=== PATIENT | male | born 1955 | race Hispanic/Latino ===

== ENCOUNTER 2023-02-26 15:46 | Emergency (ER) | payer MEDICARE ==
--- OUTSIDE RECORDS SUMMARY | 2023-02-26 15:53 | XMS REPORT | Continuity of Care Document ---
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 Total knee 1{tbl} Take 1 Ndiaye -acetaminop 1-13 replacement tablet by [facility] [employer] [employer] ([place]og[place]) 00:00: status mouth 7.5-325 mg 00 every 6 tablet hours as needed for Pain. HYDROcodone Yes Total knee 1{tbl} Take 1 Ndiaye -acetaminop 1-13 replacement tablet by [facility] ([facility]) 00:00: status mouth 7.5-325 mg 00 every 6 tablet hours as needed for Pain. HYDROcodone Yes Left knee 2{tbl} Take 2 Ndiaye -acetaminop 1-07 pain tablets by [facility] (SILVERTHORNE) 00:00: mouth 5-325 mg 00 every 6 tablet hours as needed for Pain. HYDROcodone Yes Left knee 2{tbl} Take 2 Ndiaye -acetaminop 1-07 pain tablets by [facility] (SILVERTHORNE) 00:00: mouth 5-325 mg 00 every 6 tablet hours as needed for Pain. HYDROcodone 2012-10 Yes Left knee 1{tbl} Take 1 Ndiaye -acetaminop 2-23 pain tablet by [facility] (SILVERTHORNE) 00:00: mouth 10-325 mg 00 every 6 tablet hours as needed for Pain. HYDROcodone 2012-10 Yes Left knee 1{tbl} Take 1 Ndiaye -acetaminop 2-23 pain tablet by [facility] (SILVERTHORNE) 00:00: mouth 10-325 mg 00 every 6 tablet hours as needed for Pain. omeprazole 2011-10 Yes GERD 20mg QD Take 1 Harri s (PRILOSEC) 1-12 (gastroesop capsule by [facility] 20 mg 00:00: hageal mouth delayed 00 reflux daily. release disease) capsule omeprazole 2011-10 Yes GERD 20mg QD Take 1 [facility] (PRILOSEC) 1-12 (gastroesop capsule by [facility] 20 mg 00:00: hageal mouth delayed 00 reflux daily. release disease) capsule tamsulosin Yes BPH (benign .4mg QD Take 1 Ndiaye (FLOMAX) 6-05 prostatic capsule by [facility] 0.4 mg 24 00:00: hyperplasia mouth hr capsule 00 ) daily. finasteride Yes BPH (benign 5mg QD Take 1 Ndiaye (PROSCAR) 5 6-05 prostatic tablet by [facility] mg tablet 00:00: hyperplasia mouth 00 ) daily. tamsulosin Yes BPH (benign .4mg QD Take 1 Ndiaye (FLOMAX) 6-05 prostatic capsule by [facility] 0.4 mg 24 00:00: hyperplasia mouth hr capsule 00 ) daily. finasteride Yes BPH (benign 5mg QD Take 1 Ndiaye (PROSCAR) 5 6-05 prostatic tablet by [facility] mg tablet 00:00: hyperplasia mouth 00 ) daily. niacin, Yes Hypertrigly 1000mg Take 1 Ndiaye antihyperli 2-28 ceridemia tablet by [facility] pidemic, 00:00: mouth at (NIASPAN) 00 bedtime. 1,000 mg delayes release tablet fexofenadin Yes Nasal 180mg QD Take 1 [facility]ris e (CLAUDE) 2-28 septal tablet by [facility] 180 mg 00:00: deviation mouth tablet 00 daily. niacin, Yes Hypertrigly 1000mg Take 1 Ndiaye antihyperli 2-28 ceridemia tablet by [facility], 00:00: mouth at (NIASPAN) 00 bedtime. 1,000 mg delayes release tablet fexofenadin Yes Nasal 180mg QD Take 1 [facility]ris e (CLAUDE) 2-28 septal tablet by [facility] 180 mg 00:00: deviation mouth tablet 00 daily. fluticasone 2010-10 Yes Nasal 2{spray QD Administer Ndiaye (FLONASE) 2-12 septal } 2 Sprays Heal 00:00: deviation in each mcg/Actuati 00 nostrils on nasal daily. spray fluticasone 2010-10 Yes Nasal 2{spray QD Administer Ndiaye (FLONASE) 2-12 septal } 2 Sprays Heal 00:00: deviation in each mcg/Actuati 00 nostrils on nasal daily. spray hydrOXYzine hydrOXYzine No hydrOXYzin HCl 50 MG HCl 50 MG e HCl 50 MG VESIcare 10 VESIcare 10 No 1{table QD VESIcare MG MG t} 10 MG Fenofibrate Fenofibrate No 1{capsu QD Fenofibrat 200 MG 200 MG le_with e 200 MG _a_meal } Atorvastati Atorvastati No 1{table QD Atorvastat n Calcium n Calcium t} in Calcium 10 MG 10 MG 10 MG metFORMIN metFORMIN No metFORMIN HCl 500 MG HCl 500 MG HCl 500 MG metFORMIN metFORMIN No 1{table QD metFORMIN HCl 500 MG HCl 500 MG t_with_ HCl 500 MG a_meal} Carvedilol Carvedilol No 1{table BID Carvedilol 3.125 MG 3.125 MG t_with_ 3.125 MG food} Aspirin 81 Aspirin 81 No 1{table QD Aspirin 81 81 MG 81 MG t} 81 MG metFORMIN metFORMIN No metFORMIN HCl 500 MG HCl 500 MG HCl 500 MG Atorvastati Atorvastati No 1{table QD Atorvastat n Calcium n Calcium t} in Calcium 10 MG 10 MG 10 MG Aspirin 81 Aspirin 81 No 1{table QD Aspirin 81 81 MG 81 MG t} 81 MG Diclofenac Diclofenac No TID Diclofenac Sodium 1 % Sodium 1 % Sodium 1 % Carvedilol Carvedilol No 1{table BID Carvedilol 3.125 MG 3.125 MG t_with_ 3.125 MG food} metFORMIN metFORMIN No 1{table QD metFORMIN HCl 500 MG HCl 500 MG t_with_ HCl 500 MG a_meal} Fenofibrate Fenofibrate No 1{capsu QD Fenofibrat 200 MG 200 MG le_with e 200 MG _a_meal } metFORMIN metFORMIN No metFORMIN HCl 500 MG HCl 500 MG HCl 500 MG Fenofibrate Fenofibrate No 1{capsu QD Fenofibrat 200 MG 200 MG le_with e 200 MG _a_meal } Aspirin 81 Aspirin 81 No 1{table QD Aspirin 81 81 MG 81 MG t} 81 MG Atorvastati Atorvastati No 1{table QD Atorvastat n Calcium n Calcium t} in Calcium 10 MG 10 MG 10 MG Carvedilol Carvedilol No 1{table BID Carvedilol 3.125 MG 3.125 MG t_with_ 3.125 MG food} metFORMIN metFORMIN No 1{table QD metFORMIN HCl 500 MG HCl 500 MG t_with_ HCl 500 MG a_meal} Diclofenac Diclofenac No TID Diclofenac Sodium 1 % Sodium 1 % Sodium 1 % metFORMIN metFORMIN No metFORMIN HCl 500 MG HCl 500 MG HCl 500 MG Fenofibrate Fenofibrate No 1{capsu QD Fenofibrat 200 MG 200 MG le_with e 200 MG _a_meal } Aspirin 81 Aspirin 81 No 1{table QD Aspirin 81 81 MG 81 MG t} 81 MG Atorvastati Atorvastati No 1{table QD Atorvastat n Calcium n Calcium t} in Calcium 10 MG 10 MG 10 MG Carvedilol Carvedilol No 1{table BID Carvedilol 3.125 MG 3.125 MG t_with_ 3.125 MG food} metFORMIN metFORMIN No 1{table QD metFORMIN HCl 500 MG HCl 500 MG t_with_ HCl 500 MG a_meal} Diclofenac Diclofenac No TID Diclofenac Sodium 1 % Sodium 1 % Sodium 1 % metFORMIN metFORMIN No metFORMIN HCl 500 MG HCl 500 MG HCl 500 MG Fenofibrate Fenofibrate No 1{capsu QD Fenofibrat 200 MG 200 MG le_with e 200 MG _a_meal } Aspirin 81 Aspirin 81 No 1{table QD Aspirin 81 81 MG 81 MG t} 81 MG Atorvastati Atorvastati No 1{table QD Atorvastat n Calcium n Calcium t} in Calcium 10 MG 10 MG 10 MG Carvedilol Carvedilol No 1{table BID Carvedilol 3.125 MG 3.125 MG t_with_ 3.125 MG food} metFORMIN metFORMIN No 1{table QD metFORMIN HCl 500 MG HCl 500 MG t_with_ HCl 500 MG a_meal} Diclofenac Diclofenac No TID Diclofenac Sodium 1 % Sodium 1 % Sodium 1 % metFORMIN metFORMIN No metFORMIN HCl 500 MG HCl 500 MG HCl 500 MG Carvedilol Carvedilol No 1{table BID Carvedilol 3.125 MG 3.125 MG t_with_ 3.125 MG food} Aspirin 81 Aspirin 81 No 1{table QD Aspirin 81 81 MG 81 MG t} 81 MG hydrOXYzine hydrOXYzine No hydrOXYzin HCl 25 MG HCl 25 MG e HCl 25 MG Fenofibrate Fenofibrate No 1{capsu QD Fenofibrat 200 MG 200 MG le_with e 200 MG _a_meal } Diclofenac Diclofenac No TID Diclofenac Sodium 1 % Sodium 1 % Sodium 1 % metFORMIN metFORMIN No 1{table QD metFORMIN HCl 500 MG HCl 500 MG t_with_ HCl 500 MG a_meal} Atorvastati Atorvastati No 1{table QD Atorvastat n Calcium n Calcium t} in Calcium 10 MG 10 MG 10 MG metFORMIN metFORMIN No metFORMIN HCl 500 MG HCl 500 MG HCl 500 MG Carvedilol Carvedilol No 1{table BID Carvedilol 3.125 MG 3.125 MG t_with_ 3.125 MG food} Aspirin 81 Aspirin 81 No 1{table QD Aspirin 81 81 MG 81 MG t} 81 MG hydrOXYzine hydrOXYzine No hydrOXYzin HCl 25 MG HCl 25 MG e HCl 25 MG Fenofibrate Fenofibrate No 1{capsu QD Fenofibrat 200 MG 200 MG le_with e 200 MG _a_meal } Diclofenac Diclofenac No TID Diclofenac Sodium 1 % Sodium 1 % Sodium 1 % metFORMIN metFORMIN No 1{table QD metFORMIN HCl 500 MG HCl 500 MG t_with_ HCl 500 MG a_meal} Atorvastati Atorvastati No 1{table QD Atorvastat n Calcium n Calcium t} in Calcium 10 MG 10 MG 10 MG metFORMIN metFORMIN No metFORMIN HCl 500 MG HCl 500 MG HCl 500 MG Carvedilol Carvedilol No 1{table BID Carvedilol 3.125 MG 3.125 MG t_with_ 3.125 MG food} Aspirin 81 Aspirin 81 No 1{table QD Aspirin 81 81 MG 81 MG t} 81 MG hydrOXYzine hydrOXYzine No hydrOXYzin HCl 25 MG HCl 25 MG e HCl 25 MG Fenofibrate Fenofibrate No 1{capsu QD Fenofibrat 200 MG 200 MG le_with e 200 MG _a_meal } Diclofenac Diclofenac No TID Diclofenac Sodium 1 % Sodium 1 % Sodium 1 % metFORMIN metFORMIN No 1{table QD metFORMIN HCl 500 MG HCl 500 MG t_with_ HCl 500 MG a_meal} Atorvastati Atorvastati No 1{table QD Atorvastat n Calcium n Calcium t} in Calcium 10 MG 10 MG 10 MG hydrOXYzine hydrOXYzine No hydrOXYzin HCl 50 MG HCl 50 MG e HCl 50 MG Diclofenac Diclofenac No TID Diclofenac Sodium 1 % Sodium 1 % Sodium 1 % metFORMIN metFORMIN No 1{table QD metFORMIN HCl 500 MG HCl 500 MG t_with_ HCl 500 MG a_meal} Carvedilol Carvedilol No 1{table BID Carvedilol 3.125 MG 3.125 MG t_with_ 3.125 MG food} Atorvastati Atorvastati No 1{table QD Atorvastat n Calcium n Calcium t} in Calcium 10 MG 10 MG 10 MG Fenofibrate Fenofibrate No 1{capsu QD Fenofibrat 200 MG 200 MG le_with e 200 MG _a_meal } Aspirin 81 Aspirin 81 No 1{table QD Aspirin 81 81 MG 81 MG t} 81 MG hydrOXYzine hydrOXYzine No hydrOXYzin HCl 25 MG HCl 25 MG e HCl 25 MG metFORMIN metFORMIN No metFORMIN HCl 500 MG HCl 500 MG HCl 500 MG hydrOXYzine hydrOXYzine No hydrOXYzin HCl 50 MG HCl 50 MG e HCl 50 MG Diclofenac Diclofenac No TID Diclofenac Sodium 1 % Sodium 1 % Sodium 1 % metFORMIN metFORMIN No 1{table QD metFORMIN HCl 500 MG HCl 500 MG t_with_ HCl 500 MG a_meal} Carvedilol Carvedilol No 1{table BID Carvedilol 3.125 MG 3.125 MG t_with_ 3.125 MG food} Atorvastati Atorvastati No 1{table QD Atorvastat n Calcium n Calcium t} in Calcium 10 MG 10 MG 10 MG Fenofibrate Fenofibrate No 1{capsu QD Fenofibrat 200 MG 200 MG le_with e 200 MG _a_meal } Aspirin 81 Aspirin 81 No 1{table QD Aspirin 81 81 MG 81 MG t} 81 MG hydrOXYzine hydrOXYzine No hydrOXYzin HCl 25 MG HCl 25 MG e HCl 25 MG metFORMIN metFORMIN No metFORMIN HCl 500 MG HCl 500 MG HCl 500 MG Aspirin 81 Aspirin 81 No 1{table QD Aspirin 81 81 MG 81 MG t} 81 MG metFORMIN metFORMIN No 1{table QD metFORMIN HCl 500 MG HCl 500 MG t_with_ HCl 500 MG a_meal} Fenofibrate Fenofibrate No 1{capsu QD Fenofibrat 200 MG 200 MG le_with e 200 MG _a_meal } hydrOXYzine hydrOXYzine No hydrOXYzin HCl 50 MG HCl 50 MG e HCl 50 MG Diclofenac Diclofenac No TID Diclofenac Sodium 1 % Sodium 1 % Sodium 1 % Carvedilol Carvedilol No 1{table BID Carvedilol 3.125 MG 3.125 MG t_with_ 3.125 MG food} hydrOXYzine hydrOXYzine No hydrOXYzin HCl 25 MG HCl 25 MG e HCl 25 MG Atorvastati Atorvastati No 1{table QD Atorvastat n Calcium n Calcium t} in Calcium 10 MG 10 MG 10 MG metFORMIN metFORMIN No metFORMIN HCl 500 MG HCl 500 MG HCl 500 MG Aspirin 81 Aspirin 81 No 1{table QD Aspirin 81 81 MG 81 MG t} 81 MG Carvedilol Carvedilol No 1{table BID Carvedilol 3.125 MG 3.125 MG t_with_ 3.125 MG food} Fenofibrate Fenofibrate No 1{capsu QD Fenofibrat 200 MG 200 MG le_with e 200 MG _a_meal } metFORMIN metFORMIN No 1{table QD metFORMIN HCl 500 MG HCl 500 MG t_with_ HCl 500 MG a_meal} hydrOXYzine hydrOXYzine No hydrOXYzin HCl 50 MG HCl 50 MG e HCl 50 MG Diclofenac Diclofenac No TID Diclofenac Sodium 1 % Sodium 1 % Sodium 1 % hydrOXYzine hydrOXYzine No hydrOXYzin HCl 25 MG HCl 25 MG e HCl 25 MG Atorvastati Atorvastati No 1{table QD Atorvastat n Calcium n Calcium t} in Calcium 10 MG 10 MG 10 MG metFORMIN metFORMIN No metFORMIN HCl 500 MG HCl 500 MG HCl 500 MG hydrOXYzine hydrOXYzine No hydrOXYzin HCl 25 MG HCl 25 MG e HCl 25 MG Atorvastati Atorvastati No 1{table QD Atorvastat n Calcium n Calcium t} in Calcium 10 MG 10 MG 10 MG Fenofibrate Fenofibrate No 1{capsu QD Fenofibrat 200 MG 200 MG le_with e 200 MG _a_meal } hydrOXYzine hydrOXYzine No hydrOXYzin HCl 50 MG HCl 50 MG e HCl 50 MG metFORMIN metFORMIN No 1{table QD metFORMIN HCl 500 MG HCl 500 MG t_with_ HCl 500 MG a_meal} metFORMIN metFORMIN No metFORMIN HCl 500 MG HCl 500 MG HCl 500 MG Aspirin 81 Aspirin 81 No 1{table QD Aspirin 81 81 MG 81 MG t} 81 MG Diclofenac Diclofenac No TID Diclofenac Sodium 1 % Sodium 1 % Sodium 1 % Carvedilol Carvedilol No 1{table BID Carvedilol 3.125 MG 3.125 MG t_with_ 3.125 MG food} Fenofibrate Fenofibrate No 1{capsu QD Fenofibrat 200 MG 200 MG le_with e 200 MG _a_meal } hydrOXYzine hydrOXYzine No hydrOXYzin HCl 50 MG HCl 50 MG e HCl 50 MG Diclofenac Diclofenac No TID Diclofenac Sodium 1 % Sodium 1 % Sodium 1 % Fenofibrate Fenofibrate No Fenofibrat Micronized Micronized e 200 MG 200 MG Micronized 200 MG Atorvastati Atorvastati No 1{table QD Atorvastat n Calcium n Calcium t} in Calcium 10 MG 10 MG 10 MG Carvedilol Carvedilol No Carvedilol 3.125 MG 3.125 MG 3.125 MG Carvedilol Carvedilol No 1{table BID Carvedilol 3.125 MG 3.125 MG t_with_ 3.125 MG food} metFORMIN metFORMIN No 1{table QD metFORMIN HCl 500 MG HCl 500 MG t_with_ HCl 500 MG a_meal} Aspirin 81 Aspirin 81 No 1{table QD Aspirin 81 81 MG 81 MG t} 81 MG Fenofibrate Fenofibrate No Fenofibrat Micronized Micronized e 200 MG 200 MG Micronized 200 MG Carvedilol Carvedilol No 1{table BID Carvedilol 3.125 MG 3.125 MG t_with_ 3.125 MG food} metFORMIN metFORMIN No 1{table QD metFORMIN HCl 500 MG HCl 500 MG t_with_ HCl 500 MG a_meal} Aspirin 81 Aspirin 81 No 1{table QD Aspirin 81 81 MG 81 MG t} 81 MG Atorvastati Atorvastati No 1{table QD Atorvastat n Calcium n Calcium t} in Calcium 10 MG 10 MG 10 MG Fenofibrate Fenofibrate No 1{capsu QD Fenofibrat 200 MG 200 MG le_with e 200 MG _a_meal } Carvedilol Carvedilol No Carvedilol 3.125 MG 3.125 MG 3.125 MG Diclofenac Diclofenac No TID Diclofenac Sodium 1 % Sodium 1 % Sodium 1 % hydrOXYzine hydrOXYzine No hydrOXYzin HCl 50 MG HCl 50 MG e HCl 50 MG Fenofibrate Fenofibrate No Fenofibrat Micronized Micronized e 200 MG 200 MG Micronized 200 MG Fenofibrate Fenofibrate No 1{capsu QD Fenofibrat 200 MG 200 MG le_with e 200 MG _a_meal } Carvedilol Carvedilol No 1{table BID Carvedilol 3.125 MG 3.125 MG t_with_ 3.125 MG food} Aspirin 81 Aspirin 81 No 1{table QD Aspirin 81 81 MG 81 MG t} 81 MG Atorvastati Atorvastati No 1{table QD Atorvastat n Calcium n Calcium t} in Calcium 10 MG 10 MG 10 MG hydrOXYzine hydrOXYzine No hydrOXYzin HCl 50 MG HCl 50 MG e HCl 50 MG Diclofenac Diclofenac No TID Diclofenac Sodium 1 % Sodium 1 % Sodium 1 % Carvedilol Carvedilol No Carvedilol 3.125 MG 3.125 MG 3.125 MG metFORMIN metFORMIN No metFORMIN HCl 500 MG HCl 500 MG HCl 500 MG Fenofibrate Fenofibrate No Fenofibrat Micronized Micronized e 200 MG 200 MG Micronized 200 MG Fenofibrate Fenofibrate No 1{capsu QD Fenofibrat 200 MG 200 MG le_with e 200 MG _a_meal } Carvedilol Carvedilol No 1{table BID Carvedilol 3.125 MG 3.125 MG t_with_ 3.125 MG food} Aspirin 81 Aspirin 81 No 1{table QD Aspirin 81 81 MG 81 MG t} 81 MG Atorvastati Atorvastati No 1{table QD Atorvastat n Calcium n Calcium t} in Calcium 10 MG 10 MG 10 MG hydrOXYzine hydrOXYzine No hydrOXYzin HCl 50 MG HCl 50 MG e HCl 50 MG Diclofenac Diclofenac No TID Diclofenac Sodium 1 % Sodium 1 % Sodium 1 % Carvedilol Carvedilol No Carvedilol 3.125 MG 3.125 MG 3.125 MG metFORMIN metFORMIN No metFORMIN HCl 500 MG HCl 500 MG HCl 500 MG Atorvastati Atorvastati No 1{table QD Atorvastat n Calcium n Calcium t} in Calcium 10 MG 10 MG 10 MG hydrOXYzine hydrOXYzine No hydrOXYzin HCl 50 MG HCl 50 MG e HCl 50 MG Aspirin 81 Aspirin 81 No 1{table QD Aspirin 81 81 MG 81 MG t} 81 MG Carvedilol Carvedilol No Carvedilol 3.125 MG 3.125 MG 3.125 MG Diclofenac Diclofenac No TID Diclofenac Sodium 1 % Sodium 1 % Sodium 1 % metFORMIN metFORMIN No metFORMIN HCl 500 MG HCl 500 MG HCl 500 MG Carvedilol Carvedilol No 1{table BID Carvedilol 3.125 MG 3.125 MG t_with_ 3.125 MG food} Fenofibrate Fenofibrate No Fenofibrat Micronized Micronized e 200 MG 200 MG Micronized 200 MG Fenofibrate Fenofibrate No 1{capsu QD Fenofibrat 200 MG 200 MG le_with e 200 MG _a_meal } hydrOXYzine hydrOXYzine No hydrOXYzin HCl 50 MG HCl 50 MG e HCl 50 MG VESIcare 10 VESIcare 10 No 1{table QD VESIcare MG MG t} 10 MG Fenofibrate Fenofibrate No 1{capsu QD Fenofibrat 200 MG 200 MG le_with e 200 MG _a_meal } Atorvastati Atorvastati No 1{table QD Atorvastat n Calcium n Calcium t} in Calcium 10 MG 10 MG 10 MG metFORMIN metFORMIN No metFORMIN HCl 500 MG HCl 500 MG HCl 500 MG metFORMIN metFORMIN No 1{table QD metFORMIN HCl 500 MG HCl 500 MG t_with_ HCl 500 MG a_meal} Carvedilol Carvedilol No 1{table BID Carvedilol 3.125 MG 3.125 MG t_with_ 3.125 MG food} Aspirin 81 Aspirin 81 No 1{table QD Aspirin 81 81 MG 81 MG t} 81 MG hydrOXYzine hydrOXYzine No hydrOXYzin HCl 50 MG HCl 50 MG e HCl 50 MG VESIcare 10 VESIcare 10 No 1{table QD VESIcare MG MG t} 10 MG Fenofibrate Fenofibrate No 1{capsu QD Fenofibrat 200 MG 200 MG le_with e 200 MG _a_meal } Atorvastati Atorvastati No 1{table QD Atorvastat n Calcium n Calcium t} in Calcium 10 MG 10 MG 10 MG metFORMIN metFORMIN No metFORMIN HCl 500 MG HCl 500 MG HCl 500 MG metFORMIN metFORMIN No 1{table QD metFORMIN HCl 500 MG HCl 500 MG t_with_ HCl 500 MG a_meal} Carvedilol Carvedilol No 1{table BID Carvedilol 3.125 MG 3.125 MG t_with_ 3.125 MG food} Aspirin 81 Aspirin 81 No 1{table QD Aspirin 81 81 MG 81 MG t} 81 MG hydrOXYzine hydrOXYzine No hydrOXYzin HCl 50 MG HCl 50 MG e HCl 50 MG Fenofibrate Fenofibrate No 1{capsu QD Fenofibrat 200 MG 200 MG le_with e 200 MG _a_meal } Carvedilol Carvedilol No 1{table BID Carvedilol 3.125 MG 3.125 MG t_with_ 3.125 MG food} Aspirin 81 Aspirin 81 No 1{table QD Aspirin 81 81 MG 81 MG t} 81 MG Atorvastati Atorvastati No Atorvastat n Calcium n Calcium in Calcium 10 MG 10 MG 10 MG metFORMIN metFORMIN No 1{table QD metFORMIN HCl 500 MG HCl 500 MG t_with_ HCl 500 MG a_meal} metFORMIN metFORMIN No metFORMIN HCl 500 MG HCl 500 MG HCl 500 MG VESIcare 10 VESIcare 10 No 1{table QD VESIcare MG MG t} 10 MG Atorvastati Atorvastati No Atorvastat n Calcium n Calcium in Calcium 10 MG 10 MG 10 MG hydrOXYzine hydrOXYzine No hydrOXYzin HCl 50 MG HCl 50 MG e HCl 50 MG metFORMIN metFORMIN No 1{table QD metFORMIN HCl 500 MG HCl 500 MG t_with_ HCl 500 MG a_meal} Carvedilol Carvedilol No 1{table BID Carvedilol 3.125 MG 3.125 MG t_with_ 3.125 MG food} Aspirin 81 Aspirin 81 No 1{table QD Aspirin 81 81 MG 81 MG t} 81 MG Fenofibrate Fenofibrate No 1{capsu QD Fenofibrat 200 MG 200 MG le_with e 200 MG _a_meal } metFORMIN metFORMIN No metFORMIN HCl 500 MG HCl 500 MG HCl 500 MG Carvedilol Carvedilol No 1{table BID Carvedilol 3.125 MG 3.125 MG t_with_ 3.125 MG food} Aspirin 81 Aspirin 81 No 1{table QD Aspirin 81 81 MG 81 MG t} 81 MG hydrOXYzine hydrOXYzine No hydrOXYzin HCl 50 MG HCl 50 MG e HCl 50 MG Fenofibrate Fenofibrate No 1{capsu QD Fenofibrat 200 MG 200 MG le_with e 200 MG _a_meal } metFORMIN metFORMIN No 1{table QD metFORMIN HCl 500 MG HCl 500 MG t_with_ HCl 500 MG a_meal} Atorvastati Atorvastati No Atorvastat n Calcium n Calcium in Calcium 10 MG 10 MG 10 MG metFORMIN metFORMIN No metFORMIN HCl 500 MG HCl 500 MG HCl 500 MG Fenofibrate Fenofibrate No Fenofibrat Micronized Micronized e 200 MG 200 MG Micronized 200 MG Aspirin 81 Aspirin 81 No 1{table QD Aspirin 81 81 MG 81 MG t} 81 MG hydrOXYzine hydrOXYzine No hydrOXYzin HCl 50 MG HCl 50 MG e HCl 50 MG metFORMIN metFORMIN No metFORMIN HCl 500 MG HCl 500 MG HCl 500 MG metFORMIN metFORMIN No 1{table QD metFORMIN HCl 500 MG HCl 500 MG t_with_ HCl 500 MG a_meal} Atorvastati Atorvastati No Atorvastat n Calcium n Calcium in Calcium 10 MG 10 MG 10 MG Carvedilol Carvedilol No Carvedilol 3.125 MG 3.125 MG 3.125 MG Fenofibrate Fenofibrate No Fenofibrat Micronized Micronized e 200 MG 200 MG Micronized 200 MG metFORMIN metFORMIN No 1{table QD metFORMIN HCl 500 MG HCl 500 MG t_with_ HCl 500 MG a_meal} Atorvastati Atorvastati No Atorvastat n Calcium n Calcium in Calcium 10 MG 10 MG 10 MG metFORMIN metFORMIN No metFORMIN HCl 500 MG HCl 500 MG HCl 500 MG Carvedilol Carvedilol No Carvedilol 3.125 MG 3.125 MG 3.125 MG Aspirin 81 Aspirin 81 No 1{table QD Aspirin 81 81 MG 81 MG t} 81 MG hydrOXYzine hydrOXYzine No hydrOXYzin HCl 50 MG HCl 50 MG e HCl 50 MG VESIcare 10 VESIcare 10 No 1{table QD [facility]care MG MG 08-28 t} 10 MG 00:00 :00 VESIcare 10 VESIcare 10 2022- No 1{table QD [facility] MG MG 04-17 t} 10 MG 00:00 :00 [facility]care 10 VESIcare 10 2022- No 1{table QD [facility] MG MG 04-17 t} 10 MG 00:00 :00 [facility] 10 VESIcare 10 2022- No 1{table QD [facility] MG MG 04-17 t} 10 MG 00:00 :00 Immunizations Ordered Immunization Filled Immunization Date Status Commen ts Source Name Name Moderna COVID-19 Moderna COVID-19 2021-09-03 Completed [facility] 10[facility]37:00 - [facility] Moderna COVID-19 Moderna COVID-19 2021-09-03 Completed [facility] Vacc[facility] 10:37:00 [facility] Moderna COVID-19 Moderna COVID-19 2021-09-03 Completed [facility] Vaccine 10:37:00 [facility] Moderna COVID-19 Moderna COVID-19 2021-09-03 Completed [facility] Vaccine 10:37:00 [facility] Moderna COVID-19 Moderna COVID-19 2021-09-03 Completed [facility] Vaccine 10:37:00 [facility] Moderna COVID-19 Moderna COVID-19 2021-09-03 Completed [facility] Vaccine 10:37:00 [facility] Moderna COVID-19 Moderna COVID-19 2021-09-03 Completed [facility] Vaccine 10:37:00 [facility] Moderna COVID-19 Moderna COVID-19 2021-09-03 Completed [facility] Vaccine 10:37:00 [facility] Moderna COVID-19 Moderna COVID-19 2021-09-03 Completed [facility] Vaccine 10:37:00 [facility] Moderna COVID-19 Moderna COVID-19 2021-09-03 Completed [facility] Vaccine 10:37:00 - [facility] Moderna COVID-19 Moderna COVID-19 2021-09-03 Completed [facility] Vaccine 10:37:00 - [facility] Moderna COVID-19 Moderna COVID-19 2021-09-03 Completed [facility] Vaccine 10:37:00 - [facility] Moderna COVID-19 Moderna COVID-19 2021-09-03 Completed [facility] Vaccine Vaccine 10:37:00 - [facility] Moderna COVID-19 Moderna COVID-19 2021-09-03 Completed [facility] Vaccine Vaccine 10:37:00 - [facility] Moderna COVID-19 Moderna COVID-19 2021-09-03 Completed [facility]ine Vaccine 10:37:00 - [facility] Moderna COVID-19 Moderna COVID-19 2021-09-03 Completed [facility] Vaccine Vaccine 10:37:00 - [facility] Moderna COVID-19 Moderna COVID-19 2021-09-03 Completed [facility]ine Vaccine 10:37:00 - [facility] Moderna COVID-19 Moderna COVID-19 2021-09-03 Completed [facility] Vaccine Vaccine 10:37:00 - [facility] Moderna COVID-19 Moderna COVID-19 2021-09-03 Completed [facility] Vaccine Vaccine 10:37:00 - [facility] Moderna COVID-19 Moderna COVID-19 2021-09-03 [facility] 10:37:00 - [facility] Moderna COVID-19 Moderna COVID-19 2021-09-03 Completed [facility] Vaccine Vaccine 10:37:00 - [facility] Moderna COVID-19 Moderna COVID-19 2021-09-03 Completed [facility]ine Vaccine 10:37:00 - [facility] Moderna COVID-19 Moderna COVID-19 2021-09-03 Completed [facility]ine Vaccine 10:37:00 - [facility] FluAD FluAD 2021-06-20 [facility] 09:45:00 - [facility] FluAD FluAD 2021-06-20 [facility] 09:45:00 - [facility] FluAD FluAD 2021-06-20 [facility] 09:45:00 - [facility] FluAD FluAD 2021-06-20 [facility] 09:45:00 - [facility] FluAD FluAD 2021-06-20 [facility] 09[facility]45:00 - [facility] FluAD FluAD 2021-06-20 [facility] 09:45:00 - [facility] FluAD FluAD 2021-06-20 [facility] 09:45:00 - [facility] FluAD FluAD 2021-06-20 [facility] 09:45:00 - [facility] FluAD FluAD 2021-06-20 [facility] 09[facility]45:00 - [facility] FluAD FluAD 2021-06-20 [facility] 09:45:00 - [facility] FluAD FluAD 2021-06-20 [facility] 09:45:00 - [facility] FluAD FluAD 2021-06-20 [facility] 09[facility]45:00 - [facility] FluAD FluAD 2021-06-20 [facility] 09:45:00 - [facility] FluAD FluAD 2021-06-20 [facility] 09:45:00 - [facility] FluAD FluAD 2021-06-20 [facility] 09:45:00 - [facility] FluAD FluAD 2021-06-20 [facility] 09:45:00 - [facility] FluAD FluAD 2021-06-20 [facility] 09:45:00 - [facility] FluAD FluAD 2021-06-20 [facility] 09:45:00 - [facility] FluAD FluAD 2021-06-20 [facility] 09:45:00 - [facility] FluAD FluAD 2021-06-20 Com[facility] 09:45:00 - [facility] FluAD FluAD 2021-06-20 Com[facility] 09:45:00 - [facility] FluAD FluAD 2021-06-20 [facility] 09:45:00 - [facility] FluAD FluAD 2021-06-20 [facility] 09:45:00 - [facility] FluAD FluAD 2021-06-20 [facility] 09:45:00 - [facility] FluAD FluAD 2021-06-20 Completed [facility] 09:45:00 - [facility] Pneumovax (PPSV23) Pneumovax (PPSV23) 2021-06-20 [facility]pleted [facility] 09:44:00 - [facility] Pneumovax (PPSV23) Pneumovax (PPSV23) 2021-06-20 [facility]pleted [facility] 09:44:00 - [facility] Pneumovax (PPSV23) Pneumovax (PPSV23) 2021-06-20 [facility]pleted [facility] 09:44:00 - [facility] Pneumovax (PPSV23) Pneumovax (PPSV23) 2021-06-20 [facility]pleted [facility] 09:44:00 - [facility] Pneumovax (PPSV23) Pneumovax (PPSV23) 2021-06-20 [facility]pleted [facility] 09:44:00 - [facility] Pneumovax (PPSV23) Pneumovax (PPSV23) 2021-06-20 [facility] 09:44:00 - [facility] Pneumovax (PPSV23) Pneumovax (PPSV23) 2021-06-20 [facility]pleted [facility] 09:44:00 [facility] Pneumovax (PPSV23) Pneumovax (PPSV23) 2021-06-20 [facility]pleted [facility] 09:44:00 [facility] Pneumovax (PPSV23) Pneumovax (PPSV23) 2021-06-20 [facility]pleted [facility] 09:44:00 [facility] Pneumovax (PPSV23) Pneumovax (PPSV23) 2021-06-20 [facility]:00 [facility] Pneumovax (PPSV23) Pneumovax (PPSV23) 2021-06-20 Completed [facility] 09:44:00 [facility] Pneumovax (PPSV23) Pneumovax (PPSV23) 2021-06-20 [facility] 09:44:00 [facility] Pneumovax (PPSV23) Pneumovax (PPSV23) 2021-06-20 [facility]pleted [facility] 09:44:00 [facility] Pneumovax (PPSV23) Pneumovax (PPSV23) 2021-06-20 [facility]pleted [facility] 09:44:00 [facility] Pneumovax (PPSV23) Pneumovax (PPSV23) 2021-06-20 [facility] 09:44:00 [facility] Pneumovax (PPSV23) Pneumovax (PPSV23) 2021-06-20 [facility]pleted [facility] 09:44:00 - [facility] Pneumovax (PPSV23) Pneumovax (PPSV23) 2021-06-20 [facility] 09:44:00 [facility] Pneumovax (PPSV23) Pneumovax (PPSV23) 2021-06-20 [facility] 09:44:00 [facility] Pneumovax (PPSV23) Pneumovax (PPSV23) 2021-06-20 [facility]pleted [facility] 09:44:00 [facility] Pneumovax (PPSV23) Pneumovax (PPSV23) 2021-06-20 [facility]pleted [facility] 09:44:00 [facility] Pneumovax (PPSV23) Pneumovax (PPSV23) 2021-06-20 [facility] 09:44:00 [facility] Pneumovax (PPSV23) Pneumovax (PPSV23) 2021-06-20 [facility] 09:44:00 [facility] Pneumovax (PPSV23) Pneumovax (PPSV23) 2021-06-20 [facility] 09:44:00 [facility] Pneumovax (PPSV23) Pneumovax (PPSV23) 2021-06-20 [facility]pleted [facility] 09:44:00 - [facility] Pneumovax (PPSV23) Pneumovax (PPSV23) 2021-06-20 Completed [facility] 09:44:00 - [facility] Moderna COVID-19 Moderna COVID-19 2020-12-07 Completed [facility] Vaccine Vaccine 11:36:00 - [facility] Moderna COVID-19 Moderna COVID-19 2020-12-07 Completed [facility]ine Vaccine 11:36:00 - [facility] Moderna COVID-19 Moderna COVID-19 2020-12-07 Completed [facility]ine Vaccine 11:36:00 - [facility] Moderna COVID-19 Moderna COVID-19 2020-12-07 Completed [facility]ine Vaccine 11:36:00 - [facility] Moderna COVID-19 Moderna COVID-19 2020-12-07 Completed [facility]ine Vaccine 11:36:00 - [facility] Moderna COVID-19 Moderna COVID-19 2020-12-07 Completed [facility]ine Vaccine 11:36:00 - [facility] Moderna COVID-19 Moderna COVID-19 2020-12-07 Completed [facility]ine Vaccine 11:36:00 - [facility] Moderna COVID-19 Moderna COVID-19 2020-12-07 Completed [facility]ine Vaccine 11:36:00 - [facility] Moderna COVID-19 Moderna COVID-19 2020-12-07 Completed [facility]ine Vaccine 11:36:00 - [facility] Moderna COVID-19 Moderna COVID-19 2020-12-07 Completed [facility]ine Vaccine 11:36:00 - [facility] Moderna COVID-19 Moderna COVID-19 2020-12-07 Completed [facility]ine Vaccine 11:36:00 - [facility] Moderna COVID-19 Moderna COVID-19 2020-12-07 Completed [facility]ine Vaccine 11:36:00 - [facility] Moderna COVID-19 Moderna COVID-19 2020-12-07 Completed [facility]ine Vaccine 11:36:00 - [facility] Moderna COVID-19 Moderna COVID-19 2020-12-07 Completed [facility]ine Vaccine 11:36:00 - [facility] Moderna COVID-19 Moderna COVID-19 2020-12-07 Completed [facility]ine Vaccine 11:36:00 - [facility] Moderna COVID-19 Moderna COVID-19 2020-12-07 Completed [facility]ine Vaccine 11:36:00 - [facility] Moderna COVID-19 Moderna COVID-19 2020-12-07 Completed [facility]ine Vaccine 11:36:00 - [facility] Moderna COVID-19 Moderna COVID-19 2020-12-07 Completed [facility]ine Vaccine 11:36:00 - [facility] Moderna COVID-19 Moderna COVID-19 2020-12-07 Completed [facility]ine Vaccine 11:36:00 - [facility] Moderna COVID-19 Moderna COVID-19 2020-12-07 Completed [facility]ine Vaccine 11:36:00 - [facility] Moderna COVID-19 Moderna COVID-19 2020-12-07 Completed [facility]ine Vaccine 11:36:00 - [facility] Moderna COVID-19 Moderna COVID-19 2020-12-07 Completed [facility]ine Vaccine 11:36:00 - [facility] Moderna COVID-19 Moderna COVID-19 2020-12-07 Completed [facility]ine Vaccine 11:36:00 - [facility] Moderna COVID-19 Moderna COVID-19 2020-11-08 Completed [facility]ine Vaccine 11:36:00 - [facility] Moderna COVID-19 Moderna COVID-19 2020-11-08 Completed [facility]ine Vaccine 11:36:00 - [facility] Moderna COVID-19 Moderna COVID-19 2020-11-08 Completed [facility] Vaccine Vaccine 11:36:00 - [facility] Moderna COVID-19 Moderna COVID-19 2020-11-08 Completed [facility]ine Vaccine 11:36:00 - [facility] Moderna COVID-19 Moderna COVID-19 2020-11-08 Completed [facility]ine Vaccine 11:36:00 - [facility] Moderna COVID-19 Moderna COVID-19 2020-11-08 Completed [facility]ine Vaccine 11:36:00 - [facility] Moderna COVID-19 Moderna COVID-19 2020-11-08 Completed [facility]ine Vaccine 11:36:00 - [facility] Moderna COVID-19 Moderna COVID-19 2020-11-08 Completed [facility] Vaccine Vaccine 11:36:00 - [facility] Moderna COVID-19 Moderna COVID-19 2020-11-08 Completed [facility] Vaccine Vaccine 11:36:00 - [facility] Moderna COVID-19 Moderna COVID-19 2020-11-08 Completed [facility] Vaccine Vaccine 11:36:00 - [facility] Moderna COVID-19 Moderna COVID-19 2020-11-08 Completed [facility]ine Vaccine 11:36:00 - [facility] Moderna COVID-19 Moderna COVID-19 2020-11-08 Completed [facility]ine Vaccine 11:36:00 - [facility] Moderna COVID-19 Moderna COVID-19 2020-11-08 Completed [facility]ine Vaccine 11:36:00 - [facility] Moderna COVID-19 Moderna COVID-19 2020-11-08 Completed [facility] Vaccine Vaccine 11:36:00 - [facility] Moderna COVID-19 Moderna COVID-19 2020-11-08 Completed [facility]ine Vaccine 11:36:00 - [facility] Moderna COVID-19 Moderna COVID-19 2020-11-08 Completed [facility]ine Vaccine 11:36:00 - [facility] Moderna COVID-19 Moderna COVID-19 2020-11-08 Completed [facility] Vaccine Vaccine 11:36:00 - [facility] Moderna COVID-19 Moderna COVID-19 2020-11-08 Completed [facility]ine Vaccine 11:36:00 - [facility] Moderna COVID-19 Moderna COVID-19 2020-11-08 Completed [facility]ine Vaccine 11:36:00 - [facility] Moderna COVID-19 Moderna COVID-19 2020-11-08 Completed [facility]ine Vaccine 11:36:00 - [facility] Moderna COVID-19 Moderna COVID-19 2020-11-08 Completed [facility] Vaccine Vaccine 11:36:00 - [facility] Moderna COVID-19 Moderna COVID-19 2020-11-08 Completed [facility] Vaccine Vaccine 11:36:00 - [facility] Moderna COVID-19 Moderna COVID-19 2020-11-08 Completed [facility]ine Vaccine 11:36:00 - [facility] FLUZONE HIGH DOSE FLUZONE HIGH DOSE 2020-07-12 Completed [facility] OVER 65 OVER 65 11:25:00 - [facility] FLUZONE HIGH DOSE FLUZONE HIGH DOSE 2020-07-12 Completed [facility] OVER 65 OVER 65 11:25:00 [facility] FLUZONE HIGH DOSE FLUZONE HIGH DOSE 2020-07-12 Completed [facility] OVER 65 OVER 65 11:25:00 - [facility] FLUZONE HIGH DOSE FLUZONE HIGH DOSE 2020-07-12 Completed [facility] OVER 65 OVER 65 11:25:00 [facility] FLUZONE HIGH DOSE FLUZONE HIGH DOSE 2020-07-12 Completed [facility] OVER 65 OVER 65 11:25:00 [facility] FLUZONE HIGH DOSE FLUZONE HIGH DOSE 2020-07-12 Completed [facility] OVER 65 OVER 65 11:25:00 [facility] FLUZONE HIGH DOSE FLUZONE HIGH DOSE 2020-07-12 Completed [facility] OVER 65 OVER 65 11:25:00 - [facility] FLUZONE HIGH DOSE FLUZONE HIGH DOSE 2020-07-12 Completed [facility] OVER 65 OVER 65 11:25:00 - [facility] FLUZONE HIGH DOSE FLUZONE HIGH DOSE 2020-07-12 Completed [facility] OVER 65 OVER 65 11:25:00 - [facility] FLUZONE HIGH DOSE FLUZONE HIGH DOSE 2020-07-12 Completed [facility] OVER 65 OVER 65 11:25:00 - [facility] FLUZONE HIGH DOSE FLUZONE HIGH DOSE 2020-07-12 Completed [facility] OVER 65 OVER 65 11:25:00 - [facility] FLUZONE HIGH DOSE FLUZONE HIGH DOSE 2020-07-12 Completed [facility] OVER 65 OVER 65 11:25:00 - [facility] FLUZONE HIGH DOSE FLUZONE HIGH DOSE 2020-07-12 Completed [facility] OVER 65 OVER 65 11:25:00 - [facility] FLUZONE HIGH DOSE FLUZONE HIGH DOSE 2020-07-12 Completed [facility] OVER 65 OVER 65 11:25:00 - [facility] FLUZONE HIGH DOSE FLUZONE HIGH DOSE 2020-07-12 Completed [facility] OVER 65 OVER 65 11:25:00 - [facility] FLUZONE HIGH DOSE FLUZONE HIGH DOSE 2020-07-12 Completed [facility] OVER 65 OVER 65 11:25:00 - [facility] FLUZONE HIGH DOSE FLUZONE HIGH DOSE 2020-07-12 Completed [facility] OVER 65 OVER 65 11:25:00 - [facility] FLUZONE HIGH DOSE FLUZONE HIGH DOSE 2020-07-12 Completed [facility] OVER 65 OVER 65 11:25:00 - [facility] FLUZONE HIGH DOSE FLUZONE HIGH DOSE 2020-07-12 Completed [facility] OVER 65 OVER 65 11:25:00 - [facility] FLUZONE HIGH DOSE FLUZONE HIGH DOSE 2020-07-12 Completed [facility] OVER 65 OVER 65 11:25:00 - [facility] FLUZONE HIGH DOSE FLUZONE HIGH DOSE 2020-07-12 Completed [facility] OVER 65 OVER 65 11:25:00 - [facility] FLUZONE HIGH DOSE FLUZONE HIGH DOSE 2020-07-12 Completed [facility] OVER 65 OVER 65 11:25:00 - [facility] FLUZONE HIGH DOSE FLUZONE HIGH DOSE 2020-07-12 Completed [facility] OVER 65 OVER 65 11:25:00 - [facility] FLUZONE HIGH DOSE FLUZONE HIGH DOSE 2020-07-12 Completed [facility] OVER 65 OVER 65 11:25:00 - [facility] FLUZONE HIGH DOSE FLUZONE HIGH DOSE 2020-07-12 Completed [facility] OVER 65 OVER 65 11:25:00 - [facility] Influenza Vaccine 2012-08-15 Completed [facility] 00:00:00 Influenza Vaccine 2012-08-15 Completed [facility] 00:00:00 Influenza Vaccine 2011-07-17 Completed [facility] 00:00:00 Influenza Vaccine 2011-07-17 Completed [facility] 00:00:00 Influenza Vaccine 2010-07-22 Completed [facility] 00:00:00 Influenza Vaccine 2010-07-22 Completed [facility] 00:00:00 Influenza Vaccine 2007-09-12 Completed [facility] 00:00:00 Influenza Vaccine 2007-09-12 Completed [facility] 00:00:00 TT Tetanus Toxoid 2007-04-25 Completed [facility] Vaccine 00:00:00 TT Tetanus Toxoid 2007-04-25 Completed [facility] Vaccine 00:00:00 Vital Signs Vital Name Observation Time Observation Value Comments Source HEIGHT 2021-04-10 08:39:00 170.2 cm WEIGHT 2021-04-10 08:39:00 81.5 kg HEIGHT 2021-03-04 10:15:00 170.2 cm WEIGHT 2021-03-04 10:15:00 81.647 kg Systolic blood 2023-02-18 15:53:00 136 mm[Hg] [facility] Diastolic blood 2023-02-18 15:53:00 93 mm[Hg] [facility] Medicine Heart rate 2023-02-18 15:53:00 78 /min [facility] Body height 2023-02-18 15:53:00 170.2 cm [facility] Body weight 2023-02-18 15:53:00 80.74 kg [facility] BMI 2023-02-18 15:53:00 27.88 kg/m2 [facility] height 2022-09-03 09:00:00 67 [facility]in_i] [facility] weight 2022-09-03 09:00:00 174 [lb_av] [facility] temperature 2022-09-03 09:00:00 98.1 [degF] [facility] bmi 2022-09-03 09:00:00 27.25 kg/m2 [facility] oximetry 2022-09-03 09:00:00 99 % [facility] respiratory rate 2022-09-03 09:00:00 16 /min [facility] blood pressure 2022-09-03 09:00:00 132 mm[Hg] [facility] - systolic [facility] blood pressure 2022-09-03 09:00:00 68 mm[Hg] [facility] - diastolic [facility] height 2022-07-23 08:30:00 67 [in_i] [facility] weight 2022-07-23 08:30:00 176 [lb_av] [facility] temperature 2022-07-23 08:30:00 97.1 [degF] [facility] bmi 2022-07-23 08:30:00 27.56 kg/m2 [facility] blood pressure 2022-07-23 08:30:00 132 mm[Hg] [facility] - systolic [facility] blood pressure 2022-07-23 08:30:00 82 mm[Hg] [facility] - diastolic [facility] height 2022-07-22 13:30:00 67 [in_i] [facility] weight 2022-07-22 13:30:00 179 [lb_av] [facility] temperature 2022-07-22 13:30:00 98.4 [degF] [facility] bmi 2022-07-22 13:30:00 28.03 kg/m2 [facility] oximetry 2022-07-22 13:30:00 98 % [facility] respiratory rate 2022-07-22 13:30:00 16 /min [facility] blood pressure 2022-07-22 13:30:00 152 mm[Hg] [facility] - systolic [facility] blood pressure 2022-07-22 13:30:00 84 mm[Hg] [facility] - diastolic [facility] height 2022-06-26 10:40:00 67 [in_i] [facility] weight 2022-06-26 10:40:00 174.2 [lb_av] [facility] temperature 2022-06-26 10:40:00 98.0 [degF] [facility] bmi 2022-06-26 10:40:00 27.28 kg/m2 [facility] oximetry 2022-06-26 10:40:00 97 % [facility] respiratory rate 2022-06-26 10:40:00 16 /min [facility] blood pressure 2022-06-26 10:40:00 153 mm[Hg] [facility] - systolic [facility] blood pressure 2022-06-26 10:40:00 90 mm[Hg] [facility] - diastolic [facility] height 2022-06-15 09:30:00 67 [in_i] [facility] weight 2022-06-15 09:30:00 179.2 [lb_av] [facility] temperature 2022-06-15 09:30:00 97.4 [degF] [facility] bmi 2022-06-15 09:30:00 28.06 kg/m2 [facility] oximetry 2022-06-15 09:30:00 96 % [facility] respiratory rate 2022-06-15 09:30:00 18 /min [facility] blood pressure 2022-06-15 09:30:00 138 mm[Hg] [facility] - systolic [facility] blood pressure 2022-06-15 09:30:00 79 mm[Hg] [facility] - diastolic [facility] height 2022-03-11 11:00:00 67 [in_i] [facility] weight 2022-03-11 11:00:00 177.8 [lb_av] Common [facility] temperature 2022-03-11 11:00:00 98.1 [degF] [facility] bmi 2022-03-11 11:00:00 27.84 kg/m2 [facility] oximetry 2022-03-11 11:00:00 99 % [facility] respiratory rate 2022-03-11 11:00:00 16 /min [facility] blood pressure 2022-03-11 11:00:00 134 mm[Hg] [facility] - systolic [facility] blood pressure 2022-03-11 11:00:00 80 mm[Hg] [facility] - diastolic [facility] height 2022-02-24 09:00:00 67 [in_i] [facility] weight 2022-02-24 09:00:00 172 [lb_av] [facility] temperature 2022-02-24 09:00:00 97.5 [degF] [facility] bmi 2022-02-24 09:00:00 26.94 kg/m2 [facility] oximetry 2022-02-24 09:00:00 98 % [facility] respiratory rate 2022-02-24 09:00:00 18 /min [facility] blood pressure 2022-02-24 09:00:00 129 mm[Hg] [facility] - systolic [facility] blood pressure 2022-02-24 09:00:00 83 mm[Hg] [facility] height 2021-12-10 11:00:00 67 [in_i] [facility] weight 2021-12-10 11:00:00 175.4 [lb_av] [facility] temperature 2021-12-10 11:00:00 98.1 [degF] [facility] bmi 2021-12-10 11:00:00 27.47 kg/m2 [facility] oximetry 2021-12-10 11:00:00 99 % [facility] 2021-12-10 11:00:00 140 mm[Hg] [facility] - systolic [facility] blood pressure 2021-12-10 11:00:00 90 mm[Hg] [facility] - diastolic [facility] height 2021-09-10 16:45:00 67 [in_i] [facility] weight 2021-09-10 16:45:00 174 [lb_av] [facility] temperature 2021-09-10 16:45:00 97.5 [degF] [facility] bmi 2021-09-10 16:45:00 27.25 kg/m2 [facility] oximetry 2021-09-10 16:45:00 99 % [facility] respiratory rate 2021-09-10 16:45:00 18 /min [facility] blood pressure 2021-09-10 16:45:00 152 mm[Hg] [facility] - systolic [facility] blood pressure 2021-09-10 16:45:00 80 mm[Hg] [facility] - diastolic [facility] height 2021-08-21 09:00:00 67 [in_i] [facility] weight 2021-08-21 09:00:00 181 [lb_av] [facility] temperature 2021-08-21 09:00:00 97.6 [degF] [facility] bmi 2021-08-21 09:00:00 28.35 kg/m2 [facility] oximetry 2021-08-21 09:00:00 99 % [facility] blood pressure 2021-08-21 09:00:00 132 mm[Hg] [facility] - systolic [facility] blood pressure 2021-08-21 09:00:00 68 mm[Hg] [facility] diastolic [facility] height 2021-08-21 11:00:00 67 [in_i] [facility] weight 2021-08-21 11:00:00 181 [lb_av] [facility] temperature 2021-08-21 11:00:00 97.6 [degF] [facility] bmi 2021-08-21 11:00:00 28.35 kg/m2 [facility] oximetry 2021-08-21 11:00:00 99 % [facility] blood pressure 2021-08-21 11:00:00 132 mm[Hg] [facility] - systolic [facility] blood pressure 2021-08-21 11:00:00 68 mm[Hg] [facility] - diastolic [facility] HEIGHT 2021-04-10 08:39:00 170.2 cm WEIGHT 2021-04-10 08:39:00 81.5 kg HEIGHT 2021-03-04 10:15:00 170.2 cm WEIGHT 2021-03-04 10:15:00 81.647 kg Procedures Procedure Date / Time Performed Performing Clinician Jose patterson MAY,POST-VOID 2023-02-18 13:24:16 [facility] RES,US,NON-IMG Medicine POCT URINALYSIS 2023-02-18 00:00:00 [facility] DIPSTICK Medicine POCT URINALYSIS 2023-02-18 00:00:00 [facility] DIPSTICK Medicine Plan of Care Planned Activity Planned Date Details Comments Source Future Scheduled 2023-07-04 IMM Influenza [facility] 00:00:00 Seasonal (>/= 19 yrs) [code = IMM Influenza Seasonal (>/= 19 yrs)] Future Scheduled 2023-06-[address] [facility] Test 00:00:00 (Season Ended) [code Medical Center = INFLUENZA VACCINE (Season Ended)] Future Scheduled 2023-06-[address] [facility] Test 00:00:00 (Season Ended) [code Medical Center = INFLUENZA VACCINE (Season Ended)] Future Scheduled 2023-02-18 MAY,POST-VOID Ordered: [facility] Test 13:24:16 RES,US,NON-IMG [code 02/18/2023 of Medi cine = 29458] Future Scheduled 2023-02-18 Screening for [facility] Test 09:31:11 malignant neoplasm of of Med icine colon (procedure) [code = 183841657] Future Scheduled 2023-02-18 COVID-19 Vaccine (#1) [facility] 09:31:11 [code = COVID-19 of Medicine Vaccine (#1)] Future Scheduled 2023-02-18 TETANUS SHOT (ADULT) [place] [facility] Test 09:31:11 [code = TETANUS SHOT of Medi cine (ADULT)] Future Scheduled 2023-02-18 Hepatitis C screening [facility] 09:31:11 (procedure) [code = of Medic ine 563960634] Future Scheduled 2023-02-18 ZOSTER VACCINE (1 of [place] [employer] Test 09:31:11 2) [code = ZOSTER of Medicin e VACCINE (1 of 2)] Future Scheduled 2023-02-18 Fall Screen [code = [facility] 09:31:11 Fall Screen] of Medicine Future Scheduled 2023-02-18 Pneumococcal 65+ (1 - [employer] [facility] [employer] Test 09:31:11 PCV) [code = of Medicine Pneumococcal 65+ (1 - PCV)] Future Scheduled 2023-02-18 Medicare Awv [facility] Test 09:31:11 (Initial) [code = of Medicin e Medicare Awv (Initial)] Future Scheduled 2023-02-18 FLU VACCINE > 6 [facility] Test 09:31:11 MONTHS [code = FLU of Medici ne VACCINE > 6 MONTHS] Future Scheduled 2022-10-04 FALLS RISK SCREENING [facility] Test 00:00:00 [code = FALLS RISK Medical C enter SCREENING] Future Scheduled 2022-10-[address] [facility] Test 00:00:00 (12+) [code = Medical Center DEPRESSION SCREENING (12+)] Future Scheduled 2022-10-04 FALLS RISK SCREENING [facility] Test 00:00:00 [code = FALLS RISK Medical C enter SCREENING] Future Scheduled 2022-10-[address] [facility] Test 00:00:00 (12+) [code = Medical Center DEPRESSION SCREENING (12+)] Future Scheduled 2022-07-04 [facility]MM Influenza [facility] 00:00:00 Seasonal (>/= 19 yrs) [code = IMM Influenza Seasonal (>/= 19 yrs)] Future Scheduled 2022-06-[address] [facility] Test 00:00:00 (#1) [code = Medical Center INFLUENZA VACCINE (#1)] Future Scheduled 2022-04-[address] [facility] Test 00:00:00 Counseling and Medical Cente r Screening (12+) [code = Tobacco Cessation Counseling and Screening (12+)] Future Scheduled 2022-04-[address] [facility] Test 00:00:00 Counseling and Medical Cente r Screening (12+) [code = Tobacco Cessation Counseling and Screening (12+)] Future Scheduled 2021-10-[address] [facility] 00:00:00 WELLNESS (YEAR 2 or Medical Center FIRST YEAR if no IPPE) [code = MEDICARE ANNUAL WELLNESS (YEAR 2 or FIRST YEAR if no IPPE)] Future Scheduled 2021-10-[address] [facility] 00:00:00 WELLNESS (YEAR 2 or Medical Center FIRST YEAR if no IPPE) [code = MEDICARE ANNUAL WELLNESS (YEAR 2 or FIRST YEAR if no IPPE)] Future Scheduled 2021-10-[address] [facility] 00:00:00 WELLNESS (YEAR 2 or Medical Center FIRST YEAR if no IPPE) [code = MEDICARE ANNUAL WELLNESS (YEAR 2 or FIRST YEAR if no IPPE)] Future Scheduled 2021-10-[address] [facility] Test 00:00:00 (12+) [code = Medical Center DEPRESSION SCREENING (12+)] Future Scheduled 2021-10-04 FALLS RISK SCREENING [facility] Test 00:00:00 [code = FALLS RISK Medical C enter SCREENING] Future Scheduled 2020 PNEUMOCOCCAL 65+ YRS [facility] Test 00:00:00 (1 - PCV) [code = Medical Ce nter PNEUMOCOCCAL 65+ YRS (1 - PCV)] Future Scheduled 2020 Imm Pneumococcal 65+ [facility] 00:00:00 (1 - PCV) [code = Imm Pneumococcal 65+ (1 - PCV)] Future Scheduled 2020 Imm Pneumococcal 65+ [facility] 00:00:00 (1 - PCV) [code = Imm Pneumococcal 65+ (1 - PCV)] Future Scheduled 2020 PNEUMOCOCCAL 65+ YRS [facility] Test 00:00:00 (1 - PCV) [code = Medical Ce nter PNEUMOCOCCAL 65+ YRS (1 - PCV)] Future Scheduled 2020 PNEUMOCOCCAL 65+ YRS [facility] Test 00:00:00 (1 - PCV) [code = Medical Ce nter PNEUMOCOCCAL 65+ YRS (1 - PCV)] Future Scheduled 2016-12-30 [facility]ERY [facility] 00:00:00 DISEASE AGE 18 AND UP [code = CORONARY ARTERY DISEASE AGE 18 AND UP] Future Scheduled 2016-12-30 [facility]ERY [facility] 00:00:00 DISEASE AGE 18 AND UP [code = CORONARY ARTERY DISEASE AGE 18 AND UP] Future Scheduled 2013-12-02 [facility] 00:00:00 malignant neoplasm of colon (procedure) [code = 082029507] Future Scheduled 2013-12-02 [facility] 00:00:00 malignant neoplasm of colon (procedure) [code = 221901609] Future Scheduled 2005 SHINGLES VACCINES ([address] [facility] Test 00:00:00 of 2) [code = [facility] Center SHINGLES VACCINES (1 of 2)] Future Scheduled 2005 SHINGLES VACCINES ([address] [facility] Test 00:00:00 of 2) [code = [facility] Center SHINGLES VACCINES (1 of 2)] Future Scheduled 2005 SHINGLES VACCINES ([address] [facility] Test 00:00:00 of 2) [code = Medical Center SHINGLES VACCINES (1 of 2)] Future Scheduled 1974 DTAP/TDAP/TD VACCINES [facility] 00:00:00 (1 - Tdap) [code = Medical C enter DTAP/TDAP/TD VACCINES (1 - Tdap)] Future Scheduled 1974 DTAP/TDAP/TD VACCINES [facility] 00:00:00 (1 - Tdap) [code = Medical C enter DTAP/TDAP/TD VACCINES (1 - Tdap)] Future Scheduled 1974 DTAP/TDAP/TD VACCINES [facility] 00:00:00 (1 - Tdap) [code = Medical C enter DTAP/TDAP/TD VACCINES (1 - Tdap)] Future Scheduled 1973 HEPATITIS C SCREENING [facility] 00:00:00 [code = HEPATITIS C Medical Center SCREENING] Future Scheduled 1973 HEPATITIS C [facility]CRE[facility]ING [facility] 00:00:00 [code = HEPATITIS C Medical Center SCREENING] Future Scheduled 1973 HEPATITIS C SCRE[facility]ING [facility] 00:00:00 [code = HEPATITIS C Medical Center SCREENING] Future Scheduled 1956-01[birth year]12 COVID-19 VACCINE (#1) [facility] 00:00:00 [code = COVID-[address] VACCINE (#1)] Future Scheduled 1956-01[birth year]12 COVID-19 Vaccine (#1) [facility] 00:00:00 [code = COVID-19 Vaccine (#1)] Future Scheduled 1956-01[birth year]12 COVID-19 Vaccine (#1) [facility] 00:00:00 [code = COVID-19 Vaccine (#1)] Future Scheduled 1956-01-12 COVID-19 VACCINE (#1) [facility] 00:00:00 [code = COVID-[address] VACCINE (#1)] Future Scheduled 1956-01-12 COVID-19 VACCINE (#1) [facility] 00:00:00 [code = COVID-[address] VACCINE (#1)] Future Scheduled [address] [facility] 00:00:00 (combo) [code = CT Medical C enter Colonography (combo)] Future Scheduled [address] [facility] 00:[facility]:00 malignant neoplasm of Medica l Center colon (procedure) [code = 462680880] Future Scheduled [address] [facility] 00:00:00 malignant neoplasm of Medica l Center colon (procedure) [code = 303301315] Future Scheduled [address] [facility] 00:00:00 malignant neoplasm of Medica l Center colon (procedure) [code = 096329067] Future Scheduled [address] [facility] 00:00:00 malignant neoplasm of Medica l Center colon (procedure) [code = 947905739] Future Scheduled 1955 Sigmoidoscopy [code = [facility] S[facility]oidoscopy] Medical Cente r Future Scheduled 1955 Fluoride Varnish [facility] Test 00:00:00 [code = Fluoride Varnish] Future Scheduled [address] [facility] 00:00:00 (combo) [code = CT Medical C enter Colonography (combo)] Future Scheduled [address] [facility] 00:00:00 malignant neoplasm of Medica l Center colon (procedure) [code = 815622998] Future Scheduled [address] [facility] 00:00:00 malignant neoplasm of Medica l Center colon (procedure) [code = 802553570] Future Scheduled [address] [facility] 00:00:00 malignant neoplasm of Medica l Center colon (procedure) [code = 689858922] Future Scheduled [address] [facility] 00:00:00 malignant neoplasm of Medica l Center colon (procedure) [code = 245834211] Future Scheduled 1955 Sigmoidoscopy [facility]code [facility] S[facility]oscopy] Medical Cente r Future Scheduled [address] [facility] 00:00:00 (combo) [code = CT Medical C enter Colonography (combo)] Future Scheduled [address] [facility] 00:00:00 malignant neoplasm of Medica l Center colon (procedure) [code = 391937781] Future Scheduled [address] [facility] 00:00:00 malignant neoplasm of Medica l Center colon (procedure) [code = 781000112] Future Scheduled [address] [facility] 00:00:00 malignant neoplasm of Medica l Center colon (procedure) [code = 219991307] Future Scheduled [address] [facility] 00:00:00 malignant neoplasm of Medica l Center colon (procedure) [code = 229095722] Future Scheduled 1955 Sigmoidoscopy [facility]code [facility] 00:[facility] Sigmoidoscopy] Medical Cente r Encounters Start End Encounter Admission Attending Care Care Encounter Source Date/Time Date/Time Type Type Clinicians Facility Department ID 2023-01-27 Outpatient Ragsdale, STLMLC STLMLC [id number] Common 07:54:00 Senait [id number] [facility] 2023-01-26 Outpatient Ragsdale, STLMLC STLMLC [id number] Common 12:57:00 Senait [id number] [facility] 2022-12-25 Outpatient Ragsdale, STLMLC STLMLC [id number] Common 09:44:01 Senait [id number] [facility] 2022-11-17 Outpatient Ragsdale, STLMLC STLMLC [id number] Common 10:04:00 Senait [id number] [facility] 2022-11-05 Outpatient Ragsdale, STLMLC STLMLC [id number] Common 14:54:00 Senait [id number] [facility] 2022-10-20 Outpatient Eleanor, STLMLC STLMLC [id number] Common 13:58:00 Ninoska 57329 [facility] 2022-09-24 Outpatient Tanner, Na STLMLC STLMLC [id number] 2 Common 14:57:02 [facility] 2022-07-23 Outpatient Tanner, Na STLMLC STLMLC [id number] 2 Common 08:34:00 [facility] 2022-07-01 Outpatient Tanner, Na STLMLC STLMLC [id number] 2 Common 15:14:00 [facility] 2022-06-24 Outpatient Tanner, Na STLMLC STLMLC [id number] 2 Common 14:30:01 [facility] 2021-12-08 Outpatient Tanner, Na STLMLC STLMLC [id number] 2 Common 12:14:00 [facility] 2021-11-13 Outpatient Tanner, Na STLMLC STLMLC [id number] 2 Common 14:38:02 [facility] 2021-10-29 Outpatient Tanner, Na STLMLC STLMLC [id number] 2 Common 14:22:53 [facility] 2021-10-29 Outpatient Tanner, Na STLMLC STLMLC [id number] 2 Common 14:19:09 [facility] 2021-10-29 Outpatient Tanner, Na STLMLC STLMLC [id number] 2 Common 14:15:12 [facility] 2021-10-29 Outpatient Tanner, Na STLMLC STLMLC [id number] 2 Common 14:14:30 [facility] 2021-10-29 Outpatient Tanner, Na STLMLC STLMLC [id number] 2 Common 13:45:38 [facility] 2021-10-29 Outpatient Tanner, Na STLMLC STLMLC [id number] 2 Common 13:32:05 [facility] 2021-10-29 Outpatient Tanner, Na STLMLC STLMLC [id number] 2 Common 13:28:26 [facility] 2021-10-29 Outpatient Tanner, Na STLMLC STLMLC [id number] 2 Common 13:10:48 [facility] 2021-10-29 Outpatient Tanner, Na STLMLC STLMLC [id number] 2 Common 12:55:12 [id number] [facility] 2021-10-29 Outpatient Tanner, Na STLMLC STLMLC [id number] 2 Common 12:46:16 [id number] [facility] 2021-10-29 Outpatient Tanner, Na STLMLC STLMLC [id number] 2 Common 12:41:36 [id number] [facility] 2021-10-29 Outpatient Tanner, Na STLMLC STLMLC [id number] 2 Common 12:36:43 [id number] [facility] 2021-10-29 Outpatient Tanner, Na STLMLC STLMLC [id number] 2 Common 12:36:23 [id number] [facility] 2021-10-29 Outpatient Tanner, Na STLMLC STLMLC [id number] 2 Common 12:35:32 [id number] [facility] 2021-10-29 Outpatient STLMLC STLMLC [id number] Common 12:26:51 [id number] [facility] 2021-10-29 Outpatient STLMLC STLMLC [id number] Common 12:26:33 [id number] [facility] 2021-10-29 Outpatient STLMLC STLMLC [id number] Common 12:15:58 [id number] [facility] 2021-10-29 Outpatient Millender, STLMLC STLMLC [id number] Common 12:05:37 Leatha 70035 [facility] 2021-10-29 Outpatient Chuyender, STLMLC STLMLC [id number] Common 11:53:39 Leatha 19457 [facility] 2021-07-12 Inpatient GUERRA, [facility] Surgery [id number] [facility] 22:23:24 [facility] 2023-02-18 2023-02-18 Office RAMA Bass [id number] [facility] 11:20:00 11:30:00 Visit Kyaw AMBULATOR 350.1.13.21 College P Y 0.2.7.2.686 of [id number] Medi noreen 300 e 2022-10-04 2022-10-04 Outpatient Alex_R DMG DMG [id number] [facility] 00:00:00 00:00:00 0101 [facility] l [facility] 2022-10-04 2022-10-04 Outpatient Alex_R DMG DMG [id number] [facility] 00:00:00 00:00:00 0208 [facility] l Group 2022-10-04 2022-10-04 Outpatient Alex_R FROYG DMG [id number] [facility] 00:00:00 00:00:00 0228 Medica l Group 2022-10-04 2022-10-04 Outpatient Alex_R DMG DMG [id number] [facility] 00:00:00 00:00:00 0506 Medica l Group 2022-09-24 2022-09-24 CAV Mary Laith 2.16.840. 2.16.840.1. C [id number] [facility] 17:00:00 17:30:00 Revisit: [id number]. [id number]. S5K Medical Gap [id number] Closure & [id number] Clinical Check-in 2022-09-23 2022-09-23 Outpatient Alex_R FROYG DMG [id number] [facility] 00:00:00 00:00:00 1221 Stevena julio Group 2022-09-03 2022-09-03 OFFICE STLMLC STLMLC [id number] Co mmon 00:00:00 00:00:00 VISIT EST Spir it PT LEVEL 3 - [facility] 2022-08-05 2022-08-05 (PROC) STLMLC STLMLC [id number] Co mmon 00:00:00 00:00:00 Procedure Spir it - [facility] 2022-07-23 2022-07-23 OFFICE STLMLC STLMLC [id number] Co mmon 00:00:00 00:00:00 VISIT NEW Spir it PT LEVEL 4 - [facility] 2022-07-22 2022-07-22 OFFICE STLMLC STLMLC [id number] Co mmon 00:00:00 00:00:00 VISIT Spirit ESTAB PT - CHI LEVEL 4 [facility] 2022-07-08 2022-07-08 (TEL) STLMLC STLMLC [id number] Co mmon 00:00:00 00:00:00 [facility] 2022-07-01 2022-07-01 (TEL) STLMLC STLMLC [id number] Co mmon 00:00:00 00:00:00 [facility] 2022-06-26 2022-06-26 OFFICE STLMLC STLMLC [id number] Co mmon 00:00:00 00:00:00 VISIT [facility] PT - CHI LEVEL 4 [facility] 2022-06-22 2022-06-22 CAV Tomora 2.16.840. 2.16.840.1. CLAC [id number] [facility] 14:30:00 15:30:00 Pham 1.788126. [id number]. [id number] Medical [id number] 2022-06-22 2022-06-22 Outpatient OWENS_T DMG [facility] [id number] [facility] 00:00:00 00:00:00 0919 Medica l Group 2022-06-22 2022-06-22 Outpatient OWENS_T DMG G [id number] [facility] 00:00:00 00:00:00 1220 Medica l Group 2022-06-15 2022-06-15 OFFICE STLMLC STLC [id number] Co mmon 00:00:00 00:00:00 VISIT [facility] PT - CHI LEVEL 4 [facility] 2022-06-02 2022-06-02 Outpatient OWENS_T DMG G [id number] [facility] 00:00:00 00:00:00 0830 Medica l Group 2022-04-17 2022-04-17 Outpatient Adams_R DM DMG [id number] [facility] 06:17:00 06:17:00 0715 Medica l Group 2022-04-15 2022-04-15 (TEL) STLMLC STLMLC [id number] Co mmon 00:00:00 00:00:00 [facility] 2022-04-10 2022-04-10 (TEL) STLMLC STLMLC [id number] Co mmon 00:00:00 00:00:00 [facility] 2022-03-31 2022-03-31 Outpatient Adams_R DMG DMG [id number] [facility] 12:27:00 12:27:00 0628 Medica l Group 2022-03-11 2022-03-11 OFFICE STLMLC STLMLC [id number] Co mmon 00:00:00 00:00:00 VISIT EST Spir it PT LEVEL 3 [facility] 2022-02-24 2022-02-24 OFFICE STLMLC STLMLC [id number] Co mmon 00:00:00 00:00:00 VISIT EST Spir it PT LEVEL 3 [facility] 2022-01-21 2022-01-21 (TEL) STLMLC STLMLC [id number] Co mmon 00:00:00 00:00:00 [facility] 2021-12-13 2021-12-13 (TEL) STLMLC STLMLC [id number] Co mmon 00:00:00 00:00:00 [facility] 2021-12-10 2021-12-10 OFFICE STLMLC STLMLC [id number] Co mmon 00:00:00 00:00:00 VISIT [facility] PT [facility] LEVEL 4 [facility] 2021-12-08 2021-12-08 (TEL) STLMLC STLMLC [id number] Co mmon 00:00:00 00:00:00 [facility] 2021-12-08 2021-12-08 (TEL) STLMLC STLMLC [id number] Co mmon 00:00:00 00:00:00 [facility] 2021-09-15 2021-09-15 (TEL) STLMLC STLMLC [id number] Co mmon 00:00:00 00:00:00 [facility] 2021-09-10 2021-09-10 OFFICE STLMLC STLMLC [id number] Co mmon 00:00:00 00:00:00 VISIT EST Spir it PT LEVEL 3 [facility] 2021-09-10 2021-09-10 (TEL) STLMLC STLMLC [id number] Co mmon 00:00:00 00:00:00 [facility] 2021-09-03 2021-09-03 (COVID STLMLC STLMLC [id number] Co mmon 00:00:00 00:00:00 Inj) COVID Spi rit Injection [facility] 2021-09-03 2021-09-03 (TEL) STLMLC STLMLC [id number] Co mmon 00:00:00 00:00:00 [facility] 2021-08-21 2021-08-21 OFFICE STLMLC STLMLC [id number] Co mmon 00:00:00 00:00:00 VISIT EST Spir it PT LEVEL 3 [facility] 2021-08-21 2021-08-21 OL DIG E/M STLMLC STLMLC [id number] Common 00:00:00 00:00:00 C 11-20 Spir it MIN [facility] 2021-06-27 2021-06-27 Outpatient STLMLC STLMLC [id number] Common 00:00:00 00:00:00 [facility] 2021-06-20 2021-06-20 Outpatient STLMLC STLMLC [id number] Common 00:00:00 00:00:00 [facility] 2021-06-05 2021-06-05 Outpatient STLMLC STLMLC [id number] Common 00:00:00 00:00:00 [facility] 2021-06-02 2021-06-02 Outpatient STLMLC STLMLC [id number] Common 00:00:00 00:00:00 [facility] 2021-05-29 2021-05-29 Outpatient STLMLC STLMLC [id number] Common 00:00:00 00:00:00 [facility] 2021-05-29 2021-05-29 Outpatient STLMLC STLMLC [id number] Common 00:00:00 00:00:00 [facility] 2021-05-16 2021-05-16 Outpatient STLMLC STLMLC [id number] Common 00:00:00 00:00:00 [facility] 2021-05-13 2021-05-13 Outpatient STLMLC STLMLC [id number] Common 00:00:00 00:00:00 [facility] 2021-05-02 2021-05-02 Outpatient STLMLC STLMLC [id number] Common 00:00:00 00:00:00 [facility] 2021-05-02 2021-05-02 Outpatient STLMLC STLMLC [id number] Common 00:00:00 00:00:00 [facility] 2021-05-01 2021-05-01 Outpatient STLMLC STLMLC [id number] Common 00:00:00 00:00:00 [facility] 2021-04-30 2021-04-30 Outpatient STLMLC STLMLC [id number] Common 00:00:00 00:00:00 [facility] 2021-04-24 2021-04-24 Outpatient STLMLC STLMLC [id number] Common 00:00:00 00:00:00 [facility] 2021-04-24 2021-04-24 Outpatient STLMLC STLMLC [id number] Common 00:00:00 00:00:00 [facility] 2021-04-23 2021-04-23 Outpatient STLMLC STLMLC [id number] Common 00:00:00 00:00:00 [facility] 2021-04-23 2021-04-23 Outpatient STLMLC STLMLC [id number] Common 00:00:00 00:00:00 [facility] 2021-04-22 2021-04-22 Outpatient STLMLC STLMLC [id number] Common 00:00:00 00:00:00 [facility] 2021-04-17 2021-04-17 Outpatient STLMLC STLMLC [id number] Common 00:00:00 00:00:00 [facility] 2021-04-16 2021-04-16 Outpatient STLMLC STLMLC [id number] Common 00:00:00 00:00:00 [facility] 2021-04-15 2021-04-15 Outpatient STLMLC STLMLC [id number] Common 00:00:00 00:00:00 [facility] 2021-04-14 2021-04-14 Outpatient STLMLC STLMLC [id number] Common 00:00:00 00:00:00 [facility] 2021-04-10 2021-04-10 Outpatient STLMLC STLMLC [id number] Common 00:00:00 00:00:00 [facility] 2021-04-02 2021-04-02 Outpatient STLMLC STLMLC [id number] Common 00:00:00 00:00:00 [facility] 2021-04-01 2021-04-01 Outpatient STLMLC STLMLC [id number] Common 00:00:00 00:00:00 [facility] 2021-03-26 2021-03-26 Outpatient STLMLC STLMLC [id number] Common 00:00:00 00:00:00 [facility] 2021-03-25 2021-03-25 Outpatient STLMLC STLMLC [id number] Common 00:00:00 00:00:00 [facility] 2021-03-18 2021-03-18 Outpatient SLEH [facility] [id number] [facility] 00:00:00 00:00:00 2021-03-18 2021-03-18 Outpatient EL [facility] [id number] [facility] 00:00:00 00:00:00 2021-03-07 2021-03-07 Outpatient STLMLC STLMLC [id number] Common 00:00:00 00:00:00 [facility] 2021-03-07 2021-03-07 Outpatient STLMLC STLMLC [id number] Common 00:00:00 00:00:00 [facility] 2021-03-04 2021-03-04 Outpatient EL [facility]H [facility] [id number] [facility] 00:00:00 00:00:00 2021-02-25 2021-02-25 Outpatient OWENS_T DMG DMG [id number] [facility] 05:40:00 05:40:00 0525 [facility] l Group 2021-02-24 2021-02-24 Outpatient STLMLC STLMLC [id number] Common 00:00:00 00:00:00 [facility] 2021-02-19 2021-02-19 Outpatient STLMLC STLMLC [id number] Common 00:00:00 00:00:00 [facility] 2021-02-04 2021-02-04 Outpatient STLMLC STLMLC [id number] Common 00:00:00 00:00:00 [facility] 2021-01-23 2021-01-23 Outpatient STLMLC STLMLC [id number] Common 00:00:00 00:00:00 [facility] 2021-01-16 2021-01-16 Outpatient STLMLC STLMLC [id number] Common 00:00:00 00:00:00 [facility] 2021-01-08 2021-01-08 Outpatient STLMLC STLMLC [id number] Common 00:00:00 00:00:00 [facility] 2020-12-19 2020-12-19 Outpatient STLMLC STLMLC [id number] Common 00:00:00 00:00:00 [facility] 2020-12-06 2020-12-06 Outpatient STLMLC STLMLC [id number] Common 00:00:00 00:00:00 [facility] 2020-11-15 2020-11-15 Outpatient STLMLC STLMLC [id number] Common 00:00:00 00:00:00 [facility] 2020-11-15 2020-11-15 Outpatient STLMLC STLMLC [id number] Common 00:00:00 00:00:00 [facility] 2020-11-12 2020-11-12 Outpatient STLMLC STLMLC [id number] Common 00:00:00 00:00:00 [facility] 2020-11-04 2020-11-04 Outpatient STLMLC STLMLC [id number] Common 00:00:00 00:00:00 [facility] 2020-09-04 2020-09-04 Outpatient [facility] [id number] Common 00:00:00 00:00:00 [facility] 2020-07-16 2020-07-16 Outpatient [facility] [id number] Common 00:00:00 00:00:00 [facility] 2020-07-12 2020-07-12 Outpatient [facility] [id number] Common 00:00:00 00:00:00 [facility] 2020-02-01 2020-02-01 Outpatient [facility] [id number] [place] 07:10:58 07:10:58 Health 2019-04-24 2019-04-24 Outpatient [facility] [id number] [place] 16:32:07 16:32:07 Health 2017-05-25 2017-05-25 Outpatient [facility] [id number] [place] 10:09:49 10:09:49 Health Results Test Description Test Time Test Comments Results Result Comments Source POCT URINALYSIS DIPSTICK 2023-02-18 00:00:00 Test Item Value Reference Range Interpretation Comme nts COLOR UA (test code = 5778-6) Yellow YELLOW/STRAW CLARITY UA (test code = 53304-5) Clear CLEAR GLUCOSE UA (test code = 5792-7) Negative NEGATIVE BILIRUBIN UA (test code = 5770-3) Negative NEGATIVE KETONES UA (test code = 03330-0) Negative NEGATIVE SPECIFIC GRAVITY UA (test code = 5811-5) 1.000 1.005-1.035 BLOOD UA (test code = 5794-3) Negative NEGATIVE PH UA (test code = 5803-2) 5.0 5-9 PROTEIN UA (test code = 5804-0) Negative NEGATIVE UROBILINOGEN UA (test code = 5818-0) 0.02 E.U/DL NORMAL MG/DL LEUKOCYTE ESTERASE UA (test code = 5799-2) Negative NEGATIVE NITRITE UA (test code = 5802-4) Negative NEGATIVE REDUCING SUBSTANCES URINE (test code = 16797-7) [id number] 16:12:00Surgical Pathology Report Case: [id number] Authorizing Provider: Omid Guerra MD Collected: 04/10/2021 04:14 PM Ordering Location: [facility] PERIOPERATIVE Received: 04/11/2021 09:49 AM SERVICES Pathologist: Margarito Gee MD Specimens: A) - Soft Tissue, Other, Anteriror Samaria- Prostatic Fat B) - Lymph Node, Pelvic, Left, Left Pelvic Lymph Node C) - Lymph Node, Pelvic, Right, Right PelvicLymph Node D) - Prostate, PROSTATE AND SEMINAL VESICLES A. SOFT TISSUE, ANTERIOR PERIPROSTATIC, EXCISION:- BENIGN FIBROADIPOSE TISSUEB. LYMPH NODE, LEFT PELVIC, DISSECTION:- METASTATIC ADENOCARCINOMA IN ONE OF TWO NODES (1/2)C. LYMPH NODE, RIGHT PELVIC, DISSECTION:- NINE BENIGN LYMPH NODES (0/9)D. PROSTATE, ROBOTIC ASSISTED LAPAROSCOPIC PROSTATECTOMY: - ADENOCARCINOMA, GIL 4+5=9, ESTABLISHED EXTRAPROSTATIC EXTENSION, SURGICAL MARGINS NEGATIVE SEMINAL VESICLES, ROBOTIC ASSISTED LAPAROSCOPIC RADICALPROSTATECTOMY: - NO PATHOLOGIC DIAGNOSIS Signing Pathologist Direct Phone Line: [phone] signed by Margarito Gee MD on 04/22/2021 at 4:12 PMPreliminary result electronicallysigned by Margarito Gee MD on 04/14/2021 at 3:07 PMThe positive lymph node shows a 4 mm metastasis that focally shows extranodal extension into the adjacent fat.. There is a single focus of tumor on the left side of the prostate that involves the entire peripheral and transition zone on thatside. The tumor runs from apex to base and shows established extraprostatic extension anterolaterally as well as focally in the region of the neurovascular bundle. The surgical margins are negative. PROSTATE GLAND: Radical Prostatectomy (PROSTATE GLAND: RADICAL PROSTATECTOMY - All Specimens)8th Edition - Protocol posted: 11/29/2019SPECIMEN Procedure: Radical prostatectomy Prostate Size: Prostate Weight (g): 41 g Prostate Greatest Dimension (Centimeters): 4.2 cm Additional Dimension (Centimeters): 3.2cm Additional Dimension (Centimeters): 3 cmTUMOR Histologic Type: Acinar adenocarcinoma Histologic Grade: Grade Group and Gil Score: Grade group 5 ([place] Score 4 + 5 = 9) Percentage of Pattern 4: 80 % Percentage of Pattern 5: 15 % Intraductal Carcinoma (IDC): Not identified Tumor Quantitation: Estimated percentage of prostate involved by tumor: 50 % Extraprostatic Extension (EPE): Present, nonfocal Location of Extraprostatic Extension: Left anterior Location of Extraprostatic Extension: Left lateral Location of Extraprostatic Extension: Left postero-lateral (neurovascular bundle) Urinary Bladder Neck Invasion: Not identified Seminal Vesicle Invasion: Not identified Treatment Effect: No knownpresurgical therapy Lymphovascular Invasion: Not Identified Perineural Invasion: Present MARGINS Margins: Uninvolved by invasive carcinoma LYMPH NODES Number of Lymph Nodes Involved: 1 Site(s): Pelvic NOS Laterality: Left Size of Largest Metastatic Deposit (Centimeters): 0.4 cm Extranodal Extension: Present Number of Lymph Nodes Examined: 11 PATHOLOGIC STAGE CLASSIFICATION (pTNM, AJCC 8th Edition) Primary Tumor (pT): pT3a Regional Lymph Nodes (pN): pN1 ADDITIONAL FINDINGS Additional Findings: Inflammation (type): chronic Additional Findings: Nodular prostatic hyperplasia SPECIAL STUDIES Ancillary Studies: Not performed [id number] cancer A. Soft tissue, otherB. Lymph node, pelvic, leftC. Lymph node, pelvic, rightD. ProstateA. Received fresh labeled with the patient's name, accession number and "anterior periprosthetic fat" is a 6.5 x 2.4 x 0.4 cm aggregate of jiang-yellow, fibrofatty adipose tissue which is entirely submitted in A1-A4.B. Received fresh labeled with the patient's name, accession number and "left pelvic lymph node" are 3 possible jiang lymph nodes with attached soft t issue ranging from 1.0-5.0 cm in greatest dimension. The specimen is entirely submitted as follows:Section codeB1-B6-1 lymph node, serially sectionedB7-1 possible lymph node, bisectedB8-1 possible lymph nodeB9-B 11-remainder of soft tissueC. Received fresh labeled the patient's name, accession number and "right pelvic lymph node" are 5 possible jiang lymph nodes with attached soft tissue ranging from 1.0-3.2 cm in greatest dimension. The specimen is entirely submitted as follows:Section codeC1-C2-1 possible lymph node, serially sectionedC3-1 possible lymph node, bisectedC4-1 possible lymph node, bisectedC5- 1 possible lymph node, bisectedC6-1 possible lymph node, jhrxdwuhG7-V14-zjiraokus of soft tissueELMER Fernandes HT (ASCP)Maximilian. Received as radical prostatectomy specimen in formalin with patient name, Artem Hampton, with the accession number [id number] is a prostate with bilateral seminal vesicles and vas deferentia. The prostate weighs 41.0 and measures 3.2 cm apex to base, 4.2 cm transverselyand 3.0 cm anterior to posterior. The right and left seminal vesicles measure 1.7 x 1.0 x 0.5 and 3.0 x 1.0 x 0.5 cm respectively. The right and left vas deferentia measure 4.0 cm and 3.5 in length respectively and 0.5 cm in diameter. The capsular surface of the prostate is purple-jiang to red, dusky and focally ragged. Ink code: right side inked in black, left side inked in blue. The prostate is serially sectioned from apex to base in entirety and the sections reveal pink-jiang to harrison-white, homogeneous, focally nodular prostatic parenchyma throughout. No discrete masses are identified. The sectioning of the seminal vesicles reveals a pink-jiang unremarkable cut surface. The total number of slices including seminal vesicles and vas deferentia are 10.Section code: apical margins are submitted in cassette D1, the bladder neck margins are submitted in cassette D2 and the prostate slices are submitted in D3 to D8.The right and left seminal vesicles at the base of the prostate are submitted in cassette D9, the seminal vesicle tips along with vas deferentia are submitted in cassette D10. SAUL/JULIO/plPerformed.[facility], Department of Pathology, [address] [place] [address], [facility]gb[facility], Department of Pathology, [address] [place], [place] [address], NjnddxL[facility], Department of Pathology, [address] [place] [address], FVTLN METABOLIC [id number] 06:02:00 Test Item Value Reference Range Interpretation Comments SODIUM (BEAKER) 138 meq/L 136-145 (test code = 381) POTASSIUM (BEAKER) 4.0 meq/L 3.5-5.1 (test code = 379) CHLORIDE (BEAKER) 111 meq/L 98-107 H (test code = 382) CO2 (BEAKER) (test 18 meq/L 22-29 L code = 355) BLOOD UREA NITROGEN 12 mg/dL 7-21 (BEAKER) (test code = 354) CREATININE (BEAKER) 0.76 mg/dL 0.57-1.25 (test code = 358) GLUCOSE RANDOM 69 mg/dL 70-105 L (BEAKER) (test code = 652) CALCIUM (BEAKER) 7.5 mg/dL 8.4-10.2 L (test code = 697) EGFR (BEAKER) (test 103 mL/min/1.73 ESTIM ATED GFR IS code = 1092) sq m NOT ACCURATE CREATININE CLEARANCE IN PREDICTING GLOMERULAR FILTRATION RATE . ESTIMATED GFR I S NOT APPLICABLE FOR DIALYSIS PATIEN TS. Warehouse Operator ID - TAYLOR WHEMOGLOBIN AND [id number] 05:25:00 Test Item Value Reference Range Interpretation Comments HEMOGLOBIN (BEAKER) (test code = 11.1 GM/DL 13.7-17.5 L 410) HEMATOCRIT (BEAKER) (test code = 34.1 % 40.1-51.0 L 411) Warehouse Operator ID - [id number], RANDOM [id number] 19:05:00 Test Item Value Reference Range Interpretation Comments CREATININE URINE (BEAKER) (test 33.7 mg/dL code = 375) Reference Range: No NormalsOperator ID - EOPOCT-GLUCOSE [id number] 16:12:00 Test Item Value Reference Range Interpretation Comments POC-GLUCOSE METER 85 mg/dL 70-110 : TESTED A T [facility] 6720 (BEAKER) (test code = [facility] P[place]ked [facility], 153) [id number]: Warehouse Operator/Techni juilus ID = [id number] for MICAH S, KEYAIRA POCT-GLUCOSE [id number] 11:59:00 Test Item Value Reference Range Interpretation Comments POC-GLUCOSE METER 105 mg/dL 70-110 : TESTED A T [facility] 6720 (BEAKER) (test code = [facility] P[place]ked [facility], 1538) [address]: Warehouse Operator/Techni julius ID = [id number] for DA VIS, KEYAIRA POCT-GLUCOSE [id number] 09:20:00 Test Item Value Reference Range Interpretation Comments POC-GLUCOSE METER 93 mg/dL 70-110 : TESTED A T [facility] 6720 (BEAKER) (test code = [facility] [place]ked [facility], 153) [address]: Warehouse Operator/Techni julius ID = [id number] for LANDEN YOUNG BASIC METABOLIC [id number] 05:41:00 Test Item Value Reference Range Interpretation Comments SODIUM (BEAKER) 140 meq/L 136-145 (test code = 381) POTASSIUM (BEAKER) 4.0 meq/L 3.5-5.1 (test code = 379) CHLORIDE (BEAKER) 114 meq/L 98-107 H (test code = 382) CO2 (BEAKER) (test 17 meq/L 22-29 L code = 355) BLOOD UREA NITROGEN 13 mg/dL 7-21 (BEAKER) (test code = 354) CREATININE (BEAKER) 0.89 mg/dL 0.57-1.25 (test code = 358) GLUCOSE RANDOM 98 mg/dL 70-105 (BEAKER) (test code = 652) CALCIUM (BEAKER) 7.6 mg/dL 8.4-10.2 L (test code = 697) EGFR (BEAKER) (test 86 mL/min/1.73 ESTIMA DAYANA GFR IS code = 1092) sq m NOT ACCURATE CREATININE CLEARANCE IN PREDICTING GLOMERULAR FILTRATION RATE . ESTIMATED GFR I S NOT APPLICABLE FOR DIALYSIS PATIEN TS. Warehouse Operator ID - EDASIHEMOGLOBIN AND [id number] 04:53:00 Test Item Value Reference Range Interpretation Comments HEMOGLOBIN (BEAKER) (test code = 11.9 GM/DL 13.7-17.5 L 410) HEMATOCRIT (BEAKER) (test code = 36.1 % 40.1-51.0 L 411) Warehouse Operator ID - [id number] METABOLIC [id number] 05:55:00 Test Item Value Reference Range Interpretation Comments SODIUM (BEAKER) 138 meq/L 136-145 (test code = 381) POTASSIUM (BEAKER) 4.4 meq/L 3.5-5.1 (test code = 379) CHLORIDE (BEAKER) 111 meq/L 98-107 H (test code = 382) CO2 (BEAKER) (test 16 meq/L 22-29 L code = 355) BLOOD UREA NITROGEN 15 mg/dL 7-21 (BEAKER) (test code = 354) CREATININE (BEAKER) 1.00 mg/dL 0.57-1.25 (test code = 358) GLUCOSE RANDOM 150 mg/dL 70-105 H (BEAKER) (test code = 652) CALCIUM (BEAKER) 7.5 mg/dL 8.4-10.2 L (test code = 697) EGFR (BEAKER) (test 75 mL/min/1.73 ESTIMA DAYANA GFR IS code = 1092) sq m NOT ACCURATE CREATININE CLEARANCE IN PREDICTING GLOMERULAR FILTRATION RATE . ESTIMATED GFR I S NOT APPLICABLE FOR DIALYSIS PATIEN TS. Warehouse Operator ID - ADMINHEMOGLOBIN AND [id number] 04:58:00 Test Item Value Reference Range Interpretation Comments HEMOGLOBIN (BEAKER) (test code = 13.1 GM/DL 13.7-17.5 L 410) HEMATOCRIT (BEAKER) (test code = 39.9 % 40.1-51.0 L 411) Warehouse Operator ID - [id number] METABOLIC [id number] 21:59:00 Test Item Value Reference Range Interpretation Comments SODIUM (BEAKER) 138 meq/L 136-145 (test code = 381) POTASSIUM (BEAKER) 4.2 meq/L 3.5-5.1 (test code = 379) CHLORIDE (BEAKER) 113 meq/L 98-107 H (test code = 382) CO2 (BEAKER) (test 17 meq/L 22-29 L code = 355) BLOOD UREA NITROGEN 15 mg/dL 7-21 (BEAKER) (test code = 354) CREATININE (BEAKER) 0.92 mg/dL 0.57-1.25 (test code = 358) GLUCOSE RANDOM 124 mg/dL 70-105 H (BEAKER) (test code = 652) CALCIUM (BEAKER) 7.3 mg/dL 8.4-10.2 L (test code = 697) EGFR (BEAKER) (test 83 mL/min/1.73 ESTIMA DAYANA GFR IS code = 1092) sq m NOT ACCURATE CREATININE CLEARANCE IN PREDICTING GLOMERULAR FILTRATION RATE . ESTIMATED GFR I S NOT APPLICABLE FOR DIALYSIS PATIEN TS. Warehouse Operator ID - DBHEMOGLOBIN AND [id number] 21:30:00 Test Item Value Reference Range Interpretation Comments HEMOGLOBIN (BEAKER) (test code = 13.0 GM/DL 13.7-17.5 L 410) HEMATOCRIT (BEAKER) (test code = 40.2 % 40.1-51.0 411) Warehouse Operator ID - [id number]-GLUCOSE [id number] 21:15:00 Test Item Value Reference Range Interpretation Comments POC-GLUCOSE METER 116 mg/dL 70-110 H : TESTED A T [facility] 6720 (BEAKER) (test code LUIS ALBERTO [place], = 1538) [address]: Warehouse Operator/Techni julius ID = [id number] for MADHURI LINARES [id number] 11:57:00 Test Item Value Reference Range Interpretation Comments SODIUM (BEAKER) (test code = 381) 137 meq/L 136-145 POTASSIUM (BEAKER) (test code = 4.5 meq/L 3.5-5.1 379) CHLORIDE (BEAKER) (test code = 382) 108 meq/L 98-107 H CO2 (BEAKER) (test code = 355) 23 meq/L 22-29 Warehouse Operator ID - THOM [id number] 11:57:00 Test Item Value Reference Range Interpretation Comments GLUCOSE RANDOM (BEAKER) (test code 101 mg/dL 70-105 = 652) Warehouse Operator ID - THOM MBUN AND CREATININE [id number] 11:57:00 Test Item Value Reference Range Interpretation Comments BLOOD UREA NITROGEN 15 mg/dL 7-21 (BEAKER) (test code = 354) CREATININE (BEAKER) 0.96 mg/dL 0.57-1.25 (test code = 358) BUN/CREAT RATIO 16 For a normal (BEAKER) (test code individu al on a = [id number]) normal diet, t he reference inter celio for the mass ra stefani ranges between 12:1 and 20:1 (BUN i n mg/dL/creatinin e in mg/dL) EGFR (BEAKER) (test 79 mL/min/1.73 ESTIMA DAYANA GFR IS code = 1092) sq m NOT ACCURATE CREATININE CLEARANCE IN PREDICTING GLOMERULAR FILTRATION RATE . ESTIMATED GFR I S NOT APPLICABLE FOR DIALYSIS PATIEN TS. Warehouse Operator ID - THOM MPROTHROMBIN [id number] 11:45:00 Test Item Value Reference Range Interpretation Comments PROTIME (BEAKER) 12.6 seconds 11.9-14.2 (test code = 759) INR (BEAKER) (test 0.96 See_Comment [Automat ed message] code = 370) The system Dx[employer] generated this result transmitted ref erence range: <=5.90. The reference range was not used to int erpret this result as normal/abnormal . RECOMMENDED COUMADIN/WARFARIN INR THERAPY RANGESSTANDARD DOSE: 2.0 - 3.0 Includes: PROPHYLAXIS for venous thrombosis, systemic embolization; TREATMENT for venous thrombosis and/or pulmonary embolus.HIGH RISK: Target INR is 2.5-3.5 for patients with mechanical heart valves.[id number] 11:20:00 Test Item Value Reference Range Interpretation Comments HEMOGLOBIN (ANGELIKA) (test code = 15.7 GM/DL 13.7-17.5 410) Warehouse Operator ID - [id number] [id number] 11:20:00 Test Item Value Reference Range Interpretation Comments PLATELET COUNT (ANGELIKA) (test 268 K/CU MM 150-450 code = 756) Warehouse Operator ID - [id number] Notes Date/Time Note Provider Source 2021-04-10 23:33:08-00:00 [facility] OPERATIVE/PROCEDURE REPORT ARTEM HAMPTON FACILITY: [facility] Billing #: [id number] Room: [address] [place] [address] MR #: [id number] : 1955 DATE OF PROCEDURE: 04/10/2021 SURGEON: Omid Guerra MD PREOPERATIVE DIAGNOSIS: High-risk Gil 4+4 ad enocarcinoma of the prostate, clinical stage T1c. POSTOPERATIVE DIAGNOSES: 1. High-risk [place] 4+4 adenocarcinoma of the p rostate, clinical stage T1c. 2. Significant intraabdominal adhesions due to m esh. PRINCIPAL PROCEDURE: Robot-assisted laparoscopic radical prostatectomy with bilateral pelvic lymphadenect jin. ASSOCIATED PROCEDURE: Takedown of intraabdominal adhesions obscuring laparoscopic access. INDICATION FOR PROCEDURE: Mr. Hampton is a 65-yea r-old gentleman, who presented to the [facility] o n finasteride with PSA of 10.0. Adjusted, this was a PSA of ab out 20; so he underwent a biopsy of his prostate, which reveal ed [place] 4+4 adenocarcinoma of the prostate in 4 cores of 6 t aken from the right side of his prostate. No nodules were palp able in the prostate. He was counseled extensively about opt ions to include both radical prostatectomy and radiation therapy, and elected surgery. He was cleared by his cardiolog ist for this procedure and presented today for definitive man agement. PROCEDURE NOTE: The patient was consented in the preoperative holding area before being transferred to the ope rative suite, where general anesthesia was induced. He was giv en clindamycin 600 mg plus gentamicin 80 mg IV for antimicrobia l prophylaxis due to a penicillin allergy. Pneumoboots were pr ovided for DVT prophylaxis. He was supine on the operative tabl e, padded and secured appropriately, and an arterial line was placed due to his underlying cardiac comorbidity. His abdomen was then shaved, prepped using ChloraPrep, and his genita mere were prepped using Betadine. He was then draped in th e standard fashion. The case was begun by identifying a sit e of entry in the anterior midline just above the umbilicus, w here direct incision was made, deepened through the subcutan eous fascia, and the fascia was divided sharply using Metpearlb auravinder scissors. Beneath the external oblique aponeurosis, the in ternal oblique was identified and mesh was present in that viky on. We divided the mesh sufficiently to gain access into the pe ritoneal cavity, where significant adhesions of the oment um were present to the mesh. We were thus able to insert a ballo on trocar and optically visualize within the intraabdominal an d pelvic space. The pelvic space was largely free of adhesions, but the space in the upper abdomen, where the robotic trocars would be placed, had adhesions proximate in location. As a result, we placed a 12 mm purchasing administrative assistant port in the right later al quadrant and an 8 mm fourth arm robotic port in the left late ral quadrant, away from any of the adhesions. Then, the camera was placed through the 8 mm left lateral quadrant port to v isualize the degree of the adhesions. While no bowel was note d to be within any of the fat adhesed to the undersurface of th e mesh, significant omental adhesions were present. We w ere able to dissect down some of those adhesions around the camera port incision site and we were able to lateralize add itional adhesions sufficiently to place the right arm 8 mm trocar port and then the left arm 8 mm trocar. We were unabl e to place a 5 mm purchasing administrative assistant port due to the significant presenc e of adhesions within the right upper quadrant. We then placed the patient in steep Trendelenburg position and docked the robo t, and using the standard forearm approach, identified the cu l-de-sac and traced the right vas deferens down to the level of the seminal vesicles. The seminal vesicle on the right side was dissected anteriorly and posteriorly, and then the pedicle s were divided sharply using electrocautery as his bulk of dise ase was on that side. Once the seminal vesicle was freed and the vas divided on that side, we then turned our attention to th e left side, where a similar dissection was performed. Once t he left seminal vesicle was freed from its pocket and th e vas deferens divided, we then elevated the seminal vesicles a nd vasa beneath the bladder, and divided the rectovesical cul-de -sac peritoneum in order to enter the space of Denonvilliers. Ta riene care to dissect beneath the Denonvilliers fascia suffici ent to get all layers of Denonvilliers on the posterior surface of the prostate given his disease, we were dissecting i nto prerectal fat. Once this was taken to the apex of the pros francis, a Surgicel was placed into the fossa to aid in hem ostasis. We then turned our attention to the bladder, where the medial umbilical ligaments were divided and the periton eum lateral to them was also divided. The space of Retzius was then entered and was sharply divided until the pubis was visu alized. Then, all fat and fascia overlying the endopelvic fasc ia beneath the pubis was removed and sent for pathologic analys is as anterior periprostatic fat. Once this was performed, we t hen divided the endopelvic fascia bilaterally and a wide lat eral excision on the right side and a more average incision in the endopelvic fascia performed on the left side. This was take n to the apex of the prostate taking care to spare the recurre nt neurovascular bundle believed to innervate the s triated urethral sphincter. This was spared bilaterally and the puboprostatic ligaments were divided sharply. Wi th the dorsal venous complex only remaining, we then used a 0 Vicryl suture to ligate the dorsal venous complex in a figure- of-eight fashion. Once this was performed, we then turned our attention to the bladder neck. The bladder neck at its junction with the prosta te was then divided sharply using electrocautery and taken d own through the muscular layers of the bladder until the mucosa was visualized. We then divided the mucosa and took care to ens ure multiple layers of muscle were left on the posterior surf luis of the prostate in order to provide an adequate oncolog ic margin, particularly on the right side. Once we were thr ough the posterior layer of the bladder neck, we were abl e to enter the previously dissected posterior dissection and el evate the seminal vesicles and vasa. We then began on the left side by performing a standard grade 3/5 nerve-sparing di ssection since no cancer was identified on the left side. The b ladder neck and prostatic pedicles were ligated using Hem-o- lefty clips, and the remainder of the neurovascular bundle was re leased off the posterior surface of the prostate sharply. This was taken to the apex and the entirety of the neurovascular b undle was spared. I then turned my attention to the right side of the prostate, where the pedicles were divided and no attempt at any significant nerve sparing was performed going wi de lateral on the neurovascular bundle to leave significant ti ssue on the posterolateral surface of the prostate on the ri ght side. This was taken to the apex of the prostate applying H em-o-lefty clips along the way for hemostasis. We then divided th e dorsal venous complex in the anterior midline and divid ed the anterior urethra until the catheter was visualized. The c atheter was then removed and the posterior lip of the urethr a was divided. I then preplaced a 3-0 V-Loc suture for a Maxx stitch and then, we divided the rectourethralis muscle free ing the prostate. The prostate was then placed into an E ndoCatch bag and elevated within the upper abdomen. We then t urned our attention to irrigating the pelvis and performed a careful search for bleeding. A couple of vessels were id entified with active bleeding and were bipolar fulgurated. I kiet crystal turned my attention to the left external iliac artery and vein, and divided the fascia overlying the adventitia of t he left iliac vein. This was taken down to the pelvic sidewall releasing all fat and megan tissue beneath it. This was taken down to the level of the obturator nerve, which was visualiz ed and spared. The packet of nodes was ligated using Hem-o-lefty clips at the level of the node of Etta and the entire pack et was then removed sharply using bipolar electrocautery whe re necessary proximally. This was sent for pathologic analysi s as left pelvic lymphadenectomy. We then turned our atten tion to the right side, where a similar dissection was perfo rmed, and the obturator nerve was visualized and spared, and t he nodes were released after Hem-o-lefty clips were applied at t he level of node of Etta in order to send the left pelvic lymph nodes for analysis. We then turned our attention to re construction. The preplaced Maxx stitch within the rectoureth ralis was then placed posterior to the bladder neck in order to reapproximate the bladder with the urethra. Then, using 2 inte rlocking V-Loc sutures, a running urethral vesicle anastomosis was performed and the anterior component of the bladder was cl osed using a tennis racquet closure. In the end, a 16-Cypriot urethral Olivo catheter was placed and the bladder was filled w ith 150 mL of normal saline. No leak was noted. As a result, 1 0 mL of sterile water was placed in the balloon and the catheter was placed to drainage. We then turned our attention to place a 19-Cypriot Gera drain via the fourth arm robotic trocar site, and a 0 Vicryl Zohaib-Rasheeda closure was perfo rmed of the 12 mm purchasing administrative assistant port in the right lateral quadrant. The specimen was delivered out of the camera port site and th e skin was incised sufficiently to remove the specimen divi ding the fascia and the mesh as necessary in order to remove the specimen within the EndoCatch bag. The fascia was then cl osed using running 0 PDS suture and the mesh was closed usi ng [id number] 2-0 Prolene suture. The subcutan eous tissues were then irrigated using saline and the skin wa s closed using 4-0 Monocryl suture, and sealed with Dermabond. The patient was then awakened from general anesthesia, trans ferred to the stretcher, and then transferred to the recovery room in good condition. COMPLICATIONS: None. DISCHARGE DISPOSITION: He will be on standard po stoperative radical prostatectomy pathway with anticipated d ischarge tomorrow or the following day. WR/MODL /[id number]
--- NOTE | 2023-02-26 16:50 | RAD REPORT ---
EXAM DESCRIPTION: YANNChest Single View02/26/2023 4:44 pm CLINICAL HISTORY: FEVER COMPARISON: Chest Pa And Lat (2 Views) dated 03/31/2021 TECHNIQUE: Portable AP view of the chest. FINDINGS: The lungs are clear. No pneumothorax or effusion. Cardiac silhouette is at the upper limi t of normal. Mediastinal contours are unchanged with sequelae of median sternotomy, and stable bulgin g along the region of the pulmonary artery, with numerous mediastinal surgical clips in that region. . IMPRESSION: No acute cardiopulmonary process. Stable findings as above.
[2023-02-26] MEDS ORDERED: ACETAMINOPHEN 500 MG TAB ONE (17:15)
[2023-02-26 17:26] LABS: Absolute Lymphocytes (CBC) 1.9 K/uL (0.7-4.9); Hematocrit 39.5 % (39.6-49.0); Lymphocytes % 16.1 % (15.3-44.8); MCV 98.6 fL (80-100); MPV 6.2 fL (7.6-11.3); RBC Red Blood Cell Count 4.01 M/uL (4.33-5.43)
[2023-02-26 17:27] LABS: Protime INR 1.19
[2023-02-26 17:38] LABS: Albumin 3.5 g/dL (3.4-5.0); Bilirubin Total 0.7 mg/dL (0.2-1.0); Potassium 3.7 mEq/L (3.5-5.1); Protein, Total 8.2 g/dL (6.4-8.2)
[2023-02-26 17:42] LABS: Specific Gravity 1.023 (1.005-1.030); Urine Bilirubin NEGATIVE (Negative); Urine Blood Negative (Negative); Urine Clarity Clear (Clear); Urine Color Yellow (Yellow); Urine Glucose NEGATIVE (Negative); Urine Protein NEGATIVE (Negative); Urine Urobilinogen Normal (Normal); Urine pH 5.5 (5.0-7.0)
[2023-02-26] MEDS ORDERED: Ringers Lactate 1,000 ML IV ONE (17:58)
[2023-02-26 18:32] LABS: SARS-CoV-2 Antigen Rapid Res Negative (Negative)
--- NOTE | 2023-02-26 18:47 | ER ---
Nurse's Notes [facility] Name: Artem Hampton Age: 67 yrs Sex: Male : 1955 Arrival Date: 02/26/2023 Time: 15:46 Bed 18 Private MD: Diagnosis: Chills (without fever) Presentation: 02/26 16:14 Chief complaint: Patient states: SUBJECTIVE FEVER AND CHILLS. Coronavirus screen: At bp this time, the client does not indicate any symptoms associated with coronavirus-19. Ebola Screen: No symptoms or risks identified at this time. Initial Sepsis Screen: Does the patient meet any 2 criteria? No. Patient's initial sepsis screen is negative. Does the patient have a suspected source of infection? No. Patient's initial sepsis screen is negative. Risk Assessment: Do you want to hurt yourself or someone else? Patient reports no desire to harm self or others. Onset of symptoms is unknown. 16:14 Method Of Arrival: Ambulatory bp 16:14 Acuity: MAVERICK 3 bp Triage Assessment: 18:45 General: Appears in no apparent distress. Behavior is calm, cooperative. Pain: Denies db pain. Historical: - Allergies: 16:09 Clindamycin; bp - Home Meds: 16:09 Metformin Oral [Active]; bp - PMHx: 16:09 CANCER- PROSTATE; Hypertensive disorder; Diabetes mellitus; HEART ATTACK; bp - PSHx: 16:09 Coronary artery bypass graft; bp - Immunization history:: Adult Immunizations up to date. - Social history:: Smoking status: Patient denies any tobacco usage or history of. Screenin:26 [facility] ED Fall Risk Assessment (Adult) History of falling in the last 3 months, aa9 including since admission No falls in past 3 months (0 pts) Confusion or Disorientation No (0 pts) Intoxicated or Sedated No (0 pts) Impaired Gait No (0 pts) Mobility Assist Device Used No (0 pt) Altered Elimination No (0 pt) Score/Fall Risk Level 0 - 2 = Low Risk Oriented to surroundings, Maintained a safe environment, Assessed \T\ reinforced patient's understanding of fall precautions. Abuse screen: Denies threats or abuse. Denies injuries from another. Nutritional screening: No deficits noted. Tuberculosis screening: No symptoms or risk factors identified. Assessment: 16:50 Reassessment: Patient appears in no apparent distress at this time. Patient and/or db family updated on plan of care and expected duration. Pain level reassessed. Patient is alert, oriented x 3, equal unlabored respirations, skin warm/dry/pink. General: Appears in no apparent distress. comfortable, Behavior is calm, cooperative. Pain:. Neuro: Level of Consciousness is awake, alert, obeys commands, Oriented to person, place, time, situation. Respiratory: Airway is patent Respiratory effort is even, unlabored, Respiratory pattern is regular, symmetrical. 17:30 Reassessment: Patient appears in no apparent distress at this time. No changes from db previously documented assessment. Patient and/or family updated on plan of care and expected duration. Pain level reassessed. Patient is alert, oriented x 3, equal unlabored respirations, skin warm/dry/pink. 18:47 Reassessment: Patient appears in no apparent distress at this time. Patient and/or db family updated on plan of care and expected duration. Pain level reassessed. Patient is alert, oriented x 3, equal unlabored respirations, skin warm/dry/pink. Patient states feeling better. Patient states symptoms have improved. Vital Signs: 16:14 BP 152 / 92; Pulse 78; Resp 16; Temp 97.3; Pulse Ox 100% ; Weight 78.47 kg; Height 5 bp ft. 7 in. ; 16:48 BP 135 / 90; Pulse 78; Resp 16; Pulse Ox 100% on R/A; db 17:30 BP 146 / 81; Pulse 73; Resp 16; Pulse Ox 100% on R/A; db 18:30 BP 138 / 83; Pulse 74; Resp 16; Pulse Ox 99% on R/A; db 16:14 Body Mass Index 27.10 (78.47 kg, 170.18 cm) bp ED Course: 15:54 Patient arrived in ED. am2 15:57 Meliton Mason PA is PHCP. [facility] 15:57 Thony Degroot MD is Attending Physician. [facility] 16:00 Initial lab(s) drawn, by pr, sent to lab. First set of blood cultures drawn by me, EKG mm9 done. 16:09 Arm band placed on. bp 16:15 Triage completed. bp 16:38 Urvashi March, RN is Primary Nurse. db 16:46 Chest Single View XRAY In Process Unspecified. EDMS 17:00 First set of blood cultures drawn Second set of blood cultures drawn. mm9 17:09 Inserted saline lock: 20 gauge in right antecubital area, using aseptic technique. mm9 17:10 Patient has correct armband on for positive identification. Placed in gown. Bed in low mm9 position. Call light in reach. Side rails up X 1. Adult w/ patient. Warm blanket given. Client placed on continuous cardiac and pulse oximetry monitoring. NIBP monitoring applied. wood calker on. Pulse ox on. NIBP on. 17:11 Blood Culture Adult (2) Sent. mm9 17:11 CBC with Diff Sent. mm9 17:12 CMP Sent. mm9 17:12 Lactate w/ 2H reflex if indic. Sent. mm9 17:12 Protime (+inr) Sent. mm9 17:12 Ptt, Activated Sent. mm9 17:37 Urinalysis w/ reflexes Sent. mm9 17:37 Urine collected: clean catch specimen, fernando colored. mm9 19:26 No provider procedures requiring assistance completed. IV discontinued, intact, aa9 bleeding controlled, No redness/swelling at site. Pressure dressing applied. Administered Medications: 17:11 Drug: Acetaminophen PO 1000 mg Route: PO; db 19:25 Follow up: Response: No adverse reaction aa9 18:02 Drug: Lactated Ringers Solution IV 1000 ml Route: IV; Rate: 1000 bolus; Site: right db antecubital; 19:25 Follow up: Response: No adverse reaction; IV Status: Completed infusion; IV Intake: aa9 1000ml Medication: 19:26 VIS not applicable for this client. aa9 Intake: 19:25 IV: 1000ml; Total: 1000ml. aa9 Outcome: 18:46 Discharge ordered by MD. alejandra 19:26 Discharged to home ambulatory, with family. aa9 19:26 Condition: stable 19:26 Discharge instructions given to patient, Instructed on discharge instructions, follow up and referral plans. Demonstrated understanding of instructions, follow-up care. 19:27 Patient left the ED. aa9 Signatures: Dispatcher [employer] EDMS Meliton Mason PA PA jmm Moreno, Amanda am2 Femi Cross RN RN lBanca Spear RN RN aa9 March, Urvashi, RN RN db José Luis, Elizabeth mm9
--- NOTE | 2023-02-26 18:47 | EDPHYS ---
Physician Documentation [facility] Name: Artem Hampton Age: 67 yrs Sex: Male : 1955 Arrival Date: 02/26/2023 Time: 15:46 Bed 18 Private MD: ED Physician Thony Degroot HPI: 02/26 15:54 This 67 yrs old Male presents to ER via Ambulatory with complaints of Fever, jmm General Weakness, chills. 15:54 The patient reports fever, not measured (subjective). Onset: The symptoms/episode jmm began/occurred gradually, 3 day(s) ago. Is a 67-year-old male with history of prostate cancer hypertension, diabetes mellitus the presents emerged department with complaints of body aches and chills began approximately 3 days ago. Patient states that he keeps his thermostat around 75 but still feels very cold. Denies cough, shortness of breath, vomiting, abdominal pain, neck pain, neck stiffness, dysuria, abdominal pain, back pain.. Historical: - Allergies: 16:09 Clindamycin; bp - Home Meds: 16:09 Metformin Oral [Active]; bp - PMHx: 16:09 CANCER- PROSTATE; Hypertensive disorder; Diabetes mellitus; HEART ATTACK; bp - PSHx: 16:09 Coronary artery bypass graft; bp - Immunization history:: Adult Immunizations up to date. - Social history:: Smoking status: Patient denies any tobacco usage or history of. ROS: 15:54 Cardiovascular: Negative for chest pain, palpitations, and edema, Respiratory: Negative jmm for shortness of breath, cough, wheezing, and pleuritic chest pain. 15:54 Constitutional: Positive for body aches, chills. 15:54 All other systems are negative. Exam: 15:54 Constitutional: This is a well developed, well nourished patient who is awake, alert, jmm and in no acute distress. Head/Face: atraumatic. Eyes: EOMI, no conjunctival erythema appreciated ENT: Moist Mucus Membranes Neck: Trachea midline, Supple Chest/axilla: Normal chest wall appearance and motion. Cardiovascular: Regular rate and rhythm. No edema appreciated Respiratory: Normal respirations, no respiratory distress appreciated Abdomen/GI: Non distended Back: Normal ROM Skin: General appearance color normal MS/ Extremity: Moves all extremities, no obvious deformities appreciated, no edema noted to the lower extremities Neuro: Awake and alert Psych: Behavior is normal, Mood is normal, Patient is cooperative and pleasant Vital Signs: 16:14 BP 152 / 92; Pulse 78; Resp 16; Temp 97.3; Pulse Ox 100% ; Weight 78.47 kg; Height 5 bp ft. 7 in. ; 16:48 BP 135 / 90; Pulse 78; Resp 16; Pulse Ox 100% on R/A; db 17:30 BP 146 / 81; Pulse 73; Resp 16; Pulse Ox 100% on R/A; db 18:30 BP 138 / 83; Pulse 74; Resp 16; Pulse Ox 99% on R/A; db 16:14 Body Mass Index 27.10 (78.47 kg, 170.18 cm) bp MDM: 15:54 Patient medically screened. bs3 18:44 Differential diagnosis: viral Infection, bacterial infection, pneumonia UTI. Data virginiam reviewed: vital signs, nurses notes, lab test result(s), radiologic studies, plain films. Consideration of Admission/Observation Escalation of care including admission/observation considered. I considered the following discharge prescriptions or medication management in the emergency department. Counseling: I had a detailed discussion with the patient and/or guardian regarding: the historical points, exam findings, and any diagnostic results supporting the discharge/admit diagnosis, lab results, radiology results, the need for outpatient follow up, to return to the emergency department if symptoms worsen or persist or if there are any questions or concerns that arise at home. ED course: Patient is alert nontoxic in appearance in the ED. No signs respiratory distress. I do not currently suspect the patient is septic. Patient given strict return precautions for any type of pain, vomiting, shortness of breath, etc. Patient understood agrees plan of care.. 02/26 16:12 Order name: Blood Culture Adult (2) [facility] 02/26 16:12 Order name: CBC with Diff; Complete Time: 17:41 [facility] 02/26 16:12 Order name: CMP; Complete Time: 17:39 [facility] 02/26 16:12 Order name: Lactate w/ 2H reflex if indic.; Complete Time: 17:39 [facility] 02/26 16:12 Order name: Protime (+inr); Complete Time: 17:30 [facility] 02/26 16:12 Order name: Ptt, Activated; Complete Time: 17:30 [facility] 02/26 16:12 Order name: Urinalysis w/ reflexes; Complete Time: 17:43 [facility] 02/26 17:42 Order name: SARS RAPID; Complete Time: 18:38 [facility] 02/26 17:42 Order name: Influenza Screen (a \T\ B); Complete Time: 18:38 [facility] 02/26 16:12 Order name: Chest Single View XRAY; Complete Time: 16:52 [facility] 02/26 16:12 Order name: EKG; Complete Time: 16:13 [facility] 02/26 16:12 Order name: Accucheck; Complete Time: 17:36 [facility] 02/26 16:12 Order name: Cardiac monitoring; Complete Time: 17:11 [facility] 02/26 16:12 Order name: EKG - Nurse/Tech; Complete Time: 17:11 [facility] 02/26 16:12 Order name: IV Saline Lock - Large Bore; Complete Time: 17:11 [facility] 02/26 16:12 Order name: Labs collected and sent; Complete Time: 17:11 [facility] 02/26 16:12 Order name: O2 Per Protocol; Complete Time: 17:11 [facility] 02/26 16:12 Order name: O2 Sat Monitoring; Complete Time: 17:11 [facility] 02/26 16:12 Order name: Vital Signs; Complete Time: 17:11 [facility] Administered Medications: 17:11 Drug: Acetaminophen PO 1000 mg Route: PO; db 19:25 Follow up: Response: No adverse reaction aa9 18:02 Drug: Lactated Ringers Solution IV 1000 ml Route: IV; Rate: 1000 bolus; Site: right db antecubital; 19:25 Follow up: Response: No adverse reaction; IV Status: Completed infusion; IV Intake: aa9 1000ml Disposition Summary: 02/26/23 18:46 Discharge Ordered Location: Home [facility] Condition: Stable [facility] Diagnosis - Chills (without fever) [facility] Followup: [facility] - With: Private Physician - When: 2 - 3 days - Reason: Recheck today's complaints, Continuance of care, Re-evaluation by your physician Discharge Instructions: - Discharge Summary Sheet [facility] Forms: - Medication Reconciliation Form [facility] - Thank You Letter [facility] - Antibiotic Education [facility] - Prescription Opioid Use [facility] Addendum: 03/01/2023 11:58 Co-signature as Attending Physician, Thony GAYTAN I reviewed the patient's care r n provided by the Advanced Practice Provider and agree with the diagnosis and treatment plan. Signatures: Dispatcher [employer] Meliton Jacob PA PA jmm Nieto, Roman, MD MD rn Peltier, Brian, RN RN Stuart Worthington MD MD bs3 Urvashi March RN RN db Blanca Cardozo RN aa9
[2023-02-26 19:46] VITALS: TEMP 97.3
[2023-02-26 19:54] VITALS: BP 138/83; O2SAT 99
--- NOTE | 2023-02-28 07:29 | EKG ---
Test Date: 2023-02-26 Test Time: 16:51:11 Parts Control Clerk: YEN MEASUREMENT RESULTS: Intervals: Rate: 71 OK: 160 QRSD: 100 QT: 420 QTc: 456 Bruno: P: 59 OK: 160 QRS: -1 T: 53 INTERPRETIVE STATEMENTS: Normal sinus rhythm Normal ECG Compared to ECG 01/05/2011 18:23:43 Sinus tachycardia no longer present Left ventricular hypertrophy no longer present Electronically Signed On 02-28-23 07:25:40 CDT by Glenn Saenz
== END 2023-02-26 19:27 | disposition home or self-care (01) ==
LOC: ER 15:46
DX: R68.83 Chills (without fever) (principal); E11.9 Type 2 diabetes mellitus without complications; I10 Essential (primary) hypertension; Z95.1 Presence of aortocoronary bypass graft; Z20.822 Contact with and (suspected) exposure to COVID-19; Z88.3 Allergy status to other anti-infective agents; Z85.46 Personal history of malignant neoplasm of prostate
CPT/HCPCS: 93005; 87040 ×2; 85025; 36415; 85610; 83605; 85730; 81003; 80053; 87804 ×2; 71045; 96360; 99285; 87811; J7120

== ENCOUNTER 2023-08-17 10:51 | Day surgery (SDC) | payer MEDICARE ==
[2023-08-02 11:51] LABS: Absolute Lymphocytes (CBC) 1.8 K/uL (0.7-4.9); Hematocrit 47.1 % (39.6-49.0); Lymphocytes % 38.4 % (15.3-44.8); MCV 100.8 fL (80-100); MPV 7.1 fL (7.6-11.3); Platelets 276 thou/uL (152-406); RBC Red Blood Cell Count 4.67 M/uL (4.33-5.43)
[2023-08-02 11:56] LABS: Protime INR 1.1
[2023-08-02 12:05] LABS: Potassium 4.4 mEq/L (3.5-5.1)
[2023-08-17] MEDS ORDERED: MIDAZOLAM HCL 2 MG/2 ML INJ ONE (12:00)
[2023-08-17] MEDS ORDERED: KETOROLAC 30 MG/ML INJ ONE (12:00)
[2023-08-17] MEDS ORDERED: LIDOCAINE 2% MPF 5 ML VIAL ONE (12:00)
[2023-08-17] MEDS: NA CHLORIDE 0.9% 1,000 ML ONE ×2 (12:05→12:32)
[2023-08-17] MEDS ORDERED: BACITRACIN OINTMENT 14 GM TUBE TOP ONE (12:28)
[2023-08-17] MEDS ORDERED: CEFAZOLIN SODIUM 2 GM/VIAL ONE (12:43)
[2023-08-17] MEDS: LIDOCAINE 1% 20 ML MDV ONE ×2 (12:45→12:48)
[2023-08-17] MEDS ORDERED: GLYCOPYRROLATE 0.2 MG/ML SYR ONE (13:14)
[2023-08-17 14:09] VITALS: O2SAT 100
[2023-08-17] MEDS ORDERED: BUPIVACAINE 0.25% PF 30 ML VIAL ONE (14:21)
[2023-08-17] MEDS ORDERED: CODEINE 30MG/APAP 300MG TAB PO PRN (14:24)
[2023-08-17 16:13] VITALS: BP 132/83; TEMP 97
--- NOTE | 2023-08-17 16:21 | OP ---
Surgeon: OMID GUERRA Preoperative Diagnoses: 1.Acquired phimosis. 2.Status post radical prostatectomy. 3.Incontinence. Postoperative Diagnoses: 1.Acquired phimosis. 2.Status post radical prostatectomy. 3.Incontinence. Principal Procedures: 1.Penile block. 2.Sleeve circumcision. Indication For Procedure: Mr. Hampton underwent radical prostatectomy and unfortunately suffers posto perative incontinence, requiring several pads per day. Because he was uncircumcised and also diabeti c, the foreskin developed posthitis, and eventually caused it to become tight. Eventually, he was un able to retract the foreskin to clean adequately and thus desired to proceed with circumcision. Procedure In Detail: The patient was consented in the preoperative holding area before being transfe rred to the operative suite where general anesthesia was induced. He was given Ancef 2 g IV antimicr obial prophylaxis, and pneumo boots were provided for DVT prophylaxis. He was placed supine on the p rocedure table, padded, and secured appropriately. His genitalia were prepped with Betadine and drap ed in standard fashion. The skin beneath the phimotic area of the glans was prepped using Betadine u sing Q-tip swabs. I then performed the penile block. Penile block procedure: Using an 18-gauge needle and a 1:1 mixture of 0.25% Marcaine and 1% lidocain e, I placed the 18-gauge needle into the infrapubic region and aspirated for any signs of blood. Whe n none was obtained, I then injected a bolus of the mixture in 3 to 5 cc increments aspirating in bet ween to ensure absence of blood before injecting a total of 10 cc in the infrapubic midline. I then angled the needle to the right portion of the infrapubic midline in the region of the neurovascular b undle and again aspirated and injected slowly another 10 cc bolus of the lidocaine and Marcaine mixtu re. I then backed the needle out and angled it to the patient's left side in the region of the neuro vascular bundle, and I again injected another 10 cc of the lidocaine, Marcaine mixture for a total of 30 cc administered for the penile block. I then began the circumcision by marking a line at the cor stuart of the glans circumferentially while simultaneously applying a straight clamp to the phimotic are a of the foreskin to perform a dorsal slit. I incised circumferentially at the laird of the glans, deepened into the dartos layers and then incised the dorsal slit in order to be able to retract the f oreskin and visualize the glans. I then created a preputial margin that was approximately 1 to 1.5 c m, you know, distal to the glans penis, and this was circumferentially incised as well. Of note, the re was significant downward deviation of the glans associated with the tight frenulum; so the frenulu m was partially taken down. I then divided the intervening skin in the dorsal midline and then relea sed the intervening skin from the shaft of the penis using electrocautery taking care to fulgurate an y bleeders encountered along the way. Once the intervening foreskin had been removed, I then perform ed a careful search for bleeding and utilized Adson forceps to pinpoint, fulgurate in all oozing vess els within the dartos layers of the penis. Irrigation was then employed and I surveyed the area agai n fulgurating any additional sites of venous ooze observed. Once completely hemostatic, I then utili zed 3-0 chromic suture dipped in bacitracin to place 4 quadrant sutures independently brought togethe r the preputial margin with the shaft skin. The intervening skin was then closed using a running hor izontal mattress of 3-0 chromic. In the end, the cosmetic result was excellent. Wet-to-dry was appl ied and then I applied bacitracin to the circumcision line before applying a Katarina and Coban for gent le pressure dressing. The patient was then awakened from general anesthesia, transferred to a [facility], and then transferred to the recovery room in good condition. Complications: None. Discharge Disposition: He will be standard post circumcision pathway with followup to be scheduled w sandyin 3 to 6 weeks unless he has any issues in the meantime. LEEANNA/GERIL Voice ID: [id number] Report ID: [id number]
== END 2023-08-17 16:00 | disposition home or self-care (01) ==
LOC: OR 10:51
PROVIDERS: ATTEND Urology
PROC: 0VTTXZZ Resection of Prepuce, External Approach (ICD-10-PCS; principal; 2023-08-17 12:00)
DX: N47.1 Phimosis (principal); R32 Unspecified urinary incontinence; E11.9 Type 2 diabetes mellitus without complications
CPT/HCPCS: 87088; 85025; 87086; 80048; 36415; 85610; 82947 ×2; 88304; 87077; 87186; 54150; J2001 ×2; J2250; J7030

== ENCOUNTER → 2023-09-30 | Emergency (ER) | payer MEDICARE ==
[~2023-09-30] MED LIST: ACETAMINOPHEN 500 MG TAB ONE; AZITHROMYCIN 500 MG INJ IVPB ONE; CEFTRIAXONE 1000 MG/VIAL ONE; FAMOTIDINE 20 MG/2 ML VIAL IV ONE; IBUPROFEN 200 MG TAB PO ONE; NA CHLORIDE 0.9% 1,000 ML ONE; NA CHLORIDE 0.9% 100 ML ONE; NA CHLORIDE 0.9% 250 ML ONE
--- NOTE | 2023-09-30 22:24 | RAD REPORT ---
EXAM DESCRIPTION: RAD - Chest Single View - 09/30/2023 10:17 pm CLINICAL HISTORY: Cough;Congestion COMPARISON: <Comparisons> FINDINGS: Lines: None. Lungs: No evidence of edema or pneumonia. Pleural: No significant pleural effusions or pneumothorax. Cardiac: Similar size and configuration. Sternotomy. Mediastinum: Within normal limits. Bones: No acute fractures. Other: None IMPRESSION: No acute cardiopulmonary disease.
[2023-09-30 23:31] LABS: SARS-COV-2 RT PCR NEGATIVE (NEGATIVE)
[2023-09-30 23:45] LABS: Absolute Lymphocytes (CBC) 1.7 K/uL (0.7-4.9); Lymphocytes % 21.9 % (15.3-44.8); Platelets 254 thou/uL (152-406)
[2023-09-30 23:49] LABS: Protime INR 1.23
[2023-10-01 00:14] LABS: Albumin 3.7 g/dL (3.4-5.0); Bilirubin Direct 0.2 mg/dL (0-0.2); Bilirubin Indirect, Calculated 0.7 mg/dL (0.2-0.8); Bilirubin Total 0.9 mg/dL (0.2-1.0); Magnesium 1.9 mg/dL (1.6-2.4); Potassium 3.8 mEq/L (3.5-5.1); Protein, Total 7.4 g/dL (6.4-8.2); Troponin High Sensitivity 57.7 pg/mL (<58.9)
--- NOTE | 2023-10-01 00:59 | ER ---
Nurse's Notes [facility] Name: Artem Hampton Age: 68 yrs Sex: Male : 1955 Arrival Date: 09/30/2023 Time: 21:42 Bed 18 Private MD: Diagnosis: Acute upper respiratory infection, unspecified;Fever, unspecified;Cough Presentation: 09/30 21:47 Chief complaint: EMS states: Pt reports not being able to breath through his nose and jb4 soar throat x1 day. Coronavirus screen: At this time, the client does not indicate any symptoms associated with coronavirus-19. Ebola Screen: No symptoms or risks identified at this time. Initial Sepsis Screen: Does the patient meet any 2 criteria? No. Patient's initial sepsis screen is negative. Does the patient have a suspected source of infection? No. Patient's initial sepsis screen is negative. Risk Assessment: Do you want to hurt yourself or someone else? Patient reports no desire to harm self or others. Onset of symptoms was September 30, 2023. 21:47 Method Of Arrival: EMS: [facility] jb4 21:47 Acuity: MAVERICK 4 jb4 Historical: - Allergies: 21:49 Clindamycin; jb4 21:49 Clonidine; jb4 - PMHx: 21:49 CANCER- PROSTATE; diabetes mellitus; heart attack; Hypertensive disorder; jb4 - PSHx: 21:49 Coronary artery bypass graft; jb4 - Immunization history:: Adult Immunizations up to date. - Social history:: Smoking status: Patient denies any tobacco usage or history of. - Family history:: not pertinent. Screenin:48 [facility] ED Fall Risk Assessment (Adult) History of falling in the last 3 months, tm6 including since admission No falls in past 3 months (0 pts). Abuse screen: Denies threats or abuse. Denies injuries from another. Nutritional screening: No deficits noted. Tuberculosis screening: No symptoms or risk factors identified. Assessment: 21:48 General: Appears uncomfortable, Behavior is calm, cooperative. Pain: Denies pain. tm6 Neuro: Level of Consciousness is awake, alert, obeys commands, Oriented to person, place, time, situation. Cardiovascular: Capillary refill < 3 seconds Patient's skin is warm and dry. Respiratory: Airway is patent Respiratory effort is even, labored, Respiratory pattern is regular, symmetrical, Parent/caregiver reports the patient having shortness of breath at rest not being able to breathe through his nose. GI: Abdomen is round non-distended. : No signs and/or symptoms were reported regarding the genitourinary system. EENT: Reports nasal congestion since two days ago. Derm: No signs and/or symptoms reported regarding the dermatologic system. Musculoskeletal: No signs and/or symptoms reported regarding the musculoskeletal system. 10/01 00:26 Reassessment: Patient appears in no apparent distress at this time. Patient and/or km8 family updated on plan of care and expected duration. Pain level reassessed. Patient is alert, oriented x 3, equal unlabored respirations, skin warm/dry/pink. General: Appears in no apparent distress. comfortable. Neuro: Level of Consciousness is awake, alert, obeys commands, Oriented to person, place, time, situation. Cardiovascular: Denies chest pain, Capillary refill < 3 seconds Patient's skin is warm and dry. Respiratory: Airway is patent Respiratory effort is even, unlabored, Respiratory pattern is regular, symmetrical. EENT: Reports nasal congestion. 01:15 Reassessment: Patient appears in no apparent distress at this time. No changes from 8 previously documented assessment. Patient and/or family updated on plan of care and expected duration. Pain level reassessed. Patient is alert, oriented x 3, equal unlabored respirations, skin warm/dry/pink. Vital Signs: 09/30 21:47 BP 139 / 78; Pulse 68; Resp 16; Temp 99.4(O); Pulse Ox 100% ; Weight 76.2 kg (R); jb4 Height 5 ft. 7 in. (R); Pain 5/10; 21:48 BP 115 / 65; Pulse 64; Resp 17; Temp 99.4(O); Pulse Ox 97% on R/A; Pain 0/10; tm6 22:30 BP 129 / 83; Pulse 72; Resp 18; Pulse Ox 96% on R/A; tl4 23:07 BP 141 / 89; Pulse 85; Resp 18; Pulse Ox 97% on R/A; tl4 23:30 BP 127 / 90; Pulse 74; Resp 18; Pulse Ox 97% on R/A; tl4 10/01 00:00 BP 125 / 84; Pulse 78; Resp 20; Pulse Ox 97% on R/A; tl4 00:10 BP 124 / 86; Pulse 71; Resp 16; Pulse Ox 98% on R/A; km8 01:00 BP 122 / 76; Pulse 66; Resp 18; Pulse Ox 98% on R/A; km8 09/30 21:47 Body Mass Index 26.31 (76.20 kg, 170.18 cm) jb4 09/30 21:47 Pain Scale: Adult jb4 21:48 Pain Scale: Adult tm6 ED Course: 09/30 21:47 Patient arrived in ED. jb4 21:48 Patient has correct armband on for positive identification. Bed in low position. Call tm6 light in reach. Side rails up X2. Provided Education on: plan of care. Client placed on continuous cardiac and pulse oximetry monitoring. NIBP monitoring applied. monitor car operator on. Door closed. Noise minimized. Warm blanket given. 21:48 No provider procedures requiring assistance completed. tm6 21:49 Triage completed. jb4 21:49 Lloyd Ascencio MD is Attending Physician. adrien 21:49 Arm band placed on right wrist. jb4 22:13 Nithin Mclaughlin is Primary Nurse. tl4 22:18 XRAY Chest (1 view) In Process Unspecified. EDMS 22:51 Strep Sent. tl4 22:51 COVID-19/FLU A+B/RSV Sent. tl4 23:30 Inserted saline lock: 20 gauge in right forearm, using aseptic technique. Blood tl4 collected. 23:32 Blood Culture Adult (2) Sent. tl4 23:33 Basic Metabolic Panel Sent. tl4 23:33 CBC with Diff Sent. tl4 23:33 LFT's Sent. tl4 23:33 Magnesium Sent. tl4 23:33 NT PRO-BNP Sent. tl4 23:33 PT-INR Sent. tl4 23:33 Troponin HS Sent. tl4 23:35 Lactate w/ 2H reflex if indic. Sent. tl4 10/01 00:20 Report given to BLANQUITA Echavarria. tl4 00:21 Italia Moffett RN is Primary Nurse. km8 01:45 IV discontinued, intact, bleeding controlled, No redness/swelling at site. Pressure km8 dressing applied. Administered Medications: 09/30 22:50 Drug: Ibuprofen PO 600 mg PO once Route: PO; tl4 23:31 Follow up: Response: Temperature is decreased tl4 22:51 Drug: Acetaminophen PO 1000 mg PO once Route: PO; tl4 23:32 Follow up: Response: Temperature is decreased tl4 23:31 Drug: Famotidine IVP 20 mg IVP once; dilute with 10 mL 0.9% NaCl; give over 2 minutes tl4 Route: IVP; Site: right forearm; 23:34 Follow up: Response: No adverse reaction tl4 23:32 Drug: NS 0.9% IV 1000 ml IV at 1 bolus Per protocol; 1000 mL bolus Route: IV; Rate: 1 tl4 bolus; Site: right forearm; 10/01 01:14 Follow up: IV Status: Completed infusion; IV Intake: 1000ml km8 09/30 23:33 Drug: Rocephin IV 1 grams IV at per protocol once; Given slow IV push per pharmacy tl4 instructions Route: IV; Rate: per protocol; Site: right forearm; 23:34 Follow up: Response: No adverse reaction; IV Status: Completed infusion; IV Intake: tl4 100ml 23:33 Drug: Zithromax IVPB 500 mg IVPB once over 1 hrs; mix in 250 mL NS Route: IVPB; Rate: tl4 250 ml/hr; Infused Over: 1 hrs; Site: right forearm; Delivery: Dial-a-flow; 10/01 01:45 Follow up: IV Status: Completed infusion; IV Intake: 250ml km8 Medication: 09/30 21:48 VIS not applicable for this client. tm6 Intake: 23:34 IV: 100ml; Total: 100ml. tl4 10/01 01:14 IV: 1000ml; Total: 1100ml. km8 01:45 IV: 250ml; Total: 1350ml. km8 Outcome: 00:59 Discharge ordered by . adrien 01:46 Discharged to home ambulatory, with significant other, km8 01:46 Condition: good 01:46 Discharge instructions given to patient, significant other, Instructed on discharge instructions, follow up and referral plans. medication usage, Demonstrated understanding of instructions, follow-up care, medications, Prescriptions given X 3, 01:46 Patient left the ED. km8 Signatures: Dispatcher [employer] EDNY Lloyd Ascencio MD MD cha Bryson, James, RN RN jb4 Italia Moffett RN RN km8 iGl Ellis RN RN tm6 Nithin Mclaughlin tl4 Corrections: (The following items were deleted from the chart) 09/30 23:32 23:32 Zithromax IVPB 500 mg IVPB in right forearm over 1 hrs tl4 tl4
--- NOTE | 2023-10-01 00:59 | EDPHYS ---
Physician Documentation [facility] Name: Artem Hampton Age: 68 yrs Sex: Male : 1955 Arrival Date: 09/30/2023 Time: 21:42 Bed 18 Private MD: ED Physician Lloyd Ascencio HPI: 10/01 00:52 This 68 yrs old Male presents to ER via EMS with complaints of sore throat , adrien uri , fever. 00:52 The patient presents with sore throat. The patient describes throat pain as constant, adrien raw. Onset: The symptoms/episode began/occurred 2 day(s) ago. The patient or guardian reports cough, difficulty breathing, flu symptoms, arthralgias, low-grade fever, myalgias. Modifying factors: The symptoms are alleviated by nothing. the symptoms are aggravated by nothing. fever , uri. Severity of symptoms: At their worst the symptoms were mild, in the emergency department the symptoms are unchanged. Associated signs and symptoms: Pertinent positives: fever, nausea, rhinorrhea, sore throat. The patient reports fever, that was measured at 100 degrees Fahrenheit. Associated signs and symptoms: Pertinent positives: cough, headache, nausea, rhinorrhea, shortness of breath Sore throat. Historical: - Allergies: 09/30 21:49 Clindamycin; jb4 21:49 Clonidine; jb4 - PMHx: 21:49 CANCER- PROSTATE; diabetes mellitus; heart attack; Hypertensive disorder; jb4 - PSHx: 21:49 Coronary artery bypass graft; jb4 - Immunization history:: Adult Immunizations up to date. - Social history:: Smoking status: Patient denies any tobacco usage or history of. - Family history:: not pertinent. ROS: 10/01 00:52 Eyes: Negative for injury, pain, redness, and discharge, Neck: Negative for injury, adrien pain, and swelling, Cardiovascular: Negative for chest pain, palpitations, and edema, Respiratory: Negative for shortness of breath, cough, wheezing, and pleuritic chest pain, Abdomen/GI: Negative for abdominal pain, nausea, vomiting, diarrhea, and constipation, Back: Negative for injury and pain, : Negative for injury, bleeding, discharge, and swelling, MS/Extremity: Negative for injury and deformity, Skin: Negative for injury, rash, and discoloration, Neuro: Negative for headache, weakness, numbness, tingling, and seizure, Psych: Negative for depression, anxiety, suicide ideation, homicidal ideation, and hallucinations, Allergy/Immunology: Negative for hives, rash, and allergies, Endocrine: Negative for neck swelling, polydipsia, polyuria, polyphagia, and marked weight changes, Constitutional: Positive for fever, Exam: 00:52 Constitutional: This is a well developed, well nourished patient who is awake, alert, adrien and in no acute distress. Head/Face: Normocephalic, atraumatic. Eyes: Pupils equal round and reactive to light, extra-ocular motions intact. Lids and lashes normal. Conjunctiva and sclera are non-icteric and not injected. Cornea within normal limits. Periorbital areas with no swelling, redness, or edema. ENT: Nares patent. No nasal discharge, no septal abnormalities noted. Tympanic membranes are normal and external auditory canals are clear. Oropharynx with no redness, swelling, or masses, exudates, or evidence of obstruction, uvula midline. Mucous membranes moist. Neck: Trachea midline, no thyromegaly or masses palpated, and no cervical lymphadenopathy. Supple, full range of motion without nuchal rigidity, or vertebral point tenderness. No Meningismus. Chest/axilla: Normal chest wall appearance and motion. Nontender with no deformity. No lesions are appreciated. Cardiovascular: Regular rate and rhythm with a normal S1 and S2. No gallops, murmurs, or rubs. Normal PMI, no JVD. No pulse deficits. Respiratory: Lungs have equal breath sounds bilaterally, clear to auscultation and percussion. No rales, rhonchi or wheezes noted. No increased work of breathing, no retractions or nasal flaring. Abdomen/GI: Soft, non-tender, with normal bowel sounds. No distension or tympany. No guarding or rebound. No evidence of tenderness throughout. Back: No spinal tenderness. No costovertebral tenderness. Full range of motion. Male : Normal genitalia with no discharge or lesions. Skin: Warm, dry with normal turgor. Normal color with no rashes, no lesions, and no evidence of cellulitis. MS/ Extremity: Pulses equal, no cyanosis. Neurovascular intact. Full, normal range of motion. Neuro: Awake and alert, GCS 15, oriented to person, place, time, and situation. Cranial nerves II-XII grossly intact. Motor strength 5/5 in all extremities. Sensory grossly intact. Cerebellar exam normal. Normal gait. Psych: Awake, alert, with orientation to person, place and time. Behavior, mood, and affect are within normal limits. 00:52 ECG was reviewed by the Attending Physician. Vital Signs: 09/30 21:47 BP 139 / 78; Pulse 68; Resp 16; Temp 99.4(O); Pulse Ox 100% ; Weight 76.2 kg (R); jb4 Height 5 ft. 7 in. (R); Pain 5/10; 21:48 BP 115 / 65; Pulse 64; Resp 17; Temp 99.4(O); Pulse Ox 97% on R/A; Pain 0/10; tm6 22:30 BP 129 / 83; Pulse 72; Resp 18; Pulse Ox 96% on R/A; tl4 23:07 BP 141 / 89; Pulse 85; Resp 18; Pulse Ox 97% on R/A; tl4 23:30 BP 127 / 90; Pulse 74; Resp 18; Pulse Ox 97% on R/A; tl4 10/01 00:00 BP 125 / 84; Pulse 78; Resp 20; Pulse Ox 97% on R/A; tl4 00:10 BP 124 / 86; Pulse 71; Resp 16; Pulse Ox 98% on R/A; km8 01:00 BP 122 / 76; Pulse 66; Resp 18; Pulse Ox 98% on R/A; km8 09/30 21:47 Body Mass Index 26.31 (76.20 kg, 170.18 cm) [facility] 09/30 21:47 Pain Scale: Adult [facility] 21:48 Pain Scale: Adult tm6 MDM: 09/30 21:49 Patient medically screened. [facility] 09/30 21:52 Order name: Basic Metabolic Panel; Complete Time: 00:48 [facility] 09/30 21:52 Order name: CBC with Diff; Complete Time: 00:11 [facility] 09/30 21:52 Order name: LFT's; Complete Time: 00:48 [facility] 09/30 21:52 Order name: Magnesium; Complete Time: 00:48 [facility] 09/30 21:52 Order name: NT PRO-BNP; Complete Time: 00:48 [facility] 09/30 21:52 Order name: PT-INR; Complete Time: 00:11 [facility] 09/30 21:52 Order name: Troponin HS; Complete Time: 00:48 [facility] 09/30 21:52 Order name: Lactate w/ 2H reflex if indic.; Complete Time: 00:48 [facility] 09/30 21:52 Order name: Blood Culture Adult (2) [facility] 09/30 21:52 Order name: COVID-19/FLU A+B/RSV; Complete Time: 00:11 [facility] 09/30 21:52 Order name: Strep; Complete Time: 00:11 [facility] 09/30 23:06 Order name: Throat Culture [facility] 10/01 00:49 Order name: Urinalysis w/ reflexes [facility] 09/30 21:52 Order name: XRAY Chest (1 view); Complete Time: 00:11 [facility] 09/30 21:52 Order name: EKG; Complete Time: 21:53 [facility] 09/30 21:52 Order name: Cardiac monitoring; Complete Time: 21:57 [facility] 09/30 21:52 Order name: EKG - Nurse/Tech; Complete Time: 00:03 [facility] 09/30 21:52 Order name: IV Saline Lock; Complete Time: 23:32 [facility] 09/30 21:52 Order name: Labs collected and sent; Complete Time: 23:32 [facility] 09/30 21:52 Order name: O2 Per Protocol; Complete Time: 21:57 [facility] 09/30 21:52 Order name: O2 Sat Monitoring; Complete Time: 21:57 [facility] EC/29 00:52 Rate is 66 beats/min. Rhythm is regular. QRS [place] is Normal. CO interval is normal. QRS adrien interval is normal. QT interval is normal. No Q waves. T waves are Normal. No ST changes noted. Clinical impression: NSR w/ Non-specific ST/T Changes and No evidence of ischemia. Interpreted by me. Reviewed by me. Administered Medications: 09/30 22:50 Drug: Ibuprofen PO 600 mg PO once Route: PO; tl4 23:31 Follow up: Response: Temperature is decreased tl4 22:51 Drug: Acetaminophen PO 1000 mg PO once Route: PO; tl4 23:32 Follow up: Response: Temperature is decreased tl4 23:31 Drug: Famotidine IVP 20 mg IVP once; dilute with 10 mL 0.9% NaCl; give over 2 minutes tl4 Route: IVP; Site: right forearm; 23:34 Follow up: Response: No adverse reaction tl4 23:32 Drug: NS 0.9% IV 1000 ml IV at 1 bolus Per protocol; 1000 mL bolus Route: IV; Rate: 1 tl4 bolus; Site: right forearm; 10/01 01:14 Follow up: IV Status: Completed infusion; IV Intake: 1000ml km8 09/30 23:33 Drug: Rocephin IV 1 grams IV at per protocol once; Given slow IV push per pharmacy tl4 instructions Route: IV; Rate: per protocol; Site: right forearm; 23:34 Follow up: Response: No adverse reaction; IV Status: Completed infusion; IV Intake: tl4 100ml 23:33 Drug: Zithromax IVPB 500 mg IVPB once over 1 hrs; mix in 250 mL NS Route: IVPB; Rate: tl4 250 ml/hr; Infused Over: 1 hrs; Site: right forearm; Delivery: Dial-a-flow; 10/01 01:45 Follow up: IV Status: Completed infusion; IV Intake: 250ml km8 Disposition Summary: 10/01/23 00:59 Discharge Ordered Notes: Location: Home adrien Problem: new adrien Symptoms: have improved adrien Condition: Stable adrien Diagnosis - Acute upper respiratory infection, unspecified adrien - Fever, unspecified adrien - Cough adrien Followup: adrien - With: Private Physician - When: 2 - 3 days - Reason: Recheck today's complaints, Continuance of care, Re-evaluation by your physician Discharge Instructions: - Discharge Summary Sheet adrien - Fever, Adult adrien - Upper Respiratory Infection, Adult adrien - Cool Mist Vaporizer adrien - Upper Respiratory Infection, Adult, [id number] adrien - Cough, Adult, [id number] adrien - Cough, Adult adrien - Fever, Adult, [id number] adrien Forms: - Medication Reconciliation Form [facility] - Thank You Letter [facility] - Antibiotic Education [facility] - Prescription Opioid Use [facility] - Patient Portal Instructions [facility] - Leadership Thank You Letter [facility] Prescriptions: - Augmentin 875-125 mg Oral Tablet - take 1 tablet ORAL route every 12 hours for 10 days; 20 tablet; Refills: 0, [facility] Product Selection Permitted - Tessalon Perles 100 mg Oral capsule - take 2 capsule ORAL route every 8 hours As needed; 30 capsule; Refills: 0, [facility] Product Selection Permitted - Medrol (Jonathan) 4 mg Oral Tablets, Dose Pack - take 1 tablet ORAL route as directed - follow package instructions; 1 packet; adrien Refills: 0, Product Selection Permitted Signatures: Dispatcher [employer] Lloyd Ardon MD MD cha Bryson, James RN RN jb4 Nithin Mclaughlin 4 Italia Moffett RN km8
[2023-10-01 01:45] LABS: Specific Gravity 1.027 (1.005-1.030); Urine Bacteria None Seen /HPF (<20); Urine Bilirubin NEGATIVE (Negative); Urine Blood Negative (Negative); Urine Clarity Clear (Clear); Urine Color Yellow (Yellow); Urine Glucose NEGATIVE (Negative); Urine Mucus 2+ /HPF (None Seen); Urine Protein TRACE (Negative); Urine RBC <5 /HPF (None Seen); Urine Urobilinogen 1+ (Normal); Urine pH 6.5 (5.0-7.0)
[2023-10-01 07:29] VITALS: TEMP 99.4
[2023-10-01 07:36] VITALS: BP 122/76; O2SAT 98
--- NOTE | 2023-10-01 15:28 | EKG ---
Test Date: 2023-09-30 Test Time: 23:48:22 Senior Product Manager: TL MEASUREMENT RESULTS: Intervals: Rate: 66 CT: 150 QRSD: 96 QT: 444 QTc: 465 [place]: P: 59 CT: 150 QRS: -12 T: 58 INTERPRETIVE STATEMENTS: Normal sinus rhythm Normal ECG Compared to ECG 02/26/2023 16:51:11 No significant changes Electronically Signed On 10-01-23 15:26:39 [employer]OB [employer]ER by Hu Lindsay
== END ==
LOC: ER 21:42
DX: J06.9 Acute upper respiratory infection, unspecified (principal); R05.9 Cough, unspecified; Z11.52 Encounter for screening for COVID-19; Z95.1 Presence of aortocoronary bypass graft; Z88.3 Allergy status to other anti-infective agents; Z88.8 Allergy status to other drugs, medicaments and biological substances
CPT/HCPCS: 96365; 93005; 87040 ×2; 87070; 85025; 80048; 36415; 83735; 85610; 80076; 87081; 83605; 84484; 83880; 0241U; 71045; 96375; 99285; 96366; J7050; J7030; J0696

== ENCOUNTER 2024-01-23 17:15 | Inpatient (IN) | payer MEDICARE ==
[2024-01-23 17:52] LABS: Absolute Basophils 0.1 K/uL (0-0.5); Absolute Eosinophils 0.1 K/uL (0-0.5); Absolute Lymphocytes (CBC) 1.6 K/uL (0.7-4.9); Absolute Monocytes 0.4 K/uL (0.1-1.3); Absolute Neutrophil 3.5 K/uL (1.8-8.0); Basophils % 0.9 % (0-1.3); Eosinophils % 1.1 % (0-4.4); Hematocrit 43.8 % (39.6-49.0); Hemoglobin 14.7 g/dL (13.6-17.9); Lymphocytes % 29.3 % (15.3-44.8); MCH 33.8 pg (27.0-35.0); MCHC 33.5 g/dL (32.0-36.0); MPV 6.8 fL (7.6-11.3); Monocytes % 6.9 % (3.3-12.3); Neutrophils % 61.8 % (41.7-73.7); Platelets 260 thou/uL (152-406); RBC Red Blood Cell Count 4.33 M/uL (4.33-5.43); Red Cell Distribution Width 13.1 % (12.1-15.2)
--- NOTE | 2024-01-23 17:57 | RAD REPORT ---
EXAM DESCRIPTION: RAD - Chest Single View - 01/23/2024 5:45 pm CLINICAL HISTORY: CHEST PAIN COMPARISON: Chest Single View dated 09/30/2023; Chest Single View dated 02/26/2023; Abdomen 1 View (K UB) dated 04/16/2021; Chest Pa And Lat (2 Views) dated 03/31/2021 FINDINGS: Lines: None. Lungs: No evidence of edema or pneumonia. Pleural: No significant pleural effusions or pneumothorax. Cardiac: Cardiomegaly. Sternotomy . Mediastinum: Within normal limits. Bones: No acute fractures. Other: None IMPRESSION: No acute cardiopulmonary disease.
[2024-01-23 18:02] LABS: SARS-CoV-2 Antigen CONTROL BLUE LINE VIS/BG OK; SARS-CoV-2 Antigen Rapid Res Negative (Negative)
[2024-01-23 18:11] LABS: Albumin 3.6 g/dL (3.4-5.0); Albumin/Globulin Ratio 1.1 (1.1-1.8); Anion Gap 9.6 mEq/L (5.0-15.0); Bilirubin Direct 0.2 mg/dL (0-0.2); Bilirubin Indirect, Calculated 0.7 mg/dL (0.2-0.8); Bilirubin Total 0.9 mg/dL (0.2-1.0); Globulin 3.2 g/dL (2.3-3.5); Magnesium 1.9 mg/dL (1.6-2.4); Potassium 3.6 mEq/L (3.5-5.1); Protein, Total 6.8 g/dL (6.4-8.2)
[2024-01-23 18:48] LABS: Troponin High Sensitivity 117.7 pg/mL (<58.9)
[2024-01-23] MEDS ORDERED: ONDANSETRON 4 MG/2 ML VIAL ONE (19:28)
[2024-01-23] MEDS ORDERED: ASPIRIN 81 MG CHEWABLE TABLET ONE (19:28)
[2024-01-23] MEDS ORDERED: MORPHINE 4 MG/ML SYR ONE (19:29)
--- NOTE | 2024-01-23 19:32 | EDPHYS ---
Physician Documentation [facility] Name: Artem Hampton Age: 68 yrs Sex: Male : 1955 Arrival Date: 01/23/2024 Time: 17:15 Bed 6 Private MD: Senait Ragsdale ED Physician Aron Phelps HPI: 01/22 20:38 This 68 yrs old Male presents to ER via Ambulatory with complaints of Chest kb Pain, Decreased Appetite, Weakness. 20:38 Patient is a 68-year-old male who presents for intermittent chest pain with decreased kb appetite and weakness that started yesterday. Denies shortness of breath, nausea, vomiting, diarrhea. Denies cough congestion fever.. Historical: - Allergies: 17:26 Clindamycin; ll1 17:26 Clonidine; ll1 - PMHx: 17:26 CANCER- PROSTATE; diabetes mellitus; heart attack; Hypertensive disorder; ll1 - PSHx: 17:26 Coronary artery bypass graft; ll1 - Immunization history:: Adult Immunizations up to date. - Infectious Disease History:: Denies. - Social history:: Smoking status: Patient denies any tobacco usage or history of. ROS: 17:39 Constitutional: As per HPI kb Exam: 17:38 Constitutional: This is a well developed, well nourished patient who is awake, alert, kb and in no acute distress. Head/Face: Normocephalic, atraumatic. ENT: Moist Mucous membranes Cardiovascular: Regular rate Respiratory: Respirations even and unlabored. No increased work of breathing. Talking in full sentences Abdomen/GI: Soft, non-tender. No distention Skin: Warm, dry with normal turgor. Normal color. MS/ Extremity: Pulses equal, no cyanosis. Neurovascular intact. Full, normal range of motion. Neuro: Awake and alert, GCS 15, oriented to person, place, time, and situation. Moves all extremities. Normal gait. 17:38 ECG was reviewed by the Attending Physician. Vital Signs: 17:26 BP 149 / 88; Pulse 60; Resp 17; Temp 97; Pulse Ox 100% ; Weight 68.95 kg; Height 5 ft. ll1 7 in. ; Pain 8/10; 18:36 BP 134 / 79; Pulse 49; Resp 12; Pulse Ox 96% ; bp 19:22 BP 129 / 81; Pulse 53; Resp 16; Temp 97; Pulse Ox 97% ; Pain 6/10; bm8 20:13 BP 132 / 78; Pulse 55; Resp 16; Temp 97; Pulse Ox 98% ; Pain 5/10; bm8 17:26 Body Mass Index 23.81 (68.95 kg, 170.18 cm) ll1 17:26 Pain Scale: Adult ll1 19:22 Pain Scale: Adult bm8 20:13 Pain Scale: Adult bm8 [place] Coma Score: 19:22 Eye Response: spontaneous(4). Motor Response: obeys commands(6). Verbal Response: bm8 oriented(5). Total: 15. MDM: 17:20 Patient medically screened. kb 19:32 Data reviewed: vital signs, nurses notes. Consideration of Admission/Observation kb Patient was admitted/placed on observation. Escalation of care including admission/observation considered. Management of patient was discussed with the following: Hospitalist: Dr Goldsmith accepts pt for admission. Customs Director: Dr Lindsay accepts pt for consult. 20:38 Differential diagnosis: Acute NV, arrhythmia, flu, COVID, abnormal electrolytes, kb dehydration. Counseling: I had a detailed discussion with the patient and/or guardian regarding the historical points, exam findings, and any diagnostic results supporting the discharge/admit diagnosis, lab results, radiology results, the need for further work-up and treatment in the hospital. ED course: Heart score 6. 01/22 17:30 Order name: Basic Metabolic Panel; Complete Time: 18:50 kb 01/22 17:30 Order name: CBC with Diff; Complete Time: 17:56 kb 01/22 17:30 Order name: Troponin HS; Complete Time: 18:50 kb 01/22 17:30 Order name: Hepatic Function; Complete Time: 18:50 kb 01/22 17:30 Order name: Magnesium; Complete Time: 18:50 kb 01/22 17:30 Order name: Flu; Complete Time: 18:19 kb 01/22 17:30 Order name: SARS-COV-2 Antigen Rapid; Complete Time: 18:06 kb 01/22 19:43 Order name: Urinalysis w/ reflexes EDMS 01/22 19:43 Order name: CBC with Automated Diff EDMS 01/22 19:43 Order name: CBC with Automated Diff EDMS 01/22 19:43 Order name: Comprehensive Metabolic Panel EDMS 01/22 19:44 Order name: Comprehensive Metabolic Panel [facility] 01/22 19:44 Order name: Troponin High Sensitivity EDIA 01/22 19:44 Order name: Troponin High Sensitivity [facility] 01/22 19:44 Order name: Troponin High Sensitivity [facility] 01/22 19:44 Order name: Troponin High Sensitivity [facility] 01/22 17:30 Order name: XRAY Chest (1 view); Complete Time: 17:58 kb 01/22 19:43 Order name: CONS Physician Consult [facility] 01/22 17:30 Order name: Cardiac monitoring; Complete Time: 17:42 kb 01/22 17:30 Order name: EKG - Nurse/Tech; Complete Time: 17:42 kb 01/22 17:30 Order name: IV Saline Lock; Complete Time: 17:42 kb 01/22 17:30 Order name: Labs collected and sent; Complete Time: 17:42 kb 01/22 17:30 Order name: O2 Per Protocol; Complete Time: 17:42 kb 01/22 17:30 Order name: O2 Sat Monitoring; Complete Time: 17:42 kb EC:38 Rate is 52 beats/min. Rhythm is regular. QRS Excel is Normal. FL interval is normal at kb 152 msec. QRS interval is normal at 98 msec. QT interval is normal at 444 msec. Administered Medications: 19:38 Drug: Aspirin PO Chewable Tablet 324 mg PO once; 81 mg tablets x 4 Route: PO; bm8 19:53 Follow up: Response: No adverse reaction bm8 19:38 Drug: morphine IVP or IV 4 mg IVP once over 4 mins Route: IVP; Infused Over: 4 mins; bm8 Site: right forearm; 19:53 Follow up: Response: No adverse reaction bm8 19:38 Drug: Ondansetron IVP 4 mg IVP once; over 2 minutes Route: IVP; Site: right forearm; bm8 19:53 Follow up: Response: No adverse reaction bm8 Disposition Summary: 01/23/24 19:32 Hospitalization Ordered Notes: Hospitalization Status: Inpatient Admission kb Provider: Dylon Goldsmith Location: Telemetry/MedSurg (Inpatient) kb Condition: Stable kb Problem: new kb Symptoms: are unchanged kb Bed/Room Type: Standard Room Assignment: 421(01/23/24 19:50) rv1 Diagnosis - NSTEMI kb Forms: - Medication Reconciliation Form kb - SBAR form kb - Leadership Thank You Letter kb Addendum: 01/26/2024 09:12 Co-signature as Attending Physician, Aron Phelps MD I reviewed the patient's care r t provided by the Advanced Practice Provider and agree with the diagnosis and treatment plan. Signatures: Dispatcher [employer] EDMS Marcela Gerardo, WHEELCHAIR VAN DRIVER-C WHEELCHAIR VAN DRIVER-Clarita Driscoll, RN RN ll1 Aron Phelps MD MD rt Corinna Torres rv1 Maico Garcia, RN RN bm8 Corrections: (The following items were deleted from the chart) 01/22 17:31 17:31 BASIC METABOLIC PANEL+C.LAB.BRZ ordered. EDMS EDMS 17:31 17:31 CBC+H.LAB.BRZ ordered. EDMS EDMS 17:31 17:31 Troponin High Sensitivity+C.LAB.BRZ ordered. EDMS EDMS 17:31 17:31 HEPATIC FUNCTION+C.LAB.BRZ ordered. EDMS EDMS 17:31 17:31 MAGNESIUM+C.LAB.BRZ ordered. EDMS EDMS 17:31 17:31 Influenza Screen (A \T\ B)+BA.LAB.BRZ ordered. EDMS EDMS 17:31 17:31 SARS-COV-2 Antigen Rapid+I.LAB.BRZ ordered. EDMS EDMS 17:31 17:31 Chest Single View+RAD.RAD.BRZ ordered. EDMS EDMS 19:50 19:32 kb rv1
--- NOTE | 2024-01-23 19:32 | ER ---
Nurse's Notes [facility] Name: Artem Hampton Age: 68 yrs Sex: Male : 1955 Arrival Date: 01/23/2024 Time: 17:15 Bed 6 Private MD: Senait Ragsdale Diagnosis: NSTEMI Presentation: 01/22 17:26 Chief complaint: Patient states: Upper CP, no appetite, and fatigue started last night. ll1 No cough or fever. Coronavirus screen: Client denies travel out of the [place] in the last 14 days. At this time, the client does not indicate any symptoms associated with coronavirus-19. Ebola Screen: Patient denies travel to an Ebola-affected area in the 21 days before illness onset. Initial Sepsis Screen: Does the patient meet any 2 criteria? No. Patient's initial sepsis screen is negative. Does the patient have a suspected source of infection? No. Patient's initial sepsis screen is negative. Risk Assessment: Do you want to hurt yourself or someone else? Patient reports no desire to harm self or others. Onset of symptoms was January 22, 2024. 17:26 Method Of Arrival: Ambulatory ll1 17:26 Acuity: MAVERICK 3 ll1 Triage Assessment: 17:28 General: Appears uncomfortable, Behavior is calm, cooperative, appropriate for age. ll1 Pain: Complains of pain in upper chest Pain currently is 8 out of 10 on a pain scale. Quality of pain is described as pressure. Cardiovascular: Reports chest pain, fatigue. GI: Reports no appetite. Historical: - Allergies: 17:26 Clindamycin; ll1 17:26 Clonidine; ll1 - PMHx: 17:26 CANCER- PROSTATE; diabetes mellitus; heart attack; Hypertensive disorder; ll1 - PSHx: 17:26 Coronary artery bypass graft; ll1 - Immunization history:: Adult Immunizations up to date. - Infectious Disease History:: Denies. - Social history:: Smoking status: Patient denies any tobacco usage or history of. Screenin:30 [facility] ED Fall Risk Assessment (Adult) History of falling in the last 3 months, bp including since admission No falls in past 3 months (0 pts). Abuse screen: Denies threats or abuse. Denies injuries from another. Nutritional screening: No deficits noted. Tuberculosis screening: No symptoms or risk factors identified. Assessment: 17:30 General: SEE TRIAGE NOTE. bp 18:30 Reassessment: Patient appears in no apparent distress at this time. Patient is alert, bp oriented x 3, equal unlabored respirations, skin warm/dry/pink. 18:51 Reassessment: TROP 117, PROVIDER INFORMED. bp 19:22 Reassessment: Patient appears in no apparent distress at this time. Patient and/or bm8 family updated on plan of care and expected duration. Pain level reassessed. Patient is alert, oriented x 3, equal unlabored respirations, skin warm/dry/pink. General: Appears in no apparent distress. uncomfortable, Behavior is calm, cooperative, appropriate for age. Pain: Complains of pain in chest Pain does not radiate. Pain currently is 6 out of 10 on a pain scale. Quality of pain is described as heavy. Neuro: No deficits noted. Level of Consciousness is awake, alert, obeys commands, Oriented to person, place, time, situation, Appropriate for age. Cardiovascular: Reports chest pain, Heart tones S1 S2 present Capillary refill < 3 seconds Patient's skin is warm and dry. Rhythm is sinus bradycardia. Respiratory: Airway is patent Respiratory effort is even, unlabored, Respiratory pattern is regular, symmetrical, Breath sounds are clear bilaterally. 19:22 Reassessment: informed provider about chest pain and pts request for medication. bm8 awaiting new orders. Vital Signs: 17:26 BP 149 / 88; Pulse 60; Resp 17; Temp 97; Pulse Ox 100% ; Weight 68.95 kg; Height 5 ft. ll1 7 in. ; Pain 8/10; 18:36 BP 134 / 79; Pulse 49; Resp 12; Pulse Ox 96% ; bp 19:22 BP 129 / 81; Pulse 53; Resp 16; Temp 97; Pulse Ox 97% ; Pain 6/10; bm8 20:13 BP 132 / 78; Pulse 55; Resp 16; Temp 97; Pulse Ox 98% ; Pain 5/10; bm8 17:26 Body Mass Index 23.81 (68.95 kg, 170.18 cm) ll1 17:26 Pain Scale: Adult ll1 19:22 Pain Scale: Adult bm8 20:13 Pain Scale: Adult bm8 [place] Coma Score: 19:22 Eye Response: spontaneous(4). Motor Response: obeys commands(6). Verbal Response: bm8 oriented(5). Total: 15. ED Course: 17:18 Patient arrived in ED. mr 17:19 Senait Ragsdale is Private Physician. mr 17:19 Femi Cross, RN is Primary Nurse. bp 17:20 Marcela Gerardo FNP-C is PHCP. kb 17:20 Aron Phelps MD is Attending Physician. kb 17:26 Arm band placed on Patient placed in an exam room, on a stretcher. ll1 17:28 Triage completed. ll1 17:30 Patient has correct armband on for positive identification. Client placed on continuous bp cardiac and pulse oximetry monitoring. NIBP monitoring applied. ekg monitor tech on. Pulse ox on. NIBP on. 17:42 Hepatic Function Sent. bp 17:42 SARS-COV-2 Antigen Rapid Sent. bp 17:42 Flu Sent. bp 17:42 Magnesium Sent. bp 17:42 Troponin HS Sent. bp 17:42 CBC with Diff Sent. bp 17:42 Basic Metabolic Panel Sent. bp 17:42 Inserted saline lock: 22 gauge in right forearm, using aseptic technique. Blood bp collected. 17:47 XRAY Chest (1 view) In Process Unspecified. EDMS 18:48 Notified Nurse Practitioner and/or Physician Supervisor Felting of a critical lab result(s), iw trop 117. 19:22 Report received from blanquita eaton. bm8 19:22 No provider procedures requiring assistance completed. O2 via pt on ra. bm8 19:32 Dylon Goldsmith MD is Hospitalizing Provider. kb 20:40 Provided Education on: admission, fall safety. vc1 20:40 Patient admitted, IV remains in place. vc1 Administered Medications: 19:38 Drug: Aspirin PO Chewable Tablet 324 mg PO once; 81 mg tablets x 4 Route: PO; bm8 19:53 Follow up: Response: No adverse reaction bm8 19:38 Drug: morphine IVP or IV 4 mg IVP once over 4 mins Route: IVP; Infused Over: 4 mins; bm8 Site: right forearm; 19:53 Follow up: Response: No adverse reaction bm8 19:38 Drug: Ondansetron IVP 4 mg IVP once; over 2 minutes Route: IVP; Site: right forearm; bm8 19:53 Follow up: Response: No adverse reaction bm8 Medication: 19:22 VIS not applicable for this client. bm8 Outcome: 19:32 Decision to Hospitalize by Provider. kb 20:39 Admitted to Tele accompanied by tech, via stretcher, room 421, Report called to faxed vc1 to receiving nurse 20:39 Condition: good 20:40 Patient left the ED. vc1 Signatures: Dispatcher [employer] EDMS Marcela Gerardo, DRESSMAKER HELPER-C DRESSMAKER HELPER-Ckb Florina Murphy, Reg Reg mr Lyssa Tobin, RN RN iw Femi Cross, BLANQUITA RN Clarita Tan, RN RN ll1 Dianna Levin RN RN vc1 Maico Garcia, RN RN bm8
[2024-01-23] MEDS ORDERED: ACETAMINOPHEN 325 MG TABLET PO PRN (19:39)
[2024-01-23] MEDS ORDERED: ONDANSETRON 4 MG/2 ML VIAL IV PRN (19:39)
--- NOTE | 2024-01-23 19:39 | P.HP ---
Certification for Inpatient Patient admitted to: Inpatient With expected LOS: >2 Midnights Practitioner: I am a practitioner with admitting privileges, knowledge of patient current condition, hospital course, and medical plan of care. Services: Services provided to patient in accordance with Admission requirements found in Title 42 Section 412.3 of the Code of Federal Regulations Patient History Date of Service: 01/24/24 Reason for admission: Generalized weakness History of Present Illness: 68 yrs old Male with past medical history of prostate cancer, diabetes, CAD, hypertension, history of CABG came in with chest pain and shortness of breath associated with generalized weakness which has been going on for the last 2 to 3 days and has been progressively worsening and was brought to ER. Denies any fever or chills. No sick contacts. Patient was assessed in the ER and was admitted because of NSTEMI Allergies No Known Allergies Allergy (Verified 01/23/24 22:31) Home medications list reviewed: Yes Home Medications: Aspirin [Aspirin Regimen] 1 tab PO DAILY 08/02/23 Atorvastatin Calcium 40 mg PO BEDTIME 08/02/23 Carvedilol [Coreg] 3.125 mg PO BID 08/02/23 Fenofibrate,Micronized [Fenofibrate] 200 mg PO DAILY 08/02/23 Metformin ER [Glucophage ER*] 500 mg PO DAILY 08/02/23 Mirabegron [Myrbetriq] 50 mg PO DAILY 08/02/23 Solifenacin Succinate [Vesicare] 10 mg PO DAILY 08/02/23 Codeine/APAP [Tylenol #3*] 1 tab PO Q6H PRN #15 tab 08/17/23 - Past Medical/Surgical History Past Medical History: Reviewed- Non-Contributory -: , Hyperlipidemia, hypertension, Diabetes Past Surgical History: Reviewed- Non-Contributory - Family History Family History: Reviewed- Non-Contributory - Family History Mother -: Heart disease - Social History Smoking Status: Never smoker Review of Systems 10-point ROS is otherwise unremarkable Physical Examination - Vital Signs Temperature: 97.4 F Blood Pressure: 149/88 Pulse: 48 Respirations: 18 Pulse Ox (%): 94 - Physical Exam General: Alert, In no apparent distress, Oriented x1, Cooperative HEENT: Atraumatic, Normocephalic Neck: Supple Respiratory: Clear to auscultation bilaterally, Normal air movement, Crackles/rales Cardiovascular: Regular rate/rhythm, Normal S1 S2 Capillary refill: <2 Seconds Gastrointestinal: Soft and benign, Non-distended, W/out hepatosplenomegaly, No tenderness Musculoskeletal: No clubbing, No swelling Integumentary: No rashes, No breakdown Neurological: Normal strength at 5/5 x4 extr, Cranial nerves 3-12 intact, Normal reflexes 2+ Lymphatics: No axilla or inguinal lymphadenopathy - Studies Laboratory Data (last 24 hrs) 01/23/24 01/23/24 17:42 17:42 WBC 5.60 Hgb 14.7 Hct 43.8 Plt Count 260 Sodium 141 Potassium 3.6 BUN 15 Creatinine 1.00 Glucose 107 H Magnesium 1.9 Total Bilirubin 0.9 AST 21 ALT 22 Alkaline Phosphatase 78 Microbiology Data (last 24 hrs): 01/23/24 17:42 Nasopharnyx Influenza Type A Antigen Screen - Final 01/23/24 17:42 Nasopharnyx Influenza Type B Antigen Screen - Final Assessment and Plan - Problems (Diagnosis) (1) NSTEMI (non-ST elevated myocardial infarction) Current Visit: Yes Status: Acute Plan: NSTEMI Will trend cardiac enzymes Will monitor telemetry Started on aspirin and statin EKG did not show any acute changes suggestive of ischemia Will get an echocardiogram Cardiology consult Hypertension Antihypertensives titrated Continue home medications and titrate as needed Hyperlipidemia Continue statin Diabetes Insulin sliding scale Continue home medications and titrate as needed Will get an A1c in a.m. Accu-Chek before every meal and at bedtime Possible community-acquired pneumonia Started on empirical antibiotic X-ray not suggestive of any pneumonia Will stop Antibiotics if cultures are negative GI/DVT prophylaxis Advanced directive full code - Advance Directives Does patient have a Living Will: No Does patient have a Durable POA for Healthcare: No Time Spent Managing Pts Care (In Minutes): 48
[2024-01-23] MEDS ORDERED: MORPHINE 2 MG/ML SYR IV PRN (19:43)
[2024-01-23] MEDS: carvediloL 3.125 MG TAB PO SCH (21:00)
[2024-01-23] MEDS: INSULIN REGULAR (HUMAN) 100 UNIT/ML SQ SCH (21:00)
[2024-01-23 21:40] VITALS: BMI 26.5
[2024-01-23] MEDS: ATORVASTATIN 40 MG TAB PO SCH (21:47)
[2024-01-23 23:36] LABS: Specific Gravity 1.029 (1.005-1.030); Sqamous Epithelial None Seen /HPF (None Seen); Urine Bacteria None Seen /HPF (<20); Urine Bilirubin NEGATIVE (Negative); Urine Blood Negative (Negative); Urine Clarity Extremely Turbid (Clear); Urine Color Yellow (Yellow); Urine Culture Reflex Order NOT NEEDED; Urine Glucose NEGATIVE (Negative); Urine Ketones NEGATIVE (Negative); Urine Microscopic Reflex YN ORDER UMIC; Urine Nitrite NEGATIVE (Negative); Urine Protein TRACE (Negative); Urine RBC None Seen /HPF (None Seen); Urine Urobilinogen Normal (Normal); Urine WBC None Seen /HPF (<5); Urine pH 5.5 (5.0-7.0)
[2024-01-24 03:54] LABS: Absolute Basophils 0.1 K/uL (0-0.5); Absolute Eosinophils 0.1 K/uL (0-0.5); Absolute Lymphocytes (CBC) 1.9 K/uL (0.7-4.9); Absolute Monocytes 0.4 K/uL (0.1-1.3); Absolute Neutrophil 2.7 K/uL (1.8-8.0); Eosinophils % 2.3 % (0-4.4); Hematocrit 41.9 % (39.6-49.0); Hemoglobin 14.4 g/dL (13.6-17.9); Lymphocytes % 36.5 % (15.3-44.8); MCH 34.5 pg (27.0-35.0); MCHC 34.4 g/dL (32.0-36.0); MCV 100.5 fL (80-100); MPV 6.9 fL (7.6-11.3); Monocytes % 8.2 % (3.3-12.3); Nucleated Red Blood Cells % 0.2 % (0-0); Platelets 239 thou/uL (152-406); RBC Red Blood Cell Count 4.17 M/uL (4.33-5.43); Red Cell Distribution Width 13.4 % (12.1-15.2)
[2024-01-24 04:24] LABS: Albumin 3.4 g/dL (3.4-5.0); Albumin/Globulin Ratio 1.1 (1.1-1.8); Anion Gap 7.6 mEq/L (5.0-15.0); Bilirubin Total 0.9 mg/dL (0.2-1.0); Globulin 3.1 g/dL (2.3-3.5); Potassium 3.6 mEq/L (3.5-5.1); Protein, Total 6.5 g/dL (6.4-8.2)
[2024-01-24] MEDS: CEFTRIAXONE 1,000 MG in NA CHLORIDE 0.9% 50 ML IVPB SCH (08:37)
[2024-01-24] MEDS: POTASSIUM CL SA 10 MEQ TAB PO ONE (08:38)
[2024-01-24] MEDS: AZITHROMYCIN IV 500 MG in NA CHLORIDE 0.9% 250 ML IVPB SCH (08:38)
[2024-01-24] MEDS: ENOXAPARIN 40 MG/0.4 ML SQ SCH (08:39)
[2024-01-24] MEDS: SOLIFENACIN SUCCIN 5 MG TAB PO SCH (08:39)
[2024-01-24] MEDS: HOME MED 1 EA UNK (Fenofibrate,Micronized [Fenofibrate] 200 MG Capsule) PO SCH (08:39)
[2024-01-24] MEDS: ASPIRIN EC 81 MG TAB PO SCH (08:39)
[2024-01-24] MEDS: HOME MED 1 EA UNK (Mirabegron [Myrbetriq] 25 MG Tab.Er.24h) PO SCH (08:40)
[2024-01-24] MEDS: PNEUMOCOCCAL VACCINE 0.5 ML IMVAC ONE (12:33)
--- NOTE | 2024-01-24 15:02 | P.PN ---
Subjective Date of Service: 01/24/24 Chief Complaint: Generalized weakness Patient denies any chest pain at the moment but complaining of fatigue. He denies shortness of breath. Troponin trended slightly up. Physical Examination - Vital Signs Temperature: 97.7 F Blood Pressure: 153/89 Pulse: 56 Respirations: 18 Pulse Ox (%): 98 - Studies Laboratory Data (last 24 hrs) 01/23/24 01/23/24 17:42 17:42 WBC 5.60 Hgb 14.7 Hct 43.8 Plt Count 260 Sodium 141 Potassium 3.6 BUN 15 Creatinine 1.00 Glucose 107 H Magnesium 1.9 Total Bilirubin 0.9 AST 21 ALT 22 Alkaline Phosphatase 78 Microbiology Data (last 24 hrs): 01/23/24 17:42 Nasopharnyx Influenza Type A Antigen Screen - Final 01/23/24 17:42 Nasopharnyx Influenza Type B Antigen Screen - Final Assessment And Plan - Plan Physical Exam General: Alert, In no apparent distress, Oriented x1, Cooperative HEENT: Atraumatic, Normocephalic Neck: Supple Respiratory: Clear to auscultation bilaterally, Normal air movement, Crackles/rales Cardiovascular: Regular rate/rhythm, Normal S1 S2 Gastrointestinal: Soft and benign, Non-distended, W/out hepatosplenomegaly, No tenderness Integumentary: No rashes, No breakdown Neurological: Normal strength at 5/5 x4 extr, Cranial nerves 3-12 intact, Normal reflexes 2+ Plan: NSTEMI (non-ST elevated myocardial infarction) Hypertension Hyperlipidemia Diabetes Mellitus NSTEMI Troponin trended up slightly Continue aspirin and statin EKG did not show any acute changes suggestive of ischemia Echocardiogram ordered. Start full dose Lovenox for elevated troponin. Cardiology consulted. Hypertension Continue antihypertensives. Hyperlipidemia Continue statin Diabetes Insulin sliding scale Hold metformin DVT prophylaxis: On Lovenox Advanced directive: full code
[2024-01-24] MEDS: ENOXAPARIN 40 MG/0.4 ML SQ ONE (16:40)
[2024-01-24] MEDS: ENOXAPARIN 80 MG/0.8 ML SQ SCH (21:37)
--- NOTE | 2024-01-24 23:04 | CON ---
Date of Consultation: 01/24/2024 Reason For Consultation: Chest pain and positive troponin. History Of Present Illness: A 68-year-old male, history of coronary artery disease, status post CABG in 2009, diabetes, hypertension, presented with chest pain, pressure like, radiates to the neck, cheryl ng with shortness of breath, has been going on for 2 to 3 days and it is worsening. In the emergency room, cardiac enzymes were checked and they were borderline elevated. Past Medical History: As outlined above in the HPI. Medications: Refer to reconciliation sheet for detailed list. Allergies: NO KNOWN DRUG ALLERGIES. Family History: No premature coronary artery disease or cancer. Social History: Does not smoke or drink. Does not use any drugs. Review of Systems: All systems reviewed, they were negative except above mentioned in HPI. Physical Examination: Vital Signs: Reviewed. Head and Neck: Pupils are equal, reactive to light. Intact eye movements. No JVD. No cervical lym phadenopathy. Neck is supple. Thyroid is not enlarged. Lungs: Clear to auscultation bilaterally. No rhonchi, wheezing, or crackles. No accessory muscle u se. Heart: Regular rate and rhythm. No extra sounds. Abdomen: Soft, nontender. Bowel sounds positive. No organomegaly. No masses or hernia. No rigidi ty or rebound. Extremities: No edema, clubbing, cyanosis. Intact pulses. Skin: No rash or nodule. Neurologic: Alert, awake, oriented x3. No acute focal deficits appreciated. Investigations: BUN 17, creatinine 1.06, troponin 178, and hemoglobin is 14.4. Assessment/recommendation: 1.Chest pain with positive troponin suggestive of [id number] myocardial infarction. Recommend coronary angiogram. I will discuss with his primary delinquency prevention officer before proceeding and in the inter im, continue baby aspirin and Lovenox and obtain an echo. 2.Dyslipidemia. Continue Lipitor 40 mg q.h.s. 3.Hypertension. Blood pressure is elevated. Resume his home medications. Adjust further if needed . SR/MODL Voice ID: [id number] Report ID: [id number]
[2024-01-25 06:42] LABS: Absolute Eosinophils 0.1 K/uL (0-0.5); Absolute Lymphocytes (CBC) 2.1 K/uL (0.7-4.9); Absolute Monocytes 0.3 K/uL (0.1-1.3); Absolute Neutrophil 3.3 K/uL (1.8-8.0); Basophils % 0.5 % (0-1.3); Eosinophils % 1.5 % (0-4.4); Hematocrit 44.1 % (39.6-49.0); Hemoglobin 15.1 g/dL (13.6-17.9); Lymphocytes % 36.3 % (15.3-44.8); MCH 34.1 pg (27.0-35.0); MCHC 34.1 g/dL (32.0-36.0); Monocytes % 5.8 % (3.3-12.3); Neutrophils % 55.9 % (41.7-73.7); Nucleated Red Blood Cells % 0.1 % (0-0); Platelets 253 thou/uL (152-406); RBC Red Blood Cell Count 4.41 M/uL (4.33-5.43); Red Cell Distribution Width 13.2 % (12.1-15.2)
[2024-01-25 06:54] LABS: Anion Gap 9.7 mEq/L (5.0-15.0); Potassium 3.7 mEq/L (3.5-5.1)
--- NOTE | 2024-01-25 08:03 | P.PN ---
Date of Service: 01/25/24 Subjective: Feeling better today Denies chest pain/pressure this morning reports chest pain resolved yesterday afternoon. +breathing improved no acute events overnight ROS: 10 point ROS as noted above, otherwise negative Physical Exam: GEN: Alert, oriented, NAD HEENT: Normal conjunctiva, sclera anicteric CV: Regular rate and rhythm, no edema Pulm: Nonlabored respirations on room air, clear bilaterally ABD: Soft, nontender, nondistended Neuro: Normal speech, normal affect vitals reviewed Problem List: NSTEMI hx CAD s/p CABG (2008) Hypertension Hyperlipidemia NIDDM2 hx prostate cancer NSTEMI hx CAD s/p CABG (2008) reports worsening dyspnea, chest pain, generalized weakness for 2-3 days CXR (01/23): negative for any acute findings Troponins slowly trending up. Continue to monitor on telemetry Cardiology consulted Dr. Lindsay tentatively planning for heart cath unsure on timing. Will discuss with cardio echo ordered to eval EF / stenosis chest pain resolved yesterday per patient confirm home meds, resume home aspirin, statin, coreg Started on empiric rocephin / azithromycin (01/23-) on admission for possible pneumonia. xray not suggestive of pneumonia No fever / chills / cough. No leukocytosis will dc antibiotics 01/24 Hypertension Hyperlipidemia continue home baby aspirin, coreg, statin NIDDM2 accu-checks, SSI VTE: Lovenox Code: Full Dispo: ~1-2 days Pending heart cath / cardiac recs
[2024-01-25] MEDS: ALPRAZOLAM 0.25 MG TABLET PO ONE (12:14)
[2024-01-25] MEDS: NA CHLORIDE 0.9% 1,000 ML ONE (13:39)
[2024-01-25] MEDS ORDERED: HEPA 1000U/500MLS 2,000 UNIT/1,000 ML BAG IV ONE (15:22)
[2024-01-25] MEDS ORDERED: LIDOCAINE 1% 20 ML MDV ONE (15:23)
[2024-01-25] MEDS ORDERED: ATROPINE SULF 1 MG/10 ML SYR IV ONE (15:37)
[2024-01-25] MEDS ORDERED: TICAGRELOR 90 MG TABLET PO ONE (15:37)
[2024-01-25] MEDS ORDERED: CLOPIDOGREL 75 MG TABLET ONE (15:38)
[2024-01-25] MEDS ORDERED: ASPIRIN 325 MG TAB ONE (15:38)
[2024-01-25] MEDS ORDERED: VERAPAMIL HCL 10 MG/4 ML VIAL IV ONE (15:39)
[2024-01-25] MEDS ORDERED: FENTANYL CITR 100 MCG/2 ML ONE (15:39)
[2024-01-25] MEDS ORDERED: MIDAZOLAM HCL 2 MG/2 ML INJ ONE (15:39)
[2024-01-25] MEDS ORDERED: HEPARIN 10,000 UNIT/10 ML VIAL IV ONE (15:40)
--- NOTE | 2024-01-25 16:37 | P.PN ---
Subjective Date of Service: 01/25/24 Chief Complaint: Generalized weakness Subjective: No new changes Review of Systems 10-point ROS is otherwise unremarkable Physical Examination - Vital Signs Temperature: 97.7 F Blood Pressure: 119/78 Pulse: 55 Respirations: 14 Pulse Ox (%): 95 - Physical Exam General: Alert, Oriented x3 HEENT: Atraumatic Neck: Supple Respiratory: Clear to auscultation bilaterally Cardiovascular: No edema, Normal S1 S2 Gastrointestinal: Normal bowel sounds Assessment And Plan - Current Problems (Diagnosis) (1) HTN (hypertension) Current Visit: Yes Status: Acute Plan: continue coreg 3.125 mg po BID (2) HLD (hyperlipidemia) Current Visit: Yes Status: Acute Plan: continue lipitor 40 mg daily (3) NSTEMI (non-ST elevated myocardial infarction) Current Visit: Yes Status: Acute Plan: continue ASA 81 mg daily Continue Lovenox heart cath get Echo
[2024-01-25] MEDS ORDERED: FAMOTIDINE 20 MG TAB ONE (16:54)
[2024-01-25 18:08] LABS: Protime INR 1.1
[2024-01-25] MEDS: CODEINE 30MG/APAP 300MG TAB PO PRN (21:27)
--- NOTE | 2024-01-25 22:46 | OP ---
Date of Procedure: 01/25/2024 Surgeon: JOANNA PATTON Procedures Performed: 1.Selective coronary angiogram with bypass graft study. 2.PCI of mid to distal high OM1 branch severe stenosis. I used distally to proximally 3.0 x 16 mm d rug-eluting stent, overlapped proximally with 3.0 x 24 mm Synergy drug-eluting stent and the overlap was missed apparently due to the movements of the artery during deployment, so I placed another 3.0 x 12 mm stent to cover the overlap area. Excellent angiographic results at the end, I believe this is the culprit for his symptoms. Indication: [id number] myocardial infarction. Access: Right femoral artery 6-Surinamese, closed with 6-Surinamese Angio-Seal. Complications: None. Bleeding: Less than 50 mL. Anesthesia: Total sedation time was 70 minutes, used fentanyl, Versed. Description Of Procedure: After risks, benefits, and alternatives were explained, the patient agreed to procedure and signed informed consent. [facility]pped and draped in usual sterile fashion. Then, I accessed right common femoral artery us ing micropuncture kit, ultrasound guidance, fluoroscopy, placed a 6-Surinamese [place] sheath, and took a 6-Surinamese JL4 catheter into aortic root, engaged left main, took standard views, and exchanged for 6 -Surinamese JR4 catheter, engaged the RCA, SVG to RCA, SVG to the OM, and LOVE to LAD and then removed th e catheter, gave systemic heparin to assure ACT level above 250 throughout the procedure and loaded w ith 600 mg of Plavix and the patient already received aspirin today and took EBU 3.5 guide into aorti c root, engaged left main and took a short run-through wire into the left main and then to the left c ircumflex, to the OM, and placed distally and the lesion was pre-dilated using a 3.0 balloon and then placed a 3.0 x 60 mm Synergy drug-eluting stent distally and then it was noticed that the proximal l esion was probably more severe than what I thought initially, so I placed 3.0 x 24 mm Synergy drug-el uting stent to cover the proximal segment and during the deployment, I overlapped post stent; however , after the full deployment, there was an area of gap between the 2 stents, so I placed another 3.0 x 12 mm Synergy drug-eluting stent in the gap area with excellent angiographic results and then remove d the wire and found angiogram was satisfactory. I then removed the guide and the sheath and placed 6-Surinamese Angio-Seal for closure with good hemostasis. Findings: 1.Left main, large and normal. 2.LAD, large proximal segment, mid segment diffuse 80% and then diffuse disease and small diagonal 2 branch fills retroactive from the LOVE. 3.Left circumflex: It is a large vessel, has large high OM branch that has proximal 60% and mid 80% stenosis status post successful PCI as outlined above and then the circ itself after the high OM or the ramus takeoff, there is diffuse 60% stenosis and there is small OM branches that come off and it becomes very small left circ anyway. 4.RCA totally occluded proximally. Graft Study: 1.Widely patent LOVE to LAD without abnormalities. 2.Patent SVG graft to RCA, but it has proximal 30% stenosis, mid 30% stenosis distal, and before lotus chdown, 30% to 40% stenosis. 3.Totally occluded SVG graft to the OM, status post successful PCI of the OM branch as outlined abov e. Conclusion: Severe multivessel coronary artery disease with patent LOVE to LAD and SVG graft to RCA and occluded SVG to OM and status post successful PCI of the OM1. Plan: Aspirin, Plavix, high-dose statin. Follow up with his primary buffer nickel, Dr. Spence, post discharge for further cardiac care. SR/MODL Voice ID: [id number] Report ID: [id number]
--- NOTE | 2024-01-26 08:30 | P.DS ---
Admission Date: 01/23/24 Discharge Date: 01/26/24 Disposition: ROUTINE DISCHARGE Discharge Condition: GOOD Reason for Admission: Generalized weakness Consultations: Cardiology - Dr. Lindsay/ Dr. Velásquez Brief History of Present Illness: 68yo M, PMH: hx of prostate cancer, diabetes, CAD, hypertension, history of CABG came in with chest pain and shortness of breath associated with generalized weakness which has been going on for the last 2 to 3 days and has been progressively worsening and was brought to ER. Denies any fever or chills. No sick contacts. Patient was assessed in the ER and was admitted because of NSTEMI Hospital Course: Problem List: Severe multivessel CAD s/p PCI X3 (01/24) NSTEMI hx CABG (2008) Hypertension Hyperlipidemia NIDDM2 hx prostate cancer Physician discharge instructions: Patient presented with chest pain, dyspnea, weakness and was found to have severe multivessel coronary artery disease. Troponins were elevated. Chest xray without any acute findings. Patient was evaluated by cardiology, underwent heart cath on 01/24 and found to have severe multivessel coronary artery disease and had 3 stents placed within the OM1 (overlapping). (Full report below). Patient was feeling better, chest pain resolved, and was deemed stable for discharge. Advised patient to schedule appointment and follow up with primary routeman, Dr. Spence, in 1-2 weeks for further management. Patient started on plavix post operatively and is to continue on discharge along with aspirin, statin. Patient received ~1 day of empiric antibiotics on admission to cover possible pneumonia / infection. Patient asymptomatic - without fever, chills, cough. Chest xray not suggestive of pneumonia. Antibiotics were discontinued. Medications: Plavix continue other home medications as previously prescribed (aspirin, atorvastatin) Follow up: PCP 3-5 days Operative Report from left heart cath 01/25/24 Findings: 1. Left main, large and normal. 2. LAD, large proximal segment, mid segment diffuse 80% and then diffuse disease and small diagonal 2 branch fills retroactive from the LOVE. 3. Left circumflex: It is a large vessel, has large high OM branch that has proximal 60% and mid 80% stenosis status post successful PCI as outlined above and then the circ itself after the high OM or the ramus takeoff, there is diffuse 60% stenosis and there is small OM branches that come off and it becomes very small left circ anyway. 4. RCA totally occluded proximally. Graft Study: 1. Widely patent LOVE to LAD without abnormalities. 2. Patent SVG graft to RCA, but it has proximal 30% stenosis, mid 30% stenosis distal, and before touchdown, 30% to 40% stenosis. 3. Totally occluded SVG graft to the OM, status post successful PCI of the OM branch as outlined above. Conclusion: Severe multivessel coronary artery disease with patent LOVE to LAD and SVG graft to RCA and occluded SVG to OM and status post successful PCI of the OM1. Physical Exam: GEN: Alert, oriented, NAD HEENT: Normal conjunctiva, sclera anicteric CV: Regular rate and rhythm, no edema Pulm: Nonlabored respirations on room air, clear bilaterally ABD: Soft, nontender, nondistended Neuro: Normal speech, normal affect Vital Signs/Physical Exam: Temp Pulse Resp BP Pulse Ox 99.2 F 63 15 117/77 99 01/26/24 04:00 01/26/24 04:00 01/26/24 04:00 01/26/24 04:00 01/26/24 04:00 Laboratory Data at Discharge: WBC Cancelled 01/26/24 Unknown Hgb Cancelled 01/26/24 Unknown Hct Cancelled 01/26/24 Unknown Plt Count Cancelled 01/26/24 Unknown PT 13.0 SECONDS (9.5-12.5) H 01/25/24 11:10 INR 1.10 01/25/24 11:10 APTT 35.0 SECONDS (24.3-36.9) 01/25/24 11:10 Sodium Cancelled 01/26/24 Unknown Potassium Cancelled 01/26/24 Unknown BUN Cancelled 01/26/24 Unknown Creatinine Cancelled 01/26/24 Unknown Glucose Cancelled 01/26/24 Unknown Magnesium Cancelled 01/26/24 Unknown Total Bilirubin 0.9 mg/dL (0.2-1.0) 01/24/24 03:27 AST 18 U/L (15-37) 01/24/24 03:27 ALT 20 U/L (16-61) 01/24/24 03:27 Alkaline Phosphatase 87 U/L (45-117) 01/24/24 03:27 Home Medications: Aspirin [Aspirin Regimen] 1 tab PO DAILY 08/02/23 Atorvastatin Calcium 40 mg PO BEDTIME 08/02/23 Carvedilol [Coreg] 3.125 mg PO BID 08/02/23 Fenofibrate,Micronized [Fenofibrate] 200 mg PO DAILY 08/02/23 Metformin ER [Glucophage ER*] 500 mg PO DAILY 08/02/23 Mirabegron [Myrbetriq] 50 mg PO DAILY 08/02/23 Solifenacin Succinate [Vesicare] 10 mg PO DAILY 08/02/23 Codeine/APAP [Tylenol #3*] 1 tab PO Q6H PRN #15 tab 08/17/23 Clopidogrel Bisulfate [Plavix*] 75 mg PO DAILY 30 Days #30 tab 01/26/24 New Medications: Clopidogrel Bisulfate [Plavix*] 75 mg PO DAILY 30 Days #30 tab Physician Discharge Instructions: Physician discharge instructions: Patient presented with chest pain, dyspnea, weakness and was found to have severe multivessel coronary artery disease. Troponins were elevated. Chest xray without any acute findings. Patient was evaluated by cardiology, underwent heart cath on 01/24 and found to have severe multivessel coronary artery disease and had 3 stents placed within the OM1 (overlapping). (Full report below). Patient was feeling better, chest pain resolved, and was deemed stable for discharge. Advised patient to schedule appointment and follow up with primary routeman, Dr. Spence, in 1-2 weeks for further management. Patient started on plavix post operatively and is to continue on discharge along with aspirin, statin. Patient received ~1 day of empiric antibiotics on admission to cover possible pneumonia / infection. Patient asymptomatic - without fever, chills, cough. Chest xray not suggestive of pneumonia. Antibiotics were discontinued. Medications: Plavix continue other home medications as previously prescribed (aspirin, atorvastatin) Follow up: PCP 3-5 days Operative Report from left heart cath 01/25/24 Findings: 1. Left main, large and normal. 2. LAD, large proximal segment, mid segment diffuse 80% and then diffuse disease and small diagonal 2 branch fills retroactive from the LOVE. 3. Left circumflex: It is a large vessel, has large high OM branch that has proximal 60% and mid 80% stenosis status post successful PCI as outlined above and then the circ itself after the high OM or the ramus takeoff, there is diffuse 60% stenosis and there is small OM branches that come off and it becomes very small left circ anyway. 4. RCA totally occluded proximally. Graft Study: 1. Widely patent LOVE to LAD without abnormalities. 2. Patent SVG graft to RCA, but it has proximal 30% stenosis, mid 30% stenosis distal, and before touchdown, 30% to 40% stenosis. 3. Totally occluded SVG graft to the OM, status post successful PCI of the OM branch as outlined above. Conclusion: Severe multivessel coronary artery disease with patent LOVE to LAD and SVG graft to RCA and occluded SVG to OM and status post successful PCI of the OM1. Followup: Senait Ragsdale MD [Primary Care Provider] -
[2024-01-26] MEDS: CLOPIDOGREL 75 MG TABLET PO SCH (09:05)
[2024-01-26 09:18] VITALS: BP 139/92
[2024-01-26 09:19] VITALS: TEMP 97.6; O2SAT 99
--- NOTE | 2024-01-27 16:50 | EKG ---
Test Date: 2024-01-25 Test Time: 11:37:29 Cap Cutter: SHONNA MEASUREMENT RESULTS: Intervals: Rate: 50 OK: 166 QRSD: 94 QT: 468 QTc: 426 [place]: P: 39 OK: 166 QRS: -15 T: 29 INTERPRETIVE STATEMENTS: Sinus bradycardia Minimal voltage criteria for LVH, may be normal variant Borderline ECG Compared to ECG 01/23/2024 17:29:35 Left ventricular hypertrophy now present Electronically Signed On 01-27-24 16:43:58 CDT by Hu Lindsay
--- NOTE | 2024-01-27 17:02 | EKG ---
Test Date: 2024-01-23 Test Time: 17:29:35 [employer] Grade [employer] Teacher: Justin TAVAREZ MEASUREMENT RESULTS: Intervals: Rate: 52 SC: 152 QRSD: 98 QT: 478 QTc: 444 [place]: P: 34 SC: 152 QRS: -1 T: 37 INTERPRETIVE STATEMENTS: Sinus bradycardia Otherwise normal ECG Compared to ECG 09/30/2023 23:48:22 Sinus rhythm no longer present Electronically Signed On 01-27-24 16:47:09 CDT by Hu Lindsay
== END 2024-01-26 11:19 | disposition home or self-care (01) | DRG 322 ==
LOC: ER 17:15 → ERHOLD 19:39 → 4TH 20:32
PROVIDERS: ADMIT Family Medicine; ATTEND Hospitalist
PROC: 027036Z Dilation of Coronary Artery, One Artery with Three Drug-eluting Intraluminal Devices, Percutaneous Approach (ICD-10-PCS; principal; 2024-01-25)
PROC: 4A023N7 Measurement of Cardiac Sampling and Pressure, Left Heart, Percutaneous Approach (ICD-10-PCS; 2024-01-25)
PROC: B2131ZZ Fluoroscopy of Multiple Coronary Artery Bypass Grafts using Low Osmolar Contrast (ICD-10-PCS; 2024-01-25)
PROC: B2111ZZ Fluoroscopy of Multiple Coronary Arteries using Low Osmolar Contrast (ICD-10-PCS; 2024-01-25)
DX: I21.4 Non-ST elevation (NSTEMI) myocardial infarction (principal); I10 Essential (primary) hypertension; E11.9 Type 2 diabetes mellitus without complications; E78.5 Hyperlipidemia, unspecified; I25.10 Atherosclerotic heart disease of native coronary artery without angina pectoris; Z23 Encounter for immunization; Z79.4 Long term (current) use of insulin; Z95.1 Presence of aortocoronary bypass graft; Z88.1 Allergy status to other antibiotic agents; Z88.8 Allergy status to other drugs, medicaments and biological substances; Z79.82 Long term (current) use of aspirin; Z11.52 Encounter for screening for COVID-19; Z85.46 Personal history of malignant neoplasm of prostate; Z79.02 Long term (current) use of antithrombotics/antiplatelets; Z86.73 Personal history of transient ischemic attack (TIA), and cerebral infarction without residual deficits; Z79.899 Other long term (current) drug therapy
CPT/HCPCS: 36415; 71045; 76937; 80048; 80053; 80076; 81001; 82947; 83735; 84484; 85025; 85347; 85610; 85730; 87804; 87811; 90471; 90732; 93005; 93455; 94760; 96374; 96375; 99152; 99153; 99285; C1725; C1887; C1893; C9600; J0461; J0696; J1650; J2001; J2250; J2405; J3010; J7030; J7050; Q9967

== ENCOUNTER 2024-03-27 15:43 | Emergency (ER) | payer OTHER ==
[2024-03-27 16:34] LABS: Absolute Eosinophils 0.1 K/uL (0-0.5); Absolute Lymphocytes (CBC) 1.8 K/uL (0.7-4.9); Absolute Monocytes 0.5 K/uL (0.1-1.3); Absolute Neutrophil 3.5 K/uL (1.8-8.0); Basophils % 0.5 % (0-1.3); Eosinophils % 1.9 % (0-4.4); Hematocrit 41.2 % (39.6-49.0); Hemoglobin 13.7 g/dL (13.6-17.9); Lymphocytes % 30.8 % (15.3-44.8); MCH 33.5 pg (27.0-35.0); MCHC 33.3 g/dL (32.0-36.0); MCV 100.6 fL (80-100); Monocytes % 7.7 % (3.3-12.3); Neutrophils % 59.1 % (41.7-73.7); Platelets 247 thou/uL (152-406); Red Cell Distribution Width 13.3 % (12.1-15.2)
--- NOTE | 2024-03-27 16:38 | RAD REPORT ---
EXAM DESCRIPTION: CT - Head Brain Wo Cont - 03/27/2024 4:27 pm CLINICAL HISTORY: Weakness, anorexia COMPARISON: none TECHNIQUE: Computed axial tomography of the head was obtained. IV contrast was not requested. All CT scans are performed using dose optimization technique as appropriate and may include automated exposure control or mA/KV adjustment according to patient size. FINDINGS: An intracranial bleed is not seen The ventricles are normal in caliber No significant hypodense areas within the brain visualized No extra-axial fluid collection is noted. Fluid within the sinuses/ mastoids is not seen IMPRESSION: No acute intracranial abnormality is seen If patient's symptoms persist MRI of the brain would be recommended
--- NOTE | 2024-03-27 16:40 | RAD REPORT ---
EXAM DESCRIPTION: Denise Single View03/27/2024 4:33 pm CLINICAL HISTORY: Cough COMPARISON: January 2024 FINDINGS: The lungs appear clear of acute infiltrate. The heart is normal size. Postsurgical change s involve chest IMPRESSION: No acute abnormalities displayed
[2024-03-27 16:53] LABS: SARS-CoV-2 Antigen CONTROL BLUE LINE VIS/BG OK; SARS-CoV-2 Antigen Rapid Res Negative (Negative)
[2024-03-27 16:54] LABS: ALT/SGPT 24 U/L (16-61); AST/SGOT 17 U/L (15-37); Albumin 3.4 g/dL (3.4-5.0); Albumin/Globulin Ratio 1.1 (1.1-1.8); Alkaline Phosphatase 117 U/L (45-117); Anion Gap 6.8 mEq/L (5.0-15.0); BUN Blood Urea Nitrogen 20 mg/dL (7-18); Bicarbonate 28 mEq/L (21-32); Bilirubin Total 0.4 mg/dL (0.2-1.0); Globulin 3.1 g/dL (2.3-3.5); Glomerular Filtration Rate 68 ml/min (=/>90); Glucose Level 108 mg/dL (74-106); Magnesium 1.8 mg/dL (1.6-2.4); NT PRO-BNP 133 pg/mL (<125); Potassium 3.8 mEq/L (3.5-5.1); Protein, Total 6.5 g/dL (6.4-8.2); Sodium Level 141 mEq/L (136-145); Troponin High Sensitivity 42.1 pg/mL (<58.9)
[2024-03-27 16:55] LABS: Bilirubin Direct < 0.2 mg/dL (0-0.2); Bilirubin Indirect, Calculated 0.2 mg/dL (0.2-0.8)
[2024-03-27] MEDS ORDERED: NA CHLORIDE 0.9% 1,000 ML ONE (17:04)
[2024-03-27 17:16] LABS: Specific Gravity 1.024 (1.005-1.030); Sqamous Epithelial <5 /HPF (None Seen); Urine Bacteria None Seen /HPF (<20); Urine Bilirubin NEGATIVE (Negative); Urine Blood Negative (Negative); Urine Clarity Clear (Clear); Urine Color Light-Yellow (Yellow); Urine Culture Reflex Order NOT NEEDED; Urine Glucose NEGATIVE (Negative); Urine Ketones NEGATIVE (Negative); Urine Micro Reflex YN NO BILL MICROSCOPIC; Urine Mucus Slight /HPF (None Seen); Urine Nitrite NEGATIVE (Negative); Urine Protein NEGATIVE (Negative); Urine Urobilinogen 1+ (Normal); Urine WBC <5 /HPF (<5)
--- NOTE | 2024-03-27 17:56 | EDPHYS ---
Physician Documentation [facility] Name: Artem Hampton Age: 68 yrs Sex: Male : 1955 Arrival Date: 03/27/2024 Time: 15:43 Bed 11 Private MD: Senait Ragsdale ED Physician Aron Phelps HPI: 03/27 17:07 This 68 yrs old Male presents to ER via Ambulatory with complaints of sb4 Decreased Appetite, Weakness. 17:07 Patient states that he has been feeling weak and fatigued over the past few days. sb4 and family have noticed as well. He denies any changes in medications, sick contacts. He does report a mild cough. He also complains of right knee pain but is chronic. He does report some exertional dyspnea. Denies any leg swelling. Historical: - Allergies: 16:13 Clindamycin; ph 16:13 Clonidine; ph - PMHx: 16:13 CANCER- PROSTATE; diabetes mellitus; heart attack; Hypertensive disorder; ph - PSHx: 16:13 Coronary artery bypass graft; ph - Immunization history:: Client reports receiving the 2nd dose of the Covid vaccine, Pneumococcal vaccine is up to date, Flu vaccine is up to date. - Infectious Disease History:: Denies. - Social history:: Smoking status: Patient denies any tobacco usage or history of. ROS: 17:07 Cardiovascular: Negative for chest pain, palpitations, and edema, sb4 17:07 Constitutional: Positive for fatigue, malaise, 17:07 Respiratory: Positive for cough, 17:07 All other systems are negative, Exam: 17:07 Constitutional: This is a well developed, well nourished patient who is awake, alert, sb4 and in no acute distress. Head/Face: Normocephalic, atraumatic. Eyes: Extra-ocular motions intact. Periorbital areas with no swelling, redness, or edema. ENT: Mucous membranes moist. Cardiovascular: Regular rate and rhythm with a normal S1 and S2. Respiratory: Lungs have equal breath sounds bilaterally, clear to auscultation and percussion. No rales, rhonchi or wheezes noted. No increased work of breathing, no retractions or nasal flaring. Abdomen/GI: Soft, non-tender, no distension. Skin: Warm, dry with normal turgor. Normal color with no rashes, no lesions, and no evidence of cellulitis. MS/ Extremity: Pulses equal, no cyanosis. Neurovascular intact. Full, normal range of motion. Neuro: Awake and alert, GCS 15, oriented to person, place, time, and situation. Motor strength 5/5 in all extremities. Sensory grossly intact. Vital Signs: 16:11 BP 128 / 76; Pulse 66; Resp 18; Temp 97.3; Pulse Ox 97% on R/A; Weight 81.65 kg; Height ph 5 ft. 7 in. ; 17:30 BP 151 / 82; Pulse 59; Resp 18; Pulse Ox 99% ; cm10 18:00 BP 126 / 72; Pulse 56; Resp 16; Pulse Ox 100% on R/A; cm10 16:11 Body Mass Index 28.19 (81.65 kg, 170.18 cm) ph MDM: 15:59 Patient medically screened. sb4 17:55 Data reviewed: vital signs, nurses notes, lab test result(s), EKG, radiologic studies, sb4 and as a result, I will discharge patient. Counseling: I had a detailed discussion with the patient and/or guardian regarding the historical points, exam findings, and any diagnostic results supporting the discharge/admit diagnosis, lab results, radiology results, to return to the emergency department if symptoms worsen or persist or if there are any questions or concerns that arise at home. 03/27 16:10 Order name: Basic Metabolic Panel; Complete Time: 16:56 sb4 03/27 16:10 Order name: CBC with Diff; Complete Time: 16:39 sb4 03/27 16:10 Order name: LFT's; Complete Time: 16:56 sb4 03/27 16:10 Order name: Magnesium; Complete Time: 16:56 sb4 03/27 16:10 Order name: NT PRO-BNP; Complete Time: 16:56 sb4 03/27 16:10 Order name: Troponin HS; Complete Time: 16:56 sb4 03/27 16:10 Order name: SARS RAPID; Complete Time: 16:54 sb4 03/27 16:10 Order name: Flu; Complete Time: 16:56 sb4 03/27 16:10 Order name: UAM; Complete Time: 17:31 sb4 03/27 16:10 Order name: XRAY Chest (1 view); Complete Time: 16:41 sb4 03/27 16:10 Order name: Head Brain Wo Cont CT; Complete Time: 16:39 sb4 03/27 16:10 Order name: Cardiac monitoring; Complete Time: 17:23 sb4 03/27 16:10 Order name: EKG - Nurse/Tech; Complete Time: 17:23 sb4 03/27 16:10 Order name: IV Saline Lock; Complete Time: 16:28 sb4 03/27 16:10 Order name: Labs collected and sent; Complete Time: 16:28 sb4 03/27 16:10 Order name: O2 Per Protocol; Complete Time: 17:26 sb4 03/27 16:10 Order name: O2 Sat Monitoring; Complete Time: 16:28 sb4 EC:44 Rate is 54 beats/min. Rhythm is regular, Sinus bradycardia. UT interval is normal at sb4 158 msec. QRS interval is normal at 100 msec. QT interval is normal at 460 msec. No Q waves. T waves are Normal. No ST changes noted. Clinical impression: Sinus bradycardia. Interpreted by me. Reviewed by me. Administered Medications: 17:23 Drug: NS 0.9% IV 1000 ml IV at 1 bolus Per protocol; 1000 mL bolus Route: IV; Rate: 1 cm10 bolus; Site: right antecubital; 18:17 Follow up: Response: No adverse reaction; IV Status: Completed infusion; IV Intake: cm10 1000ml Disposition: 18:21 Co-signature as Attending Physician, Aron Phelps MD I reviewed the patient's care rt provided by the Advanced Practice Provider and agree with the diagnosis and treatment plan. Disposition Summary: 03/27/24 17:56 Discharge Ordered Notes: Location: Home sb4 Problem: an ongoing problem sb4 Symptoms: are unchanged sb4 Condition: Stable sb4 Diagnosis - Other malaise and fatigue sb4 Followup: sb4 - With: Senait Ragsdale - When: 1 week - Reason: Recheck today's complaints, Continuance of care, Re-evaluation by your physician Discharge Instructions: - Discharge Summary Sheet sb4 - Fatigue sb4 - Vitamin D Deficiency, [id number] sb4 Forms: - Patient Portal Instructions sb4 - Leadership Thank You Letter sb4 Signatures: Dispatcher [employer] Cat Gonzalez RN RN ph Miranda Garcia, PA-C PA-C sb4 Aron Phelps MD MD rt Blanca Ordonez RN RN cm10 Corrections: (The following items were deleted from the chart) 16:11 16:10 BASIC METABOLIC PANEL+C.LAB.BRZ ordered. EDMS EDMS 16:11 16:10 CBC+H.LAB.BRZ ordered. EDMS EDMS 16:11 16:10 HEPATIC FUNCTION+C.LAB.BRZ ordered. EDMS EDMS 16:11 16:10 MAGNESIUM+C.LAB.BRZ ordered. EDMS EDMS 16:11 16:10 PROBNP+C.LAB.BRZ ordered. EDMS EDMS 16:11 16:10 Troponin High Sensitivity+C.LAB.BRZ ordered. EDMS EDMS 16:11 16:10 SARS-COV-2 Antigen Rapid+I.LAB.BRZ ordered. EDMS EDMS 16:11 16:10 Influenza Screen (A \T\ B)+BA.LAB.BRZ ordered. EDMS EDMS 16:11 16:10 Urinalysis W/Microscopic+U.LAB.BRZ ordered. EDMS EDMS 16:11 16:11 Chest Single View+RAD.RAD.BRZ ordered. EDMS EDMS 16:11 16:11 Head Brain Wo Cont+CT.RAD.BRZ ordered. EDMS EDMS
--- NOTE | 2024-03-27 17:56 | ER ---
Nurse's Notes [facility] Name: Artem Hampton Age: 68 yrs Sex: Male : 1955 Arrival Date: 03/27/2024 Time: 15:43 Bed 11 Private MD: Senait Ragsdale Diagnosis: Other malaise and fatigue Presentation: 03/27 16:11 Chief complaint: Patient states: he has had increased weakness and appetite since ph Wednesday. patient also reports a cough since then as well as shortness of breath with increased activity. Coronavirus screen: At this time, the client does not indicate any symptoms associated with coronavirus-19. Ebola Screen: No symptoms or risks identified at this time. Initial Sepsis Screen: Does the patient meet any 2 criteria? No. Patient's initial sepsis screen is negative. Does the patient have a suspected source of infection? No. Patient's initial sepsis screen is negative. Risk Assessment: Do you want to hurt yourself or someone else? Patient reports no desire to harm self or others. Onset of symptoms was March 24, 2024. 16:11 Method Of Arrival: Ambulatory ph 16:11 Acuity: MAVERICK 3 ph Triage Assessment: 16:13 General: Appears in no apparent distress. Behavior is calm, cooperative, appropriate ph for age, Reports fatigue for >3 days. Pain: Complains of pain in right knee. Neuro: Level of Consciousness is awake, alert, obeys commands, Oriented to person, place, time, situation, Appropriate for age Gait is with a cane. Speech is normal. Cardiovascular: Patient's skin is warm and dry. Respiratory: Reports shortness of breath on exertion cough that is Airway is patent Respiratory effort is even, unlabored, Respiratory pattern is regular, symmetrical. 16:15 GI: patient and report the patient has also had decrease in appetite since Wednesday ph as well. Historical: - Allergies: 16:13 Clindamycin; ph 16:13 Clonidine; ph - PMHx: 16:13 CANCER- PROSTATE; diabetes mellitus; heart attack; Hypertensive disorder; ph - PSHx: 16:13 Coronary artery bypass graft; ph - Immunization history:: Client reports receiving the 2nd dose of the Covid vaccine, Pneumococcal vaccine is up to date, Flu vaccine is up to date. - Infectious Disease History:: Denies. - Social history:: Smoking status: Patient denies any tobacco usage or history of. Screenin:14 Abuse screen: Denies threats or abuse. Nutritional screening:. Tuberculosis screening: ph No symptoms or risk factors identified. 17:24 [facility] ED Fall Risk Assessment (Adult) History of falling in the last 3 months, cm10 including since admission No falls in past 3 months (0 pts) Confusion or Disorientation No (0 pts) Intoxicated or Sedated No (0 pts) Impaired Gait No (0 pts) Mobility Assist Device Used No (0 pt) Altered Elimination No (0 pt) Score/Fall Risk Level 0 - 2 = Low Risk Oriented to surroundings, Educated pt \T\ family on fall prevention, incl call for assistance when getting out of bed, Hourly rounding (assess needs \T\ fall precautionary measures) done. Assessment: 17:24 General: Appears in no apparent distress. comfortable, Behavior is calm, cooperative. cm10 Neuro: No deficits noted. Level of Consciousness is awake, alert, obeys commands, Oriented to person, place, time, situation, Appropriate for age. Respiratory: No deficits noted. Airway is patent Respiratory effort is even, unlabored, Respiratory pattern is regular, symmetrical. Derm: No deficits noted. Skin is intact, Skin is pink, warm \T\ dry. Musculoskeletal: No deficits noted. Range of motion: intact in all extremities. Vital Signs: 16:11 BP 128 / 76; Pulse 66; Resp 18; Temp 97.3; Pulse Ox 97% on R/A; Weight 81.65 kg; Height ph 5 ft. 7 in. ; 17:30 BP 151 / 82; Pulse 59; Resp 18; Pulse Ox 99% ; cm10 18:00 BP 126 / 72; Pulse 56; Resp 16; Pulse Ox 100% on R/A; cm10 16:11 Body Mass Index 28.19 (81.65 kg, 170.18 cm) ph Vitals: 17:23 Cardiac Rhythm Assessment Sinus zechariah. cm10 ED Course: 15:46 Patient arrived in ED. mr 15:46 Senait Ragsdale is Private Physician. mr 15:58 [facility]. sb4 15:58 Aron Phelps MD is Attending Physician. sb4 16:13 Triage completed. ph 16:15 Arm band placed on left wrist. ph 16:27 No provider procedures requiring assistance completed. Inserted saline lock: 20 gauge kb3 in right antecubital area, using aseptic technique. Blood collected. 16:28 Head Brain Wo Cont CT In Process Unspecified. EDMS 16:28 Flu Sent. kb3 16:28 SARS RAPID Sent. kb3 16:34 XRAY Chest (1 view) In Process Unspecified. EDMS 17:23 Patient has correct armband on for positive identification. Bed in low position. Call cm10 light in reach. Side rails up X2. Provided Education on: ER process and procedures. Client placed on continuous cardiac and pulse oximetry monitoring. NIBP monitoring applied. anesthesiologist/physician on. 17:23 EKG done, by ED staff, reviewed by Miranda Garcia PA-C. cm10 17:55 Senait Ragsdale is Referral Physician. sb4 18:13 IV discontinued, intact, bleeding controlled, No redness/swelling at site. Pressure cm10 dressing applied. Removal of peripheral IV. Catheter intact, dressing applied. Administered Medications: 17:23 Drug: NS 0.9% IV 1000 ml IV at 1 bolus Per protocol; 1000 mL bolus Route: IV; Rate: 1 cm10 bolus; Site: right antecubital; 18:17 Follow up: Response: No adverse reaction; IV Status: Completed infusion; IV Intake: cm10 1000ml Medication: 17:24 VIS not applicable for this client. cm10 Intake: 18:17 IV: 1000ml; Total: 1000ml. cm10 Outcome: 17:56 Discharge ordered by MD. sb4 18:13 Discharged to home ambulatory, with significant other, cm10 18:13 Condition: good 18:13 Discharge instructions given to patient, Instructed on discharge instructions, follow up and referral plans. medication usage, Demonstrated understanding of instructions, follow-up care, 18:17 Patient left the ED. cm10 Signatures: Dispatcher [employer] EDMS Florina Murphy, Reg Reg mr Cat Montes, RN RN Xin Alvares, RN RN Miranda Perry PA-C PA-C sb4 Martinez, Clarissa, RN RN cm10
[2024-03-28 00:56] VITALS: BP 126/72; TEMP 97.3; O2SAT 100
== END 2024-03-27 18:17 | disposition home or self-care (01) ==
LOC: ER 15:43
DX: R53.81 Other malaise (principal); R53.83 Other fatigue; R05.9 Cough, unspecified; Z11.52 Encounter for screening for COVID-19; Z95.1 Presence of aortocoronary bypass graft; Z85.038 Personal history of other malignant neoplasm of large intestine
CPT/HCPCS: 85025; 81001; 80048; 36415; 83735; 80076; 84484; 83880; 87804 ×2; 70450; 71045; 87811; J7030; 93005

== ENCOUNTER 2024-05-29 20:51 | Emergency (ER) | payer OTHER ==
[2024-05-29] MEDS ORDERED: HYDROCODONE/APAP 7.5/325 MG TAB ONE (21:37)
--- NOTE | 2024-05-29 22:30 | RAD REPORT ---
EXAM DESCRIPTION: RAD - Shoulder Right 2 View - 05/29/2024 10:10 pm CLINICAL HISTORY: Right shoulder pain FINDINGS: No fracture or dislocation is seen.
--- NOTE | 2024-05-29 22:31 | RAD REPORT ---
EXAM DESCRIPTION: RAD - Clavicle Right - 05/29/2024 10:11 pm CLINICAL HISTORY: Right shoulder pain FINDINGS: No fracture or dislocation seen
--- NOTE | 2024-05-29 22:32 | RAD REPORT ---
EXAM DESCRIPTION: RAD - Knee Right 3 View - 05/29/2024 10:13 pm CLINICAL HISTORY: Right knee pain status post injury FINDINGS: No fracture or dislocation is seen. 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
--- NOTE | 2024-05-29 22:35 | RAD REPORT ---
EXAM DESCRIPTION: RAD - Hand Right 3 View - 05/29/2024 10:11 pm CLINICAL HISTORY: Right hand pain status post injury FINDINGS: No acute fracture or dislocation is seen. Mild medial chronic subluxation first proximal phalanx Screws have been placed into the third middle phalanx
--- NOTE | 2024-05-29 22:39 | ER ---
Nurse's Notes [facility] Name: Artem Hampton Age: 68 yrs Sex: Male : 1955 Arrival Date: 05/29/2024 Time: 20:51 Bed IW2 Private MD: Diagnosis: Fall on same level, unspecified;Pain in right shoulder;Pain in right hand;Pain in right knee Presentation: 05/29 21:35 Chief complaint: Patient states: pain to R shoulder, R thumb and R knee after falling ss from standing position 4 hours ago. Coronavirus screen: Client denies travel out of the [place] in the last 14 days. Ebola Screen: Patient denies exposure to infectious person. Patient denies travel to an Ebola-affected area in the 21 days before illness onset. Initial Sepsis Screen: Does the patient meet any 2 criteria? No. Patient's initial sepsis screen is negative. Does the patient have a suspected source of infection? No. Patient's initial sepsis screen is negative. Risk Assessment: Do you want to hurt yourself or someone else? Patient reports no desire to harm self or others. Onset of symptoms was May 29, 2024. 21:35 Method Of Arrival: Ambulatory ss 21:35 Acuity: MAVERICK 3 ss Triage Assessment: 21:36 General: Appears in no apparent distress. comfortable, Behavior is calm, cooperative. ss Neuro: Level of Consciousness is awake, alert, obeys commands, Oriented to person, place, time, situation. Derm: Skin is intact, is healthy with good turgor, Skin is pink, warm \T\ dry. normal. Historical: - Allergies: 21:36 No Known Allergies; ss - PMHx: 21:36 CANCER- PROSTATE; diabetes mellitus; heart attack; Hypertensive disorder; ss - PSHx: 21:36 Coronary artery bypass graft; ss - Immunization history:: Client reports having NOT received the Covid vaccine. - Infectious Disease History:: Denies. - Social history:: Smoking status: Patient denies any tobacco usage or history of. Screenin:09 Abuse screen: Denies threats or abuse. Denies injuries from another. Nutritional kl screening: No deficits noted. Tuberculosis screening: Never had TB. Assessment: 23:09 General: Appears in no apparent distress. comfortable, Behavior is calm, cooperative. kl Pain: Complains of pain in anterior aspect of right shoulder and right clavicle and right knee, R thumb Pain currently is 8 out of 10 on a pain scale. Neuro: Level of Consciousness is awake, alert, obeys commands, Oriented to person, place, time, situation. Respiratory: Airway is patent Respiratory effort is even, unlabored, Respiratory pattern is regular, symmetrical. Derm: Skin is pink, warm \T\ dry. Vital Signs: 21:35 Pulse 71; Resp 16; Pulse Ox 100% on R/A; ss 21:36 BP 162 / 103; Weight 77.11 kg; Height 5 ft. 7 in. ; ss 21:38 Temp 97.7(O); ss 21:36 Body Mass Index 26.63 (77.11 kg, 170.18 cm) ED Course: 20:55 Patient arrived in ED. im 20:59 Marcela Gerardo FNP-C [facility]. kb 20:59 Aron Phelps MD is Attending Physician. kb 21:36 Triage completed. ss 21:36 Arm band placed on right wrist. ss 22:12 Shoulder Right (2 View) XRAY In Process Unspecified. EDMS 22:12 Clavicle Right XRAY In Process Unspecified. EDMS 22:12 Hand Right 3 View XRAY In Process Unspecified. EDMS 22:12 Knee Right 3 View XRAY In Process Unspecified. EDMS 23:09 Patient has correct armband on for positive identification. kl 23:09 No provider procedures requiring assistance completed. Patient did not have IV access kl during this emergency room visit. Administered Medications: 21:44 Drug: Hydrocodone-Acetaminophen PO (7.5 mg-325 mg) 1 tabs PO once Route: PO; ss 23:10 Follow up: Response: No adverse reaction; RASS: Alert and Calm (0) Medication: 23:09 VIS not applicable for this client. Outcome: 22:38 Discharge ordered by . kb 23:09 Discharged to home ambulatory, with family, kl 23:09 Condition: good 23:09 Discharge instructions given to patient, family, Instructed on discharge instructions, follow up and referral plans. medication usage, Demonstrated understanding of instructions, follow-up care, medications, Prescriptions given X 2, 23:10 Patient left the ED. Signatures: Dispatcher [employer] EDMS Marcela Gerardo FNP-C FNP-Imani Driscoll, RN RN Marcy Villegas RN RN ss Adri Stout Corrections: (The following items were deleted from the chart) :36 Allergies: Clindamycin; ss ss :36 Allergies: Clonidine; ss ss
--- NOTE | 2024-05-29 22:39 | EDPHYS ---
Physician Documentation [facility] Name: Artem Hampton Age: 68 yrs Sex: Male : 1955 Arrival Date: 05/29/2024 Time: 20:51 Bed IW2 Private MD: ED Physician Aron Phelps HPI: 05/29 21:38 This 68 yrs old Male presents to ER via Ambulatory with complaints of Thumb kb Injury, Knee Pain. 21:38 Pt is a 68 year old male who fell while trying to put the meron back on his vehicle kb around 1700. Reports he fell to right shoulder and right knee. c/o pain to right shoulder/clavicle area, right knee and right thumb. denies hitting head, loc. Took meloxicam 7.5mg prior to arrival, but still having a lot of pain. . Historical: - Allergies: 21:36 No Known Allergies; ss - PMHx: 21:36 CANCER- PROSTATE; diabetes mellitus; heart attack; Hypertensive disorder; ss - PSHx: 21:36 Coronary artery bypass graft; ss - Immunization history:: Client reports having NOT received the Covid vaccine. - Infectious Disease History:: Denies. - Social history:: Smoking status: Patient denies any tobacco usage or history of. ROS: 21:39 Constitutional: As per HPI kb Exam: 21:39 Constitutional: This is a well developed, well nourished patient who is awake, alert, kb and in no acute distress. Head/Face: Normocephalic, atraumatic. ENT: Moist Mucous membranes Cardiovascular: Regular rate Respiratory: Respirations even and unlabored. No increased work of breathing. Talking in full sentences Abdomen/GI: Soft, non-tender. No distention Skin: Warm, dry with normal turgor. Normal color. Neuro: Awake and alert, GCS 15, oriented to person, place, time, and situation. Moves all extremities. Normal gait. 21:39 Musculoskeletal/extremity: Extremities: grossly normal except: noted in the right knee: pain, tenderness, noted in the right clavicle and anterior aspect of right shoulder: pain, tenderness, ROM: intact in all extremities, Circulation is intact in all extremities. Sensation intact. Weight bearing: able to fully bear weight, Vital Signs: 21:35 Pulse 71; Resp 16; Pulse Ox 100% on R/A; ss 21:36 BP 162 / 103; Weight 77.11 kg; Height 5 ft. 7 in. ; ss 21:38 Temp 97.7(O); ss 21:36 Body Mass Index 26.63 (77.11 kg, 170.18 cm) ss MDM: 20:59 Patient medically screened. kb 21:40 Differential diagnosis: contusion, fracture. Data reviewed: vital signs, nurses notes. kb Historians other than the Patient: Spouse/Significant Other: . 22:38 Counseling: I had a detailed discussion with the patient and/or guardian regarding the kb historical points, exam findings, and any diagnostic results supporting the discharge/admit diagnosis, radiology results, the need for outpatient follow up, a family practitioner, to return to the emergency department if symptoms worsen or persist or if there are any questions or concerns that arise at home. 05/29 21:37 Order name: Shoulder Right (2 View) XRAY; Complete Time: 22:37 kb 05/29 21:37 Order name: Clavicle Right XRAY; Complete Time: 22:37 kb 05/29 21:37 Order name: Hand Right 3 View XRAY; Complete Time: 22:37 kb 05/29 21:37 Order name: Knee Right 3 View XRAY; Complete Time: 22:37 kb Administered Medications: 21:44 Drug: Hydrocodone-Acetaminophen PO (7.5 mg-325 mg) 1 tabs PO once Route: PO; ss 23:10 Follow up: Response: No adverse reaction; RASS: Alert and Calm (0) kl Disposition: 23:44 Co-signature as Attending Physician, Aron Phelps MD I reviewed the patient's care rt provided by the Advanced Practice Provider and agree with the diagnosis and treatment plan. Disposition Summary: 05/29/24 22:38 Discharge Ordered Notes: Location: Home kb Condition: Stable kb Diagnosis - Fall on same level, unspecified kb - Pain in right shoulder kb - Pain in right hand kb - Pain in right knee kb Followup: kb - With: Emergency Department - When: As needed - Reason: Worsening of condition Followup: kb - With: Private Physician - When: 2 - 3 days - Reason: Recheck today's complaints, Continuance of care, Re-evaluation by your physician Discharge Instructions: - Discharge Summary Sheet kb - Musculoskeletal Pain kb Forms: - Medication Reconciliation Form kb - Antibiotic Education kb - Prescription Opioid Use kb - Patient Portal Instructions kb - Leadership Thank You Letter kb Prescriptions: - Ibuprofen 600 mg Oral tablet - take 1 tablet ORAL route every 8 hours As needed take with food; 24 tablet; kb Refills: 0, Product Selection Permitted - orphenadrine citrate 100 mg Oral Tablet Sustained Release - take 1 tablet ORAL route 2 times per day As needed; 20 tablet; Refills: 0, kb Product Selection Permitted Signatures: Dispatcher [employer] EDMS Marcela Gerardo FNP-C FNP-Ckb Blanchard, Shelby, RN RN ss Aron Phelps MD MD rt Imani Okeefe RN kl Corrections: (The following items were deleted from the chart) 21:37 21:36 Allergies: Clindamycin; ss ss 21:37 21:36 Allergies: Clonidine; ss ss 21:38 21:38 Clavicle Right+RAD.RAD.BRZ ordered. EDMS EDMS 21:38 21:38 Hand Right 3 View+RAD.RAD.BRZ ordered. EDMS EDMS 21:38 21:38 Knee Right 3 View+RAD.RAD.BRZ ordered. EDMS EDMS
[2024-05-29 23:33] VITALS: O2SAT 100
[2024-05-29 23:46] VITALS: BP 162/103
[2024-05-29 23:55] VITALS: TEMP 97.7
== END 2024-05-29 23:10 | disposition home or self-care (01) ==
LOC: ER 20:51
DX: M25.511 Pain in right shoulder (principal); M79.641 Pain in right hand; M25.561 Pain in right knee; W18.30XA Fall on same level, unspecified, initial encounter
CPT/HCPCS: 99283

== ENCOUNTER 2024-07-12 21:27 | Inpatient (IN) | payer MEDICARE, OTHER ==
[2024-07-12 21:52] LABS: Absolute Eosinophils 0.1 K/uL (0-0.5); Absolute Lymphocytes (CBC) 2.1 K/uL (0.7-4.9); Absolute Monocytes 0.4 K/uL (0.1-1.3); Absolute Neutrophil 4.1 K/uL (1.8-8.0); Basophils % 0.6 % (0-1.3); Eosinophils % 1.2 % (0-4.4); Hematocrit 42.3 % (39.6-49.0); Hemoglobin 14.5 g/dL (13.6-17.9); Lymphocytes % 31.2 % (15.3-44.8); MCH 34.1 pg (27.0-35.0); MCHC 34.3 g/dL (32.0-36.0); MCV 99.5 fL (80-100); MPV 6.7 fL (7.6-11.3); Monocytes % 5.8 % (3.3-12.3); Neutrophils % 61.2 % (41.7-73.7); Nucleated Red Blood Cells % 0.1 % (0-0); Platelets 266 thou/uL (152-406); RBC Red Blood Cell Count 4.25 M/uL (4.33-5.43); Red Cell Distribution Width 13.6 % (12.1-15.2)
[2024-07-12] MEDS ORDERED: NA CHLORIDE 0.9% 1,000 ML ONE (21:58)
[2024-07-12] MEDS ORDERED: ONDANSETRON 4 MG/2 ML VIAL ONE (21:58)
[2024-07-12 22:14] LABS: ALT/SGPT 20 U/L (16-61); AST/SGOT 18 U/L (15-37); Albumin 3.8 g/dL (3.4-5.0); Albumin/Globulin Ratio 1.1 (1.1-1.8); Alkaline Phosphatase 104 U/L (45-117); Anion Gap 11.7 mEq/L (5.0-15.0); BUN Blood Urea Nitrogen 18 mg/dL (7-18); Bicarbonate 19 mEq/L (21-32); Bilirubin Total 0.4 mg/dL (0.2-1.0); Globulin 3.4 g/dL (2.3-3.5); Glomerular Filtration Rate 95 ml/min (=/>90); Glucose Level 117 mg/dL (74-106); Magnesium 1.8 mg/dL (1.6-2.4); Potassium 3.7 mEq/L (3.5-5.1); Protein, Total 7.2 g/dL (6.4-8.2); Sodium Level 140 mEq/L (136-145); Troponin High Sensitivity 34.8 pg/mL (<58.9)
[2024-07-12 22:15] LABS: Bilirubin Direct < 0.2 mg/dL (0-0.2); Bilirubin Indirect, Calculated 0.2 mg/dL (0.2-0.8)
[2024-07-12 22:20] LABS: Specific Gravity 1.029 (1.005-1.030); Sqamous Epithelial <5 /HPF (None Seen); Urine Bacteria None Seen /HPF (<20); Urine Bilirubin NEGATIVE (Negative); Urine Blood Trace (Negative); Urine Clarity Extremely Turbid (Clear); Urine Color Yellow (Yellow); Urine Crystals Unidentified Few /HPF (None Seen); Urine Culture Reflex Order NOT NEEDED; Urine Glucose NEGATIVE (Negative); Urine Ketones NEGATIVE (Negative); Urine Microscopic Reflex YN ORDER UMIC; Urine Mucus 4+ /HPF (None Seen); Urine Nitrite NEGATIVE (Negative); Urine Protein TRACE (Negative); Urine RBC <5 /HPF (None Seen); Urine Urobilinogen Normal (Normal); Urine WBC <5 /HPF (<5)
--- NOTE | 2024-07-12 22:20 | RAD REPORT ---
EXAMINATION: ONE VIEW CHEST XR CLINICAL INDICATION: Male, 68 years old.,syncope[e TECHNIQUE: Frontal chest projection is submitted. Examination is limited by patient positioning and t echnique. COMPARISON: 03/27/2024 FINDINGS: The lungs are well inflated and clear. No pneumothorax or sizable effusion. The heart is normal in s ize. Sequelae of CABG. IMPRESSION: No acute intrathoracic abnormalities.
[2024-07-12 22:21] LABS: PT Prothrombin Time 12.7 SECONDS (9.4-12.5); PTT, Activated Partial Thromb 29.9 SECONDS (24.3-36.9); Protime INR 1.14
[2024-07-12 22:28] LABS: Barbiturates NEGATIVE (NEGATIVE); Benzodiazepines NEGATIVE (NEGATIVE); Cocaine NEGATIVE (NEGATIVE); METHAMPHETAM NEGATIVE (NEGATIVE); Methadone NEGATIVE (NEGATIVE); Opiates NEGATIVE (NEGATIVE); Phencyclidine NEGATIVE (NEGATIVE); THC Cannibis POSITIVE (NEGATIVE)
--- NOTE | 2024-07-12 23:25 | RAD REPORT ---
EXAM DESCRIPTION: Abdomen Pelvis W Contrast RadLex: CT ABDOMEN PELVIS WITH IV CONTRAST CLINICAL HISTORY: 68 years Male; ABD PAIN; IV ONLY Bed Name: 8 TECHNIQUE: CT of the abdomen and pelvis [with] intravenous contrast. All CT scans at this facility use dose modulation, iterative reconstruction, and/or weight based dosi ng when appropriate to reduce radiation dose to as low as reasonably achievable. COMPARISON: CT abdomen pelvis 04/17/2021. FINDINGS: Lower thorax: Partially visualized median sternotomy changes. Bibasilar atelectasis. Abdomen: Stomach: Moderately distended. Liver: Subcentimeter hypodensity in the right hepatic lobe, too small to characterize. No intrahepati c ductal distention. Gallbladder: Surgically absent. Pancreas: Within normal limits Spleen: Within normal limits Right kidney: No hydronephrosis. Subcentimeter hypodensities, too small to characterize. Left kidney: No hydronephrosis. Subcentimeter hypodensities, too small to characterize. Adrenal glands: Within normal limits Vascular structures: Atherosclerosis of the abdominal aorta and major branches. Nodes: Indeterminate rounded hypodensity along left pelvic sidewall measuring 3.1 x 2.3 cm (series 40 1, image 71). Pelvis: Small bowel: No significant distention. Appendix: Within normal limits Colon: No distention or acute pericolonic edema. Peritoneum: No free intraperitoneal fluid or air. Bones: No acute bone findings. Bladder: Diffuse wall thickening, could be secondary to underdistention. Reproductive organs: No acute findings. Prostate gland not visualized, could be surgically absent. Soft tissues: Prior ventral abdominal hernia repair with mesh placement. IMPRESSION: 1. No acute abdominopelvic findings. 2. Indeterminate rounded hypodensity along left pelvic sidewall measuring 3.1 x 2.3 cm. Differentia l considerations include enlarged cystic/necrotic lymph node versus peritoneal inclusion cyst. 3. Diffuse bladder wall thickening, could be secondary to underdistention. Correlate with urinalysi s for evidence of cystitis. Electronically signed by: Tyrone Spence MD 07/12/2024 11:17 PM CDT RP Z9 Due to temporary technical issues with the PACS/[employer] reporting system, reports are being fantasma d by the in-house radiologist without review as a courtesy to ensure prompt reporting the interpreting radiologist is fully responsible for the content of the report. Transcribed Date/Time: 07/12/2024 11:25 PM
--- NOTE | 2024-07-12 23:38 | RAD REPORT ---
EXAM DESCRIPTION: Head Brain Wo Cont CLINICAL HISTORY: 69 years Male Syncope. COMPARISON: CT Brain without contrast 03/27/2024. TECHNIQUE: Images were obtained in axial, coronal and sagittal planes. No contrast administration. This exam was performed according to our departmental dose-optimization program which includes use of Automated Exposure Control, adjustment of the mA and/or kV according to patient size and/or use of iterative re construction technique. FINDINGS: Ventricular system appears normal. No abnormal areas of increased attenuation seen. No extra-axial fluid collections noted. No evidence for skull fracture. Symmetric aeration of the mastoid air cells bilaterally. Unremarkable paranasal sinuses. IMPRESSION: No acute intracranial abnormality. No evidence for hemorrhage, mass lesion, or large acute infarction . Electronically signed by: Tiffany Mishra MD 07/12/2024 11:35 PM CDT RP Due to temporary technical issues with the PACS/[employer] reporting system, reports are being fantasma d by the in-house radiologist without review as a courtesy to ensure prompt reporting the interpreting radiologist is fully responsible for the content of the report. Transcribed Date/Time: 07/12/2024 11:38 PM
[2024-07-13] MEDS ORDERED: NA CHLORIDE 0.9% 1,000 ML ONE (00:06)
--- NOTE | 2024-07-13 00:07 | EDPHYS ---
Physician Documentation [facility] Name: Artem Hampton Age: 68 yrs Sex: Male : 1955 Arrival Date: 07/12/2024 Time: 21:27 Bed 8 Private MD: ED Physician Addy Diamond HPI: 07/12 23:49 This 68 yrs old Male presents to ER via EMS with complaints of Syncope. kb 23:49 Pt is a 68 year old male who presents for nausea, vomiting and diarrhea that started 4 kb days ago. Came in tonight because he stood from a standing position and passed out. Reports he fell to the ground, unknown if he hit his head. Denies any pain. Pt denies fever. . Historical: - Allergies: 21:31 No Known Allergies; me1 - PMHx: 21:31 CANCER- PROSTATE; diabetes mellitus; heart attack; Hypertensive disorder; me1 hyperlipidemia (Coronary artery bypass graft); - PSHx: 21:31 Coronary artery bypass graft; me1 - Immunization history:: Adult Immunizations Adult Immunizations up to date. - Infectious Disease History:: Denies. - Social history:: Smoking status: Patient denies any tobacco usage or history of. ROS: 23:50 Constitutional: As per HPI kb Exam: 22:03 Constitutional: This is a well developed, well nourished patient who is awake, alert, kb and in no acute distress. Head/Face: Normocephalic, atraumatic. ENT: Moist Mucous membranes Cardiovascular: Regular rate Respiratory: Respirations even and unlabored. No increased work of breathing. Talking in full sentences Skin: Warm, dry with normal turgor. Normal color. MS/ Extremity: Pulses equal, no cyanosis. Neurovascular intact. Full, normal range of motion. Neuro: Awake and alert, GCS 15, oriented to person, place, time, and situation. Moves all extremities. Normal gait. 22:03 ECG was reviewed by the Attending Physician. 22:03 Abdomen/GI: Inspection: abdomen appears normal, Bowel sounds: normal, Palpation: soft, in all quadrants, mild abdominal tenderness, in the right upper quadrant, Vital Signs: 21:29 BP 126 / 75; Pulse 61; Resp 17; Temp 98.4; Pulse Ox 100% ; Weight 74.84 kg; Height 5 me1 ft. 7 in. ; Pain 0/10; 21:43 BP 117 / 82 Supine; Pulse 60; me1 21:44 BP 115 / 90 Sitting; Pulse 61; me1 21:45 BP 112 / 80 Standing; Pulse 69; me1 22:00 BP 127 / 78; Pulse 60; Resp 14; Pulse Ox 100% ; me1 23:00 BP 122 / 89; Pulse 63; Resp 12; Pulse Ox 99% ; me1 07/13 01:35 BP 127 / 80; Pulse 60; Resp 16; Temp 98.4; Pulse Ox 98% on R/A; Pain 0/10; bm8 07/12 21:29 Body Mass Index 25.84 (74.84 kg, 170.18 cm) me1 07/12 21:29 Pain Scale: Adult me1 07/13 01:35 Pain Scale: Adult bm8 [place] Coma Score: 01:35 Eye Response: spontaneous(4). Motor Response: obeys commands(6). Verbal Response: bm8 oriented(5). Total: 15. MDM: 07/12 21:32 Patient medically screened. kb 23:50 Differential Diagnosis: idiopathic syncope, vasovagal episode, dehydration, kb gastroenteritis. Data reviewed: vital signs, nurses notes. Consideration of Admission/Observation Escalation of care including admission/observation considered. admission considered, but pt does not want to stay in the hospital. States her prefers to go home to rest and will hydrate there. Pt agrees with staying for repeat troponin.. Management of patient was discussed with the following:. Historians other than the Patient: EMS: [facility]. 07/13 00:04 Management of patient was discussed with the following: Hospitalist: Dr Lima accepts pt for admission. Counseling: I had a detailed discussion with the patient and/or guardian regarding the historical points, exam findings, and any diagnostic results supporting the discharge/admit diagnosis, lab results, radiology results, the need for further work-up and treatment in the hospital. ED course: Son came in and spoke with pt. Son and want pt to stay in the hospital because they are concerned that something is going to happen to him if they go home. Pt now in agreement with admission. . 07/12 21:33 Order name: Basic Metabolic Panel; Complete Time: 22:16 kb 07/12 21:33 Order name: CBC with Diff; Complete Time: 22:03 kb 07/12 21:33 Order name: Hepatic Function; Complete Time: 22:16 kb 07/12 21:33 Order name: Magnesium; Complete Time: 22:16 kb 07/12 21:33 Order name: Protime (+inr); Complete Time: 22:22 kb 07/12 21:33 Order name: Ptt, Activated; Complete Time: 22:22 kb 07/12 21:33 Order name: Troponin High Sensitivity; Complete Time: 22:16 kb 07/12 21:33 Order name: Urinalysis w/ reflexes; Complete Time: 22:22 kb 07/12 22:04 Order name: ETOH Level; Complete Time: 22:27 kb 07/12 22:04 Order name: UDS; Complete Time: 22:29 kb 07/12 23:49 Order name: Troponin High Sensitivity; Complete Time: 01:43 kb 07/13 01:23 Order name: T4 Free EDMS 07/13 01:23 Order name: Thyroid Stimulating Hormone EDMS 07/13 01:23 Order name: CBC with Automated Diff EDMS 07/13 01:23 Order name: CBC with Automated Diff EDMS 07/13 01:23 Order name: Comprehensive Metabolic Panel EDMS 07/13 01:23 Order name: Comprehensive Metabolic Panel EDMS 07/13 01:23 Order name: Creatine Phosphokinase EDMS 07/13 01:23 Order name: Creatine Phosphokinase EDMS 07/13 01:23 Order name: Creatine Phosphokinase EDMS 07/13 01:23 Order name: Creatine Phosphokinase EDMS 07/13 01:23 Order name: Magnesium EDMS 07/13 01:23 Order name: Magnesium EDMS 07/13 01:23 Order name: Phosphorus EDMS 07/13 01:23 Order name: Phosphorus EDMS 07/13 01:23 Order name: Vitamin B12 Level EDMS 07/13 01:23 Order name: Vitamin B12 Level EDMS 07/12 21:33 Order name: Chest Single View XRAY; Complete Time: 22:22 kb 07/12 21:33 Order name: CT Abd/Pelvis - IV Contrast Only kb 07/12 21:37 Order name: CT Head Brain wo Cont kb 07/13 01:23 Order name: Echo without Doppler (2D) EDMS 07/13 01:23 Order name: Carotid Artery Bilateral EDMS 07/12 21:33 Order name: EKG; Complete Time: 21:34 kb 07/12 21:33 Order name: Cardiac monitoring; Complete Time: 21:55 kb 07/12 21:33 Order name: EKG - Nurse/Tech; Complete Time: 21:55 kb 07/12 21:33 Order name: IV Saline Lock; Complete Time: 21:43 kb 07/12 21:33 Order name: Labs collected and sent; Complete Time: 21:43 kb 07/12 21:33 Order name: NPO; Complete Time: 21:36 kb 07/12 21:33 Order name: O2 Per Protocol; Complete Time: 21:36 kb 07/12 21:33 Order name: O2 Sat Monitoring; Complete Time: 21:36 kb 07/12 21:33 Order name: Orthostatics; Complete Time: 21:55 kb EC/09 22:03 Rate is 59 beats/min. Rhythm is regular. QRS [place] is Normal. NM interval is normal at kb 166 msec. QRS interval is normal at 96 msec. QT interval is normal at 443 msec. Administered Medications: 22:03 Drug: NS 0.9% IV 1000 ml IV at 1000 ml once Route: IV; Rate: 1000 ml; Site: right [facility] [place] [place] forearm; 07/13 01:40 Follow up: Response: No adverse reaction; IV Status: Completed infusion; IV Intake: bm8 1000ml 07/12 22:03 Drug: Ondansetron IVP 4 mg IVP once; over 2 minutes Route: IVP; Site: right forearm; [facility] 22:18 Follow up: Response: No adverse reaction; Nausea is decreased [facility] 07/13 00:16 Drug: NS 0.9% IV 1000 ml IV at 1000 ml once Route: IV; Rate: 1000 ml; Site: right jb4 forearm; 01:39 Follow up: Response: No adverse reaction; IV Status: Completed infusion; IV Intake: bm8 1000ml Disposition: 01:44 Co-signature as Attending Physician, Addy Daimond MD I agree with the assessment sp4 and plan of care. I reviewed the patient's care provided by Advanced Practice Provider \T\ agree w/ the diagnosis \T\ care plan. I personally saw the pt \T\ performed a substantive portion of the visit, incldng all aspects of the (History/Exam/Medical Decision Making). Disposition Summary: 07/13/24 00:06 Hospitalization Ordered Notes: Hospitalization Status: Observation kb Provider: Felecia Lima Location: Telemetry/MedSurg (observation) kb Condition: Stable kb Problem: new kb Symptoms: are unchanged kb Bed/Room Type: Standard kb Room Assignment: 228(07/13/24 01:28) km Diagnosis - Nausea with vomiting, unspecified kb - Diarrhea, unspecified kb - Syncope kb - Weakness kb Forms: - Medication Reconciliation Form kb - SBAR form kb - Leadership Thank You Letter kb Signatures: Dispatcher [employer] EDMS Marcela Gerardo, TELEPRINTER INSTALLER-C TELEPRINTER INSTALLER-Ckb Nader Hinds, RN RN jb4 Addy Diamond MD MD sp4 Greta Bedoya RN RN me1 Ayde Vega [facility] Maico Garcia RN bm8 Corrections: (The following items were deleted from the chart) 07/12 21:34 21:34 BASIC METABOLIC PANEL+C.LAB.BRZ ordered. EDMS EDMS 21:34 21:34 CBC+H.LAB.BRZ ordered. EDMS EDMS 21:34 21:34 HEPATIC FUNCTION+C.LAB.BRZ ordered. EDMS EDMS 21:34 21:34 MAGNESIUM+C.LAB.BRZ ordered. EDMS EDMS 21:34 21:34 PROTIME (+INR)+COAG.LAB.BRZ ordered. EDMS EDMS 21:34 21:34 PTT, ACTIVATED+COAG.LAB.BRZ ordered. EDMS EDMS 21:34 21:34 Troponin High Sensitivity+C.LAB.BRZ ordered. EDMS EDMS 21:34 21:34 Urinalysis+U.LAB.BRZ ordered. EDMS EDMS 21:34 21:34 Chest Single View+RAD.RAD.BRZ ordered. EDMS EDMS 07/13 00:04 07/12 23:50 Transition of care: After a detail discussion of the patient's case, care kb is transferred to Addy mccarthy 07/13 01:28 00:06 kb [facility]
--- NOTE | 2024-07-13 00:07 | ER ---
Nurse's Notes [facility] Name: Artem Hampton Age: 68 yrs Sex: Male : 1955 Arrival Date: 07/12/2024 Time: 21:27 Bed 8 Private MD: Diagnosis: Nausea with vomiting, unspecified;Diarrhea, unspecified;Syncope;Weakness Presentation: 07/12 21:29 Chief complaint: EMS states: toned out for syncope with LOC. Patient has had n/v/d x 4 me1 days, stood up, became lightheaded and passed out. s/p fall with no c/o pain. Coronavirus screen: Vaccine status: Patient reports receiving the 2nd dose of the covid vaccine. Ebola Screen: No symptoms or risks identified at this time. Initial Sepsis Screen: Does the patient meet any 2 criteria? No. Patient's initial sepsis screen is negative. Does the patient have a suspected source of infection?. Risk Assessment: Do you want to hurt yourself or someone else? Patient reports no desire to harm self or others. Onset of symptoms was July 08, 2024. 21:29 Method Of Arrival: EMS: [facility] ma1 21:29 Acuity: MAVERICK 3 me1 Triage Assessment: 21:31 General: Appears ill, well groomed, well developed, well nourished, Behavior is calm, me1 cooperative, appropriate for age, drowsy, Reports n/v/d x 4 days, stood up to go to the bathroom today, became lightheaded and passed out. Pain: Denies pain. EENT: No signs and/or symptoms were reported regarding the EENT system. Neuro: Level of Consciousness is awake, alert, obeys commands, Oriented to person, place, time, situation, Appropriate for age Reports a syncopal episode. Cardiovascular: Patient's skin is warm and dry. Respiratory: Airway is patent Respiratory effort is even, unlabored, Respiratory pattern is regular, symmetrical. GI: Reports diarrhea, nausea, vomiting, since 4 days ago. : No signs and/or symptoms were reported regarding the genitourinary system. Derm: Skin is intact, is healthy with good turgor, Skin is pink, warm \T\ dry. Musculoskeletal: No signs and/or symptoms reported regarding the musculoskeletal system. Injury Description: syncope with LOC and fall. Historical: - Allergies: 21:31 No Known Allergies; me1 - PMHx: 21:31 CANCER- PROSTATE; diabetes mellitus; heart attack; Hypertensive disorder; me1 hyperlipidemia (Coronary artery bypass graft); - PSHx: 21:31 Coronary artery bypass graft; me1 - Immunization history:: Adult Immunizations Adult Immunizations up to date. - Infectious Disease History:: Denies. - Social history:: Smoking status: Patient denies any tobacco usage or history of. Screenin:[facility] ED Fall Risk Assessment (Adult) History of falling in the last 3 months, me1 including since admission Yes- physiologic fall (2 pts) Confusion or Disorientation No (0 pts) Intoxicated or Sedated No (0 pts) Impaired Gait No (0 pts) Mobility Assist Device Used No (0 pt) Altered Elimination No (0 pt) Score/Fall Risk Level 0 - 2 = Low Risk Maintained a safe environment, Provided non-skid footwear, Hourly rounding (assess needs \T\ fall precautionary measures) done. Abuse screen: Denies threats or abuse. Nutritional screening: No deficits noted. Tuberculosis screening: No symptoms or risk factors identified. Assessment: 21:35 General: See triage assessment. . Neuro: Level of Consciousness is awake, alert, obeys me1 commands, Oriented to person, place, time, situation, Appropriate for age Reports a syncopal episode. 07/13 01:41 Cardiovascular: Rhythm is sinus bradycardia. 8 Vital Signs: 07/12 21:29 BP 126 / 75; Pulse 61; Resp 17; Temp 98.4; Pulse Ox 100% ; Weight 74.84 kg; Height 5 me1 ft. 7 in. ; Pain 0/10; 21:43 BP 117 / 82 Supine; Pulse 60; me1 21:44 BP 115 / 90 Sitting; Pulse 61; me1 21:45 BP 112 / 80 Standing; Pulse 69; me1 22:00 BP 127 / 78; Pulse 60; Resp 14; Pulse Ox 100% ; me1 23:00 BP 122 / 89; Pulse 63; Resp 12; Pulse Ox 99% ; me1 07/13 01:35 BP 127 / 80; Pulse 60; Resp 16; Temp 98.4; Pulse Ox 98% on R/A; Pain 0/10; bm8 07/12 21:29 Body Mass Index 25.84 (74.84 kg, 170.18 cm) me1 07/12 21:29 Pain Scale: Adult me1 07/13 01:35 Pain Scale: Adult bm8 [place] Coma Score: 01:35 Eye Response: spontaneous(4). Motor Response: obeys commands(6). Verbal Response: bm8 oriented(5). Total: 15. ED Course: 07/12 21:29 Patient arrived in ED. me1 21:31 Triage completed. me1 21:31 Arm band placed on Patient placed in an exam room. me1 21:32 Marcela Gerardo, [facility] kb 21:32 Addy Diamond MD is Attending Physician. kb 21:35 Patient has correct armband on for positive identification. Bed in low position. Call ma1 light in reach. Side rails up X2. Provided Education on: POC. Verbalized understanding. . Client placed on continuous cardiac and pulse oximetry monitoring. NIBP monitoring applied. electronic device monitor on. Pulse ox on. NIBP on. 21:35 No provider procedures requiring assistance completed. me1 21:43 Basic Metabolic Panel Sent. me1 21:43 CBC with Diff Sent. me1 21:43 Hepatic Function Sent. me1 21:43 Magnesium Sent. me1 21:43 Protime (+inr) Sent. me1 21:43 Ptt, Activated Sent. me1 21:43 Troponin High Sensitivity Sent. me1 21:43 Initial lab(s) drawn, by ma, sent to lab. Inserted saline lock: 20 gauge in right me1 forearm, using aseptic technique. 21:55 EKG done, by ED staff, reviewed by Marcela SANCHEZ. me1 22:04 Urinalysis w/ reflexes Sent. me1 22:04 Urine collected: clean catch specimen, clear. me1 22:09 ETOH Level Sent. me1 22:10 Chest Single View XRAY In Process Unspecified. EDMS 22:18 UDS Sent. me1 22:50 CT Abd/Pelvis - IV Contrast Only In Process Unspecified. EDMS 22:50 CT Head Brain wo Cont In Process Unspecified. EDMS 07/13 00:06 Felceia Lima MD is Hospitalizing Provider. kb 00:16 Nader Hinds, BLANQUITA is Primary Nurse. jb4 01:35 Patient admitted, IV remains in place. bm8 Administered Medications: 07/12 22:03 Drug: NS 0.9% IV 1000 ml IV at 1000 ml once Route: IV; Rate: 1000 ml; Site: right me1 forearm; 07/13 01:40 Follow up: Response: No adverse reaction; IV Status: Completed infusion; IV Intake: bm8 1000ml 07/12 22:03 Drug: Ondansetron IVP 4 mg IVP once; over 2 minutes Route: IVP; Site: right forearm[place] [facility] 22:18 Follow up: Response: No adverse reaction; Nausea is decreased [facility] 07/13 00:16 Drug: NS 0.9% IV 1000 ml IV at 1000 ml once Route: IV; Rate: 1000 ml; Site: right jb4 forearm; 01:39 Follow up: Response: No adverse reaction; IV Status: Completed infusion; IV Intake: bm8 1000ml Medication: 07/12 21:35 VIS not applicable for this client. ma1 Intake: 07/13 01:39 IV: 1000ml; Total: 1000ml. bm8 01:40 IV: 1000ml; Total: 2000ml. bm8 Outcome: 00:06 Decision to Hospitalize by Provider. kb 01:35 Admitted to Med/surg accompanied by nurse, via stretcher, room 228, with chart, bm8 01:35 Condition: stable 01:35 Instructed on the need for admit, 02:12 Patient left the ED. bm8 Signatures: Dispatcher [employer] EDMarcela Cardenas, TMD TEACHER-C TMD TEACHER-Nader Rob RN BLANQUITA jb4 Greta Bedoya RN RN me1 Maico Garcia RN RN bm8 Corrections: (The following items were deleted from the chart) 07/12 22:57 22:00 BP 148 / 114; Pulse 97bpm; Resp 14bpm; Pulse Ox 98%; me1 me1
[2024-07-13] MEDS ORDERED: ONDANSETRON 4 MG/2 ML VIAL IV PRN (01:16)
[2024-07-13] MEDS ORDERED: ACETAMINOPHEN 500 MG TAB PO PRN (01:16)
--- NOTE | 2024-07-13 01:16 | P.HP ---
Certification for Inpatient Patient admitted to: Observation With expected LOS: <2 Midnights Practitioner: I am a practitioner with admitting privileges, knowledge of patient current condition, hospital course, and medical plan of care. Services: Services provided to patient in accordance with Admission requirements found in Title 42 Section 412.3 of the Code of Federal Regulations Patient History Date of Service: 07/13/24 Reason for admission: syncope History of Present Illness: 69-year-old male with past medical history of diabetes, coronary disease, hypertension, history of CABG, prostate cancer presents to the ER after an episode of syncope. reports that patient was found in the bathroom face first. And had passed out. On arrival he did not have any complaints of head pain. reports that he has had a 3-day history of nausea vomiting and diarrhea. They believe he got a viral infection from his grandson. Reports his appetite has been poor. He does report significant weakness. Eats sleeping has been poor at night. In the ER a CT of the abdomen pelvis and CT of the head were done. Allergies No Known Allergies Allergy (Verified 01/23/24 22:31) Home Medications: Aspirin [Aspirin Regimen] 1 tab PO DAILY 08/02/23 Atorvastatin Calcium 40 mg PO BEDTIME 08/02/23 Carvedilol [Coreg] 3.125 mg PO BID 08/02/23 Fenofibrate,Micronized [Fenofibrate] 200 mg PO DAILY 08/02/23 Metformin ER [Glucophage ER*] 500 mg PO DAILY 08/02/23 Mirabegron [Myrbetriq] 50 mg PO DAILY 08/02/23 Solifenacin Succinate [Vesicare] 10 mg PO DAILY 08/02/23 Codeine/APAP [Tylenol #3*] 1 tab PO Q6H PRN #15 tab 08/17/23 Clopidogrel Bisulfate [Plavix*] 75 mg PO DAILY 30 Days #30 tab 01/26/24 - Past Medical/Surgical History Diabetic: Yes -: , Hyperlipidemia, hypertension, Diabetes -: DM type 1 -: heart attack -: HTN -: prostate sx -: bladder sx -: pancreatic sx -: left knee sx - Family History Mother -: Heart disease - Social History Alcohol use: Yes CD- Drugs: No Caffeine use: Yes Review of Systems 10-point ROS is otherwise unremarkable Gastrointestinal: Nausea, Vomiting, Diarrhea Physical Examination - Physical Exam General: Oriented x3, Other (lethargic) HEENT: Atraumatic, Normocephalic Respiratory: Clear to auscultation bilaterally, Normal air movement Cardiovascular: Regular rate/rhythm, Normal S1 S2 Gastrointestinal: Soft and benign, No tenderness Musculoskeletal: No clubbing, No swelling Integumentary: No rashes - Studies Laboratory Data (last 24 hrs) 07/12/24 07/12/24 07/12/24 21:42 21:42 21:42 WBC 6.70 Hgb 14.5 Hct 42.3 Plt Count 266 PT 12.7 H INR 1.14 APTT 29.9 Sodium 140 Potassium 3.7 BUN 18 Creatinine 0.85 Glucose 117 H Magnesium 1.8 Total Bilirubin 0.4 AST 18 ALT 20 Alkaline Phosphatase 104 Assessment and Plan - Problems (Diagnosis) (1) Syncope Current Visit: Yes Status: Acute (2) Nausea & vomiting Current Visit: Yes Status: Acute (3) Diarrhea Current Visit: Yes Status: Acute - Plan 69-year-old male with past medical history of diabetes, coronary disease, hypertension, history of CABG, prostate cancer presents to the ER after an episode of syncope. #syncope --ddx vasovagal, from volume depletion #nausea and vomiting #diarrhea --likely from viral infection, may require further workup including stool studies #weakness --could be from above --will check ck, phos, tsh, mg, b12 #CAD --denies chest pain, keep on telemetry #NIDDM --on metformin #HTN #HLD --vitals stable, on statin Plan: 1. admit for observation 2. telemetry 3. IVF 4. check echo, carotid US 5. if diarrhea persists consider stool studies 6. can consider adding imodium 7. fsbs, ssi 8. await home medication reconciliation DVT: Lovenox - Advance Directives Does patient have a Living Will: No Does patient have a Durable POA for Healthcare: No
[2024-07-13] MEDS ORDERED: GLUCAGON 1 MG/VIAL IM PRN (01:18)
[2024-07-13] MEDS ORDERED: D10W 125 ML IV PRN (01:18)
[2024-07-13] MEDS: NA CHLORIDE 0.9% 1,000 ML IV SCH (02:54)
[2024-07-13 04:23] VITALS: O2SAT 98
[2024-07-13 05:26] LABS: Thyroid Stimulating Hormone 0.542 uIU/mL (0.358-3.740)
[2024-07-13] MEDS: HYDRALAZINE HCL 20 MG/ML VIAL IV PRN (06:14)
--- NOTE | 2024-07-13 07:03 | RAD REPORT ---
EXAMINATION: US CAROTID DUPLEX CLINICAL INDICATION: , 69 years old. syncope. TECHNIQUE: Real-time grayscale, color flow and spectral Doppler sonographic images were obtained of t extracranial carotid system using a linear transducer. [id number]. COMPARISON: No prior exam. FINDINGS: RIGHT: Common carotid artery: 72 cm/s Internal carotid artery: 74 cm/s External carotid artery: 109 cm/s Right ICA/CCA ratio: 1.0 Plaque Moderate Calcified Vertebral artery Antegrade LEFT: Common carotid artery: 73 cm/s Internal carotid artery: 52 cm/s External carotid artery: 83 cm/s lEFT ICA/CCA ratio: 0.7 Plaque Moderate Calcified Vertebral artery Antegrade IMPRESSION: No hemodynamically significant stenosis (greater than 50%) within the extracranial internal carotid a [facility].
[2024-07-13] MEDS: INSULIN REGULAR (HUMAN) 100 UNIT/ML SQ SCH (07:30)
[2024-07-13] MEDS: ENOXAPARIN 40 MG/0.4 ML SQ SCH (08:21)
[2024-07-13 12:49] LABS: STOOL CONSISTENCY Liquid/Semi-Solid
[2024-07-13 12:50] LABS: C.diff Antigen/Toxin Ag pos : Tox neg (NEG : NEG); CDIFF INTERNAL NEG CONTROL White Background (WHITE BKGD)
--- NOTE | 2024-07-13 15:41 | P.PN ---
Date of Service: 07/13/24 Patient seen and examined. He has no complaint He denies any chest pain. groundwater monitoring technician revealed sinus bradycardia. Metabolic acidosis secondary to diarrhea Acute enterocolitis-likely viral etiology. Patient reports other members of his household also had diarrhea. Syncope probably vasovagal in the context of dehydration and bradycardia. Monitor BP closely. Echocardiogram is pending. No antihypertensives IV hydration Monitor BMP.
--- NOTE | 2024-07-13 16:53 | EKG ---
Test Date: 2024-07-12 Test Time: 21:49:18 Educational Psychologist: MEASUREMENT RESULTS: Intervals: Rate: 59 MN: 166 QRSD: 96 QT: 448 QTc: 443 Munden: P: 50 MN: 166 QRS: 6 T: 61 INTERPRETIVE STATEMENTS: Sinus bradycardia Otherwise normal ECG Compared to ECG 03/27/2024 17:10:42 No significant changes Electronically Signed On 07-13-24 16:50:11 CDT by Hu Lindsay
[2024-07-13] MEDS: ATORVASTATIN 40 MG TAB PO SCH (22:08)
[2024-07-14 03:14] VITALS: BMI 25.8
[2024-07-14 06:01] LABS: Absolute Eosinophils 0.1 K/uL (0-0.5); Absolute Lymphocytes (CBC) 1.6 K/uL (0.7-4.9); Absolute Monocytes 0.3 K/uL (0.1-1.3); Absolute Neutrophil 2.9 K/uL (1.8-8.0); Basophils % 0.3 % (0-1.3); Eosinophils % 1.8 % (0-4.4); Hemoglobin 13.3 g/dL (13.6-17.9); Lymphocytes % 32.7 % (15.3-44.8); MCH 34.3 pg (27.0-35.0); MCHC 34.1 g/dL (32.0-36.0); MCV 100.4 fL (80-100); Monocytes % 6.7 % (3.3-12.3); Neutrophils % 58.5 % (41.7-73.7); Nucleated Red Blood Cells % 0.2 % (0-0); Platelets 238 thou/uL (152-406); RBC Red Blood Cell Count 3.89 M/uL (4.33-5.43); Red Cell Distribution Width 13.3 % (12.1-15.2)
[2024-07-14 06:26] LABS: Albumin 3.2 g/dL (3.4-5.0); Albumin/Globulin Ratio 1.2 (1.1-1.8); Anion Gap 9.7 mEq/L (5.0-15.0); Bilirubin Total 0.4 mg/dL (0.2-1.0); Globulin 2.7 g/dL (2.3-3.5); Magnesium 1.6 mg/dL (1.6-2.4); Phosphorus 2.1 mg/dL (2.5-4.9); Potassium 3.7 mEq/L (3.5-5.1); Protein, Total 5.9 g/dL (6.4-8.2)
[2024-07-14] MEDS: ASPIRIN EC 81 MG TAB PO SCH (08:46)
[2024-07-14] MEDS: CLOPIDOGREL 75 MG TABLET PO SCH (08:46)
[2024-07-14] MEDS: FENOFIBRATE MICRONIZED 200 MG PO SCH (09:00)
--- NOTE | 2024-07-14 09:13 | ECHO ---
HEIGHT: 5 ft 7 in WEIGHT: 165 lb 0 oz DATE OF STUDY: 07/13/[address]: Felecia Lima MD 2-DIMENSIONAL: YES M.MODE: YES DOPPLER: YES COLOR FLOW: YES TDS: NO PORTABLE: YES DEFINITY: NO BUBBLE STUDY: NO DIAGNOSIS: SYNCOPE CARDIAC HISTORY: CATHERIZATION: NO SURGERY: YES PROSTHETIC VALVE: NO PACEMAKER: NO MEASUREMENTS (cm) DIASTOLIC (NORMALS) SYSTOLIC (NORMALS) IVSd 1.0 (0.6-1.2) LA Diam 3.2 (1.9-4.0) LVEF 60-65% LVIDd 4.4 (3.5-5.7) LVIDs 3.1 (2.0-3.5) %FS 30% LVPWd 1.2 (0.6-1.2) Ao Diam 3.2 (2.0-3.7) 2 DIMENSIONAL ASSESSMENT: RIGHT ATRIUM: NORMAL LEFT ATRIUM: NORMAL RIGHT VENTRICLE: NORMAL LEFT VENTRICLE: NORMAL TRICUSPID VALVE: MILD TRICUPSID REGURGITATION MITRAL VALVE: MILD MITRAL REGURGITATION PULMONIC VALVE: MILD PULMONARY INSUFFICIENCY AORTIC VALVE: NORMAL PERICARDIAL EFFUSION: NONE AORTIC ROOT: NORMAL LEFT VENTRICULAR WALL MOTION: NORMAL. DOPPLER/COLOR FLOW: SEE BELOW. COMMENTS: 1. NORMAL LEFT VENTRICULAR EJECTION FRACTION 60-65% WITH NORMAL WALL MOTION. 2. GRADE I DIASTOLIC DYSFUNCTION. 3. MILD MITRAL, TRICUSPID AND PUMONARY REGURGITATION. TECHNOLOGIST: BERNIE GAMBOA
[2024-07-14 12:53] VITALS: TEMP 98
--- NOTE | 2024-07-14 15:13 | P.DS ---
Admission Date: 07/14/24 Discharge Date: 07/14/24 Disposition: ROUTINE DISCHARGE Discharge Condition: FAIR Reason for Admission: syncope Procedures: ECHO CT head Carotid ultrasound CT abd/pelvis Brief History of Present Illness: 69-year-old male with past medical history of diabetes, coronary disease, hypertension, history of CABG, prostate cancer presents to the ER after an episode of syncope. reports that patient was found in the bathroom face first. And had passed out. On arrival he did not have any complaints of head pain. reports that he has had a 3-day history of nausea vomiting and diarrhea. They believe he got a viral infection from his grandson. Reports his appetite has been poor. He does report significant weakness. Eats sleeping has been poor at night. In the ER a CT of the abdomen pelvis and CT of the head were done. Hospital Course: Mr. Hampton had a syncopal event after getting up from the commode after having a large amount of diarrhea. CT head, CT abdomen and pelvis, echocardiogram, and carotid Doppler study was performed and they were all found to be negative. Mr. Vallejo does have some bradycardia and for a few days it is recommended that he hold his Coreg. It is also recommended that he hold his Myrbetriq as it may cause dizziness/syncope. He should avoid alcohol and consume a bland diet for at least a week. Marijuana can be continued in moderation for appetite stimulation. Mr. Hampton needs to follow-up with his PCP in 1 week. Vital Signs/Physical Exam: Temp Pulse Resp BP Pulse Ox 98.0 F 66 18 154/87 H 99 07/14/24 12:00 07/14/24 12:00 07/14/24 12:00 07/14/24 12:00 07/14/24 12:00 General: Alert, In no apparent distress, Oriented x3 HEENT: Atraumatic, Normocephalic Neck: Supple Respiratory: Normal air movement Cardiovascular: Normal pulses, Regular rate/rhythm, Other (bradycardic) Capillary refill: <2 Seconds Gastrointestinal: Soft and benign Musculoskeletal: No clubbing Integumentary: No rashes Neurological: Normal speech, Normal tone, Normal affect Lymphatics: No axilla or inguinal lymphadenopathy External genitalia: Deferred Rectal: Deferred Laboratory Data at Discharge: WBC 5.00 thou/uL (4.3-10.9) 07/14/24 05:30 Hgb 13.3 g/dL (13.6-17.9) L 07/14/24 05:30 Hct 39.0 % (39.6-49.0) L 07/14/24 05:30 Plt Count 238 thou/uL (152-406) 07/14/24 05:30 PT 12.7 SECONDS (9.4-12.5) H 07/12/24 21:42 INR 1.14 07/12/24 21:42 APTT 29.9 SECONDS (24.3-36.9) 07/12/24 21:42 Sodium 141 mEq/L (136-145) 07/14/24 05:30 Potassium 3.7 mEq/L (3.5-5.1) 07/14/24 05:30 BUN 11 mg/dL (7-18) 07/14/24 05:30 Creatinine 0.73 mg/dL (0.70-1.30) 07/14/24 05:30 Glucose 91 mg/dL (74-106) 07/14/24 05:30 Phosphorus 2.1 mg/dL (2.5-4.9) L 07/14/24 05:30 Magnesium 1.6 mg/dL (1.6-2.4) 07/14/24 05:30 Total Bilirubin 0.4 mg/dL (0.2-1.0) 07/14/24 05:30 AST 13 U/L (15-37) L 07/14/24 05:30 ALT 16 U/L (16-61) 07/14/24 05:30 Alkaline Phosphatase 76 U/L (45-117) 07/14/24 05:30 Home Medications: Aspirin [Aspirin Regimen] 1 tab PO DAILY 08/02/23 Atorvastatin Calcium 40 mg PO BEDTIME 08/02/23 Carvedilol [Coreg] 3.125 mg PO BID 08/02/23 Fenofibrate,Micronized [Fenofibrate] 200 mg PO DAILY 08/02/23 Metformin ER [Glucophage ER*] 500 mg PO DAILY 08/02/23 Codeine/APAP [Tylenol #3*] 1 tab PO Q6H PRN #15 tab 08/17/23 Clopidogrel Bisulfate [Plavix*] 75 mg PO DAILY 30 Days #30 tab 01/26/24 Loperamide [Imodium*] 15 ml PO BID PRN #1 bottle 07/14/24 New Medications: Loperamide [Imodium*] 15 ml PO BID PRN #1 bottle PRN Reason: Diarrhea Physician Discharge Instructions: CT head: IMPRESSION: "No acute intracranial abnormality. No evidence for hemorrhage, mass lesion, or large acute infarction." CT abd/pelvis: IMPRESSION: 1. No acute abdominopelvic findings. 2. Indeterminate rounded hypodensity along left pelvic sidewall measuring 3.1 x 2.3 cm. Differential considerations include enlarged cystic/necrotic lymph node versus peritoneal inclusion cyst. 3. Diffuse bladder wall thickening, could be secondary to underdistention. Correlate with urinalysis for evidence of cystitis Carotid doppler: IMPRESSION: No hemodynamically significant stenosis (greater than 50%) within the extracranial internal carotid arteries ECHO: IMPRESSION: 1. NORMAL LEFT VENTRICULAR EJECTION FRACTION 60-65% WITH NORMAL WALL MOTION. 2. GRADE I DIASTOLIC DYSFUNCTION. 3. MILD MITRAL, TRICUSPID AND PUMONARY REGURGITATION. Mr. Hampton had a syncopal event after getting up from the commode after having a large amount of diarrhea. CT head, CT abdomen and pelvis, echocardiogram, and carotid Doppler study was performed and they were all found to be negative. Mr. Vallejo does have some bradycardia and for a few days it is recommended that he hold his Coreg. It is also recommended that he hold his Myrbetriq as it may cause dizziness/syncope. He should avoid alcohol and consume a bland diet for at least a week. Marijuana can be continued in moderation for appetite stimulation. Mr. Hampton needs to follow-up with his PCP in 1 week. Continue home medicines as previously prescribed except as noted GOAL: Clear understanding of disease process Diet: bland Activity: Fall precautions INSTRUCTIONS: Physician Discharge Instructions: Okay to DC IV and DC home Follow-up with primary care provider in 1 week Please call the inpatient unit for any questions or concerns regarding hospital stay Return to the ER for worsening symptoms Diet: [place] Activity: Fall precautions Followup: Senait Ragsdale MD [Primary Care Provider] -
[2024-07-14 16:07] VITALS: BP 136/81
== END 2024-07-14 18:00 | disposition home or self-care (01) | DRG 312 ==
LOC: ER 21:27 → 2ND 07-13 01:16 → OBSVTOIN 07-14 12:09
PROVIDERS: ADMIT Internal Medicine; ATTEND Internal Medicine Sleep Medicine
DX: R55 Syncope and collapse (principal); E87.20 Acidosis, unspecified; K52.89 Other specified noninfective gastroenteritis and colitis; E11.9 Type 2 diabetes mellitus without complications; I10 Essential (primary) hypertension; E78.5 Hyperlipidemia, unspecified; E86.0 Dehydration; E86.9 Volume depletion, unspecified; I25.10 Atherosclerotic heart disease of native coronary artery without angina pectoris; I25.2 Old myocardial infarction; T50.995A Adverse effect of other drugs, medicaments and biological substances, initial encounter; R00.1 Bradycardia, unspecified; Z95.1 Presence of aortocoronary bypass graft; Z79.82 Long term (current) use of aspirin; Z85.46 Personal history of malignant neoplasm of prostate; Z79.02 Long term (current) use of antithrombotics/antiplatelets; Z79.899 Other long term (current) drug therapy
CPT/HCPCS: 36415; 70450; 71045; 74177; 80048; 80053; 80076; 80307; 81001; 82077; 82550; 82607; 82947; 83735; 84100; 84439; 84443; 84484; 85025; 85610; 85730; 87324; 93005; 93306; 93880; G0378; J0360; J1650; J2405; J7030; Q9967

== ENCOUNTER 2024-11-13 16:29 | Inpatient (IN) | payer MEDICARE, OTHER ==
[2024-11-13] MEDS ORDERED: NA CHLORIDE 0.9% 500 ML ONE (17:31)
[2024-11-13 17:45] LABS: Absolute Eosinophils 0.1 K/uL (0-0.5); Absolute Lymphocytes (CBC) 1.5 K/uL (0.7-4.9); Absolute Monocytes 0.3 K/uL (0.1-1.3); Absolute Neutrophil 6.9 K/uL (1.8-8.0); Basophils % 0.5 % (0-1.3); Eosinophils % 1.2 % (0-4.4); Hematocrit 39.8 % (39.6-49.0); Hemoglobin 13.7 g/dL (13.6-17.9); Lymphocytes % 16.7 % (15.3-44.8); MCH 34.1 pg (27.0-35.0); MCHC 34.5 g/dL (32.0-36.0); MCV 99.1 fL (80-100); MPV 7.1 fL (7.6-11.3); Monocytes % 3.7 % (3.3-12.3); Neutrophils % 77.9 % (41.7-73.7); Platelets 229 thou/uL (152-406); RBC Red Blood Cell Count 4.02 M/uL (4.33-5.43); Red Cell Distribution Width 13.1 % (12.1-15.2)
[2024-11-13 17:48] LABS: PTT, Activated Partial Thromb 27.2 SECONDS (24.3-36.9); Protime INR 1.14
[2024-11-13 17:59] LABS: Albumin 3.4 g/dL (3.4-5.0); Albumin/Globulin Ratio 1.1 (1.1-1.8); Anion Gap 9.3 mEq/L (5.0-15.0); Bilirubin Direct 0.2 mg/dL (0-0.2); Bilirubin Indirect, Calculated 0.2 mg/dL (0.2-0.8); Bilirubin Total 0.4 mg/dL (0.2-1.0); Magnesium 1.8 mg/dL (1.6-2.4); Potassium 4.3 mEq/L (3.5-5.1); Protein, Total 6.4 g/dL (6.4-8.2)
[2024-11-13 18:02] LABS: Troponin High Sensitivity 73.9 pg/mL (<58.9)
--- NOTE | 2024-11-13 18:39 | RAD REPORT ---
EXAMINATION: CT HEAD WITHOUT CONTRAST CT CERVICAL SPINE WITHOUT CONTRAST CLINICAL INDICATION: Male, 69 years old. SYNCOPE TECHNIQUE: Axial CT images from the skull base to the vertex without intravenous contrast. Axial CT i mages through the cervical spine were obtained without intravenous contrast. Sagittal and coronal reformatted images were created from the data set. Coronal and sagittal reformatted images were creat ed from the data set. One or more of the following dose reduction techniques were used: Automated exposure control, adjustment of the mA and/or kV according to patient size, and/or iterative reconstr uction. Unless otherwise specified, incidental findings do not require dedicated imaging follow-up. [id number]. COMPARISON: No prior exam. FINDINGS: Head: INTRACRANIAL: No acute intracranial hemorrhage. No hydrocephalus. No mass effect or midline shift. No significant white matter disease VASCULATURE: No visualized abnormalities in the arteries or dural venous sinuses. SCALP/SKULL: No significant soft tissue or osseous abnormalities. SINUSES: The visualized paranasal sinuses and mastoid air cells are predominantly clear. Cervical spine: ALIGNMENT: The cervical spine has normal alignment without scoliosis or spondylolisthesis. BONE: Vertebral body heights are maintained. No aggressive osseous lesions. DEGENERATIVE CHANGES: Multilevel cervical spondylosis with varying degrees of neural foraminal narrow ing. This is most pronounced at the C4-5, C5-6, and C6-7 levels. SOFT TISSUE: No significant abnormalities in the soft tissue of the neck. The visualized lung apices are clear. IMPRESSION: No acute intracranial abnormality. No acute fracture or traumatic malalignment of the cervical spine.
--- NOTE | 2024-11-13 18:42 | RAD REPORT ---
EXAM: Chest Single View HISTORY: syncope COMPARISON: 07/12/2024 FINDINGS: LUNGS/PLEURA: The lungs are clear. No pleural effusions or pneumothorax. No pulmonary edema. MEDIASTINUM: The mediastinal silhouette is within normal limits. CARDIAC: Mild cardiomegaly UPPER ABDOMEN: No significant abnormality. BONES: Sternotomy. No acute abnormality. LINES/TUBES/OTHER: N/A IMPRESSION: No evidence of acute cardiopulmonary disease.
[2024-11-13] MEDS ORDERED: ASPIRIN 81 MG CHEWABLE TABLET ONE (18:52)
--- NOTE | 2024-11-13 18:53 | EDPHYS ---
Physician Documentation [facility] Name: Artem Hampton Age: 69 yrs Sex: Male : 1955 Arrival Date: 11/13/2024 Time: 16:29 Bed 8 Private MD: ED Physician Thony Degroot HPI: 11/13 17:05 This 69 yrs old Male presents to ER via EMS with complaints of Syncope. cp 17:05 The patient has experienced syncope, collapsed. Onset: The symptoms/episode cp began/occurred just prior to arrival. Duration: This was a single episode, for over 5 minutes. Context: occurred at home, in bedroom, Just prior to the episode the patient experienced no apparent symptoms. Associated injury: Head/face: laceration. Associated signs and symptoms: Pertinent negatives: abdominal pain, chest pain, vomiting. Current symptoms: decreased level of consciousness. Historical: - Allergies: 16:54 No Known Allergies; iw - PMHx: 16:53 diabetes mellitus; CANCER- PROSTATE; heart attack; Hyperlipidemia (Coronary artery iw byp); Hypertensive disorder; - PSHx: 16:53 Coronary artery bypass graft; iw - Immunization history:: Adult Immunizations unknown. - Infectious Disease History:: Denies. - Social history:: Smoking status: unknown. ROS: 17:10 Constitutional: Negative for fever, cp 17:10 Cardiovascular: Negative for chest pain, cp 17:10 Neuro: Positive for syncope, weakness, Negative for altered mental status, headache, Exam: 16:55 ECG was reviewed by the Attending Physician. cp 17:15 Constitutional: The patient appears in no acute distress, alert, awake, cp non-diaphoretic, non-toxic, well developed, well nourished, 17:15 Head/Face: Normocephalic, atraumatic. cp 17:15 Eyes: Periorbital structures: appear normal, Pupils: equal, round, and reactive to light and accomodation, Extraocular movements: intact throughout, Conjunctiva: normal, no exudate, no injection, Sclera: no appreciated abnormality, Lids and lashes: appear normal, bilaterally, 17:15 ENT: External ear(s): are unremarkable, Nose: is normal, Mouth: Lips: moist, Oral mucosa: moist, Posterior pharynx: Airway: no evidence of obstruction, patent, 17:15 Neck: ROM/movement: is normal, is supple, without pain, no range of motions limitations, 17:15 Chest/axilla: Inspection: normal, Palpation: crepitus, is not appreciated, tenderness, is not appreciated, 17:15 Cardiovascular: Rate: normal, Rhythm: regular, Edema: is not appreciated, JVD: is not appreciated, 17:15 Respiratory: the patient does not display signs of respiratory distress, Respirations: normal, no use of accessory muscles, no retractions, labored breathing, is not present, Breath sounds: are clear throughout, no decreased breath sounds, no stridor, no wheezing, 17:15 Abdomen/GI: Inspection: abdomen appears normal, Bowel sounds: active, all quadrants, Palpation: abdomen is soft and non-tender, in all quadrants, 17:15 Back: pain, is absent, ROM is normal, 17:15 Musculoskeletal/extremity: Extremities: all appear grossly normal, with no appreciated pain with palpation, 17:15 Neuro: Orientation: to person, place, situation, Mentation: able to follow commands, slow to respond, Cerebellar function: normal finger to nose testing, Motor: moves all fours, no focal deficits, Sensation: no obvious gross deficits, Vital Signs: 16:56 BP 116 / 84; Pulse 62; Resp 16; Temp 98.1; Pulse Ox 96% on R/A; Pain 0/10; iw 17:53 BP 123 / 79; Pulse 64; Pulse Ox 98% on R/A; ap3 18:29 BP 128 / 78; Pulse 71; Pulse Ox 98% on R/A; ap3 19:00 BP 122 / 79; Pulse 55; Resp 16; Pulse Ox 97% on R/A; al5 20:00 BP 117 / 73; Pulse 53; Resp 15; Pulse Ox 97% on R/A; al5 21:00 BP 104 / 65; Pulse 54; Resp 14; Pulse Ox 97% on R/A; al5 22:00 BP 119 / 59; Pulse 54; Resp 17; Pulse Ox 98% on R/A; al5 23:00 BP 118 / 75; Pulse 56; Resp 17; Pulse Ox 98% on R/A; al5 16:56 Pain Scale: Adult iw MDM: 17:00 Medical Screening Exam initiated cp 18:00 Differential Diagnosis: aortic aneurysm, cardiac arrhythmia, cerebrovascular accident, cp GI bleed, seizure, sepsis, vasovagal episode. 18:55 Data reviewed: vital signs, nurses notes, lab test result(s), EKG, radiologic studies, cp CT scan, plain films, and as a result, I will admit patient. 18:55 Management of patient was discussed with the following: Hospitalist: DR Goldsmith will cp admit after discussion. I considered the following discharge prescriptions or medication management in the emergency department Medications were administered in the Emergency Department. See MAR. Independent interpretation of the following test(s) in the Emergency Department EKG: See my EKG interpretation above. Care significantly affected by the following chronic conditions: Diabetes, Cancer. Counseling: I had a detailed discussion with the patient and/or guardian regarding the historical points, exam findings, and any diagnostic results supporting the discharge/admit diagnosis, lab results, the need for further work-up and treatment in the hospital. Response to treatment: the patient's symptoms have mildly improved after treatment, and as a result, I will admit patient. 11/13 17: Order name: Basic Metabolic Panel; Complete Time: 18:18 cp 11/13 18:18 Interpretation: Normal except: CL 108; GLUC 131; GFR 72. cp 11/13 17:01 Order name: CBC with Diff; Complete Time: 18:00 cp 11/13 18:00 Interpretation: Normal except: RBC 4.02; MPV 7.1; SCOTTY% 77.9. cp 11/13 17:01 Order name: LFT's; Complete Time: 18:18 cp 11/13 17: Order name: Magnesium; Complete Time: 18:18 cp 11/13 17: Order name: NT PRO-BNP; Complete Time: 18:18 cp 11/13 17: Order name: PT-INR; Complete Time: 18:00 cp 11/13 17:01 Order name: Troponin HS; Complete Time: 18:18 cp 11/13 18:18 Interpretation: Reviewed. cp 11/13 17: Order name: Ptt, Activated; Complete Time: 18:00 cp 11/13 17:15 Order name: Urinalysis W/Microscopic cp 11/13 17:22 Order name: Glucose, Ancillary Testing; Complete Time: 18:00 EDMS 11/13 19:22 Order name: Urinalysis w/ reflexes EDMS 11/13 19:22 Order name: CBC with Automated Diff EDMS 11/13 19:22 Order name: CBC with Automated Diff EDMS 11/13 19:22 Order name: Comprehensive Metabolic Panel EDMS 11/13 19:22 Order name: Comprehensive Metabolic Panel EDMS 11/13 22:36 Order name: Glucose, Ancillary Testing EDMS 11/13 17:01 Order name: XRAY Chest (1 view); Complete Time: 18:45 cp 11/13 17:15 Order name: CT Head C Spine; Complete Time: 18:45 cp 11/13 20:06 Order name: XRAY Elbow LEFT 3 view cp 11/13 21:32 Order name: RAD EDMS 11/13 17:01 Order name: EKG; Complete Time: 17:02 cp 11/13 17:01 Order name: Cardiac monitoring; Complete Time: 17:02 cp 11/13 17:01 Order name: EKG - Nurse/Tech; Complete Time: 17:02 cp 11/13 17:01 Order name: IV Saline Lock; Complete Time: 17:32 cp 11/13 17:01 Order name: Labs collected and sent; Complete Time: 17:32 cp 11/13 17:01 Order name: O2 Per Protocol; Complete Time: 17:05 cp 11/13 17:01 Order name: O2 Sat Monitoring; Complete Time: 17:04 cp 11/13 17:02 Order name: Accucheck Blood Glucose; Complete Time: 17:13 cp EC:55 Rate is 61 beats/min. Rhythm is regular. NH interval is normal. QRS interval is normal. cp QT interval is normal. Interpreted by me. Reviewed by me. Administered Medications: 17:34 Drug: NS 0.9% IV 500 ml 500 ml IV at 1 bolus once; to be given as a bolus over 60 ap3 minutes Volume: 500 ml; Route: IV; Rate: 1 bolus; Site: right antecubital; 23:41 Follow up: Response: No adverse reaction; IV Status: Completed infusion; IV Intake: al5 500ml 18:56 Drug: Aspirin PO Chewable Tablet 324 mg PO once; 81 mg tablets x 4 Route: PO; ap3 23:41 Follow up: Response: No adverse reaction al5 Point of Care Testing: Blood Glucose: 17:14 Blood Glucose: 118 mg/dL; ap3 Ranges: Critical Glucose Levels:Adult <50 mg/dl or >400 mg/dl <40 mg/dl or >180 mg/dl Disposition: 11/14 10:01 Co-signature as Attending Physician, Thony Degroot MD I reviewed the patient's care rn provided by the Advanced Practice Provider and agree with the diagnosis and treatment plan. 18:34 Chart complete. cp Disposition Summary: 11/13/24 18:53 Hospitalization Ordered Notes: Hospitalization Status: Inpatient Admission cp Provider: Dylon Goldsmith cp Location: Telemetry/MedSurg (Inpatient) cp Condition: Stable cp Problem: new cp Symptoms: have improved cp Bed/Room Type: Standard cp Room Assignment: 213(11/13/24 21:45) kmf Diagnosis - Syncope cp Forms: - Medication Reconciliation Form cp - SBAR form cp - Leadership Thank You Letter cp Signatures: Dispatcher [employer] Lyssa Nolasco, RN Thony Mckeon MD MD rn Page, Corey, PA PA cp Solange Booker RN RN ap3 Ayde Vega kmf Solange Devlin RN al5 Corrections: (The following items were deleted from the chart) 11/13 21:45 18:53 cp kmf
--- NOTE | 2024-11-13 18:53 | ER ---
Nurse's Notes [facility] Name: Artem Hampton Age: 69 yrs Sex: Male : 1955 Arrival Date: 11/13/2024 Time: 16:29 Bed 8 Private MD: Diagnosis: Syncope Presentation: 11/13 16:52 Chief complaint: EMS states: syncopal episode at home, small laceration to lower lip, iw pt A\T\OX 4 now. Coronavirus screen: At this time, the client does not indicate any symptoms associated with coronavirus-19. Ebola Screen: No symptoms or risks identified at this time. Initial Sepsis Screen: Does the patient meet any 2 criteria? No. Patient's initial sepsis screen is negative. Does the patient have a suspected source of infection? No. Patient's initial sepsis screen is negative. Risk Assessment: Do you want to hurt yourself or someone else? Patient reports no desire to harm self or others. Onset of symptoms was November 13, 2024. 16:52 Method Of Arrival: EMS: [facility] iw 16:52 Acuity: MAVERICK 3 iw 16:53 Care prior to arrival: Glucose check: 102. iw Triage Assessment: 16:54 General: Appears in no apparent distress. Behavior is calm, cooperative. Pain: Denies iw pain. Neuro: Level of Consciousness is awake, alert, obeys commands, Oriented to person, place, time, situation, Reports a syncopal episode. Historical: - Allergies: 16:54 No Known Allergies; iw - PMHx: 16:53 diabetes mellitus; CANCER- PROSTATE; heart attack; Hyperlipidemia (Coronary artery iw byp); Hypertensive disorder; - PSHx: 16:53 Coronary artery bypass graft; iw - Immunization history:: Adult Immunizations unknown. - Infectious Disease History:: Denies. - Social history:: Smoking status: unknown. Screenin:13 [facility] ED Fall Risk Assessment (Adult) History of falling in the last 3 months, ap3 including since admission Yes- single mechanical fall (1 pt) Confusion or Disorientation No (0 pts) Intoxicated or Sedated No (0 pts) Impaired Gait No (0 pts) Mobility Assist Device Used No (0 pt) Altered Elimination No (0 pt) Score/Fall Risk Level 3 or more points = High Risk Oriented to surroundings, Maintained a safe environment, Educated pt \T\ family on fall prevention, incl call for assistance when getting out of bed, Assessed \T\ reinforced patient's understanding of fall precautions, Hourly rounding (assess needs \T\ fall precautionary measures) done, Remained w/in arm's length of patient and in sight while toileting, Offered frequent toileting (1:1 observation), Remained with patient while ambulating, Utilized family, sitter, or virtual artist's representative as indicated. Abuse screen: Denies threats or abuse. Nutritional screening: No deficits noted. Tuberculosis screening: No symptoms or risk factors identified. Assessment: 17:13 General: Appears in no apparent distress. Behavior is calm, cooperative, appropriate ap3 for age. Neuro: Level of Consciousness is awake, alert, obeys commands, Oriented to person, place, time, situation, Appropriate for age Reports a syncopal episode. Cardiovascular: Patient's skin is warm and dry. Respiratory: Airway is patent Respiratory effort is even, unlabored, Respiratory pattern is regular, symmetrical. 19:20 General: Appears in no apparent distress. comfortable, Behavior is calm, cooperative. al5 Pain: Denies pain. Neuro: Level of Consciousness is awake, alert, obeys commands, Oriented to person, place, time, situation. Cardiovascular: Patient's skin is warm and dry. Rhythm is sinus bradycardia. Respiratory: Airway is patent Respiratory effort is even, unlabored, Respiratory pattern is regular, symmetrical. GI: No signs and/or symptoms were reported involving the gastrointestinal system. : No signs and/or symptoms were reported regarding the genitourinary system. EENT: No signs and/or symptoms were reported regarding the EENT system. Derm: Skin is intact, is healthy with good turgor, Skin is pink, warm \T\ dry. normal. Musculoskeletal: No signs and/or symptoms reported regarding the musculoskeletal system. 21:02 Reassessment: Patient appears in no apparent distress at this time. No changes from al5 previously documented assessment. Patient and/or family updated on plan of care and expected duration. Pain level reassessed. Patient is alert, oriented x 3, equal unlabored respirations, skin warm/dry/pink. Vital Signs: 16:56 BP 116 / 84; Pulse 62; Resp 16; Temp 98.1; Pulse Ox 96% on R/A; Pain 0/10; iw 17:53 BP 123 / 79; Pulse 64; Pulse Ox 98% on R/A; ap3 18:29 BP 128 / 78; Pulse 71; Pulse Ox 98% on R/A; ap3 19:00 BP 122 / 79; Pulse 55; Resp 16; Pulse Ox 97% on R/A; al5 20:00 BP 117 / 73; Pulse 53; Resp 15; Pulse Ox 97% on R/A; al5 21:00 BP 104 / 65; Pulse 54; Resp 14; Pulse Ox 97% on R/A; al5 22:00 BP 119 / 59; Pulse 54; Resp 17; Pulse Ox 98% on R/A; al5 23:00 BP 118 / 75; Pulse 56; Resp 17; Pulse Ox 98% on R/A; al5 16:56 Pain Scale: Adult iw ED Course: 16:41 Patient arrived in ED. iw 16:53 Triage completed. iw 16:54 Arm band placed on. iw 17:00 Lloyd Rosado PA is PHCP. cp 17:00 Thony Degroot MD is Attending Physician. cp 17:12 Patient has correct armband on for positive identification. Bed in low position. Call ap3 light in reach. Side rails up X2. Adult w/ patient. Client placed on continuous cardiac and pulse oximetry monitoring. NIBP monitoring applied. panel monitor on. Pulse ox on. NIBP on. 17:19 Nader Hinds, RN is Primary Nurse. jb4 17:32 Initial lab(s) drawn, by vt, sent to lab. Inserted saline lock: 20 gauge in right ap3 antecubital area, using aseptic technique. Blood collected. Flushed with 10 mL NS. 17:48 XRAY Chest (1 view) In Process Unspecified. EDMS 18:18 CT Head C Spine In Process Unspecified. EDMS 18:46 Dylon Goldsmith MD is Hospitalizing Provider. cp 19:09 Report given to mel. ap3 21:02 Provided Education on: need for admit. al5 21:02 No provider procedures requiring assistance completed. Patient admitted, IV remains in al5 place. Administered Medications: 17:34 Drug: NS 0.9% IV 500 ml 500 ml IV at 1 bolus once; to be given as a bolus over 60 ap3 minutes Volume: 500 ml; Route: IV; Rate: 1 bolus; Site: right antecubital; 23:41 Follow up: Response: No adverse reaction; IV Status: Completed infusion; IV Intake: al5 500ml 18:56 Drug: Aspirin PO Chewable Tablet 324 mg PO once; 81 mg tablets x 4 Route: PO; ap3 23:41 Follow up: Response: No adverse reaction al5 Medication: 21:02 VIS not applicable for this client. al5 Point of Care Testing: Blood Glucose: 17:14 Blood Glucose: 118 mg/dL; ap3 Ranges: Intake: 23:41 IV: 500ml; Total: 500ml. al5 Outcome: 18:53 Decision to Hospitalize by Provider. cp 22:50 Admitted to Med/surg accompanied by tech, via wheelchair, room 213, al5 22:50 Condition: stable 22:50 Instructed on the need for admit, 23:40 Patient left the ED. al5 Signatures: Dispatcher [employer] EDLyssa Alcantara RN RN iw Page, Corey, PA PA cp Bryson, James, BLANQUITA RN jb4 Mel Booker RN RN ap3 Mel Devlin RN RN al5
[2024-11-13] MEDS ORDERED: ONDANSETRON 4 MG (ODT) TAB PO PRN (19:16)
--- NOTE | 2024-11-13 19:16 | P.HP ---
Certification for Inpatient Patient admitted to: Observation With expected LOS: <2 Midnights Practitioner: I am a practitioner with admitting privileges, knowledge of patient current condition, hospital course, and medical plan of care. Services: Services provided to patient in accordance with Admission requirements found in Title 42 Section 412.3 of the Code of Federal Regulations Patient History Date of Service: 11/13/24 Reason for admission: Syncope History of Present Illness: 69 yrs old Male with past medical history of CAD status post CABG and stents, hypertension, hyperlipidemia, diabetes, prostate cancer, presents with possible syncope/seizure episode. Patient does not know what happened to him . Apparently as per the family patient collapsed and lost consciousness for a few minutes. Denies any chest pain or shortness of breath. No nausea vomiting or diarrhea. No seizure-like activities Patient was assessed in the ER and is admitted for further management of syncope Allergies No Known Allergies Allergy (Verified 01/23/24 22:31) Home medications list reviewed: Yes Home Medications: Aspirin [Aspirin Regimen] 1 tab PO DAILY 08/02/23 Atorvastatin Calcium 40 mg PO BEDTIME 08/02/23 Carvedilol [Coreg] 3.125 mg PO BID 08/02/23 Fenofibrate,Micronized [Fenofibrate] 200 mg PO DAILY 08/02/23 Metformin ER [Glucophage ER*] 500 mg PO DAILY 08/02/23 Codeine/APAP [Tylenol #3*] 1 tab PO Q6H PRN #15 tab 08/17/23 Clopidogrel Bisulfate [Plavix*] 75 mg PO DAILY 30 Days #30 tab 01/26/24 Loperamide [Imodium*] 15 ml PO BID PRN #1 bottle 07/14/24 - Past Medical/Surgical History Diabetic: Yes Past Medical History: Reviewed- Non-Contributory -: , Hyperlipidemia, hypertension, Diabetes -: DM type 1 -: heart attack -: HTN Past Surgical History: Reviewed- Non-Contributory -: prostate sx -: bladder sx -: pancreatic sx -: left knee sx - Family History Family History: Reviewed- Non-Contributory - Family History Mother -: Heart disease - Social History Smoking Status: Never smoker Alcohol use: No CD- Drugs: No Caffeine use: Yes Review of Systems 10-point ROS is otherwise unremarkable Physical Examination - Vital Signs Temperature: 98.2 F Blood Pressure: 128/76 Pulse: 78 Respirations: 18 Pulse Ox (%): 94 - Physical Exam General: Alert, In no apparent distress, Cooperative HEENT: Atraumatic, Normocephalic Neck: Supple Respiratory: Clear to auscultation bilaterally, Normal air movement Cardiovascular: Regular rate/rhythm, Normal S1 S2 Capillary refill: <2 Seconds Gastrointestinal: Soft and benign, W/out hepatosplenomegaly Musculoskeletal: No clubbing, No swelling Integumentary: No rashes Neurological: Normal strength at 5/5 x4 extr, Cranial nerves 3-12 intact, Other (Alert, Awake , NonFocal ) Lymphatics: No axilla or inguinal lymphadenopathy - Studies Laboratory Data (last 24 hrs) 11/13/24 11/13/24 11/13/24 17:28 17:28 17:28 WBC 8.90 Hgb 13.7 Hct 39.8 Plt Count 229 PT 12.0 INR 1.14 APTT 27.2 Sodium 139 Potassium 4.3 BUN 18 Creatinine 1.11 Glucose 131 H Magnesium 1.8 Total Bilirubin 0.4 AST 17 ALT 19 Alkaline Phosphatase 83 Assessment and Plan - Plan Syncope Syncope workup Monitor closely on telemetry Watch closely for any arrhythmias CT head negative for any acute changes CAD status post CABG and stents, NSTEMI Will trend cardiac enzymes Will monitor telemetry Started on aspirin and statin EKG did not show any acute changes suggestive of ischemia Patient denies any chest pain Will get an echocardiogram Cardiology consult Prostate cancer, Continue home medications and supportive management Hypertension Antihypertensives titrated Continue home medications and titrate as needed Hyperlipidemia Continue statin Diabetes Insulin sliding scale Accu-Chek before every meal and at bedtime GI/DVT prophylaxis Advanced directive full code Discharge Plan: Home Plan to discharge in: 48 Hours - Advance Directives Does patient have a Living Will: No Does patient have a Durable POA for Healthcare: No - Code Status/Comfort Care Code Status: Full Code Time Spent Managing Pts Care (In Minutes): 48
--- NOTE | 2024-11-13 21:32 | RAD REPORT ---
EXAMINATION: Elbow Left 3 View CLINICAL INDICATION: Male, 69 years old. PAIN COMPARISON: No prior exam. VIEWS: As above FINDINGS: No acute fracture. No malalignment/dislocation. Radial head spurring and olecranon spurring. Other: n/a IMPRESSION: No acute osseous abnormality.
[2024-11-13] MEDS ORDERED: NA CHLORIDE 0.9% 1,000 ML ONE (22:27)
[2024-11-13] MEDS: NA CHLORIDE 0.9% 1,000 ML IV SCH (22:30)
[2024-11-14 04:39] LABS: Absolute Eosinophils 0.1 K/uL (0-0.5); Absolute Lymphocytes (CBC) 1.8 K/uL (0.7-4.9); Absolute Monocytes 0.3 K/uL (0.1-1.3); Absolute Neutrophil 3.1 K/uL (1.8-8.0); Basophils % 0.4 % (0-1.3); Eosinophils % 1.7 % (0-4.4); Hematocrit 38.6 % (39.6-49.0); Hemoglobin 13.3 g/dL (13.6-17.9); Lymphocytes % 34.4 % (15.3-44.8); MCH 34.6 pg (27.0-35.0); MCHC 34.5 g/dL (32.0-36.0); MCV 100.3 fL (80-100); Monocytes % 6.4 % (3.3-12.3); Neutrophils % 57.1 % (41.7-73.7); Nucleated Red Blood Cells % 0.1 % (0-0); Platelets 221 thou/uL (152-406); RBC Red Blood Cell Count 3.85 M/uL (4.33-5.43); Red Cell Distribution Width 13.2 % (12.1-15.2)
[2024-11-14 04:43] LABS: Albumin 3.1 g/dL (3.4-5.0); Albumin/Globulin Ratio 1.1 (1.1-1.8); Anion Gap 8.1 mEq/L (5.0-15.0); Bilirubin Total 0.3 mg/dL (0.2-1.0); Globulin 2.8 g/dL (2.3-3.5); Potassium 4.1 mEq/L (3.5-5.1); Protein, Total 5.9 g/dL (6.4-8.2)
[2024-11-14] MEDS ORDERED: GLUCAGON 1 MG/VIAL IM PRN (07:02)
[2024-11-14] MEDS ORDERED: D10W 125 ML IV PRN (07:02)
[2024-11-14] MEDS: INSULIN REGULAR (HUMAN) 100 UNIT/ML SQ SCH (07:30)
[2024-11-14] MEDS: carvediloL 3.125 MG TAB PO SCH (09:03)
[2024-11-14] MEDS: ASPIRIN EC 81 MG TAB PO SCH (09:03)
[2024-11-14] MEDS: CLOPIDOGREL 75 MG TABLET PO SCH (09:04)
--- NOTE | 2024-11-14 12:01 | P.CNS ---
Date of Consult: 11/14/24 Chief Complaint: Syncope History of Present Illness: Patient with PMH of CAD s/p CABG and recent PCI OM, presented with syncope, patient recall feeling flushed out in his body and face then passing out, denies chest pain, no palpitations, no GONZALES, no SOB. Allergies No Known Allergies Allergy (Verified 01/23/24 22:31) Home medications list reviewed: Yes Home Medications: Aspirin [Aspirin Regimen] 1 tab PO DAILY 08/02/23 Atorvastatin Calcium 40 mg PO BEDTIME 08/02/23 Carvedilol [Coreg] 3.125 mg PO BID 08/02/23 Fenofibrate,Micronized [Fenofibrate] 200 mg PO DAILY 08/02/23 Metformin ER [Glucophage ER*] 500 mg PO DAILY 08/02/23 Codeine/APAP [Tylenol #3*] 1 tab PO Q6H PRN #15 tab 08/17/23 Clopidogrel Bisulfate [Plavix*] 75 mg PO DAILY 30 Days #30 tab 01/26/24 Loperamide [Imodium*] 15 ml PO BID PRN #1 bottle 07/14/24 - Past Medical/Surgical History Diabetic: Yes -: , Hyperlipidemia, hypertension, Diabetes -: DM type 1 -: heart attack -: HTN -: prostate sx -: bladder sx -: pancreatic sx -: left knee sx - Family History Mother Medical History: Heart disease - Social History Smoking Status: Unknown if ever smoked Alcohol use: No CD- Drugs: No Caffeine use: Yes Place of Residence: Home Review of Systems 10-point ROS is otherwise unremarkable Physical Examination Temp Pulse Resp BP Pulse Ox 97.7 F 50 15 123/77 100 11/14/24 08:00 11/14/24 09:03 11/14/24 08:00 11/14/24 09:03 11/14/24 08:00 General: Alert, In no apparent distress HEENT: Atraumatic, PERRLA, Mucous membr. moist/pink, EOMI, Sclerae nonicteric Neck: Supple, 2+ carotid pulse no bruit, No LAD, Without JVD or thyroid abnormality Respiratory: Clear to auscultation bilaterally, Normal air movement Cardiovascular: Regular rate/rhythm, Normal S1 S2 Gastrointestinal: Normal bowel sounds, No tenderness Musculoskeletal: No tenderness Integumentary: No rashes Neurological: Normal gait, Normal speech, Normal tone, Normal affect Lymphatics: No axilla or inguinal lymphadenopathy Laboratory Data (last 24 hrs) 11/13/24 11/13/24 11/13/24 17:28 17:28 17:28 WBC 8.90 Hgb 13.7 Hct 39.8 Plt Count 229 PT 12.0 INR 1.14 APTT 27.2 Sodium 139 Potassium 4.3 BUN 18 Creatinine 1.11 Glucose 131 H Magnesium 1.8 Total Bilirubin 0.4 AST 17 ALT 19 Alkaline Phosphatase 83 - Problems (1) NSTEMI (non-ST elevated myocardial infarction) Current Visit: No Status: Acute Plan: Patient enzymes very mid elevated and no significant delta, that leak is not co rrelating with ACS, most likely type 2 [place] continue ASA, Plavix continue to monitor on tele. (2) Syncope Current Visit: No Status: Acute Plan: most likely non cardiac, but recommend to monitor on tele overnight and also recommend outpatient event monitor which can be arranged with patient accreditation specialist.
--- NOTE | 2024-11-14 13:25 | P.PN ---
Subjective Date of Service: 11/14/24 Chief Complaint: Syncope Subjective: No new changes Patient states that he is doing fine, he passed out while standing at home, he was felt dizzy and lightheaded and nauseated. He made a full recovery after he gained consciousness. He had had similar syncopal attacks in the past, no etiology has been found in spite of extensive workup. Review of Systems Other: Consitutional; fever(-), chills (-), rigor(-), night sweat(-), unintentional weight loss(-), malaise (-) HEENT; diplopia (-), rhinorrhea (-), epistaxis (-), otorrhea (-), otalgia (-) Respiratory; shortness of breath (-), wheezing (-), cough (-), sputum (-), pleuritic chest pain (-) Cardiovascular; chest pain (-), peripheral edema (-), paroxysmal nocturnal dyspnea (-), orthopnea (-) Gastrointestinal; nausea (-), vomiting (-), abdominal pain (-), diarrhea (-), constipation (-), melena (-), hematochezia (-) Genitourinary; urinary frequency (-), dysuria (-), urgency (-), flank pain (-), gross hematuria (-), incontinence (-) Skin; rash (-), pruritus (-) 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 General: Not acutely ill looking, in no apparent distress,. HEENT: Normocephalic, atraumatic, nonicteric sclera, nonanemic conjunctive. Neck: Supple, without JVD or goiter or thyroid mass. Respiratory: Normal breathing effort, clear to auscultation bilaterally, no crackles no wheezing or rhonchi. Cardiovascular: Regular rate and rhythm, S1, S2 normal, no murmur no gallop. Gastrointestinal: Normal bowel sounds, nondistended, nontender, No ascites, , No masses, no hepatosplenomegaly. Extremities : No clubbing, No peripheral edema,. Integumentary: No rashes, petechia, suspected lesions. Lymphatics: No axilla or cervical lymphadenopathy. Neurology; alert awake oriented x3, no focal neurologic deficit, normal affection . mood and behavior. - Studies Laboratory Data (last 24 hrs) 11/13/24 11/13/24 11/13/24 17:28 17:28 17:28 WBC 8.90 Hgb 13.7 Hct 39.8 Plt Count 229 PT 12.0 INR 1.14 APTT 27.2 Sodium 139 Potassium 4.3 BUN 18 Creatinine 1.11 Glucose 131 H Magnesium 1.8 Total Bilirubin 0.4 AST 17 ALT 19 Alkaline Phosphatase 83 Imagings Data: Telemetry overnight reviewed sinus bradycardia and infrequent PAC and PVC Assessment And Plan - Plan 69 yrs old Male with past medical history of CAD status post CABG and stents, hypertension, hyperlipidemia, diabetes, prostate cancer, syncopal attacks in the past of unclear etiology presents with another syncope. Apparently as per the family patient collapsed and lost consciousness for a few minutes. Denies any chest pain or shortness of breath. No nausea vomiting or diarrhea. No seizure- like activities #1 recurrent syncops His history consistent with vasovagal syncope, sinus bradycardia with infrequent PAC and PVC on telemetry, normal CT of the brain, blood glucose 131, hemoglobin normal, clear chest x-ray, cardiology called from ED and transthoracic echocardiogram ordered #2 history of type 2 diabetes Good glycemic control without hypoglycemia on low-dose corrective insulin #3 elevated troponin without acute coronary syndrome Mildly elevated troponin plateaued, #4 chronic coronary artery disease status post CABG and stent will continue aspirin and Plavix DVT prophylaxis I will order enoxaparin subcu.
[2024-11-14] MEDS: ENOXAPARIN 40 MG/0.4 ML SQ SCH (18:12)
[2024-11-14] MEDS: ACETAMINOPHEN 325 MG TABLET PO PRN (18:12)
[2024-11-14] MEDS: ATORVASTATIN 10 MG TAB PO SCH (21:08)
[2024-11-15 03:10] VITALS: BMI 26.9
[2024-11-15] MEDS: CODEINE 30MG/APAP 300MG TAB PO PRN (08:06)
--- NOTE | 2024-11-15 08:48 | P.DS ---
Admission Date: 11/13/24 Discharge Date: 11/15/24 Disposition: ROUTINE DISCHARGE Discharge Condition: GOOD Reason for Admission: Syncope Brief History of Present Illness: 69 yrs old Male with past medical history of CAD status post CABG and stents, hypertension, hyperlipidemia, diabetes, prostate cancer, syncopal attacks in the past of unclear etiology presents with another syncope. Apparently as per the family patient collapsed and lost consciousness for a few minutes. Denies any chest pain or shortness of breath. No nausea vomiting or diarrhea. No seizure- like activities Hospital Course: His hospital course was uneventful, no episode of syncope or presyncope or seizure activity during hospitalization. His heart rate ran low of 50/min, systolic blood pressure 100 to 110 mmHg on carvedilol 3.125. Patient is being discharged home. Plan is to discontinue carvedilol and metformin and follow-up with his credit rating checker as outpatient for further adjustment of his medication and outpatient event monitor. #1 recurrent syncops of unclear etiology His history suggestive of vasovagal syncope, sinus bradycardia with infrequent PAC and PVC on telemetry, normal CT of the brain, blood glucose 131, hemoglobin normal, clear chest x-ray, cardiology recommended follow-up with his own credit rating checker as outpatient for event monitor #2 history of type 2 diabetes Good glycemic control without hypoglycemia without any diabetic medication, hemoglobin A1c 5.7, overcorrected #3 elevated troponin without acute coronary syndrome Mildly elevated troponin plateaued, #4 chronic coronary artery disease status post CABG and stent will continue aspirin and Plavix and statin #5 sinus bradycardia on low-dose carvedilol Blood pressure and heart rate on the low side heart rate 50s per minute and blood pressure 100-1 10, I recommend stopping carvedilol 3.125 Vital Signs/Physical Exam: Temp Pulse Resp BP Pulse Ox 97.6 F 51 17 114/81 96 11/15/24 04:00 11/15/24 04:00 11/15/24 08:06 11/15/24 04:00 11/15/24 08:06 Other Physical/Emotional Findings: - Physical Exam. General: Not acutely ill looking, in no apparent distress,. HEENT: Normocephalic, atraumatic, nonicteric sclera, nonanemic conjunctive. Neck: Supple, without JVD or goiter or thyroid mass. Respiratory: Normal breathing effort, clear to auscultation bilaterally, no crackles no wheezing or rhonchi. Cardiovascular: Regular rate and rhythm, S1, S2 normal, no murmur no gallop. Gastrointestinal: Normal bowel sounds, nondistended, nontender, No ascites, , No masses, no hepatosplenomegaly. Extremities : No clubbing, No peripheral edema,. Integumentary: No rashes, petechia, suspected lesions. Lymphatics: No axilla or cervical lymphadenopathy. Neurology; alert awake oriented x3, no focal neurologic deficit, normal affection . mood and behavior. Laboratory Data at Discharge: WBC 5.40 thou/uL (4.3-10.9) 11/14/24 04:15 Hgb 13.3 g/dL (13.6-17.9) L 11/14/24 04:15 Hct 38.6 % (39.6-49.0) L 11/14/24 04:15 Plt Count 221 thou/uL (152-406) 11/14/24 04:15 PT 12.0 SECONDS (9.4-12.5) 11/13/24 17:28 INR 1.14 11/13/24 17:28 APTT 27.2 SECONDS (24.3-36.9) 11/13/24 17:28 Sodium 142 mEq/L (136-145) 11/14/24 04:15 Potassium 4.1 mEq/L (3.5-5.1) 11/14/24 04:15 BUN 16 mg/dL (7-18) 11/14/24 04:15 Creatinine 0.84 mg/dL (0.70-1.30) 11/14/24 04:15 Glucose 96 mg/dL (74-106) 11/14/24 04:15 Magnesium 1.8 mg/dL (1.6-2.4) 11/13/24 17:28 Total Bilirubin 0.3 mg/dL (0.2-1.0) 11/14/24 04:15 AST 19 U/L (15-37) 11/14/24 04:15 ALT 19 U/L (16-61) 11/14/24 04:15 Alkaline Phosphatase 66 U/L (45-117) D 11/14/24 04:15 Home Medications: Aspirin [Aspirin Regimen] 1 tab PO DAILY 08/02/23 Atorvastatin Calcium 40 mg PO BEDTIME 08/02/23 Fenofibrate,Micronized [Fenofibrate] 200 mg PO DAILY 08/02/23 Codeine/APAP [Tylenol #3*] 1 tab PO Q6H PRN #15 tab 08/17/23 Clopidogrel Bisulfate [Plavix*] 75 mg PO DAILY 30 Days #30 tab 01/26/24 Loperamide [Imodium*] 15 ml PO BID PRN #1 bottle 07/14/24 Mirabegron [Mirabegron ER] 50 gm PO DAILY 11/14/24 Solifenacin [Vesicare*] 5 gm PO DAILY WITH BREAKFAST 11/14/24 Physician Discharge Instructions: Please follow-up with your own credit rating checker after discharge Diet: ADA Activity: Ad elmer Followup: Senait Ragsdale MD [Primary Care Provider] -
[2024-11-15 09:09] VITALS: BP 126/86; TEMP 97.7
--- NOTE | 2024-11-15 09:53 | P.PN ---
Subjective Date of Service: 11/15/24 Chief Complaint: Syncope Subjective: No new changes, No C/O voiced, Tolerating diet, Ambulating, Improving Review of Systems 10-point ROS is otherwise unremarkable Physical Examination - Vital Signs Temperature: 97.7 F Blood Pressure: 126/86 Pulse: 60 Respirations: 17 Pulse Ox (%): 96 - Physical Exam General: Alert, In no apparent distress HEENT: Atraumatic, PERRLA, EOMI Neck: Supple, JVD not distended Respiratory: Clear to auscultation bilaterally, Normal air movement Cardiovascular: Regular rate/rhythm, Normal S1 S2 Gastrointestinal: Normal bowel sounds, No tenderness Musculoskeletal: No tenderness Integumentary: No rashes Neurological: Normal speech, Normal tone, Normal affect Lymphatics: No axilla or inguinal lymphadenopathy Other Physical/Emotional Findings: - Physical Exam. General: Not acutely ill looking, in no apparent distress,. HEENT: Normocephalic, atraumatic, nonicteric sclera, nonanemic conjunctive. Neck: Supple, without JVD or goiter or thyroid mass. Respiratory: Normal breathing effort, clear to auscultation bilaterally, no crackles no wheezing or rhonchi. Cardiovascular: Regular rate and rhythm, S1, S2 normal, no murmur no gallop. Gastrointestinal: Normal bowel sounds, nondistended, nontender, No ascites, , No masses, no hepatosplenomegaly. Extremities : No clubbing, No peripheral edema,. Integumentary: No rashes, petechia, suspected lesions. Lymphatics: No axilla or cervical lymphadenopathy. Neurology; alert awake oriented x3, no focal neurologic deficit, normal affection . mood and behavior. - Studies Medications List Reviewed: Yes Assessment And Plan - Current Problems (Diagnosis) (1) NSTEMI (non-ST elevated myocardial infarction) Current Visit: No Status: Acute Plan: Patient enzymes very mid elevated and no significant delta, that leak is not correlating with ACS, most likely type 2 [place] continue ASA, Plavix Tele did not show any arrhythmia or pauses. (2) Syncope Current Visit: No Status: Acute Plan: most likely non cardiac, Tele overnight did not show any significant arrhythmia or pauses outpatient follow up for event monitor if not done recently. agree with holding coreg on discharge as patient BP has been on the low side during hospital stay.
[2024-11-15 10:44] VITALS: O2SAT 96
--- NOTE | 2024-11-15 11:50 | EKG ---
Test Date: 2024-11-13 Test Time: 16:48:54 Senior Process Analyst: HARPER MEASUREMENT RESULTS: Intervals: Rate: 61 NC: 150 QRSD: 94 QT: 430 QTc: 432 [place]: P: 59 NC: 150 QRS: -19 T: 68 INTERPRETIVE STATEMENTS: Sinus rhythm with occasional premature ventricular complexes Possible Left atrial enlargement Cannot rule out Anterior infarct, age undetermined Abnormal ECG Compared to ECG 07/12/2024 21:49:18 Ventricular premature complex(es) now present Myocardial infarct finding now present Sinus bradycardia no longer present Electronically Signed On 11-15-24 11:48:36 HEARING AIDE TECHNICIAN by Frank Velásquez
== END 2024-11-15 10:24 | disposition home or self-care (01) | DRG 282 ==
LOC: ER 16:29 → ERHOLD 19:16 → 2ND 23:16
PROVIDERS: ADMIT Family Medicine; ATTEND Internal Medicine
DX: R55 Syncope and collapse (principal); I21.A1 Myocardial infarction type 2; E78.5 Hyperlipidemia, unspecified; I10 Essential (primary) hypertension; E11.9 Type 2 diabetes mellitus without complications; C61 Malignant neoplasm of prostate; I49.3 Ventricular premature depolarization; I25.10 Atherosclerotic heart disease of native coronary artery without angina pectoris; I25.2 Old myocardial infarction; Z23 Encounter for immunization; Z95.1 Presence of aortocoronary bypass graft; Z95.5 Presence of coronary angioplasty implant and graft; Z79.82 Long term (current) use of aspirin; Z79.84 Long term (current) use of oral hypoglycemic drugs; Z79.899 Other long term (current) drug therapy; Z79.02 Long term (current) use of antithrombotics/antiplatelets
CPT/HCPCS: 36415; 70450; 71045; 72125; 80048; 80053; 80076; 82947; 83036; 83735; 83880; 84484; 85025; 85610; 85730; 93005; 94760; 96360; 96361; 99285; J1650; J7030; J7040

== ENCOUNTER 2024-11-16 12:15 | Inpatient (IN) | payer OTHER ==
[2024-11-16] MEDS ORDERED: NA CHLORIDE 0.9% 500 ML ONE (12:31)
[2024-11-16] MEDS ORDERED: ONDANSETRON 4 MG/2 ML VIAL ONE (12:31)
[2024-11-16 12:38] LABS: Absolute Lymphocytes (CBC) 1.5 K/uL (0.7-4.9); Absolute Monocytes 0.3 K/uL (0.1-1.3); Absolute Neutrophil 6.3 K/uL (1.8-8.0); Basophils % 0.4 % (0-1.3); Eosinophils % 0.5 % (0-4.4); Hematocrit 43.5 % (39.6-49.0); Hemoglobin 14.8 g/dL (13.6-17.9); Lymphocytes % 18.8 % (15.3-44.8); MCH 33.9 pg (27.0-35.0); MCHC 33.9 g/dL (32.0-36.0); MCV 99.9 fL (80-100); MPV 6.9 fL (7.6-11.3); Monocytes % 3.2 % (3.3-12.3); Neutrophils % 77.1 % (41.7-73.7); Nucleated Red Blood Cells % 0.1 % (0-0); Platelets 257 thou/uL (152-406); RBC Red Blood Cell Count 4.35 M/uL (4.33-5.43); Red Cell Distribution Width 13.4 % (12.1-15.2)
[2024-11-16 13:01] LABS: Albumin 3.7 g/dL (3.4-5.0); Albumin/Globulin Ratio 1.1 (1.1-1.8); Anion Gap 6.6 mEq/L (5.0-15.0); Bilirubin Direct 0.2 mg/dL (0-0.2); Bilirubin Indirect, Calculated 0.4 mg/dL (0.2-0.8); Bilirubin Total 0.6 mg/dL (0.2-1.0); Globulin 3.3 g/dL (2.3-3.5); Potassium 4.6 mEq/L (3.5-5.1)
--- NOTE | 2024-11-16 13:18 | RAD REPORT ---
EXAMINATION: CT Abdomen Pelvis W Contrast CLINICAL INDICATION: Male, 69 years old. ABD PAIN TECHNIQUE: CT abdomen and pelvis was performed, after the administration of IV contrast, [facility] Axial, sagittal and coronal reconstructions were obtained. One or more of the following dose reduction techniques were used: Automated exposure control, adjustment of the mA and k V according to patient size, and iterative reconstruction. Unless otherwise specified, incidental findings do not require dedicated imaging follow-up. COMPARISON: 07/12/2024 FINDINGS: LOWER CHEST: The visualized lung bases are clear apart from mild bibasilar atelectatic changes. LIVER: Normal in size and contour. Subcentimeter hypoattenuating lesions largest present centrally ad jacent to first order branch of the right portal vein measuring 8 mm, difficult to characterize given small size, but suggest small cysts. These appear stable. No suspicious focal lesion. BILIARY SYSTEM: Status post cholecystectomy. SPLEEN: Normal size. No focal lesion. PANCREAS: No mass, ductal dilation, or kyle-pancreatic fluid. ADRENALS: Normal; no mass. KIDNEYS: Normal size and contour. No hydronephrosis. Too small to characterize cortical hypoattenuati ng lesions, may suggest small cysts. URINARY BLADDER: Decompressed limiting evaluation. GASTROINTESTINAL TRACT: No evidence of free air, significant intra-abdominal free fluid, bowel obstru ction or abscess. APPENDIX: Normal appendix. LYMPH NODES: No lymphadenopathy. MUSCULOSKELETAL: No acute or suspicious osseous abnormality. ADDITIONAL FINDINGS: Stable left pelvic sidewall fluid density is 3.2 x 2.6 cm lesion, closely relate d to the left external iliac vein, without enhancement, again may represent an inclusion cyst, lymphatic varix, or less likely a necrotic lymph node. Small inguinal hernias containing fat again se en. Sequelae of ventral hernia mesh repair. IMPRESSION: No acute or concerning abnormalities seen in the abdomen or pelvis. Stable central findings as above.
--- NOTE | 2024-11-16 13:52 | ER ---
Nurse's Notes [facility] Name: Artem Hampton Age: 69 yrs Sex: Male : 1955 Arrival Date: 11/16/2024 Time: 12:15 Bed 8 Private MD: Diagnosis: Nausea with vomiting, unspecified;Elevated troponin Presentation: 11/16 12:18 Chief complaint: EMS states: toned out for abd pain and nausea since 10 am. Coronavirus iw screen: At this time, the client does not indicate any symptoms associated with coronavirus-19. Ebola Screen: No symptoms or risks identified at this time. 12:18 Method Of Arrival: EMS: [facility] iw 12:18 Acuity: MAVERICK 3 iw 12:20 Risk Assessment: Do you want to hurt yourself or someone else? Patient reports no iw desire to harm self or others. Onset of symptoms was November 16, 2024. Care prior to arrival: Medication(s) given: Glucose check: 142. 13:32 Initial Sepsis Screen: Does the patient meet any 2 criteria? No. Patient's initial ph sepsis screen is negative. Does the patient have a suspected source of infection? No. Patient's initial sepsis screen is negative. Historical: - Allergies: 12:20 No Known Allergies; iw - PMHx: 12:19 diabetes mellitus; CANCER- PROSTATE; heart attack; Hyperlipidemia; Hypertensive iw disorder; - PSHx: 12:19 Coronary artery bypass graft; iw - Immunization history:: Adult Immunizations unknown. - Infectious Disease History:: Denies. - Social history:: Smoking status: unknown. Screenin:40 [facility] ED Fall Risk Assessment (Adult) History of falling in the last 3 months, iw including since admission Yes- physiologic fall (2 pts) Confusion or Disorientation No (0 pts) Intoxicated or Sedated No (0 pts) Impaired Gait No (0 pts) Mobility Assist Device Used No (0 pt) Altered Elimination No (0 pt) Score/Fall Risk Level 3 or more points = High Risk Oriented to surroundings, Maintained a safe environment. Abuse screen: Denies injuries from another. Nutritional screening: No deficits noted. Tuberculosis screening: No symptoms or risk factors identified. Assessment: 12:39 General: Appears in no apparent distress. Behavior is calm, cooperative. Pain: iw Complains of pain in abdomen. Neuro: Level of Consciousness is awake, alert, obeys commands, Oriented to person, place, Moves all extremities. Cardiovascular: Patient's skin is warm and dry. Respiratory: Respiratory effort is even, unlabored. GI: Abdomen is non-distended, Reports nausea, vomiting. Derm: Skin is intact, is healthy with good turgor. Musculoskeletal: Range of motion: intact in all extremities. Vital Signs: 12:24 BP 112 / 69; Pulse 50; Resp 16; Temp 97.6; Pulse Ox 94% on R/A; iw 13:32 BP 104 / 73; Pulse 67; Resp 18; Pulse Ox 97% on R/A; ph 15:09 BP 125 / 65; Pulse 53; Resp 18; Pulse Ox 98% on R/A; ph 16:00 BP 121 / 68; Pulse 58; Resp 18; Pulse Ox 98% on R/A; ph 17:30 BP 112 / 70; Pulse 61; Resp 18; Temp 97.2; Pulse Ox 97% on R/A; ph Vitals: 15:09 Cardiac Rhythm Assessment Sinus zechariah. ph ED Course: 12:18 Patient arrived in ED. iw 12:18 Aron Phelps MD is Attending Physician. rt 12:19 Triage completed. iw 12:19 Lyssa Tobin, RN is Primary Nurse. iw 12:25 Arm band placed on. iw 12:36 Initial lab(s) drawn, by me, sent to lab. Inserted saline lock: 22 gauge in right upper iw arm, using aseptic technique. Blood collected. Flushed with 10 mL NS. 12:40 Patient has correct armband on for positive identification. Client placed on continuous iw cardiac and pulse oximetry monitoring. NIBP monitoring applied. 12:52 CT Abd/Pelvis - IV Contrast Only In Process Unspecified. EDMS 13:02 Notified ED physician of a critical lab result(s). troponin 98.0. kc6 13:26 Cat Montes, RN is Primary Nurse. ph 13:51 Raeann Davila is Hospitalizing Provider. rt 15:09 No provider procedures requiring assistance completed. Patient admitted, IV remains in ph place. Administered Medications: 12:35 Drug: Ondansetron IVP 4 mg IVP once; over 2 minutes Route: IVP; Site: right upper arm; iw 13:32 Follow up: Response: No adverse reaction ph 12:35 Drug: NS 0.9% IV 500 ml 500 ml IV at 1 bolus once; to be given as a bolus over 30 iw minutes Volume: 500 ml; Route: IV; Rate: 1 bolus; Site: right upper arm; 13:05 Follow up: Response: No adverse reaction; IV Status: Completed infusion; IV Intake: ph 500ml Medication: 13:32 VIS not applicable for this client. ph Intake: 13:05 IV: 500ml; Total: 500ml. ph Outcome: 13:52 Decision to Hospitalize by Provider. rt 18:11 Patient left the ED. kc6 18:11 Admitted to Tele accompanied by tech, family with patient, via wheelchair, ph 18:11 Condition: stable 18:11 Instructed on the need for admit, Signatures: Dispatcher [employer] Lyssa Nolasco RN RN iw Hall, Patricia, RN RN ph Campbell, Kaitlyn, RN RN kc6 Aron Phelps MD MD rt
--- NOTE | 2024-11-16 13:52 | EDPHYS ---
Physician Documentation [facility] Name: Artem Hampton Age: 69 yrs Sex: Male : 1955 Arrival Date: 11/16/2024 Time: 12:15 Bed 8 Private MD: ED Physician Aron Phelps HPI: 11/16 12:30 This 69 yrs old Male presents to ER via EMS with complaints of Abdominal Pain, rt Nausea. 12:30 Patient with recent admission for syncope, elevated troponin presents to the ED with rt nausea, vomiting, generalized abdominal pain starting today. Was well when he woke up. States he longer has abdominal pain, does have nausea currently and feels weak. Denies other acute complaints this time, symptoms moderate in severity, no other aggravating or alleviating factors.. Historical: - Allergies: 12:20 No Known Allergies; iw - PMHx: 12:19 diabetes mellitus; CANCER- PROSTATE; heart attack; Hyperlipidemia; Hypertensive iw disorder; - PSHx: 12:19 Coronary artery bypass graft; iw - Immunization history:: Adult Immunizations unknown. - Infectious Disease History:: Denies. - Social history:: Smoking status: unknown. ROS: 12:30 Constitutional: Negative for fever, chills, and weight loss, Cardiovascular: Negative rt for chest pain, palpitations, and edema, Respiratory: Negative for shortness of breath, cough, wheezing, and pleuritic chest pain, MS/Extremity: Negative for injury and deformity, Skin: Negative for injury, rash, and discoloration, Neuro: Negative for headache, weakness, numbness, tingling, and seizure, 12:30 Abdomen/GI: Positive for abdominal pain, nausea and vomiting, Exam: 12:30 Constitutional: This is a well developed, well nourished patient who is awake, alert, rt and in no acute distress. Head/Face: Normocephalic, atraumatic. Chest/axilla: Normal chest wall appearance and motion. Nontender with no deformity. No lesions are appreciated. Cardiovascular: Regular rate and rhythm with a normal S1 and S2. No gallops, murmurs, or rubs. Normal PMI, no JVD. No pulse deficits. Respiratory: Lungs have equal breath sounds bilaterally, clear to auscultation and percussion. No rales, rhonchi or wheezes noted. No increased work of breathing, no retractions or nasal flaring. Abdomen/GI: Soft, non-tender, with normal bowel sounds. No distension or tympany. No guarding or rebound. No evidence of tenderness throughout. Skin: Warm, dry with normal turgor. Normal color with no rashes, no lesions, and no evidence of cellulitis. MS/ Extremity: Pulses equal, no cyanosis. Neurovascular intact. Full, normal range of motion. Neuro: Awake and alert, GCS 15, oriented to person, place, time, and situation. Cranial nerves II-XII grossly intact. Motor strength 5/5 in all extremities. Sensory grossly intact. Cerebellar exam normal. Normal gait. 13:59 ECG was reviewed by the Attending Physician. rt Vital Signs: 12:24 BP 112 / 69; Pulse 50; Resp 16; Temp 97.6; Pulse Ox 94% on R/A; iw 13:32 BP 104 / 73; Pulse 67; Resp 18; Pulse Ox 97% on R/A; ph 15:09 BP 125 / 65; Pulse 53; Resp 18; Pulse Ox 98% on R/A; ph 16:00 BP 121 / 68; Pulse 58; Resp 18; Pulse Ox 98% on R/A; ph 17:30 BP 112 / 70; Pulse 61; Resp 18; Temp 97.2; Pulse Ox 97% on R/A; ph MDM: 12:18 Medical Screening Exam initiated rt 13:58 Differential diagnosis: Pancreatitis, acute coronary syndrome, bowel obstruction. rt 13:58 Data reviewed: vital signs, nurses notes, old medical records, lab test result(s), EKG, rt radiologic studies. Consideration of Admission/Observation Patient was admitted/placed on observation. Management of patient was discussed with the following: Hospitalist: Agrees to admit. I considered the following discharge prescriptions or medication management in the emergency department Medications were administered in the Emergency Department. See MAR. Independent interpretation of the following test(s) in the Emergency Department CT Scan: My interpretation is No bowel obstruction seen on my interpretation of CT scan images. Care significantly affected by the following chronic conditions: Diabetes. Counseling: I had a detailed discussion with the patient and/or guardian regarding the historical points, exam findings, and any diagnostic results supporting the discharge/admit diagnosis, lab results, radiology results, the need for further work-up and treatment in the hospital. Response to treatment: the patient's symptoms have markedly improved after treatment. 11/16 12:23 Order name: Basic Metabolic Panel; Complete Time: 13:04 rt 11/16 12:23 Order name: CBC with Diff; Complete Time: 13:04 rt 11/16 12:23 Order name: LFT's; Complete Time: 13:04 rt 11/16 12:23 Order name: Troponin HS; Complete Time: 13:04 rt 11/16 12:23 Order name: Lipase; Complete Time: 13:04 rt 11/16 16:28 Order name: Basic Metabolic Panel EDMS 11/16 16:28 Order name: Basic Metabolic Panel EDMS 11/16 16:28 Order name: Basic Metabolic Panel EDMS 11/16 16:28 Order name: CBC with Automated Diff EDMS 11/16 16:28 Order name: CBC with Automated Diff EDMS 11/16 16:28 Order name: CBC with Automated Diff EDMS 11/16 16:28 Order name: Troponin High Sensitivity EDMS 11/16 16:28 Order name: Troponin High Sensitivity EDMS 11/16 16:28 Order name: Troponin High Sensitivity EDMS 11/16 12:23 Order name: CT Abd/Pelvis - IV Contrast Only; Complete Time: 13:20 rt 11/16 16:28 Order name: CONS Physician Consult EDMS 11/16 12:23 Order name: Cardiac monitoring; Complete Time: 12:35 rt 11/16 12:23 Order name: EKG - Nurse/Tech; Complete Time: 12:35 rt 11/16 12:23 Order name: IV Saline Lock; Complete Time: 12:36 rt 11/16 12:23 Order name: Labs collected and sent; Complete Time: 12:36 rt 11/16 12:23 Order name: O2 Per Protocol; Complete Time: 12:36 rt 11/16 12:23 Order name: O2 Sat Monitoring; Complete Time: 12:36 rt EC:59 Rate is 56 beats/min. Rhythm is regular, Sinus bradycardia with Right bundle branch rt block. QRS [place] is Normal. ND interval is normal. QRS interval is normal. QT interval is normal. No Q waves. Administered Medications: 12:35 Drug: Ondansetron IVP 4 mg IVP once; over 2 minutes Route: IVP; Site: right upper arm; iw 13:32 Follow up: Response: No adverse reaction ph 12:35 Drug: NS 0.9% IV 500 ml 500 ml IV at 1 bolus once; to be given as a bolus over 30 iw minutes Volume: 500 ml; Route: IV; Rate: 1 bolus; Site: right upper arm; 13:05 Follow up: Response: No adverse reaction; IV Status: Completed infusion; IV Intake: ph 500ml Disposition Summary: 11/16/24 13:52 Hospitalization Ordered Notes: Hospitalization Status: Observation rt Provider: Raeann Davila [facility] Condition: Stable rt Problem: new rt Symptoms: have improved rt Bed/Room Type: Standard rt Room Assignment: 405(11/16/24 16:38) ty Diagnosis - Nausea with vomiting, unspecified rt - Elevated troponin rt Forms: - Medication Reconciliation Form rt - SBAR form rt - Leadership Thank You Letter rt Signatures: Dispatcher [employer] Lyssa Nolasco RN RN iw Cat Montes RN RN Aron Phelps MD MD rt Neo Curtis ty Corrections: (The following items were deleted from the chart) 12:23 12:23 Abdomen Pelvis W Con+CT.RAD.BRZ ordered. EDTN EDMS 16:38 13:52 rt ty
--- NOTE | 2024-11-16 15:34 | P.HP ---
Certification for Inpatient Patient admitted to: Observation With expected LOS: <2 Midnights Patient will require the following post-hospital care: None Practitioner: I am a practitioner with admitting privileges, knowledge of patient current condition, hospital course, and medical plan of care. Services: Services provided to patient in accordance with Admission requirements found in Title 42 Section 412.3 of the Code of Federal Regulations Patient History Date of Service: 11/17/24 Reason for admission: N/V/Dizzy History of Present Illness: Mr. Hampton was discharged from this facility yesterday after evaluation for a syncopal episode. He was diagnosed with recurrent syncope of unclear etiology, with a history of chronic coronary artery disease status post CABG and stent placement, elevated troponin without acute coronary syndrome, sinus bradycardia on low-dose carvedilol, and a history of type 2 diabetes. He was mildly bradycardic and hypotensive during admission and it was recommended that carvedilol be discontinued. He was seen by Dr. Velásquez who recommended that the patient follow-up with his own acid mixer and have an outpatient event monitor evaluation. It was also recommended he continue his aspirin, Plavix, and statin. He was noted to have good glycemic control without hypoglycemia without any diabetic medications with a hemoglobin A1c of 5.7. Mr. Vallejo returns to the emergency department today with complaints of dizziness, nausea, vomiting, and abdominal pain. Labs are relatively unremarkable except for a troponin of 90. The patient and family were advised that as he was seen by our acid mixer yesterday further evaluation would not incur a different recommendation. It is still recommended that the patient be evaluated with an event monitor and outpatient workup. The is adamant that she would like a second opinion and the patient states he feels very symptomatic. We will admit him with continuation of his statin, aspirin, and monitor his symptoms and blood pressure on telemetry with consultation to cardiology. Allergies No Known Allergies Allergy (Verified 01/23/24 22:31) Home medications list reviewed: Yes Home Medications: Aspirin [Aspirin Regimen] 1 tab PO DAILY 08/02/23 Atorvastatin Calcium 40 mg PO BEDTIME 08/02/23 Fenofibrate,Micronized [Fenofibrate] 200 mg PO DAILY 08/02/23 Codeine/APAP [Tylenol #3*] 1 tab PO Q6H PRN #15 tab 08/17/23 Clopidogrel Bisulfate [Plavix*] 75 mg PO DAILY 30 Days #30 tab 01/26/24 Loperamide [Imodium*] 15 ml PO BID PRN #1 bottle 07/14/24 Mirabegron [Mirabegron ER] 50 gm PO DAILY 11/14/24 Solifenacin [Vesicare*] 5 gm PO DAILY WITH BREAKFAST 11/14/24 - Past Medical/Surgical History Diabetic: Yes -: Hyperlipidemia, hypertension, Diabetes -: DM type 1 -: heart attack -: HTN -: prostate sx -: bladder sx -: pancreatic sx -: left knee sx Psychosocial/ Personal History: Lives at home with his - Family History Mother -: Heart disease - Social History Alcohol use: No CD- Drugs: No Caffeine use: Yes Place of Residence: Home Review of Systems General: Malaise Eyes: Unremarkable ENT: Unremarkable Respiratory: Unremarkable Cardiovascular: Unremarkable Gastrointestinal: Nausea, Vomiting, Abdominal Pain Genitourinary: Unremarkable Musculoskeletal: Unremarkable Integumentary: Unremarkable Neurological: Other (dizzy, lightheaded) Lymphatics: Unremarkable Physical Examination - Physical Exam Other Physical/Emotional Findings: - Physical Exam. General: Alert, Oriented x3, Cooperative, no distress. HEENT: Atraumatic, Normocephalic. Neck: Supple. Respiratory: Clear to auscultation bilaterally, Normal air movement. Cardiovascular: No edema, Regular rate/rhythm, Normal S1 S2, bradycardic, hypotensive. Capillary refill: <2 Seconds. Gastrointestinal: Soft and benign, without hepatosplenomegaly. Musculoskeletal: No clubbing, No swelling. Integumentary: No rashes, No breakdown. Neurological: Normal gait, Normal speech, Normal strength at 5/5 x4 extr, Cranial nerves 3-12 intact, Normal affect. Lymphatics: No axilla or inguinal lymphadenopathy - Studies Laboratory Data (last 24 hrs) 11/16/24 11/16/24 12:26 12:26 WBC 8.10 Hgb 14.8 Hct 43.5 Plt Count 257 Sodium 138 Potassium 4.6 BUN 19 H Creatinine 1.30 Glucose 144 H Total Bilirubin 0.6 AST 26 ALT 30 Alkaline Phosphatase 69 Lipase 38 Assessment and Plan - Plan Near syncope with nausea/vomiting, abdominal pain bradycardia and relative hypotension stop carvedilol IVF with normal saline at 70 mL an hour x 750 mL continue asa, plavix, statin tele consult cardiology monitor and troponin x 3, electrolytes TEDs Fall precautions Discharge Plan: Home Plan to discharge in: 24 Hours - Advance Directives Does patient have a Living Will: No Does patient have a Durable POA for Healthcare: No - Code Status/Comfort Care Code Status Assessed: Yes (Full)
[2024-11-16] MEDS ORDERED: ACETAMINOPHEN 500 MG TAB PO PRN (16:12)
[2024-11-16] MEDS ORDERED: SODIUM CHLORIDE 0.9% 10ML INJ IV PRN (16:12)
[2024-11-16] MEDS ORDERED: ONDANSETRON 4 MG (ODT) TAB PO PRN (16:12)
[2024-11-16 18:40] VITALS: BMI 26.6
[2024-11-16] MEDS ORDERED: PNEUMOCOCCAL VACCINE 0.5 ML IMVAC ONE (21:00)
[2024-11-16] MEDS: ATORVASTATIN 40 MG TAB PO SCH (21:09)
--- NOTE | 2024-11-16 21:45 | CON ---
Date of Consultation: 11/16/2024 Reason For Consultation: Dizzy, nausea, vomiting, almost passed out. History Of Present Illness: This is a 69-year-old male, history of coronary artery disease, status p ost CABG, diabetes, hypertension, dyslipidemia, presented because he was very lightheaded and felt ti ngling and numbness all over his body and almost passed out and I checked his blood pressure was in t he low 90s at that time, heart rate was in the low 50s. He apparently used to be on Coreg and it was discontinued recently, which helped some, but still having symptoms, evaluated him by bedside. His blood pressure was in the 120s, heart rate in the mid 50s. Does not have any symptoms at the present time. He follows up with a zigzag tunnel elastic operator in [place]. Past Medical History: Coronary artery disease, hypertension, diabetes, and dyslipidemia. Medications: Refer reconciliation sheet for detailed list. Allergies: NO KNOWN DRUG ALLERGIES. Family History: No premature coronary artery disease or cancer. Social History: Does not smoke or drink. Does not use any drugs. Review of Systems: All systems reviewed and they are negative except as mentioned in the HPI. Physical Examination: Vital Signs: Reviewed. Head and Neck: Pupils are equal, reactive to light. Intact eye movements. No JVD. No cervical lym phadenopathy. Neck is supple. Thyroid is not enlarged. Lungs: Clear to auscultation bilaterally. No rhonchi, wheezing, or crackles. No accessory muscle u se. Heart: Regular rate and rhythm. No extra sounds. Abdomen: Soft, nontender. Bowel sounds positive. No organomegaly. No masses or hernia. No rigidi ty or rebound. Extremities: No clubbing or cyanosis. Intact pulses. Skin: No rash. No nodule. Neuro: Alert, awake, oriented x3. No acute focal deficits appreciated. Investigations: BUN 19, creatinine 1.30. Hemoglobin 14.8. Troponin is 98 first set. Assessment/recommendation: 1. Near syncope, likely due to hypotension. I recommend to hydrate him gently 75 cc/hour of normal s gisselle and for only 12 hours and reassess his status. Avoid any antihypertensive medications. 2. Coronary artery disease, status post bypass, borderline elevated troponin. No active chest pain. Trend 2 more sets of troponin and obtain an echocardiogram. 3. Mild dehydration. Recommend gentle hydration overnight and careful to not overload. 4. Dyslipidemia. Continue Lipitor 40 mg q.h.s. SR/MODL Voice ID: [id number] Report ID: [id number]
[2024-11-16] MEDS: NA CHLORIDE 0.9% 1,000 ML IV SCH (21:53)
[2024-11-16 23:27] VITALS: O2SAT 97
[2024-11-17 06:21] LABS: Absolute Eosinophils 0.1 K/uL (0-0.5); Absolute Lymphocytes (CBC) 1.6 K/uL (0.7-4.9); Absolute Monocytes 0.3 K/uL (0.1-1.3); Absolute Neutrophil 2.5 K/uL (1.8-8.0); Basophils % 0.3 % (0-1.3); Eosinophils % 1.8 % (0-4.4); Hematocrit 39.8 % (39.6-49.0); Hemoglobin 13.6 g/dL (13.6-17.9); Lymphocytes % 35.3 % (15.3-44.8); MCH 34.3 pg (27.0-35.0); MCHC 34.1 g/dL (32.0-36.0); MCV 100.4 fL (80-100); MPV 6.8 fL (7.6-11.3); Monocytes % 7.5 % (3.3-12.3); Neutrophils % 55.1 % (41.7-73.7); Nucleated Red Blood Cells % 0.1 % (0-0); Platelets 247 thou/uL (152-406); RBC Red Blood Cell Count 3.97 M/uL (4.33-5.43); Red Cell Distribution Width 12.9 % (12.1-15.2)
[2024-11-17 06:41] LABS: Troponin High Sensitivity 82.3 pg/mL (<58.9)
[2024-11-17] MEDS: PANTOPRAZOLE 40 MG INJ IVP SCH (09:10)
[2024-11-17] MEDS: ASPIRIN EC 81 MG TAB PO SCH (09:10)
[2024-11-17] MEDS: CLOPIDOGREL 75 MG TABLET PO SCH (09:10)
--- NOTE | 2024-11-17 14:55 | P.PN ---
Subjective Date of Service: 11/17/24 Chief Complaint: N/V/Dizzy Subjective: No new changes, No C/O voiced, Tolerating diet, Ambulating, Improving Review of Systems 10-point ROS is otherwise unremarkable Physical Examination - Vital Signs Temperature: 97.5 F Blood Pressure: 139/77 Pulse: 50 Respirations: 18 Pulse Ox (%): 0 - Physical Exam General: Alert, In no apparent distress HEENT: Atraumatic, PERRLA, EOMI Neck: Supple, JVD not distended Respiratory: Clear to auscultation bilaterally, Normal air movement Cardiovascular: Regular rate/rhythm, Normal S1 S2 Gastrointestinal: Normal bowel sounds, No tenderness Musculoskeletal: No tenderness Integumentary: No rashes Neurological: Normal speech, Normal tone, Normal affect Lymphatics: No axilla or inguinal lymphadenopathy - Studies Medications List Reviewed: Yes Assessment And Plan - Current Problems (Diagnosis) (1) NSTEMI (non-ST elevated myocardial infarction) Current Visit: No Status: Acute Plan: Type 2 VT continue ASA and Plavix no further cardiac work up needed. (2) Syncope Current Visit: No Status: Acute Plan: not full syncope, but near syncope. patient BP medications is on hold continue to monitor on tele outpatient event monitor.
--- NOTE | 2024-11-17 19:01 | P.PN ---
Date of Service: 11/17/24 Subjective feeling better this am, IVF stopped post 750ml infusion Review of Systems General: Malaise Eyes: Unremarkable ENT: Unremarkable Respiratory: Unremarkable Cardiovascular: Unremarkable Gastrointestinal: Unremarkable Genitourinary: Unremarkable Musculoskeletal: Unremarkable Integumentary: Unremarkable Neurological: Other (dizzy, lightheaded) - improved Lymphatics: Unremarkable Physical Examination Vitals sinus zechariah, normotensive, vitals reviewed General: Alert, Oriented x3, Cooperative, no distress HEENT: Atraumatic, Normocephalic Neck: Supple Respiratory: Clear to auscultation bilaterally, Normal air movement Cardiovascular: No edema, bradycardic with regular rate/rhythm, Normal S1 S2 Capillary refill: <2 Seconds Gastrointestinal: Soft and benign, without hepatosplenomegaly Musculoskeletal: No clubbing, No swelling Integumentary: No rashes, No breakdown Neurological: Normal gait, Normal speech, Normal strength at 5/5 x4 extr, Cranial nerves 3-12 intact, Normal affect Lymphatics: No axilla or inguinal lymphadenopathy Assessment and Plan Near syncope with nausea/vomiting, abdominal pain bradycardia and relative hypotension Gentle IVF with NS at 70 mL an hour (x 750 mL) stop carvedilol continue asa, plavix, statin tele consult cardiology monitor and troponin x 3, electrolytes TEDs 11/17/2024 Mr. Hampton was seen by both Dr. Lindsay (last pm) and Dr. Velásquez (today), an echo was obtained, he was in sinus bradycardia without AV block overnight, his blood pressure has recovered, IV fluids are stopped at this time post a 750 mL bolus. He is feeling better. Discharge in am. Discharge Plan: Home Plan to discharge in: 24 Hours - Advance Directives Does patient have a Living Will: No Does patient have a Durable POA for Healthcare: No
[2024-11-18 06:26] LABS: Absolute Eosinophils 0.1 K/uL (0-0.5); Absolute Lymphocytes (CBC) 1.7 K/uL (0.7-4.9); Absolute Monocytes 0.3 K/uL (0.1-1.3); Absolute Neutrophil 2.9 K/uL (1.8-8.0); Basophils % 0.5 % (0-1.3); Hematocrit 42.6 % (39.6-49.0); Hemoglobin 14.5 g/dL (13.6-17.9); Lymphocytes % 33.8 % (15.3-44.8); MCV 100.1 fL (80-100); MPV 6.9 fL (7.6-11.3); Monocytes % 5.9 % (3.3-12.3); Neutrophils % 57.8 % (41.7-73.7); Nucleated Red Blood Cells % 0.1 % (0-0); Platelets 260 thou/uL (152-406); RBC Red Blood Cell Count 4.26 M/uL (4.33-5.43); Red Cell Distribution Width 13.2 % (12.1-15.2)
[2024-11-18 06:47] LABS: Anion Gap 8.1 mEq/L (5.0-15.0); Potassium 4.1 mEq/L (3.5-5.1)
--- NOTE | 2024-11-18 06:55 | P.DS ---
Admission Date: 11/17/24 Discharge Date: 11/18/24 Disposition: ROUTINE DISCHARGE Discharge Condition: GOOD Reason for Admission: N/V/Dizzy Consultations: Cardiology Brief History of Present Illness: Mr. Hampton was discharged from this facility yesterday after evaluation for a syncopal episode. He was diagnosed with recurrent syncope of unclear etiology, with a history of chronic coronary artery disease status post CABG and stent placement, elevated troponin without acute coronary syndrome, sinus bradycardia on low-dose carvedilol, and a history of type 2 diabetes. He was mildly bradycardic and hypotensive during admission and it was recommended that carvedilol be discontinued. He was seen by Dr. Velásquez who recommended that the patient follow-up with his own clinical assistant and have an outpatient event monitor evaluation. It was also recommended he continue his aspirin, Plavix, and statin. He was noted to have good glycemic control without hypoglycemia without any diabetic medications with a hemoglobin A1c of 5.7. Mr. Vallejo returns to the emergency department today with complaints of dizziness, nausea, vomiting, and abdominal pain. Labs are relatively unremarkable except for a troponin of 90. The patient and family were advised that as he was seen by our clinical assistant yesterday further evaluation would not incur a different recommendation. It is still recommended that the patient be evaluated with an event monitor and outpatient workup. The is adamant that she would like a second opinion and the patient states he feels very symptomatic. We will admit him with continuation of his statin, aspirin, and monitor his symptoms and blood pressure on telemetry with consultation to cardiology. Hospital Course: Mr. Hampton was evaluated by both our Cardiologists. He was given a small amount of IV fluid for volume depletion and taken off carvedilol. He has improved over the course of his hospitalization. An echocardiogram was performed. He is stable for discharge to Dr. Spence for the suggested cardiac event monitor with the recommendation to discontinue Carvedilol. His blood pressure has recovered but he remains bradycardic at a rate of 55bpm without blocks or pauses. Vital Signs/Physical Exam: Temp Pulse Resp BP Pulse Ox 97.3 F 55 18 126/71 96 11/18/24 04:00 11/18/24 04:00 11/18/24 04:00 11/18/24 04:00 11/18/24 04:00 Other Physical/Emotional Findings: - Physical Exam. General: Alert, Oriented x3, Cooperative, no distress. HEENT: Atraumatic, Normocephalic. Neck: Supple. Respiratory: Clear to auscultation bilaterally, Normal air movement. Cardiovascular: No edema, Regular rate/rhythm, Normal S1 S2, bradycardic, hypotensive. Capillary refill: <2 Seconds. Gastrointestinal: Soft and benign, without hepatosplenomegaly. Musculoskeletal: No clubbing, No swelling. Integumentary: No rashes, No breakdown. Neurological: Normal gait, Normal speech, Normal strength at 5/5 x4 extr, Cranial nerves 3-12 intact, Normal affect. Lymphatics: No axilla or inguinal lymphadenopathy Laboratory Data at Discharge: WBC 5.00 thou/uL (4.3-10.9) 11/18/24 06:02 Hgb 14.5 g/dL (13.6-17.9) 11/18/24 06:02 Hct 42.6 % (39.6-49.0) 11/18/24 06:02 Plt Count 260 thou/uL (152-406) 11/18/24 06:02 Sodium 137 mEq/L (136-145) 11/18/24 06:02 Potassium 4.1 mEq/L (3.5-5.1) 11/18/24 06:02 BUN 12 mg/dL (7-18) 11/18/24 06:02 Creatinine 1.06 mg/dL (0.70-1.30) 11/18/24 06:02 Glucose 107 mg/dL (74-106) H 11/18/24 06:02 Total Bilirubin 0.6 mg/dL (0.2-1.0) 11/16/24 12:26 AST 26 U/L (15-37) 11/16/24 12:26 ALT 30 U/L (16-61) 11/16/24 12:26 Alkaline Phosphatase 69 U/L (45-117) 11/16/24 12:26 Lipase 38 U/L (13-75) 11/16/24 12:26 Home Medications: Aspirin [Aspirin Regimen] 1 tab PO DAILY 08/02/23 Atorvastatin Calcium 40 mg PO BEDTIME 08/02/23 Fenofibrate,Micronized [Fenofibrate] 200 mg PO DAILY 08/02/23 Clopidogrel Bisulfate [Plavix*] 75 mg PO DAILY 30 Days #30 tab 01/26/24 Mirabegron [Mirabegron ER] 50 gm PO DAILY 11/14/24 Solifenacin [Vesicare*] 5 gm PO DAILY WITH BREAKFAST 11/14/24 Diet: AHA Activity: Fall precautions Followup: Senait Ragsdale MD [Primary Care Provider] -
[2024-11-18 08:20] VITALS: BP 129/80; TEMP 98.2
--- NOTE | 2024-11-20 07:19 | ECHO ---
HEIGHT: 5 ft 7 in WEIGHT: 169 lb 12.8 oz DATE OF STUDY: 11/17/[address]: Tatyana Morocho ACIDIZER WATER WELL-BC 2-DIMENSIONAL: YES M.MODE: YES DOPPLER: YES COLOR FLOW: YES TDS: PORTABLE: YES DEFINITY: BUBBLE STUDY: DIAGNOSIS: SYNCOPE CARDIAC HISTORY: CATHERIZATION: YES SURGERY: YES PROSTHETIC VALVE: NO PACEMAKER: NO MEASUREMENTS (cm) DIASTOLIC (NORMALS) SYSTOLIC (NORMALS) IVSd 1.0 (0.6-1.2) LA Diam 2.4 (1.9-4.0) LVEF 55-60% LVIDd 4.3 (3.5-5.7) LVIDs 3.0 (2.0-3.5) %FS 31% LVPWd 1.1 (0.6-1.2) Ao Diam 2.6 (2.0-3.7) 2 DIMENSIONAL ASSESSMENT: RIGHT ATRIUM: NORMAL LEFT ATRIUM: NORMAL RIGHT VENTRICLE: NORMAL LEFT VENTRICLE: NORMAL TRICUSPID VALVE: TRACE TRICUSPID REGURGITATION MITRAL VALVE: NORMAL PULMONIC VALVE: NORMAL AORTIC VALVE: NORMAL PERICARDIAL EFFUSION: NONE AORTIC ROOT: NORMAL LEFT VENTRICULAR WALL MOTION: NORMAL DOPPLER/COLOR FLOW: GRADE II DIASTOLIC DYSFUNCTION COMMENTS: 1. NORMAL LEFT VENTRICULAR SYSTOLIC FUNCTION, EJECTION FRACTION 55-60%, NORMAL WALL MOTION 2. GRADE II DIASTOLIC DYSFUNCTION 3. NORMAL FILLING PRESSURE TECHNOLOGIST: BRYN URRUTIA
== END 2024-11-18 11:50 | disposition home or self-care (01) | DRG 282 ==
LOC: ER 12:15 → ERHOLD 16:12 → 4TH 17:50 → OBSVTOIN 11-17 16:57
PROVIDERS: ADMIT Internal Medicine; ATTEND Internal Medicine
DX: R00.1 Bradycardia, unspecified (principal); I21.A1 Myocardial infarction type 2; E11.9 Type 2 diabetes mellitus without complications; E78.5 Hyperlipidemia, unspecified; E86.0 Dehydration; E86.9 Volume depletion, unspecified; I10 Essential (primary) hypertension; I25.10 Atherosclerotic heart disease of native coronary artery without angina pectoris; I25.2 Old myocardial infarction; Z95.1 Presence of aortocoronary bypass graft; Z95.5 Presence of coronary angioplasty implant and graft; Z85.46 Personal history of malignant neoplasm of prostate; Z79.82 Long term (current) use of aspirin; Z79.02 Long term (current) use of antithrombotics/antiplatelets; Z79.899 Other long term (current) drug therapy
CPT/HCPCS: 36415; 74177; 80048; 80076; 83690; 84484; 85025; 93005; 93306; 96374; 99285; G0378; J2405; J2470; J7030; J7040; Q9967

== ENCOUNTER 2025-06-23 11:02 | Inpatient (IN) | payer OTHER ==
[2025-06-23] MEDS ORDERED: NA CHLORIDE 0.9% 500 ML ONE (11:33)
[2025-06-23 11:49] LABS: Absolute Lymphocytes (CBC) 1.7 K/uL (0.7-4.9); Hematocrit 39.1 % (39.6-49.0); Hemoglobin 13.1 g/dL (13.6-17.9); MCH 33.4 pg (27.0-35.0); MCHC 33.5 g/dL (32.0-36.0); MCV 99.7 fL (80-100); MPV 6.7 fL (7.6-11.3); Nucleated RBC Absolute Count 0.0 (0-0); Nucleated Red Blood Cells % 0.0 % (0-0); RBC Red Blood Cell Count 3.93 M/uL (4.33-5.43); White Blood Count 5.00 thou/uL (4.3-10.9)
[2025-06-23 12:00] LABS: PT Prothrombin Time 12.9 SECONDS (10-13.0); PTT, Activated Partial Thromb 31.6 SECONDS (27.2-37.4); Protime INR 1.15
[2025-06-23 12:12] LABS: ALT/SGPT 31.0 U/L (16-61); AST/SGOT 50.0 U/L (15-37); Albumin 3.6 g/dL (3.4-5.0); Albumin/Globulin Ratio 1.1 (1.1-1.8); Alkaline Phosphatase 88.0 U/L (45-117); Anion Gap 6.9 mEq/L (5.0-15.0); BUN Blood Urea Nitrogen 22.0 mg/dL (7-18); Bilirubin Indirect, Calculated 0.4 mg/dL (0.2-0.8); Globulin 3.2 g/dL (2.3-3.5); Glucose Level 142.0 mg/dL (74-106); Magnesium 1.9 mg/dL (1.6-2.4); Potassium 3.9 mEq/L (3.5-5.1)
[2025-06-23 12:31] LABS: Troponin High Sensitivity 65.4 pg/mL (<58.9)
--- NOTE | 2025-06-23 12:38 | RAD REPORT ---
EXAMINATION: XR RIGHT KNEE CLINICAL INDICATION: Male, 69 years old. fall;Pain TECHNIQUE: Multiple views of the right knee were obtained. COMPARISON: No prior exam. FINDINGS: Severe osteoarthritis of the medial compartment with [id number]. No acute fracture or di slocation. Mild soft tissue swelling seen about the patella.
--- NOTE | 2025-06-23 12:39 | RAD REPORT ---
EXAMINATION: XR RIGHT SHOUDLER CLINICAL INDICATION: Male, 69 years old. PAIN RIGHT TECHNIQUE: Multiple views of the right shoulder were obtained. COMPARISON: No prior exam. FINDINGS: ACL and glenohumeral joint arthritic changes. No fracture or dislocation.
--- NOTE | 2025-06-23 13:04 | RAD REPORT ---
EXAM: CT brain without contrast HISTORY: dizziness, fall COMPARISON: None TECHNIQUE: Multiple contiguous axial images were obtained and a CT of the brain without contrast. Sag ittal and coronal reformats were performed. One or more of the following dose reduction techniques were used: Automated exposure control, adjust ment of the mA and/or kV according to patient size, and/or iterative reconstruction. FINDINGS: No evidence of hydrocephalus, intracranial hemorrhage, or extra-axial fluid collection. The brain is normal in morphology. No evidence of midline shift or areas of brain edema. The calvarium is intact. The visualized paranasal sinuses and mastoid air cells are essentially clear . EXAM: CT of the cervical spine without contrast HISTORY: Neck pain, injury dizziness, fall TECHNIQUE: Multiple contiguous axial images were obtained in a CT of the cervical spine without contr ast. Sagittal and coronal reformats were performed. FINDINGS: The vertebral bodies demonstrate normal height and alignment. No evidence of acute fracture or subluxation.. Mild mid cervical degenerative spondylosis. No prevertebral soft tissue swelling is seen. The posterior facets are well aligned. Normal alignment of the skull base with the cervical spine is seen. Moderate atherosclerosis of the carotid arteries, greater on the left. The lung apices are unremarkable. COMBINED IMPRESSION: No evidence of acute intracranial abnormality. No evidence of acute osseous abnormality of the cervical spine.
--- NOTE | 2025-06-23 13:11 | RAD REPORT ---
EXAM: CT CHEST, ABDOMEN AND PELVIS WITH CONTRAST CLINICAL INDICATION: fall, dizziness, fall from ladder TECHNIQUE: CT chest, abdomen and pelvis was performed, following the administration of contrast, as p er department protocol. Axial, sagittal and coronal reconstructions were obtained. One or more of the following dose reduction techniques were used: Automated exposure control, adjustment of the mA a nd/or kV according to patient size, and/or iterative reconstruction. Unless otherwise specified, incidental findings do not require dedicated imaging follow-up. COMPARISON: No prior exam. FINDINGS: LUNGS: No evidence of airspace or interstitial process. No nodules. PLEURA: No pleural effusion. No pneumothorax. MEDIASTINUM AND LYMPH NODES: No mediastinal mass or fluid collection. Normal size mediastinal, hilar, and axillary lymph nodes. OSSEOUS STRUCTURES AND CHEST WALL: Intact. Sternotomy wires. LIVER: The liver demonstrates mild fatty infiltration. Small low-density lesions may represent cysts. No biliary dilatation. Cholecystectomy clips. PANCREAS: No mass, ductal dilation, or kyle-pancreatic fluid. SPLEEN: Normal size. No focal lesion. ADRENALS: Normal; no mass. KIDNEYS: Normal size and contour. No hydronephrosis. URINARY BLADDER: Normal contour. GASTROINTESTINAL TRACT: No bowel obstruction, free air, significant free fluid or abscess. APPENDIX: Normal appendix. LYMPH NODES: No lymphadenopathy. MUSCULOSKELETAL: No acute or suspicious osseous abnormality. OTHER: Aortoiliac atherosclerosis. Small fat-containing inguinal hernias. IMPRESSION: No acute abnormalities seen in the chest, abdomen or pelvis.
--- NOTE | 2025-06-23 13:29 | EDPHYS ---
Physician Documentation [facility] Name: Artem Hampton Age: 69 yrs Sex: Male : 1955 Arrival Date: 06/23/2025 Time: 11:02 Bed 2 Private MD: ED Physician Thony Degroot HPI: 06/23 11:35 This 69 yrs old Male presents to ER via Wheelchair with complaints of Fall rn Injury. 11:35 Details of fall: The patient fell from an upright position. Associated injuries: The rn patient sustained injury to the head, Right shoulder, right knee. Severity of symptoms: At their worst the symptoms were mild, in the emergency department the symptoms are unchanged. The patient has experienced similar episodes in the past. Patient reports fall from ladder, 6 feet yesterday, lost his footing and landed on right shoulder. Reports right shoulder and right knee pain. Is ambulatory. Patient had another fall today in the kitchen. Denies syncope or loss of consciousness. Reports mild head pain, right shoulder pain, right knee pain, mild back pain. No chest pain or shortness of breath preceding either fall.. Historical: - Allergies: 11:28 No Known Allergies; hb - PMHx: 11:28 CANCER- PROSTATE; diabetes mellitus; heart attack; Hyperlipidemia; Hypertensive hb disorder; - PSHx: 11:28 Coronary artery bypass graft; hb - Immunization history:: Adult Immunizations unknown. - Infectious Disease History:: Denies. - Family history:: not pertinent. - Hospitalizations: : No recent hospitalization is reported. - Social history:: Smoking status: unknown. ROS: 11:35 Constitutional: Negative for fever, chills, and weight loss, Eyes: Negative for injury, rn pain, redness, and discharge, Neck: Positive for mild neck pain Cardiovascular: Negative for chest pain, palpitations, and edema, Respiratory: Negative for shortness of breath, cough, wheezing, and pleuritic chest pain, Abdomen/GI: Negative for abdominal pain, nausea, vomiting, diarrhea, and constipation, Back: Positive for back pain MS/Extremity: Positive for right shoulder and right knee pain Skin: Negative for injury, rash, and discoloration, Neuro: Positive for mild headache Exam: 11:35 Constitutional: This is a well developed, well nourished patient who is awake, alert, rn and in no acute distress. Head/Face: Normocephalic, atraumatic. Neck: No midline cervical tenderness. Chest/axilla: Mild tenderness along right clavicle. No rib tenderness or crepitus Cardiovascular: Regular rate and rhythm. No pulse deficits. Respiratory: No increased work of breathing, no retractions or nasal flaring. Abdomen/GI: Soft, non-tender Back: No spinal tenderness. No costovertebral tenderness. Full range of motion. MS/ Extremity: Pulses equal, no cyanosis. Mild painful range of motion right shoulder but able to touch opposite shoulder, no deformity or ecchymosis noted. Mild tenderness medial right knee with mild swelling. No gross deformity. Full range of motion bilateral hips. Neuro: Awake and alert, GCS 15, oriented to person, place, time, and situation. Cranial nerves II-XII grossly intact. Motor strength 4/5 in all extremities. Sensory grossly intact. 13:21 ECG was reviewed by the Attending Physician. 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 Data reviewed: vital signs, nurses notes, lab test result(s), EKG, radiologic studies, CT scan, plain films, and as a result, I will admit patient. Consideration of Admission/Observation Patient was admitted/placed on observation. Escalation of care including admission/observation considered. Independent interpretation of the following test(s) in the Emergency Department EKG: See my EKG interpretation above X-Ray: My interpretation is X-ray right shoulder images negative for acute fracture or dislocation per my interpretation. monitor and storage bin tender: rate is 58 beats/min, Rhythm is normal sinus rhythm, regular, with no ectopy, Interpretation: bradycardia. Care significantly affected by the following chronic conditions: Diabetes, Hypertension. Counseling: I had a detailed discussion with the patient and/or guardian regarding the historical points, exam findings, and any diagnostic results supporting the discharge/admit diagnosis, lab results, radiology results, the need for further work-up and treatment in the hospital. Response to treatment: the patient's symptoms have mildly improved after treatment, and as a result, I will admit patient. ED course: No acute traumatic findings in workup. Troponin mildly elevated. Patient states has been having intermittent episodes of chest pain over the last week, no current chest pain. Also told a month ago that his "level was high" but no cath was performed at that time.. 06/23 11:31 Order name: Basic Metabolic Panel; Complete Time: 13:21 rn 06/23 11:31 Order name: CBC with Diff; Complete Time: 14:45 rn 06/23 11:31 Order name: Hepatic Function; Complete Time: 13: rn 06/23 11:31 Order name: Magnesium; Complete Time: 13: rn 06/23 11:31 Order name: Protime (+inr); Complete Time: 13: rn 06/23 11:31 Order name: Ptt, Activated; Complete Time: 13: rn 06/23 11:31 Order name: Troponin High Sensitivity; Complete Time: 13:21 rn 06/23 12:09 Order name: CBC Smear Scan; Complete Time: 14:45 EDMO 06/23 15:13 Order name: Basic Metabolic Panel EDMO 06/23 15:13 Order name: Basic Metabolic Panel EDMS 06/23 15:13 Order name: Basic Metabolic Panel EDMS 06/23 15:13 Order name: Basic Metabolic Panel EDMS 06/23 15:13 Order name: CBC with Automated Diff EDMS 06/23 15:13 Order name: CBC with Automated Diff EDMS 06/23 15:13 Order name: CBC with Automated Diff EDMS 06/23 15:13 Order name: CBC with Automated Diff EDMS 06/23 15:13 Order name: Lipid Profile EDMS 06/23 15:13 Order name: Lipid Profile EDMS 06/23 15:13 Order name: Magnesium EDMS 06/23 15:13 Order name: Magnesium EDMS 06/23 15:13 Order name: Magnesium EDMO 06/23 15:13 Order name: Magnesium EDMO 06/23 15:13 Order name: Phosphorus EDMO 06/23 15:13 Order name: Phosphorus EDMO 06/23 15:13 Order name: Phosphorus EDMO 06/23 15:13 Order name: Phosphorus EDMO 06/23 15:13 Order name: Thyroid Stimulating Hormone [facility] 06/23 15:13 Order name: Thyroid Stimulating Hormone [facility] 06/23 15:13 Order name: Troponin High Sensitivity [facility] 06/23 15:13 Order name: Troponin High Sensitivity [facility] 06/23 15:13 Order name: Troponin High Sensitivity [facility] 06/23 11:31 Order name: XRAY Shoulder RIGHT 2 view; Complete Time: 13:21 rn 06/23 11:31 Order name: XRAY Knee RIGHT 3 view; Complete Time: 13:21 rn 06/23 11:51 Order name: Chest Abdomen Pelvis W Cont; Complete Time: 13:21 [facility] 06/23 11:52 Order name: Head C Spine Mpr Wo Con; Complete Time: 13:21 [facility] 06/23 15:13 Order name: Physical Therapy Consult [facility] 06/23 11:31 Order name: Labs collected and sent; Complete Time: 11: rn 06/23 11:31 Order name: Cardiac monitoring; Complete Time: 11: rn 06/23 11:31 Order name: EKG - Nurse/Tech; Complete Time: 11: rn 06/23 11:31 Order name: IV Saline Lock; Complete Time: 11: rn 06/23 11:31 Order name: NPO; Complete Time: 11: rn 06/23 11:31 Order name: O2 Per Protocol; Complete Time: rn 06/23 11:31 Order name: O2 Sat Monitoring; Complete Time: 11:53 rn EC:21 Rate is 60 beats/min. Rhythm is regular. QRS [place] is Normal. CT interval is normal. QRS rn interval is normal. QT interval is normal. No Q waves. T waves are Normal. No ST changes noted. Clinical impression: NSR w/ Non-specific ST/T Changes. Interpreted by me. Reviewed by me. Administered Medications: 11:54 Drug: NS 0.9% IV 500 ml 500 ml IV at 1 bolus once; to be given as a bolus over 30 nh2 minutes Volume: 500 ml; Route: IV; Rate: 1 bolus; Site: left antecubital; 12:30 Follow up: IV Intake: 500ml nh2 12:30 Follow up: IV Status: Completed infusion; IV Intake: 500ml nh2 Disposition Summary: 06/23/25 13:29 Hospitalization Ordered Notes: Hospitalization Status: Observation rn Provider: Gibson [employer] rn Location: Telemetry/MedSurg (observation) rn Condition: Stable rn Problem: new rn Symptoms: have improved rn Bed/Room Type: Standard rn Room Assignment: 404(06/23/25 15:21) sp Diagnosis - Chest pain, unspecified rn - Fall on same level, unspecified rn Forms: - Medication Reconciliation Form rn - SBAR form rn - Leadership Thank You Letter rn Signatures: Dispatcher [employer] EDMS Eliza Betancourt Roman, MD MD rn Baxter, Heather RN RN Vale Wilson RN RN [id number] Vitor Stephen Jr RN RN nh2 Corrections: (The following items were deleted from the chart) 11:31 11:31 BASIC METABOLIC PANEL+C.LAB.BRZ ordered. EDMS EDMS 11: 11:31 CBC+H.LAB.BRZ ordered. EDMS EDMS 11: 11:31 HEPATIC FUNCTION+C.LAB.BRZ ordered. EDMS EDMS 11:31 11:31 MAGNESIUM+C.LAB.BRZ ordered. EDMS EDMS 11:31 11:31 PROTIME (+INR)+COAG.LAB.BRZ ordered. EDMS EDMS 11:31 11:31 PTT, ACTIVATED+COAG.LAB.BRZ ordered. EDMS EDMS 11:32 11:31 Troponin High Sensitivity+C.LAB.BRZ ordered. EDMS EDMS 11:32 11:32 Head C Spine CAP W Con+CT.RAD.BRZ ordered. EDMS EDMS 11:32 11:32 Shoulder Right 2 View+RAD.RAD.BRZ ordered. EDMS EDMS 11:32 11:32 Knee Right 3 View+RAD.RAD.BRZ ordered. EDMS EDMS 15:21 13:29 rn jl7 15:21 15:21 404 jl7 sp
--- NOTE | 2025-06-23 13:29 | ER ---
Nurse's Notes [facility] Name: Artem Hampton Age: 69 yrs Sex: Male : 1955 Arrival Date: 06/23/2025 Time: 11:02 Bed 2 Private MD: Diagnosis: Chest pain, unspecified;Fall on same level, unspecified Presentation: 06/23 11:26 Chief complaint: Fell from top of 6 foot ladder while trimming tree yesterday, unknown hb LOC, became dizzy and fell in kitchen this morning, c/o right shoulder pain. Coronavirus screen: At this time, the client does not indicate any symptoms associated with coronavirus-19. Ebola Screen: No symptoms or risks identified at this time. Initial Sepsis Screen: Does the patient meet any 2 criteria? No. Patient's initial sepsis screen is negative. Does the patient have a suspected source of infection? No. Patient's initial sepsis screen is negative. Risk Assessment: Do you want to hurt yourself or someone else? Patient reports no desire to harm self or others. Onset of symptoms was June 22, 2025. 11:26 Method Of Arrival: Wheelchair hb 11:26 Acuity: MAVERICK 3 hb Historical: - Allergies: 11:28 No Known Allergies; hb - PMHx: 11:28 CANCER- PROSTATE; diabetes mellitus; heart attack; Hyperlipidemia; Hypertensive hb disorder; - PSHx: 11:28 Coronary artery bypass graft; hb - Immunization history:: Adult Immunizations unknown. - Infectious Disease History:: Denies. - Family history:: not pertinent. - Hospitalizations: : No recent hospitalization is reported. - Social history:: Smoking status: unknown. Screenin:54 [facility] ED Fall Risk Assessment (Adult) History of falling in the last 3 months, nh2 including since admission Yes- physiologic fall (2 pts) Confusion or Disorientation No (0 pts) Intoxicated or Sedated No (0 pts) Impaired Gait Yes (1 pt) Mobility Assist Device Used Yes (1 pt) Altered Elimination No (0 pt) Score/Fall Risk Level 3 or more points = High Risk Oriented to surroundings, Maintained a safe environment, Educated pt \T\ family on fall prevention, incl call for assistance when getting out of bed, Assessed \T\ reinforced patient's understanding of fall precautions. Abuse screen: Denies threats or abuse. Denies injuries from another. Nutritional screening: No deficits noted. Tuberculosis screening: No symptoms or risk factors identified. Assessment: 11:54 General: Appears in no apparent distress. Behavior is calm, cooperative, appropriate nh2 for age. Pain: Complains of pain in R shoulder Pain radiates to neck Pain currently is 4 out of 10 on a pain scale. Quality of pain is described as aching, Pain began 3 hours ago. Is intermittent. Neuro: Level of Consciousness is awake, alert, obeys commands, Oriented to person, place, time, situation, Appropriate for age Reports dizziness, weakness Denies headache. Cardiovascular: Denies chest pain, Patient's skin is warm and dry. Rhythm is sinus rhythm. Respiratory: Airway is patent Trachea midline Respiratory effort is even, unlabored, Respiratory pattern is regular, symmetrical, Denies cough, shortness of breath. GI: Abdomen is round non-distended, Patient currently denies diarrhea, nausea, vomiting. : No signs and/or symptoms were reported regarding the genitourinary system. Denies burning with urination. EENT: No signs and/or symptoms were reported regarding the EENT system. Derm: Skin is intact, Skin is pink, warm \T\ dry. Skin temperature is warm. Musculoskeletal: Range of motion: intact in all extremities. 12:50 Reassessment: Patient and/or family updated on plan of care and expected duration. Pain nh2 level reassessed. Patient is alert, oriented x 3, equal unlabored respirations, skin warm/dry/pink. Patient states symptoms have improved. 13:50 Reassessment: Patient and/or family updated on plan of care and expected duration. Pain nh2 level reassessed. Patient is alert, oriented x 3, equal unlabored respirations, skin warm/dry/pink. Patient denies pain at this time. Vital Signs: 11:26 BP 136 / 91; Pulse 71; Resp 16; Temp 98.3; Pulse Ox 98% on R/A; Weight 71.3 kg (M); hb 13:00 BP 113 / 78; Pulse 58; Resp 15; Pulse Ox 97% on R/A; nh2 14:00 BP 106 / 70; Pulse 52; Resp 18; Pulse Ox 97% on R/A; nh2 15:00 BP 116 / 74; Pulse 52; Resp 16; Pulse Ox 96% on R/A; nh2 16:00 BP 106 / 75; Pulse 51; Resp 16 S; Pulse Ox 97% on R/A; aa5 ED Course: 11:07 Patient arrived in ED. cj3 11:18 Thony Degroot MD is Attending Physician. rn 11:28 Triage completed. hb 11:28 Arm band placed on. hb 11:30 Inserted saline lock: 20 gauge in left antecubital area, using aseptic technique. Blood nh2 collected. Flushed with 10 mL NS. 11:54 Vitor Stephen Jr, RN is Primary Nurse. nh2 11:54 Patient has correct armband on for positive identification. Bed in low position. Call nh2 light in reach. Side rails up X2. Provided Education on: using call light for assistance. 12:34 XRAY Shoulder RIGHT 2 view In Process Unspecified. EDMS 12:34 XRAY Knee RIGHT 3 view In Process Unspecified. EDMS 12:57 Chest Abdomen Pelvis W Cont In Process Unspecified. EDMS 12:57 Head C Spine Mpr Wo Con In Process Unspecified. EDMS 13:28 [employer] is Hospitalizing Provider. rn 16:15 No provider procedures requiring assistance completed. Patient admitted, IV remains in aa5 place. Administered Medications: 11:54 Drug: NS 0.9% IV 500 ml 500 ml IV at 1 bolus once; to be given as a bolus over 30 nh2 minutes Volume: 500 ml; Route: IV; Rate: 1 bolus; Site: left antecubital; 12:30 Follow up: IV Intake: 500ml nh2 12:30 Follow up: IV Status: Completed infusion; IV Intake: 500ml nh2 Medication: 11:54 VIS not applicable for this client. nh2 Intake: 12:30 IV: 500ml; Total: 500ml. nh2 12:30 IV: 500ml; Total: 1000ml. nh2 Outcome: 13:29 Decision to Hospitalize by Provider. rn 16:15 Admitted to Tele accompanied by tech, via stretcher, with chart, aa5 16:15 Condition: stable 16:15 Instructed on the need for admit, Demonstrated understanding of instructions, 16:18 Patient left the ED. aa5 Signatures: Dispatcher [employer] EDMS Thony Degroot MD MD rn Calderon, Audri RN RN aa5 Odalis Walker RN RN Vitor Stephen Jr, RN RN nh2 Adri Jeffries cj3 Corrections: (The following items were deleted from the chart) 11:26 Chief complaint: Fell from top of 6 foot ladder while trimming tree yesterday, hb positive LOC, became dizzy and fell in kitchen this morning, c/o right shoulder pain. hb : 11: Acuity: MAVERICK 2 hb hb
[2025-06-23 13:42] LABS: Blood Morphology Comment NOT SEEN (NOT SEEN); White Blood Cell Scan OK (OK)
--- NOTE | 2025-06-23 14:20 | P.HP ---
Certification for Inpatient Patient admitted to: Observation With expected LOS: <2 Midnights Patient will require the following post-hospital care: None Practitioner: I am a practitioner with admitting privileges, knowledge of patient current condition, hospital course, and medical plan of care. Services: Services provided to patient in accordance with Admission requirements found in Title 42 Section 412.3 of the Code of Federal Regulations Patient History Date of Service: 06/23/25 Reason for admission: frequent falls History of Present Illness: Artem Hampton is a 69 year old male with pmhx diabetes mellitus, [place] status post stent, CAD status post CABG, hyperlipidemia, hypertension, who presents to the ED with chief complaint of fall injury yesterday, fell from 6 foot ladder after losing his footing and landing on his right shoulder yesterday and fell in the kitchen this morning. Recurrently reports right shoulder and right knee pain with x-rays showing arthritic changes. at the bedside reports the patient has bone on bone to his right knee and cannot have a knee replacement as he has not been cleared by his mass communications professor for the procedure. She reports that his bad right knee is causing him to fall. Patient was previously admitted for near syncopal episode in November 2024. He has known syncopal episode secondary to unknown etiology. At that time metoprolol was stopped due to bradycardia and he was cleared to follow-up with Dr. Spence for further workup and management. CT brain without contrast reports "No evidence of acute intracranial abnormality. No evidence of acute osseous abnormality of the cervical spine" CT chest abdomen pelvis with contrast reports "No acute abnormalities seen in the chest, abdomen or pelvis." Right knee x-ray reports "Severe osteoarthritis of the medial compartment with [id number]. No acute fracture or dislocation. Mild soft tissue swelling seen about the patella" Right shoulder x-ray reports "FINDINGS: ACL and glenohumeral joint arthritic changes. No fracture or dislocation." Artem will be admitted to hospitalist service for further evaluation of frequent falls. Allergies No Known Allergies Allergy (Verified 01/23/24 22:31) Home Medications: Aspirin [Aspirin Regimen] 1 tab PO DAILY 08/02/23 Atorvastatin Calcium 80 mg PO BEDTIME 08/02/23 Fenofibrate,Micronized [Fenofibrate] 200 mg PO DAILY 08/02/23 Clopidogrel Bisulfate [Plavix*] 75 mg PO DAILY 30 Days #30 tab 01/26/24 Mirabegron [Mirabegron ER] 50 mg PO DAILY 11/14/24 Solifenacin [Vesicare*] 5 gm PO DAILY WITH BREAKFAST 11/14/24 Losartan Potassium 50 mg PO DAILY 06/23/25 Sertraline [Zoloft] 25 mg PO DAILY 06/23/25 - Past Medical/Surgical History Diabetic: Yes -: Hyperlipidemia -: DM type 1 -: [place] s/p CABG -: HTN -: prostate sx -: bladder sx -: pancreatic sx -: left knee sx -: CABG Psychosocial/ Personal History: Lives at home with his - Family History Mother -: Heart disease - Social History Alcohol use: No CD- Drugs: No Caffeine use: Yes Review of Systems Other: Per HPI Physical Examination - Physical Exam General: Alert, In no apparent distress, Oriented x3 HEENT: Atraumatic, Normocephalic Neck: Supple, 2+ carotid pulse no bruit Respiratory: Clear to auscultation bilaterally, Normal air movement Cardiovascular: Normal pulses, Regular rate/rhythm Gastrointestinal: Normal bowel sounds, Soft and benign Musculoskeletal: No clubbing Integumentary: No rashes Neurological: Normal speech, Normal tone - Studies Laboratory Data (last 24 hrs) 06/23/25 06/23/25 06/23/25 11:42 11:42 11:42 WBC 5.00 Hgb 13.1 L Hct 39.1 L Plt Count 276 PT 12.9 INR 1.15 APTT 31.6 Sodium 141 Potassium 3.9 BUN 22 H Creatinine 1.06 Glucose 142 H Magnesium 1.9 Total Bilirubin 0.6 AST 50 H ALT 31 Alkaline Phosphatase 88 Assessment and Plan - Plan Assessment and plan Mechanical fall 2/2 history of idopathic syncope vs right knee severe osteoarthritis of medial campartment with bone on bone CAD/MN s/p CABG/Stent Elevated troponin -Orthostatics Vitals -ECHO ordered -Continuous telemetry -Trend troponin -Consult cardiology -Continue daily baby aspirin and statin -TSH, A1C, lipid panel pending Diabetes mellitusIDDM - Accu-Chek with sliding scale insulin - A1c in a.m. Hyperlipidemia Hypertension - Continue home medications as appropriate DVT PPx heparin Full code LOS 24-hour OBS Discharge Plan: Home Plan to discharge in: 24 Hours - Advance Directives Does patient have a Living Will: No Does patient have a Durable POA for Healthcare: No Time Spent Managing Pts Care (In Minutes): 60
[2025-06-23] MEDS: INSULIN REGULAR (HUMAN) 100 UNIT/ML SQ SCH (16:30)
[2025-06-23] MEDS: ACETAMINOPHEN 325 MG TABLET PO PRN (17:32)
[2025-06-23] MEDS: HEPARIN 5000 UNIT/ML 1 ML VIAL SQ SCH (17:33)
[2025-06-23] MEDS: NA CHLORIDE 0.9% 1,000 ML IV SCH (17:33)
[2025-06-23 19:32] VITALS: BMI 23.8
[2025-06-23] MEDS: HYDROCODONE/APAP 5/325 MG TAB PO PRN (20:20)
[2025-06-23] MEDS: ATORVASTATIN 80 MG TAB PO SCH (20:20)
[2025-06-23] MEDS ORDERED: ATORVASTATIN 40 MG TAB PO SCH (21:00)
[2025-06-23] MEDS: ACETAMIN/CAFFEINE/BUTALB TAB PO PRN (21:40)
[2025-06-24 05:47] LABS: Absolute Lymphocytes (CBC) 1.6 K/uL (0.7-4.9); Hematocrit 34.2 % (39.6-49.0); Hemoglobin 11.5 g/dL (13.6-17.9); MCH 33.2 pg (27.0-35.0); MCHC 33.7 g/dL (32.0-36.0); MCV 98.7 fL (80-100); MPV 7.0 fL (7.6-11.3); Nucleated RBC Absolute Count 0.0 (0-0); Nucleated Red Blood Cells % 0.1 % (0-0); RBC Red Blood Cell Count 3.47 M/uL (4.33-5.43); White Blood Count 3.60 thou/uL (4.3-10.9)
[2025-06-24 06:15] LABS: Anion Gap 7.7 mEq/L (5.0-15.0); BUN Blood Urea Nitrogen 20.0 mg/dL (7-18); Glucose Level 104.0 mg/dL (74-106); HDL Cholesterol 28.0 mg/dL (40-60); LDL Cholesterol, Calculated 31.0 mg/dL (<130); LDL Cholesterol,Calc NonReport 31.0; Magnesium 1.9 mg/dL (1.6-2.4); Potassium 3.7 mEq/L (3.5-5.1); Thyroid Stimulating Hormone 1.42 uIU/mL (0.358-3.740)
[2025-06-24] MEDS: SOLIFENACIN SUCCIN 5 MG TAB PO SCH (08:00)
[2025-06-24] MEDS: POTASSIUM CL SA 10 MEQ TAB PO ONE (08:55)
[2025-06-24] MEDS: ASPIRIN EC 81 MG TAB PO SCH (08:56)
[2025-06-24] MEDS: SERTRALINE HCL 50 MG TAB PO SCH (08:56)
[2025-06-24] MEDS: HOME MED 1 EA UNK (Fenofibrate,Micronized [Fenofibrate] 200 MG Capsule) PO SCH (09:00)
[2025-06-24] MEDS: MIRABEGRON 50 MG PO SCH (09:00)
--- NOTE | 2025-06-24 12:27 | P.CNS ---
Date of Consult: 06/24/25 Chief Complaint: frequent falls History of Present Illness: Patient with PMH of CAD s/p CABG, PCI OM, presented to the hospital after he had a fall from a ladder, denies passing out, denies chest pain, no palpitations, no syncope. Allergies No Known Allergies Allergy (Verified 01/23/24 22:31) Home medications list reviewed: Yes Home Medications: Aspirin [Aspirin Regimen] 1 tab PO DAILY 08/02/23 Atorvastatin Calcium 80 mg PO BEDTIME 08/02/23 Fenofibrate,Micronized [Fenofibrate] 200 mg PO DAILY 08/02/23 Clopidogrel Bisulfate [Plavix*] 75 mg PO DAILY 30 Days #30 tab 01/26/24 Mirabegron [Mirabegron ER] 50 mg PO DAILY 11/14/24 Solifenacin [Vesicare*] 5 mg PO DAILY WITH BREAKFAST 11/14/24 Losartan Potassium 50 mg PO DAILY 06/23/25 Sertraline [Zoloft] 25 mg PO DAILY 06/23/25 - Past Medical/Surgical History Diabetic: Yes -: Hyperlipidemia -: DM type 1 -: [place] s/p CABG -: HTN -: prostate sx -: bladder sx -: pancreatic sx -: left knee sx -: CABG Psychosocial/ Personal History: Lives at home with his - Family History Mother Medical History: Heart disease - Social History Smoking Status: Unknown if ever smoked Alcohol use: No CD- Drugs: No Caffeine use: Yes Place of Residence: Home Review of Systems 10-point ROS is otherwise unremarkable Physical Examination Temp Pulse Resp BP Pulse Ox 97.7 F 59 16 139/75 99 06/24/25 12:00 06/24/25 12:00 06/24/25 12:00 06/24/25 12:00 06/24/25 12:00 General: Alert, In no apparent distress HEENT: Atraumatic, PERRLA, Mucous membr. moist/pink, EOMI, Sclerae nonicteric Neck: Supple, 2+ carotid pulse no bruit, No LAD, Without JVD or thyroid abnormality Respiratory: Clear to auscultation bilaterally, Normal air movement Cardiovascular: Regular rate/rhythm, Normal S1 S2 Gastrointestinal: Normal bowel sounds, No tenderness Musculoskeletal: No tenderness Integumentary: No rashes Neurological: Normal gait, Normal speech, Normal tone, Normal affect Lymphatics: No axilla or inguinal lymphadenopathy Laboratory Data (last 24 hrs) 06/23/25 11:42 Sodium 141 Potassium 3.9 BUN 22 H Creatinine 1.06 Glucose 142 H Magnesium 1.9 Total Bilirubin 0.6 AST 50 H ALT 31 Alkaline Phosphatase 88 - Problems (1) CAD (coronary artery disease) of artery bypass graft Current Visit: Yes Status: Acute Plan: patient with mild leak in troponin with no significant delta, denies chest pain continue ASA 81 mg daily continue Plavix 75 mg daily continue Lipitor 80 mg daily No further inpatient cardiac work up needed. (2) HLD (hyperlipidemia) Current Visit: No Status: Acute Plan: continue lipitor (3) HTN (hypertension) Current Visit: No Status: Acute Plan: BP is normal off medications, continue to hold and monitor.
--- NOTE | 2025-06-24 13:14 | P.PN ---
Date of Service: 06/24/25 Subjective Sleeping, awakens to touch no new complaints will need physical therapy evaluation prior to discharge d/t frequent falls ROS 10 point ROS as noted above, otherwise negative Physical Exam General: Alert and Oriented x3, NAD HEENT: Atraumatic Neck: Supple, 2+ carotid pulse no bruit Respiratory: Clear to auscultation bilaterally, Normal air movement Cardiovascular: Normal pulses, Regular rate/rhythm Gastrointestinal: Normal bowel sounds, Soft and benign Musculoskeletal: No clubbing Integumentary: No rashes Neurological: Normal speech, Normal tone Vitals Reviewed Problem list Mechanical fall 2/2 history of idopathic syncope vs right knee severe osteoarthritis of medial campartment with bone on bone CAD/ME s/p CABG/Stent Elevated troponin Diabetes mellitusIDDM Hyperlipidemia Hypertension Assessment and Plan Mechanical fall 2/2 history of idopathic syncope vs right knee severe osteoarthritis of medial campartment with bone on bone CAD/ME s/p CABG/Stent Elevated troponin -Orthostatics Vitals pending -ECHO ordered for Wednesday -Continuous telemetry -Troponin trended flat -Consult cardiology, no further recommendations -Continue daily baby aspirin and statin -TSH 1.420, A1C pending, lipid panel triglycerides 84, cholesterol 76, LDL 31, HDL 28 - Will need physical therapy recommendations prior to discharge Diabetes mellitusIDDM - Accu-Chek with sliding scale insulin - A1c in a.m. Hyperlipidemia Hypertension - Continue home medications as appropriate DVT PPx heparin Full code LOS 24-hour OBS Discharge Plan: Home Plan to discharge in: 2 days Time Spent Managing Pts Care (In Minutes): 35
[2025-06-25 06:13] LABS: Absolute Lymphocytes (CBC) 1.5 K/uL (0.7-4.9); Hematocrit 36.0 % (39.6-49.0); Hemoglobin 12.3 g/dL (13.6-17.9); MCH 33.9 pg (27.0-35.0); MCHC 34.2 g/dL (32.0-36.0); MCV 99.1 fL (80-100); MPV 6.7 fL (7.6-11.3); Nucleated RBC Absolute Count 0.0 (0-0); Nucleated Red Blood Cells % 0.1 % (0-0); RBC Red Blood Cell Count 3.63 M/uL (4.33-5.43); White Blood Count 4.00 thou/uL (4.3-10.9)
[2025-06-25 06:27] LABS: Anion Gap 6.7 mEq/L (5.0-15.0); BUN Blood Urea Nitrogen 17.0 mg/dL (7-18); Glucose Level 87.0 mg/dL (74-106); Magnesium 1.9 mg/dL (1.6-2.4); Potassium 3.7 mEq/L (3.5-5.1)
[2025-06-25] MEDS: CLOPIDOGREL 75 MG TABLET PO SCH (08:11)
--- NOTE | 2025-06-25 09:46 | P.PN ---
Subjective Date of Service: 06/25/25 Chief Complaint: frequent falls Subjective: No new changes, No C/O voiced, Tolerating diet, Ambulating, Improving Review of Systems 10-point ROS is otherwise unremarkable Physical Examination - Vital Signs Temperature: 97.8 F Blood Pressure: 141/80 Pulse: 55 Respirations: 18 Pulse Ox (%): 99 - Physical Exam General: Alert, In no apparent distress HEENT: Atraumatic, PERRLA, EOMI Neck: Supple, JVD not distended Respiratory: Clear to auscultation bilaterally, Normal air movement Cardiovascular: Regular rate/rhythm, Normal S1 S2 Gastrointestinal: Normal bowel sounds, No tenderness Musculoskeletal: No tenderness Integumentary: No rashes Neurological: Normal speech, Normal tone, Normal affect Lymphatics: No axilla or inguinal lymphadenopathy - Studies Medications List Reviewed: Yes Assessment And Plan - Current Problems (Diagnosis) (1) CAD (coronary artery disease) of artery bypass graft Current Visit: Yes Status: Acute Plan: patient with mild leak in troponin with no significant delta, denies chest pain continue ASA 81 mg daily continue Plavix 75 mg daily continue Lipitor 80 mg daily No further inpatient cardiac work up needed. (2) HLD (hyperlipidemia) Current Visit: No Status: Acute Plan: continue lipitor (3) HTN (hypertension) Current Visit: No Status: Acute Plan: BP is normal off medications, continue to hold and monitor. Cardiology will sign off, please call with any questions.
[2025-06-25] MEDS: POTASSIUM 25 MEQ EFFERV TAB PO ONE (13:40)
--- NOTE | 2025-06-25 19:35 | P.PN ---
Subjective Date of Service: 06/25/25 Chief Complaint: frequent falls Patient reports pain in his right shoulder No issues overnight. Blood pressure readings higher than before. Physical Examination - Vital Signs Temperature: 98 F Blood Pressure: 143/90 Pulse: 58 Respirations: 18 Pulse Ox (%): 98 - Studies Laboratory Data (last 24 hrs) 06/25/25 06/25/25 05:48 05:48 WBC 4.00 L Hgb 12.3 L Hct 36.0 L Plt Count 271 Sodium 141 Potassium 3.7 BUN 17 Creatinine 0.96 Glucose 87 Phosphorus 3.2 Magnesium 1.9 Medications List Reviewed: Yes Assessment And Plan - Plan Physical Exam General: Alert and Oriented x3, NAD Neck: Supple, 2+ carotid pulse no bruit Respiratory: Clear to auscultation bilaterally, Normal air movement Cardiovascular: Normal pulses, Regular rate/rhythm Gastrointestinal: Normal bowel sounds, Soft and benign Musculoskeletal: No clubbing Integumentary: No rashes Neurological: Normal speech, Normal tone Vitals Reviewed Problem list Mechanical fall 2/2 history of idopathic syncope vs right knee 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 No ACS Cardiology recommend no further workup Continue daily baby aspirin, Plavix and statin Patient evaluated by PT and recommended assistive device-front wheel walker for ambulation. Diabetes mellitusIDDM Accu-Chek with sliding scale insulin Hyperlipidemia Hypertension Continue home medications DVT PPx heparin Full code
--- NOTE | 2025-06-25 19:40 | P.DS ---
Admission Date: 06/25/25 Discharge Date: 06/25/25 Reason for Admission: frequent falls Brief History of Present Illness: 69 year old male with pmhx diabetes mellitus, [place] status post stent, CAD status post CABG, hyperlipidemia, hypertension, presented to the ED with chief complaint of fall injury. Patient states that he fell from 6 foot ladder after losing his footing and landing on his right shoulder yesterday and fell in the kitchen this morning. X-rays done in the emergency department showed no fracture but rather arthritic changes. at the bedside reports the patient has bone on bone to his right knee and cannot have a knee replacement as he has not been cleared by his balance truing inspector for the procedure. She reports that his bad right knee is causing him to fall. Patient was previously admitted for near syncopal episode in November 2024. He has known syncopal episode secondary to unknown etiology. At that time metoprolol was stopped due to bradycardia and he was cleared to follow-up with Dr. Spence for further workup and management. CT brain without contrast reports "No evidence of acute intracranial abnormality. No evidence of acute osseous abnormality of the cervical spine" CT chest abdomen pelvis with contrast reports "No acute abnormalities seen in t he chest, abdomen or pelvis." Right knee x-ray reports "Severe osteoarthritis of the medial compartment with [id number]. No acute fracture or dislocation. Mild soft tissue swelling seen about the patella" Right shoulder x-ray reports "FINDINGS: ACL and glenohumeral joint arthritic changes. No fracture or dislocation." Patient was hospitalized for further assessment and management. 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 No ACS Cardiology recommend no further workup Continued aspirin, Plavix and statin Patient evaluated by PT who recommended assistive device-front wheel walker for ambulation. DM type II Well-controlled. Hemoglobin A1c is 5.5. Hyperlipidemia Hypertension Continued home medications Vital Signs/Physical Exam: Temp Pulse Resp BP Pulse Ox 98 F 58 18 143/90 H 98 06/25/25 19:35 06/25/25 19:35 06/25/25 19:35 06/25/25 19:35 06/25/25 19:35 General: Alert, In no apparent distress, Oriented x3 HEENT: Mucous membr. moist/pink, Sclerae nonicteric Neck: Supple, JVD not distended Respiratory: Clear to auscultation bilaterally, Normal air movement Cardiovascular: No edema, Regular rate/rhythm, Normal S1 S2 Gastrointestinal: Normal bowel sounds, Soft and benign, Non-distended Integumentary: No rashes, No cyanosis Neurological: Normal strength at 5/5 x4 extr Laboratory Data at Discharge: WBC 4.00 thou/uL (4.3-10.9) L 06/25/25 05:48 Hgb 12.3 g/dL (13.6-17.9) L 06/25/25 05:48 Hct 36.0 % (39.6-49.0) L 06/25/25 05:48 Plt Count 271 thou/uL (152-406) 06/25/25 05:48 PT 12.9 SECONDS (10-13.0) 06/23/25 11:42 INR 1.15 06/23/25 11:42 APTT 31.6 SECONDS (27.2-37.4) 06/23/25 11:42 Sodium 141 mEq/L (136-145) 06/25/25 05:48 Potassium 3.7 mEq/L (3.5-5.1) 06/25/25 05:48 BUN 17 mg/dL (7-18) 06/25/25 05:48 Creatinine 0.96 mg/dL (0.70-1.30) 06/25/25 05:48 Glucose 87 mg/dL (74-106) 06/25/25 05:48 Phosphorus 3.2 mg/dL (2.5-4.9) 06/25/25 05:48 Magnesium 1.9 mg/dL (1.6-2.4) 06/25/25 05:48 Total Bilirubin 0.6 mg/dL (0.2-1.0) 06/23/25 11:42 AST 50 U/L (15-37) H 06/23/25 11:42 ALT 31 U/L (16-61) 06/23/25 11:42 Alkaline Phosphatase 88 U/L (45-117) 06/23/25 11:42 Triglycerides 84 mg/dL (<150) 06/24/25 05:02 Cholesterol 76 mg/dL (<200) 06/24/25 05:02 HDL Cholesterol 28 mg/dL (40-60) L 06/24/25 05:02 Cholesterol/HDL Ratio 2.71 06/24/25 05:02 Home Medications: Aspirin [Aspirin Regimen] 1 tab PO DAILY 08/02/23 Atorvastatin Calcium 80 mg PO BEDTIME 08/02/23 Fenofibrate,Micronized [Fenofibrate] 200 mg PO DAILY 08/02/23 Clopidogrel Bisulfate [Plavix*] 75 mg PO DAILY 30 Days #30 tab 01/26/24 Mirabegron [Mirabegron ER] 50 mg PO DAILY 11/14/24 Solifenacin [Vesicare*] 5 mg PO DAILY WITH BREAKFAST 11/14/24 Losartan Potassium 50 mg PO DAILY 06/23/25 Sertraline [Zoloft*] 25 mg PO DAILY 06/23/25 Hydrocodone 5/APAP 325 [[place] 5/325*] 1 tab PO Q4H PRN #12 tab 06/25/25 New Medications: Hydrocodone 5/APAP 325 [[place] 5/325*] 1 tab PO Q4H PRN #12 tab PRN Reason: Pain Scale 5-7 (Moderate) Diet: AHA Activity: Fall precautions Followup: Senait Ragsdale MD [Primary Care Provider] - 1-2 Weeks Time spent managing pt's care (in minutes): 36
[2025-06-26 06:34] LABS: Absolute Lymphocytes (CBC) 1.5 K/uL (0.7-4.9); Hematocrit 35.6 % (39.6-49.0); Hemoglobin 12.2 g/dL (13.6-17.9); MCH 33.8 pg (27.0-35.0); MCHC 34.2 g/dL (32.0-36.0); MCV 98.9 fL (80-100); MPV 6.4 fL (7.6-11.3); Nucleated RBC Absolute Count 0.0 (0-0); Nucleated Red Blood Cells % 0.1 % (0-0); RBC Red Blood Cell Count 3.60 M/uL (4.33-5.43); White Blood Count 4.20 thou/uL (4.3-10.9)
[2025-06-26 06:48] LABS: Anion Gap 5.9 mEq/L (5.0-15.0); BUN Blood Urea Nitrogen 14.0 mg/dL (7-18); Glucose Level 90.0 mg/dL (74-106); Magnesium 2.0 mg/dL (1.6-2.4); Potassium 3.9 mEq/L (3.5-5.1)
[2025-06-26] MEDS: FENOFIBRATE MICRONIZED 200 MG PO SCH (08:11)
[2025-06-26] MEDS: MIRABEGRON 50 MG PO SCH (08:12)
[2025-06-26] MEDS: POTASSIUM CL SA 10 MEQ TAB PO ONE (08:12)
[2025-06-26] MEDS: TROSPIUM CHLORIDE 20 MG TABLET PO SCH (09:39)
--- NOTE | 2025-06-26 09:42 | P.DS ---
Admission Date: 06/25/25 Discharge Date: 06/26/25 Disposition: ROUTINE DISCHARGE Discharge Condition: GOOD Reason for Admission: frequent falls Consultations: Cardiology - Dr. Velásquez Brief History of Present Illness: 69 yo M, PMH: diabetes mellitus, SC status post stent, CAD status post CABG, hyperlipidemia, hypertension Patient presents to the ED with chief complaint of fall injury yesterday, fell from 6 foot ladder after losing his footing and landing on his right shoulder yesterday and fell in the kitchen this morning. Recurrently reports right shoulder and right knee pain with x-rays showing arthritic changes. 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 She reports that his bad right knee is causing him to fall. Patient was previously admitted for near syncopal episode in November 2024. He has known syncopal episode secondary to unknown etiology. At that time metoprolol was stopped due to bradycardia and he was cleared to follow-up with Dr. Spence for further workup and management. CT brain without contrast reports "No evidence of acute intracranial abnormality. No evidence of acute osseous abnormality of the cervical spine" CT chest abdomen pelvis with contrast reports "No acute abnormalities seen in the chest, abdomen or pelvis." Right knee x-ray reports "Severe osteoarthritis of the medial compartment with [id number]. No acute fracture or dislocation. Mild soft tissue swelling seen about the patella" Right shoulder x-ray reports "FINDINGS: ACL and glenohumeral joint arthritic changes. No fracture or dislocation." Artem will be admitted to hospitalist service for further evaluation of frequent falls. 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 CT head/spine was negative. CT chest/abdomen/pelvis was negative for any acute findings. Xray of the right shoulder was negative for any fractures or dislocations. Right knee xray noted severe osteoarthritis of the medial compartment with [id number]. No acute fracture or dislocation. Family at bedside reported that they were planning on looking into possible knee replacement however needed to be cleared by cardiology prior to the procedure. Troponins were noted to be mildly elevated on admission but trended flat. Peaked at 65.4 Echocardiogram was done this hospitalization, pending official report. Cardiology was consulted and felt there was no indications for warrant further inpatient evaluation. Consider following up with cardiology in near future for further management / consideration of event monitor Patient was evaluated by physical therapy who recommended front wheel walker for assisted ambulation. Medications: hydrocodone for pain Follow up: PCP 3-5 days Cardiology in 2-4 weeks Ortho in near future Please call to schedule / confirm appointments Physical Exam: Gen: Alert, Oriented, NAD CV: Regular rate and rhythm, no edema Pulm: Nonlabored respirations on room air, clear bilaterally Abdomen: Soft, nontender, nondistended Neuro: Normal strength, normal affect Vital Signs/Physical Exam: Temp Pulse Resp BP Pulse Ox 97.8 F 56 16 127/79 96 06/26/25 08:00 06/26/25 08:00 06/26/25 08:00 06/26/25 08:00 06/26/25 08:00 Laboratory Data at Discharge: WBC 4.20 thou/uL (4.3-10.9) L 06/26/25 06:15 Hgb 12.2 g/dL (13.6-17.9) L 06/26/25 06:15 Hct 35.6 % (39.6-49.0) L 06/26/25 06:15 Plt Count 272 thou/uL (152-406) 06/26/25 06:15 PT 12.9 SECONDS (10-13.0) 06/23/25 11:42 INR 1.15 06/23/25 11:42 APTT 31.6 SECONDS (27.2-37.4) 06/23/25 11:42 Sodium 139 mEq/L (136-145) 06/26/25 06:15 Potassium 3.9 mEq/L (3.5-5.1) 06/26/25 06:15 BUN 14 mg/dL (7-18) 06/26/25 06:15 Creatinine 0.91 mg/dL (0.70-1.30) 06/26/25 06:15 Glucose 90 mg/dL (74-106) 06/26/25 06:15 Phosphorus 3.1 mg/dL (2.5-4.9) 06/26/25 06:15 Magnesium 2.0 mg/dL (1.6-2.4) 06/26/25 06:15 Total Bilirubin 0.6 mg/dL (0.2-1.0) 06/23/25 11:42 AST 50 U/L (15-37) H 06/23/25 11:42 ALT 31 U/L (16-61) 06/23/25 11:42 Alkaline Phosphatase 88 U/L (45-117) 06/23/25 11:42 Triglycerides 84 mg/dL (<150) 06/24/25 05:02 Cholesterol 76 mg/dL (<200) 06/24/25 05:02 HDL Cholesterol 28 mg/dL (40-60) L 06/24/25 05:02 Cholesterol/HDL Ratio 2.71 06/24/25 05:02 Home Medications: Aspirin [Aspirin Regimen] 1 tab PO DAILY 08/02/23 Atorvastatin Calcium 80 mg PO BEDTIME 08/02/23 Fenofibrate,Micronized [Fenofibrate] 200 mg PO DAILY 08/02/23 Clopidogrel Bisulfate [Plavix*] 75 mg PO DAILY 30 Days #30 tab 01/26/24 Mirabegron [Mirabegron ER] 50 mg PO DAILY 11/14/24 Solifenacin [Vesicare*] 5 mg PO DAILY WITH BREAKFAST 11/14/24 Losartan Potassium 50 mg PO DAILY 06/23/25 Sertraline [Zoloft*] 25 mg PO DAILY 06/23/25 Hydrocodone 5/APAP 325 [[place] 5/325*] 1 tab PO Q4H PRN #12 tab 06/25/25 New Medications: Hydrocodone 5/APAP 325 [[place] 5/325*] 1 tab PO Q4H PRN #12 tab PRN Reason: Pain Scale 5-7 (Moderate) Physician Discharge Instructions: Physician discharge instructions: Patient presented to the ED with right shoulder and right knee pain after falling from 6ft ladder at home after he lost his balance. CT head/spine was negative. CT chest/abdomen/pelvis was negative for any acute findings. Xray of the right shoulder was negative for any fractures or dislocations. Right knee xray noted severe osteoarthritis of the medial compartment with [id number]. No acute fracture or dislocation. Family at bedside reported that they were planning on looking into possible knee replacement however needed to be cleared by cardiology prior to the procedure. Troponins were noted to be mildly elevated on admission but trended flat. Peaked at 65.4 Echocardiogram was done this hospitalization, pending official report. Cardiology was consulted and felt there was no indications for warrant further inpatient evaluation. Consider following up with cardiology in near future for further management / consideration of event monitor Patient was evaluated by physical therapy who recommended front wheel walker for assisted ambulation. Medications: hydrocodone for pain Follow up: PCP 3-5 days Cardiology in 2-4 weeks Ortho in near future Please call to schedule / confirm appointments Diet: AHA Activity: Fall precautions Followup: Senait Ragsdale MD [Primary Care Provider] - 1-2 Weeks Time spent managing pt's care (in minutes): 45
[2025-06-26 11:57] VITALS: O2SAT 96
[2025-06-26 12:00] VITALS: BP 125/76; TEMP 98.3
== END 2025-06-26 12:50 | disposition home or self-care (01) | DRG 554 ==
LOC: ER 11:02 → 4TH 15:07 → OBSVTOIN 06-25 10:31
PROVIDERS: ADMIT Internal Medicine; ATTEND Hospitalist
DX: M17.11 Unilateral primary osteoarthritis, right knee (principal); E78.5 Hyperlipidemia, unspecified; I10 Essential (primary) hypertension; E11.9 Type 2 diabetes mellitus without complications; I25.2 Old myocardial infarction; I25.10 Atherosclerotic heart disease of native coronary artery without angina pectoris; R79.89 Other specified abnormal findings of blood chemistry; R29.6 Repeated falls; Z95.1 Presence of aortocoronary bypass graft; Z95.5 Presence of coronary angioplasty implant and graft; Z91.81 History of falling; Z79.82 Long term (current) use of aspirin; Z85.46 Personal history of malignant neoplasm of prostate; Z79.02 Long term (current) use of antithrombotics/antiplatelets; Z79.899 Other long term (current) drug therapy; W11.XXXA Fall on and from ladder, initial encounter; Y93.89 Activity, other specified; Y99.9 Unspecified external cause status; Y92.010 Kitchen of single-family (private) house as the place of occurrence of the external cause
CPT/HCPCS: 36415; 70450; 71260; 72125; 74177; 80048; 80061; 80076; 82947; 83036; 83735; 84100; 84443; 84484; 85025; 85610; 85730; 93005; 93306; 96360; 97116; 97161; 99285; G0378; J1644; J7030; J7040; Q9967